=== PATIENT | male | born 1955 | race Caucasian/White ===

== ENCOUNTER 2017-12-20 04:21 | Observation (INO) | payer OTHER, SELFPAY ==
[2017-12-20] VITALS (8 sets, daily range): BP systolic 91–105; BP diastolic 62–74; PULSE 59–106; RESP 16–20; TEMP 36.4–36.7; O2SAT 96–97; BMI 27.8; BMI 27.3
--- NOTE | 2017-12-20 04:36 | EKG12_ITS ---
Test Reason : PALPS Blood Pressure : / mmHG Vent. Rate : 111 BPM Atrial Rate : 088 BPM P-R Int : 000 ms QRS Dur : 094 ms QT Int : 302 ms P-R-T Axes : 000 060 062 degrees QTc Int : 410 ms Atrial fibrillation Abnormal ECG Confirmed by ERROL MCKEON ([id number]), art editor DAYANA PEREZ ([id number]) on 12/24/2017 1:15:04 PM Referred By: ALDAIR Confirmed By:ERROL MCKEON
--- NOTE | 2017-12-20 04:37 | RAD_ITS ---
STUDY: X-RAY CHEST REASON FOR EXAM: Male, 62 years old. Syncope TECHNIQUE: Frontal and lateral views of the chest. COMPARISON: None. FINDINGS: The lungs are clear and expanded. There is no demonstrated pleural abnormality. Normal size heart. Normal mediastinum and torsten. Normal visualized pulmonary arteries. Normal visualized aortic arch and descending thoracic aorta. Normal visualized thoracic spine. Remote rib trauma. There is no demonstrated abnormality of the visualized soft tissue structures of the upper abdomen. RAD/Chest PA and Lateral IMPRESSION: No acute pulmonary findings. Electronically Signed: Cam Nagel MD at 5:00 EST Tel , Service support ,
[2017-12-20 04:45] LABS: Absolute Lymphocyte Count 2.09 X10^3/ul (0.83-4.51); Absolute Neutrophil Count 3.9 X10^3/uL (2.0-7.7); Basophil# 0.03 X10^3/uL; Basophil% 0.4 % (0-1); Eosinophil# 0.35 X10^3/uL; Eosinophils% 4.8 % (0-5); Hematocrit 45.5 % (40-54); Hemoglobin 15.5 g/dl (13.0-16.5); Lymphocyte # 2.09 X10^3/ul (4.0); Lymphocyte % 28.8 % (19-41); Mean Corp Hgb Conc 34.1 g/gl (32-36); Mean Corpuscular Hgb 31.4 pg (27.0-32.0); Mean Corpuscular Volume 92.3 fL (80-94); Mean Platelet Vol. 9.9 fl (6.2-12.0); Monocyte# 0.89 X10^3/uL; Monocyte% 12.3 % (0-10); Neutrophil # 3.88 X10^3/uL (2.7-7.7); Neutrophil % 53.6 % (47-70); Platelet Count 236 K/mm3 (150-450); RBC Distribution Width CV 12.6 % (11.6-14.6); RBC Distribution Width SD 42.2 fl (35.1-43.9); Red Blood Count 4.93 M/mm3 (4.6-6.2); White Blood Count 7.3 K/mm3 (4.4-11.0)
[2017-12-20] MEDS: Aspirin 81 MG TAB.CHEW 324 MG PO (04:46)
[2017-12-20 04:56] LABS: POSITIVE COUNT NO; POSITIVE DIFFERENTIAL NO; POSITIVE MORPHOLOGY NO
[2017-12-20 05:01] LABS: Anion Gap 8 (5-15); BUN 21 mg/dL (7-18); BUN/Creat Ratio 18.1 RATIO (10-20); Calcium,Total 8.7 mg/dL (8.5-10.1); Chloride 103 mmol/L (98-107); Creatinine, Serum 1.16 mg/dL (0.70-1.30); EST Glomerular Filtration Rate 67 mL/min (>60); Est Glom Filt Rate - Afr Amer 81 mL/min (>60); Estimated Creatinine Clearance 66.43 ml/min; Glucose 119 mg/dL (74-106); Potassium 3.4 mmol/L (3.5-5.1); Sodium Level 139 mmol/L (136-145)
--- NOTE | 2017-12-20 05:32 | ED.VISSUMM ---
- ER Visit Summary Date of Service: 12/20/17 Chief Complaint: Syncope History of Present Illness: The patient is a 62 M presenting for evaluation secondary to syncope. Patient states that he woke up this evening and urinated. While he was urinating he started to have a feeling of nausea. He finished urinating try to walk back to his bed and suffered an episode where he passed out. Patient states it was preceded by palpitations. Patient states that he is continuing to have palpitations. Denies any chest pain or shortness of breath. Denies any cardiac history, but does state that he has a prior history of palpitations but he takes an as needed beta-[place] 4. These episodes typically last 12 hours or less and did not seem to be inducible. Patient states that he has not felt ill recently no fevers chills weight loss nausea vomiting cough diarrhea or any other infectious signs or symptoms. Review of systems otherwise negative. Physical Examination: Vital signs are within normal limits, patient is afebrile. General: Patient is well-nourished well-developed and in no acute distress. Head: Normocephalic, atraumatic Eyes: Pupils equal round and reactive bilaterally, extra occular motion intact bialterally ENT: Moist mucous membranes Neck: Supple, no lymphadenopathy, no JVD, no meningismus CVS: Heart irregularly irregular with mild tachycardia, no murmurs, rubs or gallops, radial pulses 2+ bilaterally Resp: Respirations nondistressed, lung sounds clear bilaterally Abdomen: Soft, nontender, nondistended, no palpable masses, normal bowel sounds Back: Nontender Extremities: Nontender, atraumatic, active full range of motion, no peripheral edema Skin: warm, no rashes, no petechia Neuro: Alert and oriented x 4, CN 2-12 intact, no lateralizing neurological defecits Psyc: Normal affect Test Results: EKG demonstrates new onset atrial fibrillation with a ventricular rate of 111, isoelectric ST segments normal T waves. CBC chemistry troponin unremarkable. PA and lateral chest x-ray per radiology negative. Emergency Department Course and Treatment: Patient presented secondary to a syncopal episode. Patient's episode really sounds like micturition syncope, but his workup uncovered the fact that he is in new onset atrial fibrillation. Remainder of his workup was otherwise unremarkable and currently he is rate controlled between 90 and 100. Per the [place] syncope study the patient does require admission at this time. Patient will be admitted for cardiology evaluation for new onset A. fib and syncope. Disposition: Admission Impression: 1. Syncope 2. New onset atrial fibrillation This note was generated with [employer] [place] dictation software. It may contain incorrect words, spelling, and punctuation that were not noted in review of the chart prior to signing ED Disposition - Plan for ED Patient: Chief Complaint: Syncope Referrals: Anatoly Guillermo III, MD [Primary Care Provider] -
--- NOTE | 2017-12-20 05:49 | HP.PCM_ITS ---
Problem List (1) Syncope Status: Acute Qualifiers: Syncope type: unspecified Qualified Code(s): R55 - Syncope and collapse (2) Paroxysmal A-fib Status: Chronic History of Present Illness Date of Admission: 12/20/17 Chief Complaint: Syncope this am The patient is a 62 year old M with past medical history of paroxysmal atrial fibrillation, on atenolol, comes in a syncopal episode. Patient woke up this morning at 3 AM to go use the bathroom downstairs, he felt nauseous after urinating, and decided to come upstairs into his bed. His had a fall down face flat in the room. She rushed to him, and it took a while for him to respond but when he did, he was not confused, no seizure-like movement seen. There was no incontinence of urine or stool seen. Vitals in the ED were stable with HR 106. Labs were unremarkable except for hypokalemia. EKG showed Atrial fibrillation. Past Medical History Past Medical History (Chronic Problems): Chronic Problems Paroxysmal A-fib (Chronic) Allergies No Known Allergies Allergy (Verified 12/20/17 04:24) Home Medications: Ambulatory Orders Medication Instructions Recorded Atenolol 50 mg PO PRN PRN 12/20/17 Psychiatric History: No pertinent psych hx Lives: Spouse/ Significant Other Smoking Status: Never smoker Tobacco Use: Non-smoker Alcohol: None Drugs: None - *Family History Maternal History Items: Hypertension Paternal History Items: Heart Disease Review of Systems Constitutional: Denies: Anorexia, Chills, Fever, Night Sweats, Weakness, Weight Change Eyes: Denies: Blurred vision, Cataracts, Conjunctivae Inflammation, Double vision HEENT: Denies: Difficulty Hearing, Difficulty Swallowing, Head Aches, Sinus Congestion, Sinus Drainage, Sore Throat Cardiovascular: Reports: Light Headedness. Denies: Chest Pain, Claudication, Orthopnea, Palpitations, Paroxysmal Noc. Dyspnea Respiratory: Denies: Cough, Hemoptysis, Shortness of Breath, Shortness of breath at rest, Shortness of breath upon exertion, Sputum production Gastrointestinal: Denies: Abdominal Pain, Constipation, Nausea, Vomiting Genitourinary: Denies: Dysuria, Frequency Musculoskeletal: Denies: Joint Pain, Joint stiffness, Joint swelling, Joint Tenderness Skin: Denies: Dryness, Jaundice, Rash, Wounds Neurological: Denies: Difficulty swallowing, Focal weakness, Numbness, Tingling Psychiatric: Denies: Anxiety, Depression, Homicidal Ideations, Suicidal Ideations Hematologic/ Lymphatic: Denies: Easy Bruising, Easy Bleeding VTE Information - Inpt Only VTE Present on Admission: No VTE Pharm Prophylaxis ordered?: Yes Patient Problems: Active and Suspected Problems Syncope (Acute) - Physical Exam General: Alert, Oriented x3, Cooperative, No apparent distress HEENT: Atraumatic, PERRLA, EOMI, Normocephalic Neck: Supple Lungs: Clear to auscultation, Normal air movement Cardiovascular: Normal S1, Normal S2, No murmurs, Irregular Rate Abdomen: Bowel Sounds Present, Soft, Non Tender, Non-Distended, No Hepato- splenomegaly Extremities: No edema Skin: No rashes Musculoskeletal: No Tenderness to Palpation of Joints or Extremities Neurological: Cranial nerves II-XII grossly intact, Motor Exam 5/5 strength throughout Psych/Mental Status: Normal Affect, Appropriate Vital Signs Temp Pulse Resp BP Pulse Ox 97.5 F L 106 H 17 94/69 97 12/20/17 04:26 12/20/17 04:26 12/20/17 04:26 12/20/17 04:26 12/20/17 04:26 Oxygen Flow Rate 2 Oxygen Delivery Method Nasal Cannula Weight: 88 kg Body Mass Index (BMI) 27.8 Laboratory Tests Past 24 Hrs 12/20/17 12/20/17 04:30 04:30 WBC 7.3 RBC 4.93 Hgb 15.5 Hct 45.5 MCV 92.3 MCH 31.4 MCHC 34.1 RDW 12.6 RDW Differential 42.2 Plt Count 236 MPV 9.9 Immature Gran % (Auto) 0.100 Neut % (Auto) 53.6 Lymph % (Auto) 28.8 [place] % (Auto) 12.3 H Eos % (Auto) 4.8 Baso % (Auto) 0.4 Absolute Neuts (auto) 3.9 Absolute Lymphs (auto) 2.09 Total Counted Not Reportable Sodium 139 Potassium 3.4 L Chloride 103 Carbon Dioxide 28.0 Anion Gap 8 BUN 21 H Creatinine 1.16 Estim Creat Clear Calc 66.43 Est GFR (MDRD) Af Amer 81 Est GFR (MDRD) Non-Af 67 BUN/Creatinine Ratio 18.1 Glucose 119 H Calcium 8.7 Troponin I < 0.02 Assessment/Plan Active and Suspected Problems Syncope (Acute) 62 year old M with past medical history of paroxysmal atrial fibrillation, on atenolol, comes in a syncopal episode. 1. Syncope, likely vasovagal, patient had it after micturition, no significant medical history except for paroxysmal atrial fibrillation, vitals are stable, EKG shows A. fib rate controlled, labs are unremarkable except for hypokalemia Plan: Admit to PCU, monitor on telemetry, vitals, IV fluids, in a.m. 2. Atrial fibrillation, paroxysmal, CHADS2 score 0-1, on atenolol, cardiology consult, aspirin 81mg po daily. 3. Hypokalemia, replaced, recheck in a.m. 4. DVT PPx - Lovenox SC Code Visit Inpatient E&M: 74406 Init Hosp L3
--- NOTE | 2017-12-20 06:17 | ECHOCS_ITS ---
Reason For Study: Syncope/Near Syncope Procedure This was a 2D Doppler, Color Flow transthoracic echocardiogram. Exam performed portable in patient room. Left Ventricle Normal size and thickness. The estimated ejection fraction is 65 %. Normal diastology for age. No regional wall motion abnormalities noted. Right Ventricle Normal size and thickness. Normal systolic function. Atria Normal left atrium. Normal right atrium. Normal atrial septum. Mitral Valve The mitral valve is structurally normal. No prolapse or stenosis seen. Tricuspid Valve Normal tricuspid valve. Trivial tricuspid valve insufficiency. Right ventricular systolic pressure estimated to be 23 mmHg. Aortic Valve Normal aortic valve. Trisinus/trileaflet aortic valve. Pulmonic Valve Normal pulmonic valve. Trivial eccentric pulmonic valve insufficiency. Great Vessels Normal aortic root. Normal arch. Normal inferior vena cava. Inferior vena cava collapse with sniff. Pericardium/Pleural No pericardial effusion. Medication Definity0.3ml given slow IV push to enhance endocardial definition. MMode/2D Measurements & Calculations LVIDd: 4.4 cm IVSd: 0.85 cm Ao root diam: 2.9 cm LVIDs: 3.1 cm LVPWd: 0.95 cm LA dimension: 3.1 cm RVDd: 3.9 cm FS: 29.1 % LAV(MOD-bp): 29.8 ml LA A4 area: 11.6 cm2 RA A4 area: 11.6 cm2 LAV(MOD-bp) Indexed: 14.5 ml/m2 LAV(MOD-sp2): 34.9 ml LAV(MOD-sp4): 26.1 ml Doppler Measurements & Calculations MV E max jayro: 56.6 cm/sec Lat Peak E' Jayro: 9.4 cm/sec Med Peak E' Jayro: 7.0 cm/sec E/E' lat: 6.0 E/E' med: 8.0 Ao V2 max: 94.4 cm/sec LV V1 max: 76.0 cm/sec PA V2 max: 65.8 cm/sec Ao max P.6 mmHg LV V1 max P.3 mmHg Ao V2 mean: 71.9 cm/sec Ao mean P.2 mmHg Ao V2 VTI: 21.9 cm TR max jayro: 196.6 cm/sec TR max P.5 mmHg Interpretation Summary The estimated ejection fraction is 65 %. Normal diastology for age. Trivial tricuspid valve insufficiency. Right ventricular systolic pressure estimated to be 23 mmHg. There is no comparison study available. The study was technically difficult. Contrast injection was performed. Ordering Physician: Naomi Damico Referring Physician: Anatoly Guillermo Performed By: Kezia Lebron RDCS, RVT
[2017-12-20 06:44] LABS: Thyroid Stim Hormone (TSH) 4.14 uIU/mL (0.358-3.74)
[2017-12-20] MEDS: 0.9% Normal Saline 1,000 ML 75 ML IV (06:49)
--- NOTE | 2017-12-20 07:39 | EKG12_ITS ---
Test Reason : RETURN TO NSR Blood Pressure : / mmHG Vent. Rate : 059 BPM Atrial Rate : 059 BPM P-R Int : 124 ms QRS Dur : 092 ms QT Int : 412 ms P-R-T Axes : 017 030 051 degrees QTc Int : 407 ms Sinus bradycardia Otherwise normal ECG When compared with ECG of 20-DEC-2017 04:33, MANUAL COMPARISON REQUIRED, DATA IS UNCONFIRMED Confirmed by ERROL MCKEON ([id number]), associate entertainment editor DAYANA PEREZ ([id number]) on 12/24/2017 2:28:42 PM Referred By: BERNARDO Confirmed By:ERROL MCKEON
--- NOTE | 2017-12-20 09:53 | STEWCON_ITS ---
Reason For Study: Palpitations Stress Results Protocol: Chaitanya Protocol Maximum Predicted HR: 156 bpm Target HR: 133 bpm% Max imum Predicted HR: 95 % DurationHeart Rate Stage (mm:ss) (bpm) BP Baseline 60 102/80 Stage 1 3:00 10 3 118/70 Stage 2 3:00 13 1 142/60 Stage 3 2:00 14 8 / Recovery 91 114/82 Stress Duration: 8:00 mm:ss Maximum Stress HR: 148 bpm Baseline Echocardiogram Findings The estimated ejection fraction is 65 %. Stress Echo Wall motion Data Resting WMIntermediate WMStress WM Resting Wall Motion Wall Motion Stress No regional wall motion No regional wall motion abnormalities noted. abnormalities noted. EKG Data Normal intervals are noted. The patient exercised according to the regular Chaitanya protocol for a total duration of 8:00. The maximum heart rate attained was 148 beats per minute. This was 94% of maximum predicted heart rate. The patient exercised into stage 3 of the Chaitanya protocol. During stress, there were no ST or T wave changes noted to suggest ischemia. No clinical angina was noted. No arrhythmias noted. Interpretation Summary There is no comparison study available. The estimated ejection fraction is 65 %. Normal adequate treadmill echocardiogram. Negative for ischemia by EKG and echocardiographic anterior. No anginal symptoms noted. No arrhythmias noted. Appropriate blood pressure response to exercise. Below average exercise capacity for age. Test terminated due to attainment of target heart rate. Patient tolerated procedure well. No complications. Ordering Physician: Charles Feldman Referring Physician: Charles Feldman MD Performed By: Terri Velez, MARVIN, RVT
--- NOTE | 2017-12-20 11:42 | PCM.CONS.C ---
Problem List (1) Syncope Status: Acute Qualifiers: Syncope type: unspecified Qualified Code(s): R55 - Syncope and collapse (2) Paroxysmal A-fib Status: Chronic Reason for Consult Date of Consultation: 12/20/17 Reason for Consultation: Syncope, paroxysmal atrial fibrillation, hypertension History of Present Illness: The patient is a 62 year old M, nondiabetic, no previous cardiac history, no tobacco, no alcohol, with positive hypertension and A. fib in the past. The patient was placed on atenolol therapy but he took it intermittently. Patient has never had a stress test or catheterization. 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 Apparently last evening while the patient was going to the bathroom and urinating a copious amount due to a markedly full bladder, the patient developed nausea, dizziness, and almost made it back to bed before he passed out. According to his who was next to him he was out for about 2-3 minutes and then spontaneously awoke and was completely lucid. He had associated diaphoresis, looked pale, and has never passed out before. The patient was brought to the [facility] ER where he was found to be in atrial fibrillation with rapid ventricular response. Overnight he converted back to normal sinus rhythm. Patient denied any associated chest pain, angina, shortness of breath or dyspnea. He has never seen a urologist and has unknown BPH. He ruled out for myocardial infarction with troponins negative ?2. Stress echo is pending. [] Past Medical History Allergies/Adverse Reactions: Allergies No Known Allergies Allergy (Verified 12/20/17 06:24) Home Medications: Ambulatory Orders Medication Instructions Recorded Atenolol 50 mg PO PRN PRN 12/20/17 Past Medical History (Chronic Problems): Chronic Problems Paroxysmal A-fib (Chronic) Psychiatric History: No pertinent psych hx - *Family History Maternal History Items: Hypertension Paternal History Items: Heart Disease Lives: Spouse/ Significant Other Smoking Status: Never smoker Tobacco Use: Non-smoker Alcohol: None Drugs: None Review of Systems - Review of Systems General: Denies: Fever, Night Sweats, Fatigue Cardiovascular: Reports: Palpitations, Lightheadedness, Dizziness, Syncope. Denies: Chest Discomfort, Shortness of Breath, Orthopnea, PND, Peripheral Edema, Near Syncope Respiratory: Denies: Cough, Sputum Production, Hemoptysis Gastrointestinal: Denies: Hematemesis, Hematochezia, Melena Genitourinary: Denies: Dysuria, Hematuria Skin: Denies: Rash Subjectve: Patient laying in bed, no acute distress. Objective: Vital Signs Temp Pulse Resp BP Pulse Ox 97.8 F 81 16 91/65 96 12/20/17 06:20 12/20/17 11:02 12/20/17 06:20 12/20/17 06:36 12/20/17 06:20 Oxygen Delivery Method Room Air Weight: 190 lb 4.143 oz Body Mass Index (BMI) 27.3 Orthostatic Vital Signs Start: 12/20/17 06:36 Freq: q24h Status: Active Protocol: Activity Type Activity Date Activity User E-Sign Co-Sign Detail Recorded Client Recorded Date Recorded By Document 12/20/17 06:36 [facility] [id number] 12/20/17 06:39 RICHARD 12/20/17 06:36 Orthostatic Vitals Standing -Blood Pressure (90/60-120/80) 101/67 -Extremity Use Right Arm -Pulse Rate (60-100) 105 H Sitting -Blood Pressure (90/60-120/80) 105/63 -Extremity Use Right Arm -Pulse Rate (60-100) 101 H Lying -Blood Pressure (90/60-120/80) 91/65 -Extremity Use Right Arm -Pulse Rate (60-100) 93 General: Awake, Alert, Oriented x 3 HEENT: PERRL, EOMI, Sclera Non Icteric Neck: Supple, Good ROM, No Lymph Node Enlargement Lungs: Clear to auscultation Cardiovascular: Regular Rhythm, Normal S1, Normal S2, No Murmurs, No Rubs, No Gallops Vascular: No Carotid Bruits, Normal Femoral Pulses, Normal Radial Pulses, Normal Dorsalis Pedal Pulse, Normal Posterior Tibial Pulses Abdomen: Bowel Sounds Present, Soft, Non Tender, No HSM, No Organomegaly Extremities: No Cyanosis, No Clubbing, No edema Neurological: No Focal Motor or Sensory Deficit 12/20/17 08:20: Troponin I < 0.02 Rhythm: EKG: ECHO: Pending Stress Test: Pending Cardiac Cath: PCI: CT Surgery: Holter monitor: EPS: PPM: CXR: Chest CT Scan: Assessment/Plan 1. Syncope: The patient appears to have micturition syncope last evening combined with atrial fibrillation post syncope. The patient does have a history of atrial fibrillation in the past. He is currently in normal sinus rhythm. I recommend the patient undergo a 2D echo with Doppler to document his LV function, as well as a treadmill echocardiogram to determine if he has any significant ischemia or poor chronotropic response to exercise. I would recommend that he be started and maintained on atenolol 25 mg p.o. daily to avoid neurocardiogenic syncope as well as to hopefully suppress atrial fibrillation in the future. The patient's stress test and echo are within normal limits he may be discharged home. I would not recommend anticoagulation for this alone atrial fibrillation particularly in light of his syncope. In addition I recommend the patient consider evaluation by urologist for possible BPH given his urinary retention and micturition syncope. 2. Hyperlipidemia: Recommend obtaining a fasting lipid profile if not already done so. Recommend treating his LDL of greater than 130. 3. Thank you very much for the opportunity to precipitate the cardiac care of your patient. Consultation time took place between 9 AM and 9:30 AM. Code Visit Inpatient E&M: 26167 Init Hosp L2
--- NOTE | 2017-12-20 11:49 | CON.PCM_ITS ---
Problem List (1) Syncope Status: Acute Qualifiers: Syncope type: unspecified Qualified Code(s): R55 - Syncope and collapse (2) Paroxysmal A-fib Status: Chronic Reason for Consult Date of Consultation: 12/20/17 Reason for Consultation: Syncope, paroxysmal atrial fibrillation, hypertension History of Present Illness: The patient is a 62 year old M, nondiabetic, no previous cardiac history, no tobacco, no alcohol, with positive hypertension and A. fib in the past. The patient was placed on atenolol therapy but he took it intermittently. Patient has never had a stress test or catheterization. 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 Apparently last evening while the patient was going to the bathroom and urinating a copious amount due to a markedly full bladder, the patient developed nausea, dizziness, and almost made it back to bed before he passed out. According to his who was next to him he was out for about 2-3 minutes and then spontaneously awoke and was completely lucid. He had associated diaphoresis, looked pale, and has never passed out before. The patient was brought to the [facility] ER where he was found to be in atrial fibrillation with rapid ventricular response. Overnight he converted back to normal sinus rhythm. Patient denied any associated chest pain, angina, shortness of breath or dyspnea. He has never seen a urologist and has unknown BPH. He ruled out for myocardial infarction with troponins negative ?2. Stress echo is pending. [] Past Medical History Allergies/Adverse Reactions: Allergies No Known Allergies Allergy (Verified 12/20/17 06:24) Home Medications: Ambulatory Orders Medication Instructions Recorded Atenolol 50 mg PO PRN PRN 12/20/17 Past Medical History (Chronic Problems): Chronic Problems Paroxysmal A-fib (Chronic) Psychiatric History: No pertinent psych hx - *Family History Maternal History Items: Hypertension Paternal History Items: Heart Disease Lives: Spouse/ Significant Other Smoking Status: Never smoker Tobacco Use: Non-smoker Alcohol: None Drugs: None Review of Systems - Review of Systems General: Denies: Fever, Night Sweats, Fatigue Cardiovascular: Reports: Palpitations, Lightheadedness, Dizziness, Syncope. Denies: Chest Discomfort, Shortness of Breath, Orthopnea, PND, Peripheral Edema , Near Syncope Respiratory: Denies: Cough, Sputum Production, Hemoptysis Gastrointestinal: Denies: Hematemesis, Hematochezia, Melena Genitourinary: Denies: Dysuria, Hematuria Skin: Denies: Rash Subjectve: Patient laying in bed, no acute distress. Objective: Vital Signs Temp Pulse Resp BP Pulse Ox 97.8 F 81 16 91/65 96 12/20/17 06:20 12/20/17 11:02 12/20/17 06:20 12/20/17 06:36 12/20/17 06:20 Oxygen Delivery Method Room Air Weight: 190 lb 4.143 oz Body Mass Index (BMI) 27.3 Orthostatic Vital Signs Start: 12/20/17 06:36 Freq: q24h Status: Active Protocol: Activity Type Activity Date Activity User E-Sign Co-Sign Detail Recorded Client Recorded Date Recorded By Document 12/20/17 06:36 [facility] [id number] 12/20/17 06:39 RICHARD 12/20/17 06:36 Orthostatic Vitals Standing -Blood Pressure (90/60-120/80) 101/67 -Extremity Use Right Arm -Pulse Rate (60-100) 105 H Sitting -Blood Pressure (90/60-120/80) 105/63 -Extremity Use Right Arm -Pulse Rate (60-100) 101 H Lying -Blood Pressure (90/60-120/80) 91/65 -Extremity Use Right Arm -Pulse Rate (60-100) 93 General: Awake, Alert, Oriented x 3 HEENT: PERRL, EOMI, Sclera Non Icteric Neck: Supple, Good ROM, No Lymph Node Enlargement Lungs: Clear to auscultation Cardiovascular: Regular Rhythm, Normal S1, Normal S2, No Murmurs, No Rubs, No Gallops Vascular: No Carotid Bruits, Normal Femoral Pulses, Normal Radial Pulses, Normal Dorsalis Pedal Pulse, Normal Posterior Tibial Pulses Abdomen: Bowel Sounds Present, Soft, Non Tender, No HSM, No Organomegaly Extremities: No Cyanosis, No Clubbing, No edema Neurological: No Focal Motor or Sensory Deficit 12/20/17 08:20: Troponin I < 0.02 Rhythm: EKG: ECHO: Pending Stress Test: Pending Cardiac Cath: PCI: CT Surgery: Holter monitor: EPS: PPM: CXR: Chest CT Scan: Assessment/Plan 1. Syncope: The patient appears to have micturition syncope last evening combined with atrial fibrillation post syncope. The patient does have a history of atrial fibrillation in the past. He is currently in normal sinus rhythm. I recommend the patient undergo a 2D echo with Doppler to document his LV function, as well as a treadmill echocardiogram to determine if he has any significant ischemia or poor chronotropic response to exercise. I would recommend that he be started and maintained on atenolol 25 mg p.o. daily to avoid neurocardiogenic syncope as well as to hopefully suppress atrial fibrillation in the future. The patient's stress test and echo are within normal limits he may be discharged home. I would not recommend anticoagulation for this alone atrial fibrillation particularly in light of his syncope. In addition I recommend the patient consider evaluation by urologist for possible BPH given his urinary retention and micturition syncope. 2. Hyperlipidemia: Recommend obtaining a fasting lipid profile if not already done so. Recommend treating his LDL of greater than 130. 3. Thank you very much for the opportunity to precipitate the cardiac care of your patient. Consultation time took place between 9 AM and 9:30 AM. Code Visit Inpatient E&M: 77936 Init Hosp L2
--- NOTE | 2017-12-20 13:16 | DCINST_ITS ---
- Discharge Diagnoses Current Active Problems: Current Active and Chronic Problems Syncope (Acute) Paroxysmal A-fib (Chronic) You will use the following diet at home:: Calorie/Carbohydrate Controlled ( specify 1200, 1400, etc) Allergies/Adverse Reactions: Allergies No Known Allergies Allergy (Verified 12/20/17 06:24) Medications to take at Discharge Atenolol 50 mg PO PRN PRN 12/20/17 Primary Care Physician: Anatoly Guillermo III, MD [Primary Care Provider] - Within 2 Weeks
--- NOTE | 2017-12-20 13:16 | PCM.DC.SUM ---
Discharge Date and Diagnosis - Problem List Patient Problems: Active and Suspected Problems Syncope (Acute) Date of Admission: 12/20/17 Date of Discharge: 12/20/17 - Primary Discharge Diagnosis Active and Suspected Problems Syncope (Acute) - Secondary Discharge Diagnosis Chronic Problems Paroxysmal A-fib (Chronic) Hospital Course and Treatment Imaging Results: 12/20/17 06:17 Echo Complete W/ Contrast [ECHO] Routine 12/20/17 09:53 Stress Test Echo w/o Contrast [ECHO] Routine Summary of Care Provided: The patient is a 62 year old M with past medical history of paroxysmal atrial fibrillation, on atenolol, comes in a syncopal episode. Patient woke up this morning at 3 AM to go use the bathroom he urinated copious amount due to a markedly full bladder, the patient developed nausea, dizziness, and almost made it back to bed before he passed out. He is felt to have some situational syncope, cardiology and stress echocardiogram was obtained and did not reveal any evidence of ischemia or valvular abnormality. Patient was started on Flomax 0.4 mg for his BPH and recommended to follow with the primary care doctor. He was discharged home in a stable condition. Discharge Diet: No Restrictions Home Medications: Medications to take at Discharge Atenolol 50 mg PO PRN PRN 12/20/17 Primary Care Physician: Anatoly Guillermo III, MD [Primary Care Provider] - Within 2 Weeks Disposition: Home Patient Condition:: Good Meaningful Use Info Meaningful Use Diagnoses (Choose all that apply): None applicable Code Visit OBSV E&M: 46619 Observ/hosp same date L3
== END 2017-12-20 13:14 | disposition home or self-care (01) ==
LOC: ED 05:27 → PCU 05:59
PROVIDERS: Admitting Provider Internal Medicine; Emergency Provider Emergency Medicine; Family Provider Family Medicine; PCP Family Medicine; Visit Provider Internal Medicine
DX: R55 Syncope and collapse (principal); I48.0 Paroxysmal atrial fibrillation; I10 Essential (primary) hypertension; E78.5 Hyperlipidemia, unspecified; R33.9 Retention of urine, unspecified; R11.0 Nausea; E87.6 Hypokalemia
CPT/HCPCS: 36415; 71046; 80048; 84443; 84484; 85025; 93005; 93017; 93306; 93350; 96360; 96361; 99218; 99285; J7030; Q9957; A4216; C8929; G0378

== ENCOUNTER → 2018-01-21 08:12 | Outpatient (CLI) | payer OTHER, SELFPAY ==
[2018-01-21 09:03] LABS: Anion Gap 6 (5-15); BUN 17 mg/dL (7-18); BUN/Creat Ratio 14.8 RATIO (10-20); Calcium,Total 9.1 mg/dL (8.5-10.1); Chloride 103 mmol/L (98-107); Creatinine, Serum 1.15 mg/dL (0.70-1.30); EST Glomerular Filtration Rate 68 mL/min (>60); Est Glom Filt Rate - Afr Amer 82 mL/min (>60); Glucose 87 mg/dL (74-106); Magnesium 2.4 mg/dL (1.6-2.6); Potassium 4.1 mmol/L (3.5-5.1); Sodium Level 139 mmol/L (136-145); Thyroid Stim Hormone (TSH) 1.97 uIU/mL (0.358-3.74)
== END ==
PROVIDERS: Family Provider Family Medicine; PCP Family Medicine; Visit Provider Physician Assistant Medical
DX: I48.0 Paroxysmal atrial fibrillation (principal); R55 Syncope and collapse
CPT/HCPCS: 36415; 80048; 83735; 84443

== ENCOUNTER → 2018-10-24 10:54 | Outpatient (REF) | payer OTHER, SELFPAY ==
[2018-10-14 15:00] VITALS: BMI 28.1
== END ==
LOC: CVS 10:54
PROVIDERS: Family Provider Family Medicine; PCP Family Medicine; Referring Provider Internal Medicine Cardiovascular Disease; Visit Provider Internal Medicine Cardiovascular Disease
DX: I48.0 Paroxysmal atrial fibrillation (principal)
CPT/HCPCS: 93270

== ENCOUNTER → 2020-03-11 08:57 | Outpatient (CLI) | payer SELFPAY ==
[2019-11-12 10:51] VITALS: BMI 27.9
--- NOTE | 2020-03-11 08:58 | ECHOD_ITS ---
Reason For Study: AFIB Procedure This was a 2D Doppler, Color Flow transthoracic echocardiogram. Exam performed in department. Left Ventricle Normal size and thickness. The estimated ejection fraction is 65 %. Septal motion consistent with IVCD. Stage 1 diastolic dysfunction. No regional wall motion abnormalities noted. Right Ventricle Mildly dilated right ventricle. Normal systolic function. Atria Normal left atrium. Normal right atrium. Normal atrial septum. Mitral Valve The mitral valve is structurally normal. No prolapse or stenosis seen. Tricuspid Valve Normal tricuspid valve. Mild (1+) tricuspid valve insufficiency. Right ventricular systolic pressure estimated to be 26 mmHg. Aortic Valve Normal aortic valve. Trisinus/trileaflet aortic valve. Pulmonic Valve Normal pulmonic valve. Trivial pulmonic valve insufficiency. Great Vessels Normal aortic root. Normal arch. Normal inferior vena cava. Inferior vena cava collapse with sniff. Pericardium/Pleural No pericardial effusion. MMode/2D Measurements & Calculations LVIDd: 3.7 cm IVSd: 0.85 cm Ao root diam: 3.2 cm LVIDs: 2.7 cm LVPWd: 0.84 cm RVDd: 3.6 cm FS: 28.6 % LAV(MOD-bp): 36.2 ml LA A4 area: 15.4 cm2 LA dimension(2D): 3.6 cm LAV(MOD-bp) Indexed: 17.7 ml/m2 LAV(MOD-sp2): 34.3 ml LAV(MOD-sp4): 38.3 ml RA A4 area: 13.7 cm2 Time Measurements MV dec time: 0.22 sec Doppler Measurements & Calculations MV E max jayro: 52.6 cm/sec Lat Peak E' Jayro: 10.3 cm/sec Med Peak E' Jayro: 6.3 cm/sec MV A max jayro: 63.1 cm/sec E/E' lat: 5.1 E/E' med: 8.4 MV E/A: 0.83 Ao V2 max: 78.2 cm/sec LV V1 max: 69.4 cm/sec PA V2 max: 80.1 cm/sec Ao max P.5 mmHg LV V1 max P.9 mmHg PI end-d ajyro: 107.2 cm/sec TR max jayro: 226.9 cm/sec TR max P.6 mmHg Interpretation Summary The estimated ejection fraction is 65 %. Stage 1 diastolic dysfunction. Mildly dilated right ventricle. Mild (1+) tricuspid valve insufficiency. Right ventricular systolic pressure estimated to be 26 mmHg. Patient appears to be in normal sinus rhythm on today's exam. There is no comparison study available. Ordering Physician: Charles Feldman Referring Physician: Charles Feldman Performed By: Terri Velez, MARVIN, RVT
--- NOTE | 2020-03-11 08:58 | STEWCON_ITS ---
Reason For Study: AFIB/FLUTTER Stress Results Protocol: Chaitanya Protocol WITH DEFINITY Maximum Predicted HR: 154 bpm Target HR: 131 bpm % Maximum Predicted HR: 88 % DurationHeart Rate Stage (mm:ss) (bpm) BP Comment BASELINE 71 100/644CC DEFINITY TOTAL FOR TEST STAGE 1 3:00 117 118/64 STAGE 2 3:00 121 128/68 STAGE 3 3:00 136 130/60SOB RECOVERY 93 98/62 Stress Duration: 9:00 mm:ss Maximum Stress HR: 136 bpm Baseline Echocardiogram Findings The estimated ejection fraction is 65 %. Stress Echo Wall motion Data Resting WM Intermediate WM Stress WM Resting Wall Motion Wall Motion Stress No regional wall motion No regional wall motion abnormalities noted. abnormalities noted. EKG Data The baseline ECG displays normal sinus rhythm. The patient exercised according to the regular Chaitanya protocol for a total duration of 9:01. The maximum heart rate attained was 139 beats per minute. This was 90% of maximum predicted heart rate. The patient exercised into stage 4 of the Chaitanya protocol. During stress, there were no ST or T wave changes noted to suggest ischemia. No clinical angina was noted. No arrhythmias noted. Interpretation Summary The estimated ejection fraction is 65 %. Normal, adequate, treadmill echocardiogram. Negative for ischemia by EKG and echocardiographic criteria. No anginal symptoms noted. No arrhythmias noted. Appropriate blood pressure response to exercise. Average exercise capacity for age. Test terminated due to the attainment of target heart rate and dyspnea. Final LVEF of 75%. Decrease sensitivity due to poor echo windows requiring Definity agent. No complications. The study was technically difficult. Contrast injection was performed. Ordering Physician: Charles Feldman Referring Physician: Charles Feldman Performed By: Terri Velez, MARVIN, RVT
== END ==
PROVIDERS: PCP Family Medicine; Referring Provider Internal Medicine Cardiovascular Disease; Visit Provider Internal Medicine Cardiovascular Disease
DX: I48.0 Paroxysmal atrial fibrillation (principal); R00.2 Palpitations
CPT/HCPCS: 93017; 93306; 93350; Q9957; A4216; C8928

== ENCOUNTER → 2021-06-27 13:30 | Outpatient (CLI) | payer SELFPAY, OTHER ==
--- NOTE | 2021-06-27 13:47 | CT_ITS ---
INDICATION: GROSS HEMATURIA EXAMINATION: CT ABDOMEN AND PELVIS WITH AND WITHOUT CONTRAST - CT Abdomen And Pelvis WO/W Contrast Injection TECHNIQUE: Helically acquired images were obtained of the abdomen and pelvis both before and after IV contrast. A radiation dose optimization technique was used for this scan. IV Contrast dosage and agent: Oral contrast: None. COMPARISON: None. FINDINGS: LOWER CHEST: Lung bases are clear. No cardiomegaly or pericardial effusion. LIVER: The liver demonstrates homogenous attenuation, multiple scattered simple hepatic cysts visualized. No evidence of hepatic masses is visualized. No evidence of intrahepatic biliary dilatation is seen. GALLBLADDER AND BILIARY TREE: No calcified gallstones. No gallbladder distension or wall edema. No intra- or extrahepatic biliary ductal dilation. PANCREAS: No focal cystic or solid mass. SPLEEN: Normal size without focal cystic or solid mass. ADRENAL GLANDS: No nodules. KIDNEYS AND URETERS: Normal renal size and position. No hydronephrosis. PERITONEUM: No ascites or free air. No other fluid collection. BOWEL: No evidence of acute appendicitis. No stomach or bowel distension. No focal inflammatory change. LYMPH NODES: No enlarged mesenteric or retroperitoneal lymph nodes. VESSELS: Aorta is non-dilated. URINARY BLADDER: Unremarkable. REPRODUCTIVE ORGANS: No pelvic masses. Mild prominence of the wall of the urinary bladder but no evidence of focal nodularity in the wall to suggest a mass. Marked enlargement of the prostate gland visualized with heterogeneous attenuation consistent scattered calcifications and focal central Low-attenuation visualized. ABDOMINAL WALL: No discrete abdominal or pelvic wall hernia. Left inguinal hernia with herniation of omentum is seen. BONES: No lytic or blastic abnormality. CT/CT Abd/Pelvis W/WO Contrast IMPRESSION: Markedly enlarged prostate gland projecting into the bases of the urinary bladder with extensive scattered calcifications and multiple areas of low attenuation would recommend further evaluation. Left inguinal hernia. Electronically Signed: Agusto Owens MD at 15:38 EDT Tel , Service support ,
== END ==
PROVIDERS: PCP Family Medicine
DX: R31.0 Gross hematuria (principal)
CPT/HCPCS: 74178; Q9967

== ENCOUNTER 2022-01-31 14:36 | Emergency (ER) | payer OTHER, SELFPAY ==
[2022-01-31 14:36] VITALS: BP 115/69; PULSE 58; RESP 16; TEMP 36.5; O2SAT 99; BMI 27.6
--- NOTE | 2022-01-31 14:50 | EDS_ITS ---
HPI History of Present Illness Chief Complaint: Lower Extremity Injury Narrative Narrative: Patient presents with his because of 3 weeks of lower extremity leg swelling. He states that he has history of atrial fibrillation and had a stroke, and is currently taking Eliquis. He has had no residual deficits, no weakness of his leg. He denies any chest pain or shortness of breath. He states while both legs have been swollen, the right one is swollen more, mainly in the calf area. He denies any change in color of his leg, no fevers or chills, no other symptoms. [facility] Medical History History of stroke Paroxysmal A-fib Syncope Home Medications apixaban 5 mg tablet 5 mg PO BID #180 tab 12/21/21 [Rx Last Taken Unknown] flecainide 100 mg tablet 100 mg PO .COMPLEX #90 tab 01/10/22 [Rx Last Taken Unknown] flecainide 50 mg tablet 50 mg PO .COMPLEX #90 tab 01/10/22 [Rx Last Taken Unknown] metoprolol tartrate 25 mg tablet 12.5 mg PO BID #180 tab 01/10/22 [Rx Last Taken Unknown] Allergy/AdvReac Type Severity Reaction Status Date / Time No Known Allergies Allergy Verified 01/31/22 14:38 Family History Father , age 66 Myocardial infarction Mother , Age 87 CVA (cerebral vascular accident) Brother H/O cardiac radiofrequency ablation Sister Cancer Brother Cancer leukemia Sister CVA (cerebral vascular accident) Other Family history of ischemic heart disease Surgical History History of prostatectomy History of transurethral resection of prostate (08/09/21) Social History Smoking Status: Never smoker alcohol intake: never caffeine: Yes Type: coffee Number of servings: 1 ROS ROS ED ROS Narrative Constitutional: No fever, no chills. HEENT: No sore throat. No neck pain. No loss of vision. No rhinorrhea. Cardiovascular: No chest pain. No palpitations. Bilateral pedal edema right greater than left. Respiratory: No cough, no shortness of breath. Abdominal: No abdominal pain. No nausea. No vomiting. Genitourinary: No dysuria. No hematuria. Musculoskeletal: No myalgias. No arthralgias. Neurologic: No headaches. No dizziness. No lightheadedness. Skin: No rash. No change in color. Psychiatric: No depression. No anxiety. EXAM Physical Exam Narrative Exam Narrative: Afebrile. Vital signs noted. HEENT: Normocephalic. Atraumatic. PERRL, EOMI. Neck soft and supple. No point tenderness or step off. Cardiovascular: Regular rate and rhythm. No murmurs, rubs, or gallops appreciated. Respiratory: No tachypnea. Lungs clear to auscultation bilaterally. Gastrointestinal: Abdomen soft, nontender, with normoactive bowel sounds. No rebound or guarding. Neurological: Awake. Alert. Nonfocal, nonlateralizing. Skin: No rash. Normal color. No pallor. Musculoskeletal: Bilateral pedal edema. Right greater than left. No erythema. No palpable cord. Negative Homans' sign. Palpable dorsalis pedis pulse. Good capillary refill. EHL intact. Full range of motion extremities. Const Vital Signs: 01/31/22 14:36 Temperature 97.7 F L Temperature Source Temporal Pulse Rate 58 L Respiratory Rate 16 Blood Pressure 115/69 Blood Pressure Mean 84 Pulse Ox 99 Oxygen Delivery Method Room Air MDM MDM MDM Narrative Medical decision making narrative: Although the patient is already on Eliquis, I do feel that ultrasound imaging is indicated. Preliminary results show no evidence of DVT. He was told to elevate his leg/legs when possible and perhaps wear compression stockings. I do not feel a diuretic is indicated currently. At this point in time, I feel he can be discharged safely home with follow-up. Return instructions to the emergency department were reviewed. Disposition is discharged home in stable condition. Discharge Plan Triage Chief Complaint: Lower Extremity Injury ED Provider: Sourav Cummings Dx/Rx/DC Orders Clinical Impression: History of stroke, Right leg swelling Instructions: ED Peripheral Edema, Unilateral Prescriptions: No Action Eliquis 5 mg tablet 5 mg PO BID Qty: 180 RF: 4 metoprolol tartrate 25 mg tablet 12.5 mg PO BID Qty: 180 RF: 3 flecainide 50 mg tablet 50 mg PO .COMPLEX Qty: 90 RF: 3 flecainide 100 mg tablet 100 mg PO .COMPLEX Qty: 90 RF: 3 Primary Care Provider: Jose Angel Tolentino Referrals: Jose Angel Tolentino MD [Primary Care Provider] - As soon as possible Disposition Disposition: Home, Self Care
--- NOTE | 2022-01-31 14:52 | VDLE_ITS ---
Reason For Study: Swelling RIGHT LEFT GSV is normal. GSV is normal. CFV is compressible, spontaneous, phasic, CFV is compressible, spontaneous, phasic, competent and demonstrates normal competent, and demonstrates normal augmentation. augmentation. FV is compressible, spontaneous, phasic, FV is compressible, spontaneous, phasic, competent and demonstrates normal competent and demonstrates normal augmentation. augmentation. POP V is compressible, spontaneous, phasic, POP V is compressible, spontaneous, phasic, competent and demonstrates normal competent and demonstrates normal augmentation. augmentation. T/P Trunk is compressible. T/P Trunk is compressible. PTV is compressible. PTV is compressible. RT PerV is compressible. LT PerV is compressible. Procedure This is a venous duplex using B-mode, color flow and spectral Doppler. Exam performed portable in ED. A preliminary report was called and/or faxed to [facility]. VL/Venous Duplex US - Sundar Extrem Interpretation Summary No evidence for acute deep venous thrombosis bilateral lower extremities with p atent and compressible bilateral great saphenous veins. Ordering Physician: Sourav Cummings Referring Physician: MD Rajan Jose Angel Performed By: Farheen Page RVT
== END 2022-01-31 15:37 | disposition home or self-care (01) ==
PROVIDERS: Emergency Provider Emergency Medicine; PCP Family Medicine; Visit Provider Emergency Medicine
DX: M79.89 Other specified soft tissue disorders (principal); I48.91 Unspecified atrial fibrillation; Z86.73 Personal history of transient ischemic attack (TIA), and cerebral infarction without residual deficits; R60.0 Localized edema
CPT/HCPCS: 93970; 99282

== ENCOUNTER 2022-03-25 09:04 | Emergency (ER) | payer OTHER, SELFPAY ==
[2022-03-25 09:06] VITALS: BP 107/64; PULSE 54; RESP 13; TEMP 35.8; O2SAT 99; BMI 27.8
[2022-03-25 09:26] VITALS: BP 99/62; PULSE 55; RESP 16; O2SAT 94
--- NOTE | 2022-03-25 09:35 | EKG12_ITS ---
Test Reason : SYNCOPE Blood Pressure : / mmHG Vent. Rate : 052 BPM Atrial Rate : 052 BPM P-R Int : 182 ms QRS Dur : 108 ms QT Int : 486 ms P-R-T Axes : 072 050 067 degrees QTc Int : 451 ms Sinus bradycardia Otherwise normal ECG Confirmed by TOMAS MARQUEZ MD ([id number]), editor department YAKOV SAMS ([id number]) on 03/27/2022 1:21:12 PM Referred By: CHENG Confirmed By:TOMAS MARQUEZ MD
[2022-03-25] MEDS: Ondansetron 4 MG/2 ML Vial IV (10:14)
[2022-03-25] MEDS: 0.9% Normal Saline 1,000 ML 1000 ML IV (10:14)
[2022-03-25 10:15] VITALS: BP 102/66; PULSE 50; RESP 15; O2SAT 98
[2022-03-25 10:15] LABS: Absolute Lymphocyte Count 0.89 X10^3/uL (0.83-4.51); Absolute Neutrophil Count 7.5 X10^3/uL (2.0-7.7); Basophil# 0.03 X10^3/uL; Basophil% 0.3 % (0-1); Eosinophil# 0.22 X10^3/uL; Eosinophils% 2.4 % (0-5); Hematocrit 40.4 % (40-54); Hemoglobin 13.6 g/dL (13.0-16.5); Lymphocyte # 0.89 X10^3/ul (0.83-4.51); Lymphocyte % 9.5 % (19-41); Mean Corp Hgb Conc 33.7 g/dL (32-36); Mean Corpuscular Hgb 31.6 pg (27.0-32.0); Mean Corpuscular Volume 93.7 fL (80-94); Mean Platelet Vol. 9.7 fl (6.2-12.0); Monocyte# 0.67 X10^3/uL; Monocyte% 7.2 % (0-10); NRBC Flagged by Analyzer 0 % (0-5); Neutrophil % 80.3 % (47-70); Platelet Count 209 K/mm3 (150-450); RBC Distribution Width CV 12.6 % (11.6-14.6); Red Blood Count 4.31 M/mm3 (4.6-6.2); White Blood Count 9.3 K/mm3 (4.4-11.0)
[2022-03-25 10:29] LABS: Anion Gap 4 (5-15); BUN 24 mg/dL (7-18); BUN/Creat Ratio 23.3 RATIO (10-20); Calcium,Total 8.8 mg/dL (8.5-10.1); Chloride 108 mmol/L (98-107); Creatinine, Serum 1.03 mg/dL (0.70-1.30); EST Glomerular Filtration Rate 76 mL/min (>60); Est Glom Filt Rate - Afr Amer 92 mL/min (>60); Estimated Creatinine Clearance 70.87 ml/min; Glucose 133 mg/dL (74-106); Sodium Level 139 mmol/L (136-145)
[2022-03-25 11:07] VITALS: BP 104/67; PULSE 62; RESP 13; O2SAT 99
[2022-03-25] MEDS: 0.9% Normal Saline 1,000 ML 150 ML IV (11:11)
[2022-03-25 12:02] VITALS: PULSE 52
--- NOTE | 2022-03-25 12:33 | EX.ED.DYSGE1 ---
HPI History of Present Illness Chief Complaint: Syncope Informant: patient Onset/Context/Timing Onset: Today Narrative Narrative: Patient presents after syncopal episode at [employer] this morning. 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 He started to feel lightheaded and dizzy. He states the next thing he knows they were carrying him to the basement. reports that he did pass out with loss of consciousness lasting maybe 1 or 2 minutes. Patient denies having chest pain or palpitations. He does take flecainide and metoprolol for A. fib. He states his normal heart rate is 55-62 and his normal blood pressures on the low side as well. [facility] Medical History History of stroke Paroxysmal A-fib Syncope Home Medications apixaban 5 mg tablet 5 mg PO BID #180 tab 12/21/21 [Rx Last Taken Unknown] metoprolol tartrate 25 mg tablet 25 mg PO QHS tab 03/05/22 [History Last Taken Unknown] ciprofloxacin HCl 500 mg PO BID 03/25/22 [History Last Taken Unknown] flecainide 50 mg PO DAILY 03/25/22 [History Last Taken Unknown] flecainide 100 mg PO QHS 03/25/22 [History Last Taken Unknown] metoprolol tartrate 50 mg PO DAILY 03/25/22 [History Last Taken Unknown] Allergy/AdvReac Type Severity Reaction Status Date / Time No Known Allergies Allergy Verified 03/05/22 08:47 Family History Father , age 66 Myocardial infarction Mother , Age 87 CVA (cerebral vascular accident) Brother H/O cardiac radiofrequency ablation Sister Cancer Brother Cancer leukemia Sister CVA (cerebral vascular accident) Other Family history of ischemic heart disease Surgical History History of prostatectomy History of transurethral resection of prostate (08/09/21) Social History Smoking Status: Never smoker alcohol intake: never caffeine: Yes Type: coffee Number of servings: 1 ROS ROS ED Constitutional Constitutional ED: Denies chills or fever(s) Eyes Eyes: Denies change in vision ENT ENT ED: Denies sore throat Cardiovascular Cardiovascular: Denies chest pain Respiratory/Chest Respiratory/Chest: Denies cough or dyspnea Gastrointestinal Gastrointestinal: Reports nausea; Denies abdominal pain, diarrhea or vomiting Genitourinary Genitourinary ED: Denies dysuria Musculoskeletal Musculoskeletal: Denies back pain or neck pain Integumentary Denies rash Neurologic Neurologic: Reports weakness; Denies headache(s) Allergic/Immunologic Allergic/Immunologic ED: Denies urticaria EXAM Physical Exam Const Vital Signs: 03/25/22 09:06 03/25/22 09:17 03/25/22 09:26 Temperature 96.4 F L Temperature Source Temporal Pulse Rate 54 L 55 L Respiratory Rate 13 16 Respiratory Effort Normal Respiratory Pattern Normal Blood Pressure 107/64 99/62 Blood Pressure Mean 78 74 Pulse Ox 99 94 Oxygen Delivery Method Room Air Room Air 03/25/22 10:15 03/25/22 11:07 03/25/22 12:02 Temperature Temperature Source Pulse Rate 50 L 62 52 L Respiratory Rate 15 13 Respiratory Effort Respiratory Pattern Blood Pressure 102/66 104/67 Blood Pressure Mean 78 79 Pulse Ox 98 99 Oxygen Delivery Method Room Air Room Air Positive well nourished and well developed General Appearance ED: well developed HEENT Reports moist mucous membranes Eyes PERRL and EOMs intact bilaterally Neck supple Chest Wall inspection of chest normal and palpation of chest normal Resp normal respiratory effort and clear to auscultation bilaterally Cardio Rate: bradycardia GI non-tender Palpation: soft Extremity normal to inspection Neuro oriented x3 and no sensory deficits noted Sensorium / Orientation: alert Motor Exam: strength 5/5 throughout Psych mental status grossly normal Skin no rashes or lesions noted MDM MDM MDM Narrative Medical decision making narrative: EKG obtained. CBC and chemistry studies ordered. Patient given a liter of IV fluid along with a dose of Zofran for nausea. Lab Data Attestation: I reviewed the patient's lab results. Labs: Laboratory Results - last 24 hr 03/25/22 03/25/22 10:05 10:05 WBC 9.3 RBC 4.31 L Hgb 13.6 Hct 40.4 MCV 93.7 MCH 31.6 MCHC 33.7 RDW Std Deviation 44.0 H RDW Coeff of Kayla 12.6 Plt Count 209 MPV 9.7 Immature Gran % (Auto) 0.300 Neut % (Auto) 80.3 H Lymph % (Auto) 9.5 L [place] % (Auto) 7.2 Eos % (Auto) 2.4 Baso % (Auto) 0.3 Absolute Neuts (auto) 7.5 Absolute Lymphs (auto) 0.89 Nucleated RBC % 0 Sodium 139 Potassium 4.0 Chloride 108 H Carbon Dioxide 27.0 Anion Gap 4 L BUN 24 H Creatinine 1.03 Estim Creat Clear Calc 70.87 Est GFR (MDRD) Af Amer 92 Est GFR (MDRD) Non-Af 76 BUN/Creatinine Ratio 23.3 H Glucose 133 H Calcium 8.8 EKG Initial EKG: Attestation: I personally reviewed and interpreted this EKG as follows: Interpretation: Sinus Bradycardia (Sinus bradycardia 52 bpm. No acute ischemia.) Treatment and Re-Evaluation Narrative: On repeat evaluation patient feeling improved. He is able to tolerate p.o. without difficulty. CBC unremarkable. Chemistry studies reveal mild dehydration with a BUN elevated at 24. Patient does describe symptoms consistent with vasovagal syncope. At this time patient be discharged home with . Return instructions provided. Discharge Plan Triage Chief Complaint: Syncope ED Provider: Hermila Abarca Dx/Rx/DC Orders Clinical Impression: Syncope, vasovagal Instructions: ED Fainting, Vagal Reaction Prescriptions: No Action metoprolol tartrate 25 mg tablet 25 mg PO QHS RF: 0 Eliquis 5 mg tablet 5 mg PO BID Qty: 180 RF: 4 ciprofloxacin HCl 500 mg tablet 500 mg PO BID RF: 0 metoprolol tartrate 25 mg tablet 50 mg PO DAILY RF: 0 flecainide 50 mg tablet 50 mg PO DAILY RF: 0 flecainide 100 mg tablet 100 mg PO QHS RF: 0 Primary Care Provider: Jose Angel Tolentino Referrals: Jose Angel Tolentino MD [Primary Care Provider] - 1 Week Disposition Disposition: Home, Self Care
[2022-03-25 12:51] VITALS: BP 106/67; PULSE 58; RESP 16; O2SAT 96
== END 2022-03-25 13:01 | disposition home or self-care (01) ==
PROVIDERS: Emergency Provider Emergency Medicine; PCP Family Medicine; Visit Provider Emergency Medicine
DX: R55 Syncope and collapse (principal); I48.91 Unspecified atrial fibrillation; R11.0 Nausea; Z86.73 Personal history of transient ischemic attack (TIA), and cerebral infarction without residual deficits
CPT/HCPCS: 80048; 85025; 93005; 99285; J7030; A4216; J2405

== ENCOUNTER → 2022-07-11 | Outpatient (CLI) | payer OTHER, SELFPAY | END | disposition home or self-care (01) | PROVIDERS: PCP Family Medicine; Referring Provider Nurse Practitioner Family; Visit Provider Nurse Practitioner Family | DX: I48.0 Paroxysmal atrial fibrillation (principal); R00.2 Palpitations; R55 Syncope and collapse; Z86.73 Personal history of transient ischemic attack (TIA), and cerebral infarction without residual deficits | CPT/HCPCS: 93225; 93226 ==

== ENCOUNTER → 2023-12-31 | Outpatient (CLI) | payer SELFPAY, OTHER ==
--- NOTE | 2023-12-31 06:58 | ECHOD_ITS ---
Reason For Study: SOB Left Ventricle Normal LV size. Left ventricular systolic function is normal. The left ventricular ejection fraction is 60 %. Stage 2 diastolic dysfunction. No regional wall motion abnormalities noted. Right Ventricle Normal RV size. Normal systolic function. Atria Normal left atrium. Normal right atrium. Mitral Valve Normal mitral valve. Tricuspid Valve Normal tricuspid valve. Mild (1+) tricuspid valve insufficiency. Pulmonary artery systolic pressure is 24 mmHg. Aortic Valve Trisinus/trileaflet aortic valve. Pulmonic Valve Normal pulmonic valve. Great Vessels Normal aortic root. The pulmonary artery is normal size. Inferior vena cava collapse with sniff. Pericardium/Pleural No pericardial effusion. MMode/2D Measurements & Calculations LVIDd: 4.4 cm IVSd: 0.94 cm Ao root diam: 3.1 cm LVIDs: 2.8 cm LVPWd: 0.87 cm RVDd: 3.9 cm FS: 35.5 % LAV(MOD-bp): 53.3 ml LVAd ap4: 31.6 cm2 LVAd ap2: 30.4 cm2 LAV(MOD-bp) Indexed: 25.7 ml/m2 LVLd ap4: 8.3 cm LVLd ap2: 8.1 cm LAV(MOD-sp2): 65.3 ml EDV(MOD-sp4): 101.9 ml EDV(MOD-sp2): 96.7 ml LAV(MOD-sp4): 40.1 ml EDV(sp4-el): 102.3 ml EDV(sp2-el): 97.0 ml LVAs ap4: 19.3 cm2 LVAs ap2: 16.4 cm2 LVLs ap4: 7.4 cm LVLs ap2: 7.3 cm ESV(MOD-sp4): 43.1 ml ESV(MOD-sp2): 31.4 ml ESV(sp4-el): 42.3 ml ESV(sp2-el): 31.3 ml EF(MOD-sp4): 57.6 % EF(MOD-sp2): 67.5 % EF(sp4-el): 58.6 % SV(MOD-sp4): 58.7 ml SV(MOD-sp2): 65.3 ml SV(sp4-el): 60.0 ml LA dimension(2D): 3.8 cm LA A4 area: 15.4 cm2 RA A4 area: 16.3 cm2 TAPSE: 2.4 cm Time Measurements MV dec time: 0.11 sec Doppler Measurements & Calculations MV E max jayro: 84.1 cm/sec Lat Peak E' Jayro: 11.2 cm/sec Med Peak E' Jayro: 9.2 cm/sec MV A max jayro: 55.9 cm/sec E/E' lat: 7.5 E/E' med: 9.1 MV E/A: 1.5 MV dec slope: 734.4 cm/sec2 Ao V2 max: 98.1 cm/sec LV V1 max: 78.1 cm/sec Ao max P.8 mmHg LV V1 max P.4 mmHg PA V2 max: 102.5 cm/sec TR max jayro: 231.8 cm/sec TR max P.5 mmHg ECHO/Echo Complete Interpretation Summary Normal LV size. Left ventricular systolic function is normal. The left ventricular ejection fraction is 60 %. Stage 2 diastolic dysfunction. Pulmonary artery systolic pressure is 24 mmHg. Mild (1+) tricuspid valve insufficiency. Ordering Physician: Anupam Lebron Referring Physician: MD Jose Angel Tolentino Performed By: Mora Marcus, MARVIN
--- OUTSIDE RECORDS SUMMARY | 2023-12-31 07:07 | XMS RPT_ITS | CCD ---
Author Name Unknown Address [address] [place] [address] Organization [facility] Care Team Providers Care Inventory Control Coordinator Name Role Phone Elie Tolentino Primary Care Provider DREW JACKSON Attending Unavailable DREW JACKSON Primary Care Unavailable DREW JACKSON Admitting Unavailable Elie Tolentino MD Primary Care Provider Elie Tolentino MD Primary Care Provider Elie Tolentino MD Primary Care Provider JIM, JAYRAM Attending Unavailable JIM, JAYRAM Admitting Unavailable ELIE TOLENTINO Primary Care Unavailable Elie Tolentino MD Primary Care Provider Mahendra DEGROOT MD, [place] Unavailable Desmond Dobbins MD Unavailable ELIE TOLENTINO Primary Care Unavailable JIM, JAYRAM Referring Unavailable ALONZO FISHER Attending Unavailable DIETER LEBRON Referring Unavailable ELIE TOLENTINO Primary Care Unavailable JIM, JAYRAM Referring Unavailable ELIE TOLENTINO Primary Care Unavailable JIM, JAYRAM Admitting Unavailable JIM, JAYRAM Attending Unavailable ELIE TOLENTINO Primary Care Unavailable JIM, JAYRAM Referring Unavailable AMY, KAMRYN Referring Unavailable ELIE TOLETNINO Primary Care Unavailable AMY, AKMRYN Referring Unavailable ELIE TOLENTINO Primary Care Unavailable JIM, JAYRAM Referring Unavailable ELIE TOLENTINO Primary Care Unavailable ELIE TOLENTINO Primary Care Unavailable JIM, JAYRAM Referring Unavailable ELIE TOLENTINO Primary Care Unavailable JIM, JAYRAM Referring Unavailable JIM, JAYRAM Referring Unavailable ELDERBROCK, ELIE D Primary Care Unavailable JIM, JAYRAM Attending Unavailable ELDERBROCK, ELIE D Primary Care Unavailable ALEC VILLANUEVA Consulting Unavailable JIM, JAYRAM Referring Unavailable JIM, JAYRAM Admitting Unavailable ELDERBROCK, ELIE D Primary Care Unavailable JIM, JAYRAM Referring Unavailable ELDERBROCK, ELIE D Primary Care Unavailable JIM, JAYRAM Referring Unavailable Mahendra DEGROOT, [facility] Unavailable JIM, JAYRAM Referring Unavailable ELDERBROCK, ELIE D Primary Care Unavailable GALEN JAIMESEL Attending Unavailable ELDERBROCK, ELIE D Primary Care Unavailable DESMOND DOBBINS Attending Unavailable KAMRYN JAIMES Referring Unavailable ELDERBROCK, ELIE D Primary Care Unavailable DESMOND DOBBINS Attending Unavailable DESMOND DOBBINS Referring Unavailable ELDERBROCK, ELIE D Primary Care Unavailable JIM, JAYRAM Attending Unavailable ELDERBROCK, ELIE D Primary Care Unavailable JIM, JAYRAM Referring Unavailable MENA BROWNE Attending Unavailable ELDERBROCK, ELIE D Primary Care Unavailable JIM, JAYRAM Referring Unavailable MENA BROWNE Referring Unavailable ELDERBROCK, ELIE D Primary Care Unavailable AMY, KAMRYN Referring Unavailable ELDERBROCK, ELIE D Primary Care Unavailable JIM, JAYRAM Referring Unavailable ELDERBROCK, ELIE D Primary Care Unavailable ELDERBROCK, ELIE D Primary Care Unavailable DESMOND DOBBINS Referring Unavailable ELDERBROCK, ELIE D Primary Care Unavailable JIM, JAYRAM Referring Unavailable ELDERBROCK, ELIE D Primary Care Unavailable JIM, JAYRAM Referring Unavailable ELDERBROCK, ELIE D Primary Care Unavailable JIM, JAYRAM Attending Unavailable ELDERBROCK, ELIE D Referring Unavailable ELDERBROCK, ELIE D Primary Care Unavailable JIM, JAYRAM Attending Unavailable JIM, JAYRAM Referring Unavailable ELDERBROCK, ELIE D Primary Care Unavailable MOLLY BROWNELEY Attending Unavailable ELDERBROCK, ELIE D Primary Care Unavailable AMY, KAMRYN Referring Unavailable ELDERBROCK, ELIE D Primary Care Unavailable ELDERBROCK, ELIE D Primary Care Unavailable DESMOND DOBBINS Referring Unavailable DESMOND DOBBINS Attending Unavailable DESMOND DOBBINS Referring Unavailable ELDERBROCK, ELIE D Primary Care Unavailable DESMOND DOBBINS Referring Unavailable ELDERBROCK, ELIE D Primary Care Unavailable DESMOND DOBBINS Referring Unavailable ELIE TOLENTINO Primary Care Unavailable Medications Current Medications Medication Drug Class(es) Dates Sig (Normalized) Sig (Original) acetaminophen 325 mg oral tablet (1 source) Start: 12-14-2021 650 mg, Oral, EVERY 6 HOURS PRN, Pain Mild (1-3), Fever, For temp greater than 100.4 F (38 C), Starting on Shante 12/14/21 at 1905 Maximum dose of acetaminophen is 4000 mg from all sources in 24 hours. amoxicillin 875 mg / clavulanate 125 mg oral tablet (3 sources) Penicillin-class Antibacterial Start: 02-23-2022 End: 03-09-2022 take 1 tablet by mouth twice daily amoxicillin-clavul anic acid (AUGMENTIN) 875-125 mg per tablet Take 1 tablet by mouth twice daily for 14 days. 28 tablet 0 02/23/2022 03/09/2022 Active Completed/Discontinued Medications Medication Drug Class(es) Dates Sig (Normalized) Sig (Original) apixaban 5 mg oral tablet (20 sources) Factor Xa Inhibitor Start: 12-15-2021 End: 01-15-2022 apixaban (ELIQUIS) 5 mg tab(s) TWICE A DAY 0 12/21/2021 Active Problems Active Problems Problem Classification Problem Date Documented Date Episodic/Chronic Acute cerebrovascular disease (5 sources) Central nervous system finding; Translations: [Cerebral infarction, unspecified] Onset: 12-14-2021 Resolved: 12-16-2021 Chronic Acute cerebrovascular disease (1 source) NIHSS score 4; Translations: [NIHSS score 4] Onset: 12-14-2021 Episodic Cancer of prostate (20 sources) Malignant tumor of prostate; Translations: [Malignant neoplasm of prostate] Onset: 08-09-2021 08-09-2021 Chronic Cardiac dysrhythmias (20 sources) Atrial fibrillation; Translations: [Unspecified atrial fibrillation] Onset: 12-14-2021 Chronic Diverticulosis and diverticulitis (20 sources) Diverticulosis of colon; Translations: [Diverticulosis of large intestine without perforation or abscess without bleeding] Onset: 12-12-2006 12-12-2006 Chronic Genitourinary symptoms and ill-defined conditions (20 sources) Male urinary stress incontinence; Translations: [Stress incontinence (female) (male)] Onset: 11-03-2021 11-03-2021 Chronic Genitourinary symptoms and ill-defined conditions (1 source) Urinary symptoms ; Translations: [Unspecified symptoms and signs involving the genitourinary system] Episodic Other aftercare (1 source) Post-discharge follow-up; Translations: [Encounter for follow-up examination after completed treatment for conditions other than malignant neoplasm] Episodic Other circulatory disease (20 sources) History of cerebrovascular accident; Translations: [Personal history of transient ischemic attack (TIA), and cerebral infarction without residual deficits] Onset: 12-09-2022 Episodic Other connective tissue disease (1 source) Weakness of right leg; Translations: [Other symptoms and signs involving the musculoskeletal system] Episodic Other connective tissue disease (2 sources) Muscle weakness (generalized); Translations: [Muscle weakness (generalized)] Onset: 12-14-2021 Episodic Other connective tissue disease (1 source) Swollen calf; Translations: [Other specified soft tissue disorders] Episodic Other diseases of bladder and urethra (1 source) Bladder-neck obstruction; Translations: [Bladder neck contracture] Onset: 07-19-2022 Chronic Other diseases of bladder and urethra (1 source) Lesion of bladder; Translations: [Bladder disorder, unspecified] 07-19-2023 Chronic Other ear and sense organ disorders (2 sources) Otalgia, right ear; Translations: [Otalgia, unspecified] Onset: 12-26-2023 12-27-2023 Episodic Other male genital disorders (20 sources) Male erectile dysfunction, unspecified; Translations: [Impotence of organic origin] Onset: 02-27-2012 02-27-2012 Chronic Other nutritional; endocrine; and metabolic disorders (20 sources) Obese class I; Translations: [Obesity, unspecified] Onset: 08-21-2021 08-21-2021 Chronic Other screening for suspected conditions (not mental disorders or infectious disease) (8 sources) Raised prostate specific antigen; Translations: [Rising PSA following treatment for malignant neoplasm of prostate] Onset: 12-26-2023 Episodic Other upper respiratory disease (2 sources) Bleeding from nose; Translations: [Epistaxis] Onset: 12-16-2021 Resolved: 12-16-2021 Episodic Residual codes; unclassified (2 sources) Medication given; Translations: [Status post administration of tPA (rtPA) in a different facility within the last 24 hours prior to admission to current facility] Resolved: 12-16-2021 Chronic Residual codes; unclassified (1 source) Bilateral lower limb edema; Translations: [Localized edema] Episodic Past or Other Problems Problem Classification Problem Date Documented Da te Episodic/Chronic Abdominal hernia (5 sources) Right inguinal hernia ; Translations: [Unilateral inguinal hernia, without obstruction or gangrene, not specified as recurrent] Onset: 12-11-2022 Episodic Abdominal pain (2 sources) Stomach ache; Translations: [Unspecified abdominal pain] Onset: 10-16-2022 Episodic Allergic reactions (20 sources) Vesicular eczema; Translations: [Dermatitis, unspecified] Onset: 02-27-2012 02-27-2012 Episodic Cancer of prostate (7 sources) Personal history of malignant neoplasm of prostate; Translations: [History of malignant neoplasm of prostate] Onset: 12-14-2021 06-24-2023 Episodic Cardiac dysrhythmias (20 sources) Palpitations; Translations: [Palpitations] Onset: 06-11-2008 06-11-2008 Episodic Hemorrhoids (20 sources) External hemorrhoids; Translations: [Residual hemorrhoidal skin tags] Onset: 12-12-2006 12-12-2006 Episodic Malaise and fatigue (1 source) Other fatigue; Translations: [Tiredness] Onset: 09-03-2023 Episodic Other aftercare (1 source) Encounter for therapeutic drug level monitoring; Translations: [Encounter for therapeutic drug monitoring] Onset: 09-03-2023 Episodic Other aftercare (1 source) Other senior care (current) drug therapy; Translations: [Encounter for long-term (current) drug use] Onset: 09-03-2023 Episodic Other aftercare (1 source) shelter (current) use of anticoagulants; Translations: [shelter (current) use of anticoagulants] Onset: 09-03-2023 Episodic Other circulatory disease (2 sources) Personal history of transient ischemic attack (TIA), and cerebral infarction without residual deficits; Translations: [History of cerebrovascular accident] Onset: 12-09-2022 Episodic Other connective tissue disease (20 sources) Muscle weakness; Translations: [Muscle weakness (generalized)] Onset: 11-03-2021 11-03-2021 Episodic Other gastrointestinal disorders (20 sources) Other specified symptoms and signs involving the digestive system and abdomen; Translations: [Other symptoms involving digestive system] Onset: 11-21-2006 11-21-2006 Episodic Other lower respiratory disease (1 source) Dyspnea, unspecified; Translations: [Acute dyspnea] Onset: 09-03-2023 Episodic Results Test Name Value Interpretation Reference Range Facil ity Vital Signs Date Time Vital Sign Value Performing Clinician Morelia savage 12-26-2023 11:31-0500 Body weight 86.18 kg Mena Browne MANAGER CREDIT.MUSIC ARRANGER Work Phone: [facility] 12-26-2023 11:31-0500 Diastolic blood pressure 68 mm[Hg] Mena Mendozahof MANAGER CREDIT.MUSIC ARRANGER Work Phone: [facility] 12-26-2023 11:31-0500 Heart rate 52 /min Mena Mendozahof MANAGER CREDIT.MUSIC ARRANGER Work Phone: [facility] 12-26-2023 11:31-0500 Respiratory rate 16 /min Mena Mendozahof MANAGER CREDIT.MUSIC ARRANGER Work Phone: [facility] 12-26-2023 11:31-0500 SaO2% (BldA) [Mass fraction] 97 % Mena Mendozahof MANAGER CREDIT.MUSIC ARRANGER Work Phone: [facility] 12-26-2023 11:31-0500 Systolic blood pressure 98 mm[Hg] Mena Mendozahof MANAGER CREDIT.MUSIC ARRANGER Work Phone: [facility] 09-20-2023 08:52-0500 Body height 177.8 cm Desmond Dobbins MD Work Phone: [facility] 09-20-2023 08:52-0500 Body temperature 97.81 [degF] Desmond Dobbins MD Work Phone: [facility] 09-20-2023 08:52-0500 Body weight 90.95 kg Desmond Dobbins MD Work Phone: [facility] 09-20-2023 08:52-0500 Diastolic blood pressure 74 mm[Hg] Desmond Dobbins MD Work Phone: [facility] 09-20-2023 08:52-0500 Heart rate 52 /min Desmond Dobbins MD Work Phone: [facility] 09-20-2023 08:52-0500 Respiratory rate 12 /min Desmond Dobbins MD Work Phone: [facility] 09-20-2023 08:52-0500 SaO2% (BldA) [Mass fraction] 100 % Desmond Dobbins MD Work Phone: [facility] 09-20-2023 08:52-0500 Systolic blood pressure 114 mm[Hg] Desmond Dobbins MD Work Phone: [facility] 07-19-2023 12:50-0400 Body temperature 98.49 [degF] Desmond Dobbins MD Work Phone: [facility] 07-19-2023 12:50-0400 Body weight 90.04 kg Desmond Dobbins MD Work Phone: [facility] 07-19-2023 12:50-0400 Diastolic blood pressure 66 mm[Hg] Desmond Dobbins MD Work Phone: [facility] 07-19-2023 12:50-0400 Heart rate 56 /min Desmond Dobbins MD Work Phone: [facility] 07-19-2023 12:50-0400 SaO2% (BldA) [Mass fraction] 97 % Desmond Dobbins MD Work Phone: [facility] 07-19-2023 12:50-0400 Systolic blood pressure 109 mm[Hg] Desmond Dobbins MD Work Phone: [facility] 07-10-2023 08:51-0400 Body height 174 cm Desmond Dobbins MD Work Phone: [facility] 07-10-2023 08:51-0400 Body temperature 97.81 [degF] Desmond Dobbins MD Work Phone: [facility] 07-10-2023 08:51-0400 Body weight 90.04 kg Desmond Dobbins MD Work Phone: [facility] 07-10-2023 08:51-0400 Diastolic blood pressure 68 mm[Hg] Desmond Dobbins MD Work Phone: [facility] 07-10-2023 08:51-0400 Heart rate 52 /min Desmond Dobbins MD Work Phone: [facility] 07-10-2023 08:51-0400 SaO2% (BldA) [Mass fraction] 97 % Desmond Dobbins MD Work Phone: [facility] 07-10-2023 08:51-0400 Systolic blood pressure 108 mm[Hg] Desmond Dobbins MD Work Phone: [facility] 06-24-2023 08:43-0400 Body height 177.8 cm Kamryn Jaimes MD Work Phone: [facility] 06-24-2023 08:43-0400 Body weight 88.45 kg Kamryn Jaimes MD Work Phone: [facility] 03-29-2023 08:50-0400 Body weight 88 kg Mena Tannhof MANAGER CREDIT.MUSIC ARRANGER Work Phone: [facility] 03-29-2023 08:50-0400 Diastolic blood pressure 60 mm[Hg] Mena Tannhof MANAGER CREDIT.MUSIC ARRANGER Work Phone: [facility] 03-29-2023 08:50-0400 Heart rate 54 /min Mena Tannhof MANAGER CREDIT.MUSIC ARRANGER Work Phone: [facility] 03-29-2023 08:50-0400 Respiratory rate 16 /min Mena Tannhof MANAGER CREDIT.MUSIC ARRANGER Work Phone: [facility] 03-29-2023 08:50-0400 SaO2% (BldA) [Mass fraction] 96 % Mena Tannhof MANAGER CREDIT.MUSIC ARRANGER Work Phone: [facility] 03-29-2023 08:50-0400 Systolic blood pressure 94 mm[Hg] Mena Tannhof MANAGER CREDIT.MUSIC ARRANGER Work Phone: [facility] 02-28-2023 08:45-0400 Body height 177.[address] 1 [facility] 02-28-2023 08:45-0400 Body temperature 97.2 [degF] Pst [address] [facility] 02-28-2023 08:45-0400 Body weight 90.54 kg [address]st 1 [facility] 02-28-2023 08:45-0400 Diastolic blood pressure 73 mm[Hg] Pst 1 [facility] 02-28-2023 08:45-0400 Heart rate 57 /min Pst 1 [facility] 02-28-2023 08:45-0400 Respiratory rate 18 /min Pst [address] [facility] 02-28-2023 08:45-0400 SaO2% (BldA) [Mass fraction] 97 % Pst 1 [facility] 02-28-2023 08:45-0400 Systolic blood pressure 114 mm[Hg] Pst 1 [facility] 02-07-2023 10:09-0400 Body height 177.8 cm Jim Fernandez DO Work Phone: [facility] 02-07-2023 10:09-0400 Body weight 90.27 kg Jim Fernandez DO Work Phone: [facility] 12-11-2022 08:06-0500 Body height 177.8 cm Alonzo Fisher MD Work Phone: [facility] 12-11-2022 08:06-0500 Body weight 88.45 kg Alonzo Fisher MD Work Phone: [facility] 12-11-2022 08:06-0500 Diastolic blood pressure 71 mm[Hg] Alonzo Fisher MD Work Phone: [facility] 12-11-2022 08:06-0500 Heart rate 62 /min Alonzo Fisher MD Work Phone: [facility] 12-11-2022 08:06-0500 SaO2% (BldA) [Mass fraction] 96 % Alonzo Fisher MD Work Phone: [facility] 12-11-2022 08:06-0500 Systolic blood pressure 107 mm[Hg] Alonzo Fisher MD Work Phone: [facility] 12-06-2022 09:07-0500 Body height 177.8 cm Jayram Jim DO Work Phone: [facility] 12-06-2022 09:07-0500 Body weight 88.45 kg Jayram Jim DO Work Phone: [facility] 10-18-2022 08:26-0500 Body height 177.8 cm Marshal Combs MD Work Phone: [facility] 10-18-2022 08:26-0500 Body temperature 97.9 [degF] Marshal Combs MD Work Phone: [facility] 10-18-2022 08:26-0500 Body weight 89.72 kg Marshal Combs MD Work Phone: [facility] 10-18-2022 08:26-0500 Diastolic blood pressure 78 mm[Hg] Marshal Combs MD Work Phone: [facility] 10-18-2022 08:26-0500 Heart rate 74 /min Marshal Combs MD Work Phone: [facility] 10-18-2022 08:26-0500 SaO2% (BldA) [Mass fraction] 99 % Marshal Combs MD Work Phone: [facility] 10-18-2022 08:26-0500 Systolic blood pressure 118 mm[Hg] Marshal Combs MD Work Phone: [facility] 10-04-2022 09:07-0500 Body height 177.8 cm Jayram Jim DO Work Phone: [facility] 10-04-2022 09:07-0500 Body weight 88 kg Jayram Jim DO Work Phone: [facility] 07-05-2022 10:59-0400 Body height 177.8 cm Jayram Jim DO Work Phone: [facility] 07-05-2022 10:59-0400 Body weight 85.73 kg Jayram Jim DO Work Phone: [facility] 07-05-2022 10:59-0400 Diastolic blood pressure 76 mm[Hg] Jayram Jim DO Work Phone: [facility] 07-05-2022 10:59-0400 Heart rate 51 /min Jayram Jim DO Work Phone: [facility] 07-05-2022 10:59-0400 Respiratory rate 18 /min Jayram Jim DO Work Phone: [facility] 07-05-2022 10:59-0400 Systolic blood pressure 121 mm[Hg] Jayram Jim DO Work Phone: [facility] 07-05-2022 09:26-0400 Body height 177.8 cm Jayram Jim DO Work Phone: [facility] 07-05-2022 09:26-0400 Body weight 85.73 kg Jayram Jim DO Work Phone: [facility] 04-11-2022 13:43-0400 Body height 177.8 cm Jayram Jim DO Work Phone: [facility] 04-11-2022 13:43-0400 Body weight 84.82 kg Jayram Jim DO Work Phone: [facility] 04-11-2022 13:43-0400 Diastolic blood pressure 68 mm[Hg] Jayram Jim DO Work Phone: [facility] 04-11-2022 13:43-0400 Systolic blood pressure 102 mm[Hg] Jayram Jim DO Work Phone: [facility] 03-22-2022 07:46-0400 Body height 177.8 cm Jayram Jim DO Work Phone: [facility] 03-22-2022 07:46-0400 Body weight 85.73 kg Jayram Jim DO Work Phone: [facility] 03-05-2022 08:01-0400 Body weight 86.64 kg Mena Mendozahof MANAGER CREDIT.MUSIC ARRANGER Work Phone: [facility] 03-05-2022 08:01-0400 Diastolic blood pressure 58 mm[Hg] Mena Mendozahof MANAGER CREDIT.MUSIC ARRANGER Work Phone: [facility] 03-05-2022 08:01-0400 Heart rate 61 /min Mena Mendozahof MANAGER CREDIT.MUSIC ARRANGER Work Phone: [facility] 03-05-2022 08:01-0400 Respiratory rate 16 /min Mena Mendozahof MANAGER CREDIT.MUSIC ARRANGER Work Phone: [facility] 03-05-2022 08:01-0400 SaO2% (BldA) [Mass fraction] 98 % Mena Mendozahof MANAGER CREDIT.MUSIC ARRANGER Work Phone: [facility] 03-05-2022 08:01-0400 Systolic blood pressure 96 mm[Hg] Mena Tannhof MANAGER CREDIT.MUSIC ARRANGER Work Phone: [facility] 12-16-2021 12:08-0500 Diastolic blood pressure 70 mm[Hg] Librado Glenys DO Work Phone: [facility] 12-16-2021 12:08-0500 Heart rate 56 /min Librado Glenys DO Work Phone: [facility] 12-16-2021 12:08-0500 Respiratory rate 23 /min Librado Glenys DO Work Phone: [facility] 12-16-2021 12:08-0500 SaO2% (BldA) [Mass fraction] 100 % Librado Glenys DO Work Phone: [facility] 12-16-2021 12:08-0500 Systolic blood pressure 111 mm[Hg] Librado Glenys DO Work Phone: [facility] 12-15-2021 16:00-0500 Body temperature 97.59 [degF] Librado Glenys DO Work Phone: [facility] 12-15-2021 08:57-0500 Body height 182.9 cm Librado Veronica DO Work Phone: [facility] Encounters Encounter Date Encounter Type Care Provider Facility Start: 12-26-2023 End: 12-27-2023 ambulatory KAMRYN JAIMES Facility:[facility] Start: 12-26-2023 End: 12-26-2023 Patient encounter procedure Mena Browne APRN.MUSIC ARRANGER Work Phone: [facility] Procedures Date Procedure Procedure Detail Performing Clinician Start: 12-26-2023 Lipid 1996 panel - S jose or Plasma Mena Browne APRN.MUSIC ARRANGER Work Phone: Start: 07-18-[address] atten uation skull base mid-thigh Kamryn Jaimes MD Work Phone: Start: 06-19-2023 Lipid 1996 panel - S jose or Plasma Desmond Dobbins MD Work Phone: Start: 02-28-2023 Ct pelvis w/o contra st material Jamieyram Jim DO Work Phone: Start: 07-05-2022 Urnls dip stick/tabl et rgnt auto w/o microscopy Jamieyram Jim DO Work Phone: Start: 04-11-2022 Urnls dip stick/tabl et rgnt auto w/o microscopy Jamieam Jim DO Work Phone: Start: 03-22-2022 Urnls dip stick/tabl et rgnt auto w/o microscopy Jamieyram Jim DO Work Phone: Start: 12-16-2021 Basic metabolic pane l calcium total Michelle Estrada MD Work Phone: Start: 12-15-2021 Mri brain brain stem w/o contrast material Soren Mix DO Work Phone: Start: 12-15-2021 Echo tthrc r-t 2d w/wom-mode compl spec&colr d Hussain Solis MD Work Phone: Start: 12-15-2021 BASIC METABOLIC PANE L W/ REFLEX TO MG FOR LOW K Rodger Pineda MD Work Phone: Start: 12-15-2021 Hemoglobin glycosyla rosmery a1c Rodger Pineda MD Work Phone: Start: 12-15-2021 Lipid panel Rodger Hameed MD Work Phone: Start: 12-14-2021 Assay of troponin quantitative Elio Olguin MD Work Phone: Start: 12-14-2021 Ecg routine ecg w/le ast 12 lds w/i&r Rodger Pineda MD Work Phone: Start: 12-14-2021 Speech and language therapy regime Rodger Pineda MD Work Phone: Start: 12-14-2021 End: 12-14-2021 Ct angiography head w/contrast/noncontrast Librado Glenys DO Work Phone: Start: 12-14-2021 Cerebral perfusion a nalys ct w/blood flow&volume Librado Glenys DO Work Phone: Start: 12-14-2021 ADD ON LAB TEST Librado Glenys DO Work Phone: Start: 12-14-2021 POC BMP, WHOLE BLOOD Th mer Glenys DO Work Phone: Start: 12-14-2021 Blood count complete automated Librado Glenys DO Work Phone: Start: 12-14-2021 PROTIME/INR & PTT Thero n Glenys DO Work Phone: Start: 12-13-2021 Adult depression scr eening assessment Jim Fernandez DO Work Phone: Start: 12-12-2006 Colonoscopy Jim frias DO Work Phone: Plan of Treatment Date Care Activity Detail Author Start: 12-25-2028 Lipid panel [facility] Start: 06-19-2028 Lipid 1996 panel - S jose or Plasma Lipid Screening [facility] Start: 06-19-2028 Lipid panel [facility] Scre[facility] Start: 06-19-2028 LIPID SCREEN LIPID SCREEN [facility] Start: 06-18-2027 PROSTATE CANCER SCRE ENING DISCUSSION PROSTATE CANCER SCREENING DISCUSSION [facility] Start: 02-20-2027 PROSTATE CANCER SCRE ENING DISCUSSION PROSTATE CANCER SCREENING DISCUSSION [facility] Start: 12-25-2026 Diabetes Screening Diabetes Screenin g [facility] Start: 12-21-2026 PROSTATE CANCER SCRE ENING DISCUSSION PROSTATE CANCER SCREENING DISCUSSION [facility] Start: 09-03-2026 Diabetes Screening Diabetes Screenin g [facility] Start: 06-21-2026 LIPID SCREEN LIPID SCREEN [facility] Start: 06-19-2026 DIABETES SCREEN DIABETES SCREEN [facility] Start: 06-19-2026 Diabetes Screening Diabetes Screenin g [facility] Start: 12-27-2025 DIABETES SCREEN DIABETES SCREEN [facility] Start: 12-11-2025 DIABETES SCREEN DIABETES SCREEN [facility] Start: 09-21-2025 DIABETES SCREEN DIABETES SCREEN [facility] Start: 03-22-2025 [facility]AB[facility] Start: 12-25-2024 RSV Vaccine (1 - 1-d ose 60+ series) RSV Vaccine (1 - 1-dose 60+ series) [facility] Immunizations Immunization Date Immunization Notes Care Provider Grace mcgregor 09-30-2017 influenza virus vaccine, unspecified formulation Desmond Dobbins MD Work Phone: [facility] Payers Date Payer Category Payer Unknown [id number] Unknown [id number] Social History Date Type Detail Facility Tobacco smoking stat us NHIS Tobacco smoking consumption unknown [facility] Start: 1955 Sex Assigned At Not on file [facility] Work Phone: Start: 09-30-2017 End: 07-05-2022 Tobacco smoking status NHIS Never smoked tobacco [facility] Start: 01-04-2022 End: 07-19-2023 Alcohol intake Current non-drinker of alcohol (finding) [facility] Start: 01-06-2022 End: 09-06-2022 Exposure to SARS-CoV-2 (event) Not sure [facility] Start: 09-30-2017 End: 07-05-2022 Tobacco use and exposure Smokeless tobacco non-user [facility] Start: 02-28-2023 End: 03-29-2023 History of Social function [facility] Work Phone: Start: 02-28-2023 End: 03-29-2023 Tobacco use panel [facility] Work Phone: Adult Depression Screening Assessment 0 [facility] Work Phone: Start: 09-20-2023 End: 12-27-2023 Alcohol intake Ex-drinker (finding) [facility] Medical Equipment Procedure Code Equipment Code Equipment Origin al Text Equipment Identifier Dates Stent Inlay Opti ma 6fr Taper [place] Green Polymer Phreecoat 26cm Ureteral - [id number] Start: 08-09-2021 Clinical Notes 12-16-2021 to 12-26-2023 Patient InstructionsMena Browne APRN.MUSIC ARRANGER - 12/26/2023 11:40 AM ESTTelephone Encounter - Eileen Barney RN - 12/20/2023 3:23 PM ESTTelephone Encounter - Ratna Goldberg RN - 12/19/2023 4:23 PM EST Note Date & Type Note Facility 12-26-2023 Note HNO ID: [id number] Author: MENA BROWNE APRN.JOANNE Service: ? Author Type: Nurse Practitioner Type: Progress Notes Filed: 12/27/2023 12:05 Note Text: This is a 68 year old male who presents today with: Patient presents with: Follow Up: 9 month follow up HISTORY OF PRESENT ILLNESS: Ron Burns is a 68 year old male. Patient presents with: Follow Up: 9 month follow up 9 month follow up Prostate cancer:, Radical prostatectomy completed in 2020. Following with urology Dr. Fernandez every 3 months ( He is no longer with [facility]). Continue to monitor PSA. AUD implant repair March 08. PSA was elevated, discussed oral treatment in the future if it continues to rise. PET scan was normal. Discussing starting Lupron, concerned for SE, went to [place] for alternative treatments. Had vitamin injections daily for 3 weeks, will not have follow up in [place] unless PSA is high again. Was given a Zoladex injection while in [place], refers that he is supposed to have 1 more injection. However difficulty finding someone to give him this injection. PSA has improved. Will be having repeat PSA today. Feeling well. Refers that his oncologist does not seem happy with him seeking alternative treatment. A-fib: Following with [facility]. Seeing JOANIE Lebron every 6 months. Taking Eliquis 5 mg twice daily, Lopressor 25 mg, half tablet twice daily. Denies any chest pain or palpitations. CVA: November 2021, has not followed up with neurology. Right side affected. Right leg swelling at times, worse with standing. Using compression sock. In October had a terrible pain in the right side of the head. Ear fullness and ache. Went to [facility], had ear infection. Was treated with amoxicillin and ear drops. Went [facility], needed another round of antibiotics and steroids. Had follow up, hearing has improved. Still on going buzzing. Vaccines: Denies wanting any vaccines at this time. 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 MEDICATIONS Current Outpatient Medications Medication Sig oxyCODONE IR (ROXICODONE) 5 mg immediate release tablet Take 1 tablet by mouth every 8 hours as needed for pain. (Patient not taking: Reported on 10/30/2023) multivitamin tablet Take 1 tablet by mouth once daily. (Patient not taking: Reported on 06/24/2023) flecainide (TAMBOCOR) 100 mg tablet Take 100 mg by mouth daily at bedtime. flecainide (TAMBOCOR) 50 mg tablet Take 50 mg by mouth once daily. In the morning metoprolol tartrate, short acting, (LOPRESSOR) 25 mg tablet Take 12.5 mg by mouth twice daily. apixaban (ELIQUIS) 5 mg tab(s) TWICE A DAY No current facility-administered medications for this visit. FAMILY HISTORY Problem Relation Age of Onset other (CVA) Mother 87 Heart Father 66 other (CVA) Sister Diabetes Sister other (bph) Brother Diabetes Brother other (bph) Brother Social History Tobacco Use Smoking status: Never Smokeless tobacco: Never Vaping Use Vaping Use: Never used Substance Use Topics Alcohol use: Not Currently Drug use: Never REVIEW OF SYSTEMS GENERAL: No weight loss, malaise or fevers/chills HEENT: Negative for frequent or significant headaches, No changes in hearing or vision. NECK: Negative for lumps, goiter, pain and significant neck swelling RESPIRATORY: Negative for cough, hemoptysis, wheezing, dyspnea or shortness of breath CARDIOVASCULAR: Negative for chest pain, leg swelling, orthopnea, or palpitations GI: No nausea, vomiting, or diarrhea/constipation. No hematochezia/melena. No heartburn or reflux symptoms. : No history of dysuria, frequency or incontinence MUSCULOSKELETAL: Negative for joint pain or swelling. SKIN: Negative for lesions, rash, and itching ENDOCRINE: Negative for cold or heat intolerance, polyuria, polydipsia and goiter NEURO: No history of headaches, syncope, paralysis, seizures or tremors MOOD: Negative for depression, anxiety, or suicidal ideation. EXAM: BP 98/68 Pulse (!) 52 Resp 16 Wt 86.2 kg (190 lb) SpO2 97% BMI 27.26 kg/m? PHYSICAL EXAM: General Appearance: Well appearing, alert, in no acute distress, well-hydrated, well nourished. Skin: Skin colo (more content not included)... [facility] 12-26-2023 Instructions Mena Browne APRN.MUSIC ARRANGER - 12/26/2023 12:09 PM EST Get labs completed today Keep appointment with Cardiology, discuss heart rate and feel sluggish Schedule consult with general surgery this year to discuss colonoscopy Continue to take all medication as prescribed. Office will call you with info regarding injection and oncology Follow up in 6 months or sooner as needed If ear pain or fullness does not improve, may trial Flonase nasal spray, 1-2 times per day for 7-10 days. documented in this encounter [facility] 12-26-2023 History of Presen t illness Narrative This is a 68 year old male who presents today with: Patient presents with: Follow Up: 9 month follow up HISTORY OF PRESENT ILLNESS: Ron Burns is a 68 year old male. Patient presents with: Follow Up: 9 month follow up 9 month follow up Prostate cancer:, Radical prostatectomy completed in 2020. Following with urology Dr. Fernandez every 3 months ( He is no longer with [facility]). Continue to monitor PSA. AUD implant repair March 08. PSA was elevated, discussed oral treatment in the future if it continues to rise. PET scan was normal. Discussing starting Lupron, concerned for SE, went to [place] for alternative treatments. Had vitamin injections daily for 3 weeks, will not have follow up in [place] unless PSA is high again. Was given a Zoladex injection while in [place], refers that he is supposed to have 1 more injection. However difficulty finding someone to give him this injection. PSA has improved. Will be having repeat PSA today. Feeling well. Refers that his oncologist does not seem happy with him seeking alternative treatment. A-fib: Following with [facility]. Seeing JOANIE Lebron every 6 months. Taking Eliquis 5 mg twice daily, Lopressor 25 mg, half tablet twice daily. Denies any chest pain or palpitations. CVA: November 2021, has not followed up with neurology. Right side affected. Right leg swelling at times, worse with standing. Using compression sock. In October had a terrible pain in the right side of the head. Ear fullness and ache. [facility], had ear infection. Was treated with amoxicillin and ear drops. Went [facility], needed another round of antibiotics and steroids. Had follow up, hearing has improved. Still on going buzzing. Vaccines: Denies wanting any vaccines at this time. 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 MEDICATIONS Current Outpatient Medications Medication Sig oxyCODONE IR (ROXICODONE) 5 mg immediate release tablet Take 1 tablet by mouth every 8 hours as needed for pain. (Patient not taking: Reported on 10/30/2023) multivitamin tablet Take 1 tablet by mouth once daily. (Patient not taking: Reported on 06/24/2023) flecainide (TAMBOCOR) 100 mg tablet Take 100 mg by mouth daily at bedtime. flecainide (TAMBOCOR) 50 mg tablet Take 50 mg by mouth once daily. In the morning metoprolol tartrate, short acting, (LOPRESSOR) 25 mg tablet Take 12.5 mg by mouth twice daily. apixaban (ELIQUIS) 5 mg tab(s) TWICE A DAY No current facility-administered medications for this visit. FAMILY HISTORY Problem Relation Age of Onset other (CVA) Mother 87 Heart Father 66 other (CVA) Sister Diabetes Sister other (bph) Brother Diabetes Brother other (bph) Brother Social History Tobacco Use Smoking status: Never Smokeless tobacco: Never Vaping Use Vaping Use: Never used Substance Use Topics Alcohol use: Not Currently Drug use: Never REVIEW OF SYSTEMS GENERAL: No weight loss, malaise or fevers/chills HEENT: Negative for frequent or significant headaches, No changes in hearing or vision. NECK: Negative for lumps, goiter, pain and significant neck swelling RESPIRATORY: Negative for cough, hemoptysis, wheezing, dyspnea or shortness of breath CARDIOVASCULAR: Negative for chest pain, leg swelling, orthopnea, or palpitations GI: No nausea, vomiting, or diarrhea/constipation. No hematochezia/melena. No heartburn or reflux symptoms. : No history of dysuria, frequency or incontinence MUSCULOSKELETAL: Negative for joint pain or swelling. SKIN: Negative for lesions, rash, and itching ENDOCRINE: Negative for cold or heat intolerance, polyuria, polydipsia and goiter NEURO: No history of headaches, syncope, paralysis, seizures or tremors MOOD: Negative for depression, anxiety, or suicidal ideation. EXAM: BP 98/68 Pulse (!) 52 Resp 16 Wt 86.2 kg (190 lb) SpO2 97% BMI 27.26 kg/m PHYSICAL EXAM: General Appearance: Well appearing, alert, in no acute distress, well-hydrated, well nourished. Skin: Skin color, texture, turgor normal, no suspicious rashes or lesions. Head: Normocephalic, no masses, lesions, tenderness or abnormalities. Eyes: Anicteric sclera. Extraocular movements are intact. Ears: External ears normal, canals clear, TMs pearly al. Neck: Supple, no adenopathy; thyroid symmetric, normal size, no bruits. Lungs: Lungs clear to auscultation. No wheezing, rhonchi, rales. Heart: RRR without murmur, gallop, or rubs. No ectopy. Extremities: No deformities, edema, skin discoloration, clubbing or cyanosis. Good capillary refill. Peripheral Pulses: Normal, Capillary refill <2secs, strong peripheral pulses, Pulses palpable. Neurologic: Gait normal. Reflexes normal and symmetric. Sensation grossly intact. ASSESSMENT/PLAN: 1. Prostate cancer (HCC) - ICD9: 185, ICD10: C61 (primary diagnosis) - Stable, keep scheduled appointments with oncology. 2. Atrial fibrillation, unspecified type (HCC) - ICD9: 427.31, ICD10: I48.91 - Stable, Continue to take current medication. - Keep scheduled appointments with Cardiology. 3. History of CVA (cerebrovascular accident) - ICD9: V12.54, ICD10: Z86.73 - Stable - COMP METABOLIC PANEL - LIPID PANEL, NONFASTING 4. Right ear pain - ICD9: 388.70, ICD10: H92.01 - Exam WNL - Instructed to follow up with ENT if symptoms do not improve. 5. Screening for colon cancer - ICD9: V76.51, ICD10: Z12.11 - CONSULT TO GENERAL SURGERY Follow up in 6 months or sooner pending test results. Discussed treatment plan and patient voices understanding. Patient's questions answered appropriately. Medications and potential side effects were discussed and patient voices understanding. Mena Browne APRN.JOANNE This note was partially generated using [employer]vine voice recognition system. Note was reviewed for accuracy. There may be minor misspellings or grammar miscues with Gravity Jackon voice recognition. documented in this encounter [facility] 12-20-2023 Miscellaneous Notes Patient calling to inform that he has the Follow up appt with Dr. Jaimes in February and repeat PSA has come down. Is seeing Dr. Dobbins, but patient was hesitate to get started on Lupron due to side effects. Went to [place] in September for treatment. Treatment was a combination of different supplements, and vitamins. PSA has come down a lot. Following up in February and needs PSA prior. Standing order in chart already. No need for new order needed. documented in this encounter [facility] 12-19-2023 Miscellaneous Notes stated she is unsure if patient will stop going to [place] for treatments since his PSA improved. Patient will keep OV with Dr. Dobbins as scheduled. Ratna Goldberg RN I won't manage his cancer if he plans to continue treatments in [place]. Kody Cantrell DO Patients called and left a VM requesting that patients care be changed to Dr. Cantrell. Last OV notes from Dr. Dobbins on 09/20/23: RECOMMENDATION/PLAN: 1. Recheck PSA 2. Discussed CAB with lupron and enzalutamide. Info given he wished to think about it a bit before proceeding. 3. He sees Dr Jaimes next week as well Patient went to [place] for treatment in September. Had PSA checked 11/28/23; PSA decreased from month prior. Patient is scheduled for an OV with Dr. Dobbins 01/08/24. Patient would like to change to Dr. Cantrell instead. Per , Dr. Cantrell managed a family member. Ratna Goldberg RN documented in this encounter [facility] 12-02-2023 Miscellaneous Notes Maude Care Coordination FOLLOW-UP NOTE Patient identified by name and date of . YES Spoke to patient Summary: (Reason for follow-up) Calling in for results of PSA drawn 11/28/23. PSA 8.68. Patient very pleased with this. He will check again in 1 month and if continues to be low, will recheck every 3mo. He is aware that I will update Dr. Dobbins. He denies further needs or concerns. Patient verbalized when to seek Medical Attention and an understanding of after- hours phone number and process: Yes Care Coordination Plan: No further follow up needed at this time. He will call in for future lab results. Rachael Fernando RN December 02, 2023 documented in this encounter [facility] 10-30-2023 Note HNO ID: [id number] Author: Antonino Chavez APRN.MUSIC ARRANGER Service: ? Author Type: Nurse Practitioner Type: Progress Notes Filed: 10/30/2023 11:26 AM Note Text: Subjective HPI Nontoxic-appearing male presents urgent care accompanied by his significant other. Chief complaint URI symptoms. They have been present for about 1 week. They are improving. Additionally has had right ear pain. This is new onset. Has taken Tylenol. This is helped. Presents today for evaluation. Decreased hearing. No loss of hearing. No otorrhea. Has tried eardrops this has not helped. Denies any fever body aches chills productive cough chest pain shortness of breath nausea vomiting abdominal pain change in bowel or bladder habits. Past medical history prescription medication use allergies reviewed. 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 MEDICATIONS flecainide (TAMBOCOR) 100 mg tablet Take 100 mg by mouth daily at bedtime. flecainide (TAMBOCOR) 50 mg tablet Take 50 mg by mouth once daily. In the morning metoprolol tartrate, short acting, (LOPRESSOR) 25 mg tablet Take 12.5 mg by mouth twice daily. apixaban (ELIQUIS) 5 mg tab(s) TWICE A DAY oxyCODONE IR (ROXICODONE) 5 mg immediate release tablet Take 1 tablet by mouth every 8 hours as needed for pain. (Patient not taking: Reported on 10/30/2023) multivitamin tablet Take 1 tablet by mouth once daily. (Patient not taking: Reported on 06/24/2023) FAMILY HISTORY Problem Relation Age of Onset other (CVA) Mother 87 Heart Father 66 other (CVA) Sister Diabetes Sister other (bph) Brother Diabetes Brother other (bph) Brother Social History Tobacco Use Smoking status: Never Smokeless tobacco: Never Vaping Use Vaping Use: Never used Substance Use Topics Alcohol use: Not Currently Drug use: Never BP 122/64 Pulse 68 Temp 36.4 ?C (97.5 ?F) Resp 16 Wt 87.5 kg (193 lb) SpO2 96% BMI 27.69 kg/m? Review of Systems Constitutional: Negative for chills, fever and malaise/fatigue. HENT: Positive for ear pain. Negative for congestion, ear discharge, sinus pain and sore throat. Eyes: Negative for blurred vision, pain, discharge and redness. Respiratory: Positive for cough. Negative for hemoptysis, sputum production, shortness of breath, wheezing and stridor. Cardiovascular: Negative for chest pain. Gastrointestinal: Negative for abdominal pain, diarrhea, nausea and vomiting. Musculoskeletal: Negative for myalgias. Skin: Negative for itching and rash. Neurological: Positive for headaches. Negative for dizziness. Objective Physical Exam Constitutional: General: He is not in acute distress. Appearance: He is not diaphoretic. HENT: Head: Normocephalic. Jaw: No trismus, tenderness, swelling or pain on movement. Right Ear: External ear normal. Decreased hearing noted. Swelling and tenderness present. No drainage. No mastoid tenderness. Tympanic membrane is erythematous and bulging. Left Ear: Tympanic membrane, ear canal and external ear normal. No mastoid tenderness. Ears: Comments: No evidence of perichondritis external erythema edema. No otorrhea. No rashes. Nose: Congestion present. Mouth/Throat: Mouth: Mucous membranes are moist. Pharynx: Oropharynx is clear. Uvula midline. No pharyngeal swelling, oropharyngeal exudate, posterior oropharyngeal erythema or uvula swelling. Eyes: Conjunctiva/sclera: Conjunctivae normal. Pupils: Pupils are equal, round, and reactive to light. Cardiovascular: Rate and Rhythm: Normal rate and regular rhythm. Heart sounds: Normal heart sounds. Pulmonary: Effort: Pulmonary effort is normal. No tachypnea, accessory muscle usage or respiratory distress. Breath sounds: Normal breath sounds. No stridor. No wheezing, rhonchi or rales. Abdominal: General: There is no distension. Palpations: Abdomen is soft. Tenderness: There is no abdominal tenderness. There is no guarding or rebound. Musculoskeletal: Cervical back: Normal range of motion and neck supple. No edema, erythema, rigidity or tenderness. No pain with movement. Normal range of motion. Lymphadenopathy: (more content not included)... [facility] 09-27-2023 Miscellaneous Notes notified everything ready for leaf size picker at [facility]. Karmen López LPN called and pt has been dx again with Prostate Cancer and will be going to [facility] for apt. Requesting copies of reports and disk for the following testing that was completed. Also copies of PSA lab work They leave Saturday09/29/23. Copies of reports have been faxed [phone] to Lady who will be compiling the disk for pt. Date/Test 06/02/22 Pet Scan 10/19/22 CT 03/05/23 CT 03/14/23 Pet Scan 09/11/23 MRI 07/18/23 Pet Scan Please advise /pt when ready for leaf size picker. Karmen López LPN FYI: informing PCP documented in this encounter [facility] 09-20-2023 Note HNO ID: [id number] Author: Desmond Dobbins MD Service: ? Author Type: Physician Type: Progress Notes Filed: 09/20/2023 11:45 AM Note Text: (Elements copied from my note dated July 19, 2023, have been reviewed and updated where appropriate, and all reflect current assessment and medical decision making from today's encounter, September 20, 2023) HISTORY OF PRESENT ILLNESS: Ron Burns is a 67 year old male referred by Dr Hensley. Per his 06-24-23 note: UROLOGY DIAGNOSES: 1. Rising PSA following treatment for malignant neoplasm of prostate - ICD9: 790.93, V10.46, ICD10: R97.21 (primary diagnosis) 2. History of prostate cancer - ICD9: V10.46, ICD10: Z85.46 3. DELIA (stress urinary incontinence), male - ICD9: 788.32, ICD10: N39.3 CHIEF COMPLAINT: Prostate cancer HPI: Patient returns for continuing evaluation and management. Down to 1-2 pads/day, no longer needing depends, was using 7-8/day Here with Feels well No concerns Dr. Fernandez Note: Urinary incontinence AUS implanted, failed with persistent leakage. Replaced. Now activated and working well. S/P TURBNC in preparation for AUS - 07/19/22 Ian 9 Prostate cancer PSA 54 at diagnosis. S/P RARP with bilateral extended node dissection - 08/09/21. VERY difficult VUA, bilateral stents were in place, ureteral stents removed. Favorable pathology. Negative LN disease. No bladder neck invasion. Kegels. PSA 0.1 => 0.3 => 0.46 => 1.45 => 3.28 => 11.66 Discussed radiation vs ADT. PSMA PET SCAN NEGATIVE - 06/01/22 Repeat PSMA PET SCAN Negative - 03/07/23 Hold on adjuvant treatment. Continue PSA surveillance. If PSA rises, he will see medical oncology and consider ADT VS Radiation. He will need a PSMA PET prior to any evaluation. I will have his follow up with Dr. Jaimes in [place]. PSA prior. Patient here tfor follow up of pelvic MRI, we see mass at uretero vesical junction, also progressive pelvic adenopathy Reviewed with Dr Mccray CLINICAL IMPRESSION: History of prostate cancer with rising PSA after prostatectomy. Mass at uretero vesical junction, progressive pelvic adenopathy RECOMMENDATION/PLAN: 1. Recheck PSA 2. Discussed CAB with lupron and enzalutamide. Info given he wished to think about it a bit before proceeding. 3. He sees Dr Jaimes next week as well Written and verbal health teaching given to patient, patient verbalizes understanding and agrees with treatment plan. 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 PAST SURGICAL HISTORY Procedure Laterality Date COLONOSCOPY FLX DX W/COLLJ SPEC WHEN PFRMD 12/12/2006 Minimal diverticulosis PAST SURGICAL HISTORY OF PAST SURGICAL HISTORY OF 12/24/2022 IMPLANT SPHINCTER URINARY (Bladder), hernia repair PICC LINE INSERTION (PICC TEAM) ([place]) 08/16/2021 PROSTECTOMY RETROPUBIC RADICAL N/A 08/09/2021 TRANSURETHRAL RESECTION OF BLADDER NECK N/A 07/19/2022 FAMILY HISTORY Problem Relation Age of Onset other (CVA) Mother 87 Heart Father 66 other (CVA) Sister Diabetes Sister other (bph) Brother Diabetes Brother other (bph) Brother Social History Tobacco Use Smoking status: Never Smokeless tobacco: Never Vaping Use Vaping Use: Never used Substance Use Topics Alcohol use: Not Currently Drug use: Never ALLERGIES: ALLERGIES No Known Allergies CURRENT OUTPATIENT MEDICATIONS: flecainide (TAMBOCOR) 100 mg tablet Take 100 mg by mouth daily at bedtime. flecainide (TAMBOCOR) 50 mg tablet Take 50 mg by mouth once daily. In the morning metoprolol tartrate, short acting, (LOPRESSOR) 25 mg tablet Take 12.5 mg by mouth twice daily. apixaban (ELIQUIS) 5 mg tab(s) TWICE A DAY oxyCODONE IR (ROXICODONE) 5 mg immediate release tablet Take 1 tablet by mouth every 8 hours as needed for pain. multivitamin tablet Take 1 tablet by mouth once daily. (Patient not taking: Reported on 06/24/2023) REVIEW OF SYSTEMS: GENERAL: No fever, night sweats, weight loss or malaise. All other reviewed and negative other than HPI. PHYSICAL EXAMINATION: VITAL SIGNS: BP 114/74 Pulse 52[Provider notified of pulse[ Temp (Src) 97.8 (Temporal) Resp 12 Ht 5' 10 (1.78m) Wt 200 lb 8 oz (90.9kg) SpO2 100% BMI 28.77 kg/(m2). GENERAL APPEARANCE: Well appearing, in no acute distress, alert and oriented x3, well-hydrated, well nourished. I spent a total of 45 minutes on the date of the service which included preparing to see the patient, [id number] patient care, completing clinical documentation, obtaining and/or reviewing separately obtained history, counseling and educating the patient/family/caregiver, communicating with other HCPs (more content not included)... [facility] 09-20-2023 History of Presen t illness Narrative (Elements copied from my note dated July 19, 2023, have been reviewed and updated where appropriate, and all reflect current assessment and medical decision making from today's encounter, September 20, 2023) HISTORY OF PRESENT ILLNESS: Ron L Nickolas is a 67 year old male referred by Dr Hensley. Per his 06-24-23 note: UROLOGY DIAGNOSES: 1. Rising PSA following treatment for malignant neoplasm of prostate - ICD9: 790.93, V10.46, ICD10: R97.21 (primary diagnosis) 2. History of prostate cancer - ICD9: V10.46, ICD10: Z85.46 3. DELIA (stress urinary incontinence), male - ICD9: 788.32, ICD10: N39.3 CHIEF COMPLAINT: Prostate cancer HPI: Patient returns for continuing evaluation and management. Down to 1-2 pads/day, no longer needing depends, was using 7-8/day Here with Feels well No concerns Dr. Fernandez Note: Urinary incontinence AUS implanted, failed with persistent leakage. Replaced. Now activated and working well. S/P TURBNC in preparation for AUS - 07/19/22 [place] 9 Prostate cancer PSA 54 at diagnosis. S/P RARP with bilateral extended node dissection - 08/09/21. VERY difficult VUA, bilateral stents were in place, ureteral stents removed. Favorable pathology. Negative LN disease. No bladder neck invasion. Kegels. PSA 0.1 => 0.3 => 0.46 => 1.45 => 3.28 => 11.66 Discussed radiation vs ADT. PSMA PET SCAN NEGATIVE - 06/01/22 Repeat PSMA PET SCAN Negative - 03/07/23 Hold on adjuvant treatment. Continue PSA surveillance. If PSA rises, he will see medical oncology and consider ADT VS Radiation. He will need a PSMA PET prior to any evaluation. I will have his follow up with Dr. Jaimes in [place]. PSA prior. Patient here tfor follow up of pelvic MRI, we see mass at uretero vesical junction, also progressive pelvic adenopathy Reviewed with Dr Mccray CLINICAL IMPRESSION: History of prostate cancer with rising PSA after prostatectomy. Mass at uretero vesical junction, progressive pelvic adenopathy RECOMMENDATION/PLAN: 1. Recheck PSA 2. Discussed CAB with lupron and enzalutamide. Info given he wished to think about it a bit before proceeding. 3. He sees Dr Jaimes next week as well Written and verbal health teaching given to patient, patient verbalizes understanding and agrees with treatment plan. 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 PAST SURGICAL HISTORY Procedure Laterality Date COLONOSCOPY FLX DX W/COLLJ SPEC WHEN PFRMD 12/12/2006 Minimal diverticulosis PAST SURGICAL HISTORY OF PAST SURGICAL HISTORY OF 12/24/2022 IMPLANT SPHINCTER URINARY (Bladder), hernia repair PICC LINE INSERTION (PICC TEAM) ([place]) 08/16/2021 PROSTECTOMY RETROPUBIC RADICAL N/A 08/09/2021 TRANSURETHRAL RESECTION OF BLADDER NECK N/A 07/19/2022 FAMILY HISTORY Problem Relation Age of Onset other (CVA) Mother 87 Heart Father 66 other (CVA) Sister Diabetes Sister other (bph) Brother Diabetes Brother other (bph) Brother Social History Tobacco Use Smoking status: Never Smokeless tobacco: Never Vaping Use Vaping Use: Never used Substance Use Topics Alcohol use: Not Currently Drug use: Never ALLERGIES: ALLERGIES No Known Allergies CURRENT OUTPATIENT MEDICATIONS: flecainide (TAMBOCOR) 100 mg tablet Take 100 mg by mouth daily at bedtime. flecainide (TAMBOCOR) 50 mg tablet Take 50 mg by mouth once daily. In the morning metoprolol tartrate, short acting, (LOPRESSOR) 25 mg tablet Take 12.5 mg by mouth twice daily. apixaban (ELIQUIS) 5 mg tab(s) TWICE A DAY oxyCODONE IR (ROXICODONE) 5 mg immediate release tablet Take 1 tablet by mouth every 8 hours as needed for pain. multivitamin tablet Take 1 tablet by mouth once daily. (Patient not taking: Reported on 06/24/2023) REVIEW OF SYSTEMS: GENERAL: No fever, night sweats, weight loss or malaise. All other reviewed and negative other than HPI. PHYSICAL EXAMINATION: VITAL SIGNS: BP 114/74 Pulse 52[Provider notified of pulse[ Temp (Src) 97.8 (Temporal) Resp 12 Ht 5' 10 (1.78m) Wt 200 lb 8 oz (90.9kg) SpO2 100% BMI 28.77 kg/(m^2). GENERAL APPEARANCE: Well appearing, in no acute distress, alert and oriented x3, well-hydrated, well nourished. I spent a total of 45 minutes on the date of the service which included preparing to see the patient, [id number] patient care, completing clinical documentation, obtaining and/or reviewing separately obtained history, counseling and educating the patient/family/caregiver, communicating with other HCPs (not separately reported), independently interpreting results (not separately reported), and communicating results to the patient/family/caregiver. Electronically Signed: Desmond Dobbins MD September 20, 2023 documented in this encounter [facility] 09-17-[address] Dobbins called patient, see other phone note. Laxmi Fernando RN Requesting 09/11 MRI results documented in this encounter [facility] 09-11-2023 Note HNO ID: [id number] Author: Carleen Mayes MRI Tech Service: Radiology Author Type: Avionics Safety Inspector Type: Progress Notes Filed: 09/11/2023 11:18 AM Note Text: Radiology Service Progress Note PATIENT NAME: Ron Burns DATE OF SERVICE: September 11, 2023 TIME: 11:17 AM PATIENT IDENTITY VERIFICATION COMPLETED USING TWO (2) IDENTIFIERS: Name and Date of confirmed by patient verbally and Name and Date of confirmed by identification band. FALL SCREENING: Has the patient had 2 falls in the last year or 1 fall with injury or currently using an Ambulatory Assistive Device (Walker, Cane, Wheelchair, Crutches, etc.)? No PATIENT GENDER DATA: Male PATIENT RELEVANT IMPLANT DATA REVIEWED: Patient has ams 800 penile implant implanted -5cm rule applied, patient brought into scanner on cart RADIOLOGY DEPARTMENT: MR; Exam(s) Completed: Body: Screening Abdomen/Pelvis PERIPHERAL IV DATA: Site assessment: Clean,Dry and Intact, Site disposition Discontinued SIGNED BY: FANNY Brar September 11, 2023 11:17 AM [facility] 09-11-2023 Note HNO ID: [id number] Author: Harvey Miller RN Service: Nursing Author Type: Registered Nurse Type: Progress Notes Filed: 09/11/2023 10:41 AM Note Text: Radiology Service Progress Note DATE OF SERVICE: September 11, 2023 TIME: 10:32 AM PATIENT WEIGHT: 198 LBS PATIENT IDENTITY VERIFICATION COMPLETED USING TWO (2) STANDARD IDENTIFIERS: Name and Date of confirmed by patient verbally. FALL SCREENING: Has the patient had 2 falls in the last year or 1 fall with injury or currently using an Ambulatory Assistive Device (Walker, Cane, Wheelchair, Crutches, etc.)? No PATIENT GENDER DATA: Male ALLERGIES: Reviewed and unchanged CONTRAST ALLERGY: No EXAM: MRI - CONTRAST TYPE: GROUP II IV SITE: Ambulatory: A peripheral IV was started in the Right antecubital site with a Angio cath: 22 gauge. IV SITE APPEARANCE: Clean,Dry and Intact SIGNATURE: Harvey Miller RN PATIENT NAME: Ron Burns DATE: September 11, 2023 TIME: 10:32 AM [facility] 07-22-2023 Miscellaneous Notes Spoke with pts. , given information. Sent copy of link that Dr. Cantrell placed in note. Vannesa Tran LPN I don't recommend it. I have included a link to [facility]'s website that provides objective information about this. [email or web address] Spouse called asking if patient would be able to take Vitamin B17. documented in this encounter [facility] 07-19-2023 Note HNO ID: [id number] Author: Desmond Dobbins MD Service: ? Author Type: Physician Type: Progress Notes Filed: 07/19/2023 4:59 PM Note Text: (Elements copied from my note dated July 10, 2023, have been reviewed and updated where appropriate, and all reflect current assessment and medical decision making from today's encounter, July 19, 2023) HISTORY OF PRESENT ILLNESS: Ron Burns is a 67 year old male referred by Dr Hensley. Per his 06-24-23 note: UROLOGY DIAGNOSES: 1. Rising PSA following treatment for malignant neoplasm of prostate - ICD9: 790.93, V10.46, ICD10: R97.21 (primary diagnosis) 2. History of prostate cancer - ICD9: V10.46, ICD10: Z85.46 3. DELIA (stress urinary incontinence), male - ICD9: 788.32, ICD10: N39.3 CHIEF COMPLAINT: Prostate cancer HPI: Patient returns for continuing evaluation and management. Down to 1-2 pads/day, no longer needing depends, was using 7-8/day Here with Feels well No concerns Dr. Fernandez Note: Urinary incontinence AUS implanted, failed with persistent leakage. Replaced. Now activated and working well. S/P TURBNC in preparation for AUS - 07/19/22 Ian 9 Prostate cancer PSA 54 at diagnosis. S/P RARP with bilateral extended node dissection - 08/09/21. VERY difficult VUA, bilateral stents were in place, ureteral stents removed. Favorable pathology. Negative LN disease. No bladder neck invasion. Kegels. PSA 0.1 => 0.3 => 0.46 => 1.45 => 3.28 => 11.66 Discussed radiation vs ADT. PSMA PET SCAN NEGATIVE - 06/01/22 Repeat PSMA PET SCAN Negative - 03/07/23 Hold on adjuvant treatment. Continue PSA surveillance. If PSA rises, he will see medical oncology and consider ADT VS Radiation. He will need a PSMA PET prior to any evaluation. I will have his follow up with Dr. Jaimes in [place]. PSA prior. Patient here tfor follow up of PSMA PET> Uptake at bladder ureteral junction. Reviewed with Dr Mccray CLINICAL IMPRESSION: History of prostate cancer with rising PSA after prostatectomy. Uptake at vesicoureteral junction RECOMMENDATION/PLAN: 1. MRI abd/pelvis. Written and verbal health teaching given to patient, patient verbalizes understanding and agrees with treatment plan. 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 PAST SURGICAL HISTORY Procedure Laterality Date COLONOSCOPY FLX DX W/COLLJ SPEC WHEN PFRMD 12/12/2006 Minimal diverticulosis PAST SURGICAL HISTORY OF PAST SURGICAL HISTORY OF 12/24/2022 IMPLANT SPHINCTER URINARY (Bladder), hernia repair PICC LINE INSERTION (PICC TEAM) ([place]) 08/16/2021 PROSTECTOMY RETROPUBIC RADICAL N/A 08/09/2021 TRANSURETHRAL RESECTION OF BLADDER NECK N/A 07/19/2022 FAMILY HISTORY Problem Relation Age of Onset other (CVA) Mother 87 Heart Father 66 other (CVA) Sister Diabetes Sister other (bph) Brother Diabetes Brother other (bph) Brother Social History Tobacco Use Smoking status: Never Smokeless tobacco: Never Vaping Use Vaping Use: Never used Substance Use Topics Alcohol use: No Drug use: No ALLERGIES: ALLERGIES No Known Allergies CURRENT OUTPATIENT MEDICATIONS: flecainide (TAMBOCOR) 100 mg tablet Take 100 mg by mouth daily at bedtime. flecainide (TAMBOCOR) 50 mg tablet Take 50 mg by mouth once daily. In the morning metoprolol tartrate, short acting, (LOPRESSOR) 25 mg tablet Take 12.5 mg by mouth twice daily. apixaban (ELIQUIS) 5 mg tab(s) TWICE A DAY oxyCODONE IR (ROXICODONE) 5 mg immediate release tablet Take 1 tablet by mouth every 8 hours as needed for pain. (Patient not taking: Reported on 03/29/2023) multivitamin tablet Take 1 tablet by mouth once daily. (Patient not taking: Reported on 06/24/2023) REVIEW OF SYSTEMS: GENERAL: No fever, night sweats, weight loss or malaise. All other reviewed and negative other than HPI. PHYSICAL EXAMINATION: VITAL SIGNS: BP 109/66 Pulse 56 Temp 98.5 Wt 198 lb 8 oz (90.0kg) SpO2 97% GENERAL APPEARANCE: Well appearing, in no acute distress, alert and oriented x3, well-hydrated, well nourished. I spent a total of 45 minutes on the date of the service which included preparing to see the patient, [id number] patient care, completing clinical documentation, obtaining and/or reviewing separately obtained history, counseling and educating the patient/family/caregiver, communicating with other HCPs (not separately reported), independently interpreting results (not separately reported), and communicating results to the patient/family/caregiver. Electronically Signed: Desmond Dobbins MD July 19, 2023 [facility] 07-19-2023 History of Presen t illness Narrative (Elements copied from my note dated July 10, 2023, have been reviewed and updated where appropriate, and all reflect current assessment and medical decision making from today's encounter, July 19, 2023) HISTORY OF PRESENT ILLNESS: Ron Burns is a 67 year old male referred by Dr Hensley. Per his 06-24-23 note: UROLOGY DIAGNOSES: 1. Rising PSA following treatment for malignant neoplasm of prostate - ICD9: 790.93, V10.46, ICD10: R97.21 (primary diagnosis) 2. History of prostate cancer - ICD9: V10.46, ICD10: Z85.46 3. DELIA (stress urinary incontinence), male - ICD9: 788.32, ICD10: N39.3 CHIEF COMPLAINT: Prostate cancer HPI: Patient returns for continuing evaluation and management. Down to 1-2 pads/day, no longer needing depends, was using 7-8/day Here with Feels well No concerns Dr. Fernandez Note: Urinary incontinence AUS implanted, failed with persistent leakage. Replaced. Now activated and working well. S/P TURBNC in preparation for AUS - 07/19/22 Ian 9 Prostate cancer PSA 54 at diagnosis. S/P RARP with bilateral extended node dissection - 08/09/21. VERY difficult VUA, bilateral stents were in place, ureteral stents removed. Favorable pathology. Negative LN disease. No bladder neck invasion. Scott. PSA 0.1 => 0.3 => 0.46 => 1.45 => 3.28 => 11.66 Discussed radiation vs ADT. PSMA PET SCAN NEGATIVE - 06/01/22 Repeat PSMA PET SCAN Negative - 03/07/23 Hold on adjuvant treatment. Continue PSA surveillance. If PSA rises, he will see medical oncology and consider ADT VS Radiation. He will need a PSMA PET prior to any evaluation. I will have his follow up with Dr. Jaimes in [place]. PSA prior. Patient here tfor follow up of PSMA PET> Uptake at bladder ureteral junction. Reviewed with Dr Mccray CLINICAL IMPRESSION: History of prostate cancer with rising PSA after prostatectomy. Uptake at vesicoureteral junction RECOMMENDATION/PLAN: 1. MRI abd/pelvis. Written and verbal health teaching given to patient, patient verbalizes understanding and agrees with treatment plan. 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 PAST SURGICAL HISTORY Procedure Laterality Date COLONOSCOPY FLX DX W/COLLJ SPEC WHEN PFRMD 12/12/2006 Minimal diverticulosis PAST SURGICAL HISTORY OF PAST SURGICAL HISTORY OF 12/24/2022 IMPLANT SPHINCTER URINARY (Bladder), hernia repair PICC LINE INSERTION (PICC TEAM) ([place]) 08/16/2021 PROSTECTOMY RETROPUBIC RADICAL N/A 08/09/2021 TRANSURETHRAL RESECTION OF BLADDER NECK N/A 07/19/2022 FAMILY HISTORY Problem Relation Age of Onset other (CVA) Mother 87 Heart Father 66 other (CVA) Sister Diabetes Sister other (bph) Brother Diabetes Brother other (bph) Brother Social History Tobacco Use Smoking status: Never Smokeless tobacco: Never Vaping Use Vaping Use: Never used Substance Use Topics Alcohol use: No Drug use: No ALLERGIES: ALLERGIES No Known Allergies CURRENT OUTPATIENT MEDICATIONS: flecainide (TAMBOCOR) 100 mg tablet Take 100 mg by mouth daily at bedtime. flecainide (TAMBOCOR) 50 mg tablet Take 50 mg by mouth once daily. In the morning metoprolol tartrate, short acting, (LOPRESSOR) 25 mg tablet Take 12.5 mg by mouth twice daily. apixaban (ELIQUIS) 5 mg tab(s) TWICE A DAY oxyCODONE IR (ROXICODONE) 5 mg immediate release tablet Take 1 tablet by mouth every 8 hours as needed for pain. (Patient not taking: Reported on 03/29/2023) multivitamin tablet Take 1 tablet by mouth once daily. (Patient not taking: Reported on 06/24/2023) REVIEW OF SYSTEMS: GENERAL: No fever, night sweats, weight loss or malaise. All other reviewed and negative other than HPI. PHYSICAL EXAMINATION: VITAL SIGNS: BP 109/66 Pulse 56 Temp 98.5 Wt 198 lb 8 oz (90.0kg) SpO2 97% GENERAL APPEARANCE: Well appearing, in no acute distress, alert and oriented x3, well-hydrated, well nourished. I spent a total of 45 minutes on the date of the service which included preparing to see the patient, [id number] patient care, completing clinical documentation, obtaining and/or reviewing separately obtained history, counseling and educating the patient/family/caregiver, communicating with other HCPs (not separately reported), independently interpreting results (not separately reported), and communicating results to the patient/family/caregiver. Electronically Signed: Desmond Dobbins MD July 19, 2023 documented in this encounter [facility] 07-18-2023 Note HNO ID: [id number] Author: Rodger Garcia RT(R) Service: Radiology Author Type: Technologist Type: Progress Notes Filed: 07/18/2023 12:39 PM Note Text: RADIOLOGY SERVICE PROGRESS NOTE SERVICE DATE: 07/18/2023 SERVICE TIME: 12:38 PM PATIENT IDENTITY VERIFICATION COMPLETED USING TWO (2) STANDARD IDENTIFIERS: Name and Date of confirmed by patient verbally FALL SCREENING: Has the patient had 2 falls in the last year or 1 fall with injury or currently using an Ambulatory Assistive Device (Walker, Cane, Wheelchair, Crutches, etc.)? No PATIENT GENDER DATA: .male ALLERGIES: Reviewed and unchanged MEDICATIONS REVIEWED: Yes PATIENT RELEVANT IMPLANT DATA REVIEWED: Not Applicable CREATININE: Creatinine Date Value Ref Range Status 06/19/2023 0.97 0.73 - 1.22 mg/dL Final 12/27/2022 0.98 0.73 - 1.22 mg/dL Final 12/26/2022 0.94 0.73 - 1.22 mg/dL Final Estimated Glomerular Filtration Rate Date Value Ref Range Status 06/19/2023 85 >=60 mL/min/1.73m? Final Comment: Estimated Glomerular Filtration Rate (eGFR) is calculated using the 2020 CKD-EPI creatinine equation. This equation utilizes serum creatinine, sex, and age as parameters. The creatinine assay has traceable calibration to isotope dilution-mass spectrometry. Refer to KDIGO guidelines for clinical interpretation. In patients with unstable renal function, e.g. those with acute kidney injury, the eGFR may not accurately reflect actual GFR. eGFR- Date Value Ref Range Status 08/25/2021 >60 Final P.O.C.T. RESULTS: POC done: Yes, See Lab Tab July 18, [address] PERFORMED: No IV SITE: Ambulatory: A peripheral IV was started in the Right antecubital site with a Angio cath: 24 gauge. POST EXAM PIV STATUS: Discontinued PROCEDURE TYPE: NM INJECT: PET/CT BODY SCAN. 10.2 mCi [id number]. No other medications given.. ADMINISTRATION TIME: 1220 PATIENT DISCHARGED TO: Ambulatory patient, left [place] department area. A Diagnostic radioactive procedure has taken place, with no further precautions necessary other than routine body substance precautions. More information regarding radiation safety can be found using this link: [email or web address]%20Me [email or web address].[email or web address] SIGNATURE: RT Vin(R) PATIENT NAME: Ron Burns DATE: July 18, 2023 TIME: 12:38 PM PAGER/CONTACT #: [facility] 07-18-2023 History of Presen t illness Narrative RADIOLOGY SERVICE PROGRESS NOTE SERVICE DATE: 07/18/2023 SERVICE TIME: 12:38 PM PATIENT IDENTITY VERIFICATION COMPLETED USING TWO (2) STANDARD IDENTIFIERS: Name and Date of confirmed by patient verbally FALL SCREENING: Has the patient had 2 falls in the last year or 1 fall with injury or currently using an Ambulatory Assistive Device (Walker, Cane, Wheelchair, Crutches, etc.)? No PATIENT GENDER DATA: .male ALLERGIES: Reviewed and unchanged MEDICATIONS REVIEWED: Yes PATIENT RELEVANT IMPLANT DATA REVIEWED: Not Applicable CREATININE: Creatinine Date Value Ref Range Status 06/19/2023 0.97 0.73 - 1.22 mg/dL Final 12/27/2022 0.98 0.73 - 1.22 mg/dL Final 12/26/2022 0.94 0.73 - 1.22 mg/dL Final Estimated Glomerular Filtration Rate Date Value Ref Range Status 06/19/2023 85 >=60 mL/min/1.73m Final Comment: Estimated Glomerular Filtration Rate (eGFR) is calculated using the 2020 CKD-EPI creatinine equation. This equation utilizes serum creatinine, sex, and age as parameters. The creatinine assay has traceable calibration to isotope dilution-mass spectrometry. Refer to KDIGO guidelines for clinical interpretation. In patients with unstable renal function, e.g. those with acute kidney injury, the eGFR may not accurately reflect actual GFR. eGFR- Date Value Ref Range Status 08/25/2021 >60 Final P.O.C.T. RESULTS: POC done: Yes, See Lab Tab July 18, [address] PERFORMED: No IV SITE: Ambulatory: A peripheral IV was started in the Right antecubital site with a Angio cath: 24 gauge. POST EXAM PIV STATUS: Discontinued PROCEDURE TYPE: NM INJECT: PET/CT BODY SCAN. 10.2 mCi [id number]. No other medications given.. ADMINISTRATION TIME: 1220 PATIENT DISCHARGED TO: Ambulatory patient, left NM department area. A Diagnostic radioactive procedure has taken place, with no further precautions necessary other than routine body substance precautions. More information regarding radiation safety can be found using this link: [email or web address]%20N uclear%20Medicine%20Procedures.p df SIGNATURE: CHAPO Banuelos) PATIENT NAME: Ron Burns DATE: July 18, 2023 TIME: 12:38 PM PAGER/CONTACT #: documented in this encounter [facility] 07-10-2023 Note HNO ID: [id number] Author: Desmond Dobbins MD Service: ? Author Type: Physician Type: Progress Notes Filed: 07/10/2023 12:25 PM Note Text: HISTORY OF PRESENT ILLNESS: Ron Burns is a 67 year old male referred by Dr Hensley. Per his 06-24-23 note: UROLOGY DIAGNOSES: 1. Rising PSA following treatment for malignant neoplasm of prostate - ICD9: 790.93, V10.46, ICD10: R97.21 (primary diagnosis) 2. History of prostate cancer - ICD9: V10.46, ICD10: Z85.46 3. DELIA (stress urinary incontinence), male - ICD9: 788.32, ICD10: N39.3 CHIEF COMPLAINT: Prostate cancer HPI: Patient returns for continuing evaluation and management. Down to 1-2 pads/day, no longer needing depends, was using 7-8/day Here with Feels well No concerns Dr. Fernandez Note: Urinary incontinence AUS implanted, failed with persistent leakage. Replaced. Now activated and working well. S/P TURBNC in preparation for AUS - 07/19/22 [place] 9 Prostate cancer PSA 54 at diagnosis. S/P RARP with bilateral extended node dissection - 08/09/21. VERY difficult VUA, bilateral stents were in place, ureteral stents removed. Favorable pathology. Negative LN disease. No bladder neck invasion. Constantinogelabigail. PSA 0.1 => 0.3 => 0.46 => 1.45 => 3.28 => 11.66 Discussed radiation vs ADT. PSMA PET SCAN NEGATIVE - 06/01/22 Repeat PSMA PET SCAN Negative - 03/07/23 Hold on adjuvant treatment. Continue PSA surveillance. If PSA rises, he will see medical oncology and consider ADT VS Radiation. He will need a PSMA PET prior to any evaluation. I will have his follow up with Dr. Jaimes in [place]. PSA prior. Patient here to establish oncology care. Reviewed history, labs. He feels very well. Detailed chat about prostate cancer, concern for metastases versus local recurrence. CLINICAL IMPRESSION: History of prostate cancer with rising PSA after prostatectomy. RECOMMENDATION/PLAN: 1. Agree with plan for PSMA PET, will se back next week after PET, along with Dr Mccray. Written and verbal health teaching given to patient, patient verbalizes understanding and agrees with treatment plan. 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 PAST SURGICAL HISTORY Procedure Laterality Date COLONOSCOPY FLX DX W/COLLJ SPEC WHEN PFRMD 12/12/2006 Minimal diverticulosis PAST SURGICAL HISTORY OF PAST SURGICAL HISTORY OF 12/24/2022 IMPLANT SPHINCTER URINARY (Bladder), hernia repair PICC LINE INSERTION (PICC TEAM) ([place]) 08/16/2021 PROSTECTOMY RETROPUBIC RADICAL N/A 08/09/2021 TRANSURETHRAL RESECTION OF BLADDER NECK N/A 07/19/2022 FAMILY HISTORY Problem Relation Age of Onset other (CVA) Mother 87 Heart Father 66 other (CVA) Sister Diabetes Sister other (bph) Brother Diabetes Brother other (bph) Brother Social History Tobacco Use Smoking status: Never Smokeless tobacco: Never Vaping Use Vaping Use: Never used Substance Use Topics Alcohol use: No Drug use: No ALLERGIES: ALLERGIES No Known Allergies CURRENT OUTPATIENT MEDICATIONS: flecainide (TAMBOCOR) 100 mg tablet Take 100 mg by mouth daily at bedtime. flecainide (TAMBOCOR) 50 mg tablet Take 50 mg by mouth once daily. In the morning metoprolol tartrate, short acting, (LOPRESSOR) 25 mg tablet Take 12.5 mg by mouth twice daily. apixaban (ELIQUIS) 5 mg tab(s) TWICE A DAY oxyCODONE IR (ROXICODONE) 5 mg immediate release tablet Take 1 tablet by mouth every 8 hours as needed for pain. (Patient not taking: Reported on 03/29/2023) multivitamin tablet Take 1 tablet by mouth once daily. (Patient not taking: Reported on 06/24/2023) REVIEW OF SYSTEMS: GENERAL: No fever, night sweats, weight loss or malaise. All other reviewed and negative other than HPI. PHYSICAL EXAMINATION: VITAL SIGNS: BP 108/68 Pulse 52 Temp 97.8 Ht 5' 8.504 (1.74m) Wt 198 lb 8 oz (90.0kg) SpO2 97% BMI 29.74 kg/(m2). GENERAL APPEARANCE: Well appearing, in no acute distress, alert and oriented x3, well-hydrated, well nourished. I spent a total of 45 minutes on the date of the service which included preparing to see the patient, [id number] patient care, completing clinical documentation, obtaining and/or reviewing separately obtained history, counseling and educating the patient/family/caregiver, communicating with other HCPs (not separately reported), independently interpreting results (not separately reported), and communicating results to the patient/family/caregiver. Electronically Signed: Desmond Dobbins MD July 10, 2023 9:19 AM [facility] 07-10-2023 History of Presen t illness Narrative HISTORY OF PRESENT ILLNESS: Ron Burns is a 67 year old male referred by Dr Hensley. Per his 06-24-23 note: UROLOGY DIAGNOSES: 1. Rising PSA following treatment for malignant neoplasm of prostate - ICD9: 790.93, V10.46, ICD10: R97.21 (primary diagnosis) 2. History of prostate cancer - ICD9: V10.46, ICD10: Z85.46 3. DELIA (stress urinary incontinence), male - ICD9: 788.32, ICD10: N39.3 CHIEF COMPLAINT: Prostate cancer HPI: Patient returns for continuing evaluation and management. Down to 1-2 pads/day, no longer needing depends, was using 7-8/day Here with Feels well No concerns Dr. Fernandez Note: Urinary incontinence AUS implanted, failed with persistent leakage. Replaced. Now activated and working well. S/P TURBNC in preparation for AUS - 07/19/22 Ian 9 Prostate cancer PSA 54 at diagnosis. S/P RARP with bilateral extended node dissection - 08/09/21. VERY difficult VUA, bilateral stents were in place, ureteral stents removed. Favorable pathology. Negative LN disease. No bladder neck invasion. Constantinogelabigail. PSA 0.1 => 0.3 => 0.46 => 1.45 => 3.28 => 11.66 Discussed radiation vs ADT. PSMA PET SCAN NEGATIVE - 06/01/22 Repeat PSMA PET SCAN Negative - 03/07/23 Hold on adjuvant treatment. Continue PSA surveillance. If PSA rises, he will see medical oncology and consider ADT VS Radiation. He will need a PSMA PET prior to any evaluation. I will have his follow up with Dr. Jaimes in [place]. PSA prior. Patient here to establish oncology care. Reviewed history, labs. He feels very well. Detailed chat about prostate cancer, concern for metastases versus local recurrence. CLINICAL IMPRESSION: History of prostate cancer with rising PSA after prostatectomy. RECOMMENDATION/PLAN: 1. Agree with plan for PSMA PET, will se back next week after PET, along with Dr Mccray. Written and verbal health teaching given to patient, patient verbalizes understanding and agrees with treatment plan. 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 PAST SURGICAL HISTORY Procedure Laterality Date COLONOSCOPY FLX DX W/COLLJ SPEC WHEN PFRMD 12/12/2006 Minimal diverticulosis PAST SURGICAL HISTORY OF PAST SURGICAL HISTORY OF 12/24/2022 IMPLANT SPHINCTER URINARY (Bladder), hernia repair PICC LINE INSERTION (PICC TEAM) ([place]) 08/16/2021 PROSTECTOMY RETROPUBIC RADICAL N/A 08/09/2021 TRANSURETHRAL RESECTION OF BLADDER NECK N/A 07/19/2022 FAMILY HISTORY Problem Relation Age of Onset other (CVA) Mother 87 Heart Father 66 other (CVA) Sister Diabetes Sister other (bph) Brother Diabetes Brother other (bph) Brother Social History Tobacco Use Smoking status: Never Smokeless tobacco: Never Vaping Use Vaping Use: Never used Substance Use Topics Alcohol use: No Drug use: No ALLERGIES: ALLERGIES No Known Allergies CURRENT OUTPATIENT MEDICATIONS: flecainide (TAMBOCOR) 100 mg tablet Take 100 mg by mouth daily at bedtime. flecainide (TAMBOCOR) 50 mg tablet Take 50 mg by mouth once daily. In the morning metoprolol tartrate, short acting, (LOPRESSOR) 25 mg tablet Take 12.5 mg by mouth twice daily. apixaban (ELIQUIS) 5 mg tab(s) TWICE A DAY oxyCODONE IR (ROXICODONE) 5 mg immediate release tablet Take 1 tablet by mouth every 8 hours as needed for pain. (Patient not taking: Reported on 03/29/2023) multivitamin tablet Take 1 tablet by mouth once daily. (Patient not taking: Reported on 06/24/2023) REVIEW OF SYSTEMS: GENERAL: No fever, night sweats, weight loss or malaise. All other reviewed and negative other than HPI. PHYSICAL EXAMINATION: VITAL SIGNS: BP 108/68 Pulse 52 Temp 97.8 Ht 5' 8.504 (1.74m) Wt 198 lb 8 oz (90.0kg) SpO2 97% BMI 29.74 kg/(m^2). GENERAL APPEARANCE: Well appearing, in no acute distress, alert and oriented x3, well-hydrated, well nourished. I spent a total of 45 minutes on the date of the service which included preparing to see the patient, [id number] patient care, completing clinical documentation, obtaining and/or reviewing separately obtained history, counseling and educating the patient/family/caregiver, communicating with other HCPs (not separately reported), independently interpreting results (not separately reported), and communicating results to the patient/family/caregiver. Electronically Signed: Desmond Dobbins MD July 10, 2023 9:19 AM documented in this encounter [facility] 06-24-2023 Miscellaneous Notes Pt scheduled 07/29 7am Images from the original note were not included. Authorization number: [facility] Authorization date range: Self Pay/Financial Assist Primary Insurance: Diagnosis: History of prostate cancer [Z85.46] DX Imaging: CT/CTA: 02/28/2023 CT PELVIS and PET Scan: 04/07/2023 PET Pathology: 07/04/2021 Prostate Biopsy 08/09/2021 A. Lymph node, periprosthetic, excision - Fibroadipose tissue with focal fat necrosis. No lymph node present. B. Bladder, posterior neck margin, excision - Negative for malignancy. C. Prostate, bilateral seminal vesicles and bilateral pelvic lymph nodes, radical prostatectomy -Prostatic adenocarcinoma, Ian score 4+5 equal 9 (grade group 5) and ductal adenocarcinoma. Positive for multifocal extraprostatic extension. No definite bladder neck invasion. No definite seminal vesicle invasion. See comment. 12 lymph nodes negative for metastatic carcinoma. S/P RARP with bilateral extended node dissection - 08/09/21. VERY difficult VUA, bilateral stents were in place, ureteral stents removed. Ian 9 Prostate cancer Labs: Latest Reference Range & Units Most Recent 09/21/22 14:08 01/30/23 13:01 06/19/23 08:23 PSA <2.60 ng/mL 32.37 (H) 06/19/23 08:23 3.28 (H) 11.66 (H) 32.37 (H) (H): Data is abnormally high Clinical Notes Reviewed: 06/24/2023 Uro Date of last: S/p RARP 07/2021 Additional Information: Prostate cancer, recurrence suspected, restaging Rising PSA following treatment for malignant neoplasm of prostate - ICD9: 790.93, V10.46, ICD10: R97.21 (primary diagnosis) 2. History of prostate cancer - ICD9: V10.46, ICD10: Z85.46 3. DELIA (stress urinary incontinence), male - ICD9: 788.32, ICD10: N39.3 Radiologist Reviewed: N/A Initial/Subsequent: Subsequent Treatment Strategy: 0093 PET Protocol: PSMA Diagnostic Imaging Requested: No Is this a Pretreatment and/or an initial Pet scan: No - Schedule as requested Comments for Export Documents Clerk: HAIM soon as the insurance will allow ROUTE TO SCHEDULERS POOL P PET [facility] or P [place] [facility] PER KARY AT DR JAIMES'S OFFICE SHE SAID CALL PATIENT RON PHONE # [phone] TO SCHEDULE This form is used for MAIN CAMPUS APPOINTMENTS ONLY. Is this request for a [place] PET scan appointment? Yes: Assembler Billiard Table: Diamond Pyle Requesting Person (Last Name, First Name): KARY Area Code + Phone/Pager: [phone] Who do we call to schedule this appointment? Other Contact: KARY, @ [phone] , DR JAIMES'S STAFF Requesting Staff KAMRYN CRESPO Area Code + Phone/Pager: [phone] PET Orders (A delay in scheduling will result if the orders are not present at time of review): Internal ADDITIONAL ACTION MAY BE REQUIRED IF PATIENTS OON INSURANCE OR SELF PAY COVERAGE HAS NOT BEEN CLEARED FOR REQUESTED APPOINTMENT. Scheduling: HAIM: As soon as insurance will allow What account will this PET appointment be linked to? P/F Type of PET: Oncology: Are there additional diagnostic CT scans required to be done at time of PET scan? No Is the request for a PET MR ? No What account will diagnostic testing appointment be linked to? P/F Will the patient need anesthesia? NO Send requests to P COORD REVIEW [facility] documented in this encounter [facility] 06-24-2023 Note HNO ID: [id number] Author: Kamryn Jaimes MD Service: ? Author Type: Physician Type: Progress Notes Filed: 06/24/2023 9:09 AM Note Text: [facility] [place] [facility] ESTABLISHED PATIENT CLINIC NOTE PATIENT INFO: Ron Burns PCP: Elie Tolentino MD UROLOGY DIAGNOSES: 1. Rising PSA following treatment for malignant neoplasm of prostate - ICD9: 790.93, V10.46, ICD10: R97.21 (primary diagnosis) 2. History of prostate cancer - ICD9: V10.46, ICD10: Z85.46 3. DELIA (stress urinary incontinence), male - ICD9: 788.32, ICD10: N39.3 CHIEF COMPLAINT: Prostate cancer HPI: Patient returns for continuing evaluation and management. Down to 1-2 pads/day, no longer needing depends, was using 7-8/day Here with Feels well No concerns Dr. Fernandez Note: Urinary incontinence AUS implanted, failed with persistent leakage. Replaced. Now activated and working well. S/P TURBNC in preparation for AUS - 07/19/22 Ian 9 Prostate cancer PSA 54 at diagnosis. S/P RARP with bilateral extended node dissection - 08/09/21. VERY difficult VUA, bilateral stents were in place, ureteral stents removed. Favorable pathology. Negative LN disease. No bladder neck invasion. Scott. PSA 0.1 => 0.3 => 0.46 => 1.45 => 3.28 => 11.66 Discussed radiation vs ADT. PSMA PET SCAN NEGATIVE - 06/01/22 Repeat PSMA PET SCAN Negative - 03/07/23 Hold on adjuvant treatment. Continue PSA surveillance. If PSA rises, he will see medical oncology and consider ADT VS Radiation. He will need a PSMA PET prior to any evaluation. I will have his follow up with Dr. Jaimes in [place]. PSA prior. PMHx/PSHx: see above, otherwise unchanged Rx: reviewed and unchanged ROS: see above, otherwise unchanged Labs: Component Latest Ref Rng AND Units 09/28/2021 12/21/2021 02/20/2022 06/18/2022 09/21/2022 01/30/2023 06/19/2023 PSA <2.60 ng/mL 0.1 0.30 0.46 1.45 3.28 (H) 11.66 (H) 32.37 (H) PSA, Percent Free % 16 11 Imaging: PSMA PET: IMPRESSION: HEAD/NECK: * No PSMA-expressing lesions suspicious for metastases. CHEST: * No PSMA-expressing lesions suspicious for metastases. ABDOMENS/PELVIS: * No PSMA-expressing lesions suspicious for metastases. BONES/EXTREMITIES: * No PSMA-expressing lesions suspicious for metastases. MEDICATIONS: Current Outpatient Medications Medication Sig flecainide (TAMBOCOR) 100 mg tablet Take 100 mg by mouth daily at bedtime. flecainide (TAMBOCOR) 50 mg tablet Take 50 mg by mouth once daily. In the morning metoprolol tartrate, short acting, (LOPRESSOR) 25 mg tablet Take 12.5 mg by mouth twice daily. apixaban (ELIQUIS) 5 mg tab(s) TWICE A DAY oxyCODONE IR (ROXICODONE) 5 mg immediate release tablet Take 1 tablet by mouth every 8 hours as needed for pain. (Patient not taking: Reported on 03/29/2023) multivitamin tablet Take 1 tablet by mouth once daily. (Patient not taking: Reported on 06/24/2023) No current facility-administered medications for this visit. PHYSICAL EXAM: Ht 177.8 cm (5' 10 ) Wt 88.5 kg (195 lb) BMI 27.98 kg/m? Body mass index is 27.98 kg/m?. General: Well masculinized, well nourished male Psych: euthymic, NAD Neuro: AANDOx3 DIAGNOSES: 1. Rising PSA following treatment for malignant neoplasm of prostate - ICD9: 790.93, V10.46, ICD10: R97.21 (primary diagnosis) 2. History of prostate cancer - ICD9: V10.46, ICD10: Z85.46 3. DELIA (stress urinary incontinence), male - ICD9: 788.32, ICD10: N39.3 IMPRESSION/PLAN: S/p RARP 07/2021 PSA 32 from 11 Negative PSMA PET 02/[address] Fernandez notes, recommend repeat PSMA/PET Will refer to medical oncology for second opinion S/p AUS, doing well RTO 3 mo, PSA prior Kamryn Jaimes MD [facility] 06-24-2023 History of Presen t illness Narrative Images from the original note were not included. [facility] ESTABLISHED PATIENT CLINIC NOTE PATIENT INFO: Ron Burns PCP: Elie Tolentino MD UROLOGY DIAGNOSES: 1. Rising PSA following treatment for malignant neoplasm of prostate - ICD9: 790.93, V10.46, ICD10: R97.21 (primary diagnosis) 2. History of prostate cancer - ICD9: V10.46, ICD10: Z85.46 3. DELIA (stress urinary incontinence), male - ICD9: 788.32, ICD10: N39.3 CHIEF COMPLAINT: Prostate cancer HPI: Patient returns for continuing evaluation and management. Down to 1-2 pads/day, no longer needing depends, was using 7-8/day Here with Feels well No concerns Dr. Fernandez Note: Urinary incontinence AUS implanted, failed with persistent leakage. Replaced. Now activated and working well. S/P TURBNC in preparation for AUS - 07/19/22 [place] 9 Prostate cancer PSA 54 at diagnosis. S/P RARP with bilateral extended node dissection - 08/09/21. VERY difficult VUA, bilateral stents were in place, ureteral stents removed. Favorable pathology. Negative LN disease. No bladder neck invasion. Scott. PSA 0.1 => 0.3 => 0.46 => 1.45 => 3.28 => 11.66 Discussed radiation vs ADT. PSMA PET SCAN NEGATIVE - 06/01/22 Repeat PSMA PET SCAN Negative - 03/07/23 Hold on adjuvant treatment. Continue PSA surveillance. If PSA rises, he will see medical oncology and consider ADT VS Radiation. He will need a PSMA PET prior to any evaluation. I will have his follow up with Dr. Jaimes in [place]. PSA prior. PMHx/PSHx: see above, otherwise unchanged Rx: reviewed and unchanged ROS: see above, otherwise unchanged Labs: Component Latest Ref Rng & Units 09/28/2021 12/21/2021 02/20/2022 06/18/2022 09/21/2022 01/30/2023 06/19/2023 PSA <2.60 ng/mL 0.1 0.30 0.46 1.45 3.28 (H) 11.66 (H) 32.37 (H) PSA, Percent Free % 16 11 Imaging: PSMA PET: IMPRESSION: HEAD/NECK: * No PSMA-expressing lesions suspicious for metastases. CHEST: * No PSMA-expressing lesions suspicious for metastases. ABDOMENS/PELVIS: * No PSMA-expressing lesions suspicious for metastases. BONES/EXTREMITIES: * No PSMA-expressing lesions suspicious for metastases. MEDICATIONS: Current Outpatient Medications Medication Sig flecainide (TAMBOCOR) 100 mg tablet Take 100 mg by mouth daily at bedtime. flecainide (TAMBOCOR) 50 mg tablet Take 50 mg by mouth once daily. In the morning metoprolol tartrate, short acting, (LOPRESSOR) 25 mg tablet Take 12.5 mg by mouth twice daily. apixaban (ELIQUIS) 5 mg tab(s) TWICE A DAY oxyCODONE IR (ROXICODONE) 5 mg immediate release tablet Take 1 tablet by mouth every 8 hours as needed for pain. (Patient not taking: Reported on 03/29/2023) multivitamin tablet Take 1 tablet by mouth once daily. (Patient not taking: Reported on 06/24/2023) No current facility-administered medications for this visit. PHYSICAL EXAM: Ht 177.8 cm (5' 10 ) Wt 88.5 kg (195 lb) BMI 27.98 kg/m Body mass index is 27.98 kg/m . General: Well masculinized, well nourished male Psych: euthymic, NAD Neuro: A&Ox3 DIAGNOSES: 1. Rising PSA following treatment for malignant neoplasm of prostate - ICD9: 790.93, V10.46, ICD10: R97.21 (primary diagnosis) 2. History of prostate cancer - ICD9: V10.46, ICD10: Z85.46 3. DELIA (stress urinary incontinence), male - ICD9: 788.32, ICD10: N39.3 IMPRESSION/PLAN: S/p RARP 07/2021 PSA 32 from 11 Negative PSMA PET 02/[address] Fernandez notes, recommend repeat PSMA/PET Will refer to medical oncology for second opinion S/p AUS, doing well RTO 3 mo, PSA prior Kamryn Jaimes MD documented in this encounter [facility] 06-20-2023 Miscellaneous Notes Pt's Crystal notified of results & had no additional questions. Jackie Lynne LPN Can you please call the patient and let him know that I reviewed his lab results. Labs were all relatively normal. LDL cholesterol was just mildly elevated. I would recommend that he continue to work on lifestyle changes at home. Be mindful of any processed foods in the diet, increase lean protein, vegetables, and get some form of exercise. No further testing is needed at this time. Please let me know if he has any questions. Thank you. Mena Browne APRN.CNP documented in this encounter [facility] 03-29-2023 Note HNO ID: [id number] Author: Mena Browne APRN.CNP Service: ? Author Type: Nurse Practitioner Type: Progress Notes Filed: 03/29/2023 12:00 PM Note Text: This is a 67 year old male who presents today with: Patient presents with: Follow Up HISTORY OF PRESENT ILLNESS: Ron Burns is a 67 year old male. Patient presents with: Follow Up Here in the office for 6-month follow-up Prostate cancer:, Radical prostatectomy completed in 2020. Following with urology Dr. Fernandez every 3 months. Continue to monitor PSA. AUD implant repair March 08. Doing well. PSA was elevated, discussed oral treatment in the future if it continues to rise. PET scan was normal A-fib: Following with [facility]. Seeing JOANIE Lebron every 6 months. Taking Eliquis 5 mg twice daily, Lopressor 25 mg, 1 tab in the morning, half tablet in the evening. Denies any chest pain, palpitations. CVA: November 2021, has not followed up with neurology. Right side affected. Right leg swelling at times, worse with standing. Using compression sock. Will be returning back to work next week. Vaccines: Denies wanting any vaccines at this time. Due for CMP and lipids, willing to have completed in May when PSA is drawn. 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 MEDICATIONS Current Outpatient Medications Medication Sig docusate sodium (COLACE) 100 mg capsule Take 1 capsule by mouth twice daily. oxyCODONE IR (ROXICODONE) 5 mg immediate release tablet Take 1 tablet by mouth every 8 hours as needed for pain. multivitamin tablet Take 1 tablet by mouth once daily. flecainide (TAMBOCOR) 100 mg tablet Take 100 mg by mouth daily at bedtime. flecainide (TAMBOCOR) 50 mg tablet Take 50 mg by mouth once daily. In the morning metoprolol tartrate, short acting, (LOPRESSOR) 25 mg tablet Take 12.5 mg by mouth twice daily. apixaban (ELIQUIS) 5 mg tab(s) TWICE A DAY No current facility-administered medications for this visit. FAMILY HISTORY Problem Relation Age of Onset other (CVA) Mother 87 Heart Father 66 other (CVA) Sister Diabetes Sister other (bph) Brother Diabetes Brother other (bph) Brother Social History Tobacco Use Smoking status: Never Smokeless tobacco: Never Vaping Use Vaping Use: Never used Substance Use Topics Alcohol use: No Drug use: No REVIEW OF SYSTEMS GENERAL: No weight loss, malaise or fevers/chills HEENT: Negative for frequent or significant headaches, No changes in hearing or vision. NECK: Negative for lumps, goiter, pain and significant neck swelling RESPIRATORY: Negative for cough, hemoptysis, wheezing, dyspnea or shortness of breath CARDIOVASCULAR: Negative for chest pain, leg swelling, orthopnea, or palpitations GI: No nausea, vomiting, or diarrhea/constipation. No hematochezia/melena. No heartburn or reflux symptoms. : No history of dysuria, frequency or incontinence MUSCULOSKELETAL: Negative for joint pain or swelling. SKIN: Negative for lesions, rash, and itching ENDOCRINE: Negative for cold or heat intolerance, polyuria, polydipsia and goiter NEURO: No history of headaches, syncope, paralysis, seizures or tremors MOOD: Negative for depression, anxiety, or suicidal ideation. EXAM: BP 94/60 Pulse (!) 54 Resp 16 Wt 88 kg (194 lb) SpO2 96% BMI 27.84 kg/m? PHYSICAL EXAM: General Appearance: Well appearing, alert, in no acute distress, well-hydrated, well nourished. Skin: Skin color, texture, turgor normal, no suspicious rashes or lesions. Head: Normocephalic, no masses, lesions, tenderness or abnormalities. Eyes: Anicteric sclera. Extraocular movements are intact. Lungs: Lungs clear to auscultation. No wheezing, rhonchi, rales. Heart: RRR without murmur, gallop, or rubs. No ectopy. Extremities: + Right lower leg, +2 non-pitting edema. Peripheral Pulses: Normal, Capillary refill <2secs, strong peripheral pulses, Pulses palpable. Neurologic: Gait normal. Sensation grossly intact. ASSESSMENT/PLAN: 1. Prostate cancer (HCC) - ICD9: 185, ICD10: C61 (primary diagnosis) - Stable - Get repeat PSA in May - Keep scheduled appointments with Urology. 2. History of CVA (cerebrova (more content not included)... [facility] 03-29-2023 Instructions Mena Browne APRN.CNP - 03/29/2023 9:13 AM EDT Get fasting labs completed in May. No food 8-10 hours prior. May have black coffee and water. Continue to take all medication as prescribed. Keep scheduled appointments with specialists. Wear compression sock and elevate feet as needed for swelling. Follow up in 1 year sooner pending test results. Medical supply stores have compression socks if needed. [email or web address] [place]. documented in this encounter [facility] 03-29-2023 History of Presen t illness Narrative This is a 67 year old male who presents today with: Patient presents with: Follow Up HISTORY OF PRESENT ILLNESS: Ron Burns is a 67 year old male. Patient presents with: Follow Up Here in the office for 6-month follow-up Prostate cancer:, Radical prostatectomy completed in 2020. Following with urology Dr. Fernandez every 3 months. Continue to monitor PSA. AUD implant repair March 08. Doing well. PSA was elevated, discussed oral treatment in the future if it continues to rise. PET scan was normal A-fib: Following with [facility]. Seeing JOANIE Lebron every 6 months. Taking Eliquis 5 mg twice daily, Lopressor 25 mg, 1 tab in the morning, half tablet in the evening. Denies any chest pain, palpitations. CVA: November 2021, has not followed up with neurology. Right side affected. Right leg swelling at times, worse with standing. Using compression sock. Will be returning back to work next week. Vaccines: Denies wanting any vaccines at this time. Due for CMP and lipids, willing to have completed in May when PSA is drawn. 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 MEDICATIONS Current Outpatient Medications Medication Sig docusate sodium (COLACE) 100 mg capsule Take 1 capsule by mouth twice daily. oxyCODONE IR (ROXICODONE) 5 mg immediate release tablet Take 1 tablet by mouth every 8 hours as needed for pain. multivitamin tablet Take 1 tablet by mouth once daily. flecainide (TAMBOCOR) 100 mg tablet Take 100 mg by mouth daily at bedtime. flecainide (TAMBOCOR) 50 mg tablet Take 50 mg by mouth once daily. In the morning metoprolol tartrate, short acting, (LOPRESSOR) 25 mg tablet Take 12.5 mg by mouth twice daily. apixaban (ELIQUIS) 5 mg tab(s) TWICE A DAY No current facility-administered medications for this visit. FAMILY HISTORY Problem Relation Age of Onset other (CVA) Mother 87 Heart Father 66 other (CVA) Sister Diabetes Sister other (bph) Brother Diabetes Brother other (bph) Brother Social History Tobacco Use Smoking status: Never Smokeless tobacco: Never Vaping Use Vaping Use: Never used Substance Use Topics Alcohol use: No Drug use: No REVIEW OF SYSTEMS GENERAL: No weight loss, malaise or fevers/chills HEENT: Negative for frequent or significant headaches, No changes in hearing or vision. NECK: Negative for lumps, goiter, pain and significant neck swelling RESPIRATORY: Negative for cough, hemoptysis, wheezing, dyspnea or shortness of breath CARDIOVASCULAR: Negative for chest pain, leg swelling, orthopnea, or palpitations GI: No nausea, vomiting, or diarrhea/constipation. No hematochezia/melena. No heartburn or reflux symptoms. : No history of dysuria, frequency or incontinence MUSCULOSKELETAL: Negative for joint pain or swelling. SKIN: Negative for lesions, rash, and itching ENDOCRINE: Negative for cold or heat intolerance, polyuria, polydipsia and goiter NEURO: No history of headaches, syncope, paralysis, seizures or tremors MOOD: Negative for depression, anxiety, or suicidal ideation. EXAM: BP 94/60 Pulse (!) 54 Resp 16 Wt 88 kg (194 lb) SpO2 96% BMI 27.84 kg/m PHYSICAL EXAM: General Appearance: Well appearing, alert, in no acute distress, well-hydrated, well nourished. Skin: Skin color, texture, turgor normal, no suspicious rashes or lesions. Head: Normocephalic, no masses, lesions, tenderness or abnormalities. Eyes: Anicteric sclera. Extraocular movements are intact. Lungs: Lungs clear to auscultation. No wheezing, rhonchi, rales. Heart: RRR without murmur, gallop, or rubs. No ectopy. Extremities: + Right lower leg, +2 non-pitting edema. Peripheral Pulses: Normal, Capillary refill <2secs, strong peripheral pulses, Pulses palpable. Neurologic: Gait normal. Sensation grossly intact. ASSESSMENT/PLAN: 1. Prostate cancer (HCC) - ICD9: 185, ICD10: C61 (primary diagnosis) - Stable - Get repeat PSA in May - Keep scheduled appointments with Urology. 2. History of CVA (cerebrovascular accident) - ICD9: V12.54, ICD10: Z86.73 - Continue to take all medication as prescribed. - LIPID PANEL BASIC - COMP METABOLIC PANEL 3. Atrial fibrillation, unspecified type (HCC) - ICD9: 427.31, ICD10: I48.91 - Continue to take all medication as prescribed. - Keep scheduled appointments with cardiology. - LIPID PANEL BASIC - COMP METABOLIC PANEL Follow up in 1 year or sooner pending test results. Discussed treatment plan and patient voices understanding. Patient's questions answered appropriately. Medications and potential side effects were discussed and patient voices understanding. Mena Browne APRN.JOANNE This note was partially generated using Channel[employer]visor recognition system. Note was reviewed for accuracy. There may be minor misspellings or grammar miscues with [employer]vine voice recognition. documented in this encounter [facility] 03-21-2023 Note HNO ID: [id number] Author: Jim Fernandez, DO Service: ? Author Type: Physician Type: Progress Notes Filed: 03/21/2023 3:51 PM Note Text: [facility] [place] [facility] LOCATION: [address] [place] [address] ESTABLISHED PATIENT PATIENT INFO: Ron Burns 67 year old Chief Complaint: Prostate Cancer/Right inguinal hernia HPI S/P AUS replacement. Here to activate. Also had repeat PSMA PET scan. This was negative. 1-Duration: 2021 2-Location: prostate 3-Severity: N/A 4-Quality: Not applicable 5-Context: N/A 6-Timing: N/A 7-Modifying factors: No treatment prior to referral 8-Associated signs AND symptoms: no additional symptoms PATHOLOGY: NONE LAB: WBC (k/uL) Date Value 12/27/2022 9.17 RBC (m/uL) Date Value 12/27/2022 4.21 Hemoglobin (g/dL) Date Value 12/27/2022 13.4 Hematocrit (%) Date Value 12/27/2022 39.7 MCV (fL) Date Value 12/27/2022 94.3 MCH (pg) Date Value 12/27/2022 31.8 MCHC (g/dL) Date Value 12/27/2022 33.8 RDW-CV (%) Date Value 12/27/2022 12.7 Platelet Count (k/uL) Date Value 12/27/2022 200 MPV (fL) Date Value 12/27/2022 10.1 Neutrophils % (%) Date Value 09/21/2022 58.6 Lymphocytes % (%) Date Value 09/21/2022 26.0 Monocytes % (%) Date Value 09/21/2022 10.9 Eosin% (%) Date Value 06/21/2021 4.1 Basophils % (%) Date Value 09/21/2022 0.6 Abs Neut (k/uL) Date Value 09/21/2022 4.14 Abs [place] (k/uL) Date Value 09/21/2022 0.77 Abs Eosin (k/uL) Date Value 09/21/2022 0.27 Abs Baso (k/uL) Date Value 09/21/2022 0.04 Creatinine Date Value Ref Range Status 12/27/2022 0.98 0.73 - 1.22 mg/dL Final 12/26/2022 0.94 0.73 - 1.22 mg/dL Final 12/25/2022 0.99 0.73 - 1.22 mg/dL Final 12/11/2022 1.07 0.73 - 1.22 mg/dL Final PSA (ng/mL) Date Value 01/30/2023 11.66 09/21/2022 3.28 06/18/2022 1.45 02/20/2022 0.46 12/21/2021 0.30 09/28/2021 0.1 06/22/2021 45.03 PSA Screening (ng/mL) Date Value 06/21/2021 54.27 PSA, Percent Free (%) Date Value 01/30/2023 11 09/21/2022 16 06/22/2021 11 URINE POC GLUCOSE UA (POCT) Negative 07/05/2022 BILIRUBIN UA (POCT) Negative 07/05/2022 KETONE UA (POCT) Negative 07/05/2022 SPECIFIC GRAVITY UA (POCT) 1.020 07/05/2022 HEMOGLOBIN/BLOOD UA (POCT) Trace-intact 07/05/2022 PH UA (POCT) 7.5 07/05/2022 PROTEIN UA (POCT) Negative 07/05/2022 UROBILINOGEN UA (POCT) 0.2 07/05/2022 NITRITE UA (POCT) Negative 07/05/2022 LEUKOCYTES UA (POCT) Negative 07/05/2022 COLOR UA (POCT) Yellow 07/05/2022 CLARITY UA (POCT) Clear 07/05/2022 IMAGING: NM PET/CT PROSTATE WHOLE BODY IMAGING (Acc#[id number] [facility]) (Order [id number]) Patient Info Patient Name Sex Ron Coto ([id number]) Male 1955 03/14/2023 9:38 AM - Radiology, [place] In Impression IMPRESSION: HEAD/NECK: * No PSMA-expressing lesions suspicious for metastases. CHEST: * No PSMA-expressing lesions suspicious for metastases. ABDOMENS/PELVIS: * No PSMA-expressing lesions suspicious for metastases. BONES/EXTREMITIES: * No PSMA-expressing lesions suspicious for metastases. Automatic Pinsetter Mechanic: STEFANIA Transcribe Date/Time: Mar 14 2023 9:03A Dictated by : LOGAN REICH DO This examination was interpreted and the report reviewed and electronically signed by: LOGAN REICH DO on Mar 14 2023 9:36AM EST Results-Findings * * *Final Report* * * DATE OF EXAM: Mar 07 2023 2:53PM AKP 0093 - NM PET/CT PROSTATE WB / PROCEDURE REASON: C61, R97.21 * * * * Physician Interpretation * * * * EXAM: NM PET/CT PROSTATE WB HISTORY: 67-year-old man elevated PSA, being evaluated for prostate cancer recurrence. - Prostate cancer grade: Grade Group 5 (Ian score 4 + 5) in 07/2021 - PSA: 11.66 ng/mL (01/30/2023) - Therapy: Radical prostatectomy - Prior ADT: No - Other: Additional history per Dr. Fernandez's 02/07/2023 office note TECHNIQUE: 9.7 mCi of [id number] administered IV followed about 60 minutes later by PET imaging from skull vertex to proximal thighs. Free breathing low dose CT was performed without contrast for attenuation correction and anatomic localization. CT Dose-Length Product (DLP): 464 mGy*cm CT Dose Reduction Employed: Automated exposure control (AEC) COMPARISON: PSMA PET/CT 06/01/2022 CORRELATION: CT pelvis 02/28/2023; CT urogram 07/13/2021 RESULTS: REFERENCES: SUV reference values: - Mediastinal blood pool activity (max SUV): 2.2 - Background liver activity (max SUV): 7.2 - Background salivary activity (max SUV): 19.1 Humidifier Attendant (topogram) images: No additional findings. HEAD AND NECK: Physiologic activity in the salivary and lacrimal glands. Head: No tracer avid lesion. Lymph nodes: No tracer avid lymph nodes. Thyroid: No tracer avid lesion. CHEST: Lungs AND Airways: * No tracer avid consolidation, mass, or nodule. * Please note (more content not included)... [facility] 03-08-2023 Note HNO ID: [id number] Author: Rodger Eldridge APRN.RECRUITER SPECIALIST Service: Anesthesiology Author Type: Nurse [employer] Hand Finisher Type: Anesthesia Procedure Notes Filed: 03/08/2023 2:20 PM Note Text: ANESTHESIOLOGY PROCEDURE NOTE Airway General Information Procedure Start Time/Medication Administration: 03/08/2023 1:44 PM Patient location during procedure: OR Timeout Performed Pre-procedure: timeout performed Consent Obtained: Yes Patient identity confirmed: arm band and patient Staffing RECRUITER SPECIALIST: Rodger Eldridge APRN.RECRUITER SPECIALIST Indications and Patient Condition Indications for airway management: anesthesia Preoxygenated: yes anesthesia circuit Method: asleep Difficult Mask: No Final Airway Details Final airway type: endotracheal airway Final Endotracheal Airway: ETT Cuffed: yes Successful intubation technique: video laryngoscopy Devices used: Stayfilm Endotracheal tube insertion site: oral Blade: Meredith Blade size: #3 ETT size (mm): 8.0 Measured from: lips Measurement (cm): 23 Placement verified by: chest auscultation Cormack-Lehane Classification: grade I - full view of glottis Number of attempts at approach: 1 Airway not difficult SIGNATURE: Rodger Eldridge APRN.CRNA PATIENT NAME: Ron Burns DATE: March 08, 2023 TIME: 2:19 PM CSN: [id number] [facility] 03-08-20[address] Miscellaneous [address] Dr[address] Fernandez yesterday of the hernia concerns. He is aware. Closing. Spoke with Crystal to advise that once CT Results received you will be calling today. Thanks. March 04, 2023 3:[address] Fernandez is still waiting for the CT to result/ Hermila Bonilla Waiting on the CT results and will call them tomorrow Spoke with Crystal, , and she states that he has been in pain with where valve is in scrotum and back to rectum. He just got CT scan yesterday, and wanted to see if this showed anything related to the pain. Please Advise. Patient calling with the below Questions: He is questioning that it will definitely be Outpatient? Will he go home with a catheter after surgery? If so how long? Will the Sphincter value need to be activated again? He is worried about scar tissue with all the past surgeries, is this a concern. Please Advise. documented in this encounter [facility] 03-07-2023 Note HNO ID: [id number] Author: RT Vin(R) Service: Radiology Author Type: Technologist Type: Progress Notes Filed: 03/07/2023 12:55 PM Note Text: RADIOLOGY SERVICE PROGRESS NOTE SERVICE DATE: 03/07/2023 SERVICE TIME: 12:55 PM PATIENT IDENTITY VERIFICATION COMPLETED USING TWO (2) STANDARD IDENTIFIERS: Name and Date of confirmed by patient verbally FALL SCREENING: Has the patient had 2 falls in the last year or 1 fall with injury or currently using an Ambulatory Assistive Device (Walker, Cane, Wheelchair, Crutches, etc.)? No PATIENT GENDER DATA: .male ALLERGIES: Reviewed and unchanged MEDICATIONS REVIEWED: Yes PATIENT RELEVANT IMPLANT DATA REVIEWED: Not Applicable CREATININE: Creatinine Date Value Ref Range Status 12/27/2022 0.98 0.73 - 1.22 mg/dL Final 12/26/2022 0.94 0.73 - 1.22 mg/dL Final 12/25/2022 0.99 0.73 - 1.22 mg/dL Final Estimated Glomerular Filtration Rate Date Value Ref Range Status 12/27/2022 83 >=60 mL/min/1.73m? Final Comment: Estimated Glomerular Filtration Rate (eGFR) is calculated using the 2020 CKD-EPI creatinine equation. This equation utilizes serum creatinine, sex, and age as parameters. The creatinine assay has traceable calibration to isotope dilution-mass spectrometry. Refer to KDIGO guidelines for clinical interpretation. In patients with unstable renal function, e.g. those with acute kidney injury, the eGFR may not accurately reflect actual GFR. eGFR- Date Value Ref Range Status 08/25/2021 >60 Final P.O.C.T. RESULTS: N/A March 07, [address] PERFORMED: No IV SITE: Ambulatory: A peripheral IV was started in the Right antecubital site with a Angio cath: 24 gauge. POST EXAM PIV STATUS: Discontinued PROCEDURE TYPE: NM INJECT: PET/CT BODY SCAN. 9.7 mCi [id number]. No other medications given.. ADMINISTRATION TIME: 1247 PATIENT DISCHARGED TO: Ambulatory patient, left NM department area. A Diagnostic radioactive procedure has taken place, with no further precautions necessary other than routine body substance precautions. More information regarding radiation safety can be found using this link: [email or web address] [email or web address] SIGNATURE: RT Vin(R) PATIENT NAME: Ron Burns DATE: March 07, 2023 TIME: 12:55 PM PAGER/CONTACT #: [facility] 03-07-2023 History of Presen t illness Narrative RADIOLOGY SERVICE PROGRESS NOTE SERVICE DATE: 03/07/2023 SERVICE TIME: 12:55 PM PATIENT IDENTITY VERIFICATION COMPLETED USING TWO (2) STANDARD IDENTIFIERS: Name and Date of confirmed by patient verbally FALL SCREENING: Has the patient had 2 falls in the last year or 1 fall with injury or currently using an Ambulatory Assistive Device (Walker, Cane, Wheelchair, Crutches, etc.)? No PATIENT GENDER DATA: .male ALLERGIES: Reviewed and unchanged MEDICATIONS REVIEWED: Yes PATIENT RELEVANT IMPLANT DATA REVIEWED: Not Applicable CREATININE: Creatinine Date Value Ref Range Status 12/27/2022 0.98 0.73 - 1.22 mg/dL Final 12/26/2022 0.94 0.73 - 1.22 mg/dL Final 12/25/2022 0.99 0.73 - 1.22 mg/dL Final Estimated Glomerular Filtration Rate Date Value Ref Range Status 12/27/2022 83 >=60 mL/min/1.73m Final Comment: Estimated Glomerular Filtration Rate (eGFR) is calculated using the 2020 CKD-EPI creatinine equation. This equation utilizes serum creatinine, sex, and age as parameters. The creatinine assay has traceable calibration to isotope dilution-mass spectrometry. Refer to KDIGO guidelines for clinical interpretation. In patients with unstable renal function, e.g. those with acute kidney injury, the eGFR may not accurately reflect actual GFR. eGFR- Date Value Ref Range Status 08/25/2021 >60 Final P.O.C.T. RESULTS: N/A March 07, [address] PERFORMED: No IV SITE: Ambulatory: A peripheral IV was started in the Right antecubital site with a Angio cath: 24 gauge. POST EXAM PIV STATUS: Discontinued PROCEDURE TYPE: NM INJECT: PET/CT BODY SCAN. 9.7 mCi [id number]. No other medications given.. ADMINISTRATION TIME: 1247 PATIENT DISCHARGED TO: Ambulatory patient, left NM department area. A Diagnostic radioactive procedure has taken place, with no further precautions necessary other than routine body substance precautions. More information regarding radiation safety can be found using this link: [email or web address]%20N uclear%[email or web address] df SIGNATURE: CHAPO Banuelos) PATIENT NAME: Ron Burns DATE: March 07, 2023 TIME: 12:55 PM PAGER/CONTACT #: documented in this encounter [facility] 03-01-2023 Note HNO ID: [id number] Author: Ayanna Staton APRN.MUSIC ARRANGER Service: ? Author Type: Nurse Practitioner Type: Progress Notes Filed: 03/01/2023 10:39 AM Note Text: Summary: Anesthesia RED DOT Follow-up: Reviewed chart with Dr. Alicia, Anesthesia regarding A-fib and cardiology note stating he does not need bridging. Dr. Alicia referred to surgeon, he states from an anesthesia stand point ok to proceed. Message sent to Dr. Fernandez via staff message Hi Dr. Fernandez, I reviewed patient's chart for his upcoming surgery on 03/08/2023. Pt has a history of paroxymal Afib. He has a cardiac clearance which states that he can hold Eliquis for 3 days, no bridging needed. I saw that he had surgery at the end of November, for that procedure they bridged with Lovenox. Also a note from Dr. Villanueva states that he did develop atrial fibrillation overnight post surgery. Are you okay with the patient not bridging? Thank you Ayanna Staton APRN.MUSIC ARRANGER Pre-Anesthesia Testing [facility] 02-28-2023 Note HNO ID: [id number] Author: RT Fede(R) Service: ? Author Type: Avionics Safety Inspector Type: Progress Notes Filed: 02/28/2023 2:47 PM Note Text: Radiology Service Progress Note PATIENT NAME: Ron Burns DATE OF SERVICE: February 28, 2023 TIME: 2:47 PM PATIENT IDENTITY VERIFICATION COMPLETED USING TWO (2) IDENTIFIERS: Name and Date of confirmed by patient verbally. FALL SCREENING: Has the patient had 2 falls in the last year or 1 fall with injury or currently using an Ambulatory Assistive Device (Walker, Cane, Wheelchair, Crutches, etc.)? No PATIENT GENDER DATA: Male PATIENT RELEVANT IMPLANT DATA REVIEWED: Yes RADIOLOGY DEPARTMENT: CT; Exam(s) Completed: Pelvis PERIPHERAL IV DATA: Not applicable SIGNED BY: RT Navarro(R) February 28, 2023 2:47 PM [facility] 02-28-2023 History of Presen t illness Narrative Radiology Service Progress Note PATIENT NAME: Ron Burns DATE OF SERVICE: February 28, 2023 TIME: 2:47 PM PATIENT IDENTITY VERIFICATION COMPLETED USING TWO (2) IDENTIFIERS: Name and Date of confirmed by patient verbally. FALL SCREENING: Has the patient had 2 falls in the last year or 1 fall with injury or currently using an Ambulatory Assistive Device (Walker, Cane, Wheelchair, Crutches, etc.)? No PATIENT GENDER DATA: Male PATIENT RELEVANT IMPLANT DATA REVIEWED: Yes RADIOLOGY DEPARTMENT: CT; Exam(s) Completed: Pelvis PERIPHERAL IV DATA: Not applicable SIGNED BY: RT Navarro(R) February 28, 2023 2:47 PM documented in this encounter [facility] 02-28-2023 Note HNO ID: [id number] Author: Lizzie Molina APRN.MUSIC ARRANGER Service: ? Author Type: Nurse Practitioner Type: Progress Notes Filed: 02/28/2023 9:18 AM Note Text: Summary: PAT RED DOT- Will have anesthesia review chart. Does anesthesia want documentation the cardiology is ok with no bridge with patient in and out of afib and history of CVA? Atrial fibrillation (HCC) -EKG in PAT- sinus bradycardia -Cardiac optimization in [facility]- no bridging needed. Hold Eliquis 3 days before surgery. Scanned 02/25/2023. Dieter WATSON ([facility]) -Per patient cardiac DIRECTOR CLOUD TRANSFORMATION, Dieter HARMONC aware of recent afib with RVR 11/2022. No aware of afib- per patient 02/22/2023 -Per patient can tell with in afib palpitaions -Per patient 02/22/2023- last time in afib (did not notify grey goods tester)- sat in chair and relaxed and could tell was back in regular rhythm -Instructed patient to notify grey goods tester of afib 02/22/2023 -Eliquis 5 mg BID -Flecainide 50 mg in the AM and 100 mg at HS- instructed patient to take morning dose morning of surgery -Metoprolol 12.5 mg at BID- instructed to take morning of surgery 12/24/2022 surgery: Implant sphincter urinary and XI robotic inguinal hernia repair- right. Post op day 1 patient went into paroxysmal artrial fibrillation with RVR. Cardiology was consulted. Home medications restarted and metoprolol dose was adjusted. Note from Dr. Villanueva 12/26/2022 Briefly, 67 y.o. M w/ h/o paroxysmal atrial fibrillation, prior CVA, prostate CA s/p prostatectomy who is status post right inguinal hernia repair and urethral dilation. Patient's home cardiac medications held for a couple days leading up to his surgery. Overnight, patient developed atrial fibrillation w/ RVR w/ associated palpitations. Paroxysmal atrial fibrillation w/ RVR: - Patient's heart rates improved since last night w/ metoprolol 25 mg x 2 - Restart patient's home medications w/ metoprolol 25 mg qam, 12.5 mg qpm w/ hold parameters for SBP < 90-95 - Restart home flecainide - Patient restarted on eliquis as per surgery ([id number] score of 3 w/ prior CVA) - If patient remains tachycardic despite the above, can consider transfer to cardiac telemetry for cardizem gtt if blood pressure allows or one time dosing of digoxin as needed - Agree w/ continued IVFs w/ additional 1L fluid bolus as patient autodiuresing since recent surgery; volume loss likely contributing to borderline hypotension - No indication for transfer to CCU at this time ECHOCARDIOGRAMS : 1. Left ventricle: Systolic function is normal by the biplane method of disks. The estimated ejection fraction is 50%. 2. Right ventricle: Systolic function is normal. 3. Atrial septum: Agitated saline contrast study shows bubbles appearing in the left heart at least 6 cardiac cycles after entering the right heart. On repeat injection, no bubbles were seen until >15 cardiac cycles. This suggests intermittent [id number] intrapulmonary shunting. 4. No significant valve disease. -Patient converted back to sinus rhythm- D/C on POD3 History of cerebrovascular accident -Stroke 11/2021 with right sided weakness - right leg gave out -Received TPA -Patient denies residual weakness, still has some swelling in right leg, and incontinence to bladder DELIA (stress urinary incontinence), male Surgical intervention scheduled for 03/08/2023 Vu Activity Status Index: METS: Climb a flight of stairs or walk up a hill (5.50 METs) DASI Score: 5.5 Patient denies any chest pain or undue shortness of breath with the above physical activity. ARISCAT Score: Age: 51-80 Preoperative SpO2: >=96% Respiratory infection in the last month: No Preoperative anemia: No Surgical incision: peripheral Duration of surgery: <2 hrs Emergency procedure: No ARISCAT Score: 3 ANESTHESIA FINDINGS: Intubation History: No history of difficult intubation Significant Anesthesia Considerations: potential slow emergence Airway History: No history of difficult airway Prepared for Surgery: . Hard to wake up from anesthesia CONSULTS: The following consults have been initiated at this time: anesthesia and cardiology (Scanned in [facility] 02/25/2023). Implantable Devices: urethral/bladder sphincter pump The Following Tests/Procedures Have Been Initiated: -RED DOT- will have anesthesia review chart -Order placed by surgeon- urine culture -EKG placed by DIRECTOR CLOUD TRANSFORMATION -Labs from 12/27/2022 reviewed -Cardiac optimization is scanned into [facility] and on chart. May hold Eliquis for 3 days. No bridging needed. -Noted PSA 01/30/2023 11.66 -patient is scheduled for CT scan 02/28/2023 -PET scan 03/07/2023 -Dr. Fernandez is aware and ok with continuing scan and surgery timing Assessment/Plan DELIA (stress urinary incontinence (more content not included)... [facility] 02-28-2023 History of Presen t illness Narrative Summary: PAT RED DOT- Will have anesthesia review chart. Does anesthesia want documentation the cardiology is ok with no bridge with patient in and out of afib and history of CVA? Atrial fibrillation (HCC) -EKG in PAT- sinus bradycardia -Cardiac optimization in Epic- no bridging needed. Hold Eliquis 3 days before surgery. Scanned 02/25/2023. Dieter Lebron MACHINE FANCY STITCHER-C ([facility]) -Per patient cardiac DIRECTOR CLOUD TRANSFORMATION, Dieter Lebron MACHINE FANCY STITCHER-C aware of recent afib with RVR 11/2022. No aware of afib- per patient 02/22/2023 -Per patient can tell with in afib palpitaions -Per patient 02/22/2023- last time in afib (did not notify grey goods tester)- sat in chair and relaxed and could tell was back in regular rhythm -Instructed patient to notify grey goods tester of afib 02/22/2023 -Eliquis 5 mg BID -Flecainide 50 mg in the AM and 100 mg at HS- instructed patient to take morning dose morning of surgery -Metoprolol 12.5 mg at BID- instructed to take morning of surgery 12/24/2022 surgery: Implant sphincter urinary and XI robotic inguinal hernia repair- right. Post op day 1 patient went into paroxysmal artrial fibrillation with RVR. Cardiology was consulted. Home medications restarted and metoprolol dose was adjusted. Note from Dr. Villanueva 12/26/2022 Briefly, 67 y.o. M w/ h/o paroxysmal atrial fibrillation, prior CVA, prostate CA s/p prostatectomy who is status post right inguinal hernia repair and urethral dilation. Patient's home cardiac medications held for a couple days leading up to his surgery. Overnight, patient developed atrial fibrillation w/ RVR w/ associated palpitations. Paroxysmal atrial fibrillation w/ RVR: - Patient's heart rates improved since last night w/ metoprolol 25 mg x 2 - Restart patient's home medications w/ metoprolol 25 mg qam, 12.5 mg qpm w/ hold parameters for SBP < 90-95 - Restart home flecainide - Patient restarted on eliquis as per surgery ([id number] score of 3 w/ prior CVA) - If patient remains tachycardic despite the above, can consider transfer to cardiac telemetry for cardizem gtt if blood pressure allows or one time dosing of digoxin as needed - Agree w/ continued IVFs w/ additional 1L fluid bolus as patient autodiuresing since recent surgery; volume loss likely contributing to borderline hypotension - No indication for transfer to CCU at this time ECHOCARDIOGRAMS : 1. Left ventricle: Systolic function is normal by the biplane method of disks. The estimated ejection fraction is 50%. 2. Right ventricle: Systolic function is normal. 3. Atrial septum: Agitated saline contrast study shows bubbles appearing in the left heart at least 6 cardiac cycles after entering the right heart. On repeat injection, no bubbles were seen until >15 cardiac cycles. This suggests intermittent [id number] intrapulmonary shunting. 4. No significant valve disease. -Patient converted back to sinus rhythm- D/C on POD3 History of cerebrovascular accident -Stroke 11/2021 with right sided weakness - right leg gave out -Received TPA -Patient denies residual weakness, still has some swelling in right leg, and incontinence to bladder DELIA (stress urinary incontinence), male Surgical intervention scheduled for 03/08/2023 Vu Activity Status Index: METS: Climb a flight of stairs or walk up a hill (5.50 METs) DASI Score: 5.5 Patient denies any chest pain or undue shortness of breath with the above physical activity. ARISCAT Score: Age: 51-80 Preoperative SpO2: >=96% Respiratory infection in the last month: No Preoperative anemia: No Surgical incision: peripheral Duration of surgery: <2 hrs Emergency procedure: No ARISCAT Score: 3 ANESTHESIA FINDINGS: Intubation History: No history of difficult intubation Significant Anesthesia Considerations: potential slow emergence Airway History: No history of difficult airway Prepared for Surgery: . Hard to wake up from anesthesia CONSULTS: The following consults have been initiated at this time: anesthesia and cardiology (Scanned in [facility] 02/25/2023). Implantable Devices: urethral/bladder sphincter pump The Following Tests/Procedures Have Been Initiated: -RED DOT- will have anesthesia review chart -Order placed by surgeon- urine culture -EKG placed by DIRECTOR CLOUD TRANSFORMATION -Labs from 12/27/2022 reviewed -Cardiac optimization is scanned into Epic and on chart. May hold Eliquis for 3 days. No bridging needed. -Noted PSA 01/30/2023 11.66 -patient is scheduled for CT scan 02/28/2023 -PET scan 03/07/2023 -Dr. Fernandez is aware and ok with continuing scan and surgery timing Assessment/Plan DELIA (stress urinary incontinence), male [N39.3] PLAN Planned Procedure: Procedure(s): REPAIR INFLATABLE URETHRAL/BLADDER NECK SPHINCTER PUMP/RESVR & CUFF. AUS REVISION (N/A) documented in this encounter [facility] 02-28-2023 History and physical note Summary: PAT HISTORY AND PHYSICAL EXAMINATION SERVICE DATE: 02/28/2023 SERVICE TIME: 0840 PRIMARY CARE PHYSICIAN: Elie Tolentino MD REASON FOR VISIT: Ron Burns is a 67 year old male who is scheduled for Procedure(s): REPAIR INFLATABLE URETHRAL/BLADDER NECK SPHINCTER PUMP/RESVR & CUFF. AUS REVISION (N/A) at the request of Dr. Jim Fernandez, for routine H&P. My final recommendation will be communicated back to the requesting physician by way of shared medical record or letter. Subjective The patient has the following: ACTIVE PROBLEM LIST Other Symptoms Involving Digestive System(567.99) DIVERTICULA (NO DIVERTICULITIS) COLON - NO HEMORRHAGE HEMORRHOIDS EXTERNAL HEMORRHOIDS INTERNAL Palpitations Ed (Erectile Dysfunction) Vesicular Palmoplantar Eczema of Foot Prostate Cancer (Hcc) Obesity, Class I, Bmi 30-34.9 Delia (Stress Urinary Incontinence), Male Muscle Weakness Atrial Fibrillation (Hcc) History of Cerebrovascular Accident Incontinence of Urine Pre-Op Exam COVID-19 Immunization Status Overdue - COVID-19 VACCINE (1) Overdue - never done 12/13/2021 Postponed until 12/13/2022 by Mena Browne APRN.CNP (Declined at this time) CHIEF COMPLAINT: urinary leakage HPI: 67 year old male reports for pre operative examination. Presents with urinary leakage. Prostate CA diagnosed in 2020. History of radical prostectomy (2020) and transurethral resection of the bladder (2021). Recent surgery: Implant sphincter urinary and XI robotic inguinal hernia repair (12/24/2022). Denies dysuria. Denies gross hematuria. Surgical intervention of the implanted sphincter device discussed with Dr. Fernandez- patient agreed. Denies pain at this time. -Noted PSA 01/30/2023 11.66 -patient is scheduled for CT scan 02/28/2023 -PET scan 03/07/2023 -Dr. Fernandez is aware and ok with continuing scan and surgery timing The reason for this visit is to perform a comprehensive review of the patient's past medical history, assess their current health status and obtain any additional testing required based on anesthesia guidelines. We will also identify any potential anesthesia problems or contraindications to the planned procedure. REVIEW OF SYSTEMS: General: Negative for: unintentional weight change and fever. Neurological: Positive for: strokes. Negative for: headaches and seizures. Respiratory: Negative for: asthma, COPD, dyspnea, home oxygen, pneumonia within 6 weeks, tobacco use, URI < 2 weeks and obstructive sleep apnea. Cardiovascular: History of stroke- TPA given in 2021 (per pt r/t afib) Positive for: atrial fibrillation Negative for: angina, CAD, chest pain, DVT/PE and hyperlipidemia. GI: Negative for: abdominal pain, GERD, nausea and vomiting. : See HPI. Endocrine: Negative for: diabetes mellitus and hypothyroidism. Hematology: Positive for: chronic anti-coagulation/platelet meds. Negative for: anemia, factor V Leiden and von Willebrand disease. Oncology: See HPI. Psych: Negative for: anxiety and depression. Musculoskeletal: Right leg swelling post stroke Negative for: back pain and joint pain. Skin: Negative for lesions, rash and itching. Negative for: rash. 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 PAST SURGICAL HISTORY Procedure Laterality Date COLONOSCOPY FLX DX W/COLLJ SPEC WHEN PFRMD 12/12/2006 Minimal diverticulosis PAST SURGICAL HISTORY OF PAST SURGICAL HISTORY OF 12/24/2022 IMPLANT SPHINCTER URINARY (Bladder), hernia repair PICC LINE INSERTION (PICC TEAM) (AK) 08/16/2021 PROSTECTOMY RETROPUBIC RADICAL N/A 08/09/2021 TRANSURETHRAL RESECTION OF BLADDER NECK N/A 07/19/2022 FAMILY HISTORY Problem Relation Age of Onset other (CVA) Mother 87 Heart Father 66 other (CVA) Sister Diabetes Sister other (bph) Brother Diabetes Brother other (bph) Brother Social History Tobacco Use Smoking status: Never Smokeless tobacco: Never Vaping Use Vaping Use: Never used Substance Use Topics Alcohol use: No Drug use: No Prior to Admission medications as of 02/28/23 0839 Medication Sig Last Dose Taking multivitamin tablet Take 1 tablet by mouth once daily. Taking Yes flecainide (TAMBOCOR) 100 mg tablet Take 100 mg by mouth daily at bedtime. Taking Yes flecainide (TAMBOCOR) 50 mg tablet Take 50 mg by mouth once daily. In the morning Taking Yes metoprolol tartrate, short acting, (LOPRESSOR) 25 mg tablet Take 12.5 mg by mouth twice daily. Taking Yes apixaban (ELIQUIS) 5 mg tab(s) TWICE A DAY Taking Yes No medication comments found. ALLERGIES No Known Allergies Objective PHYSICAL EXAM: General: alert and oriented and healthy appearance. Skin: normal color, no rash or lesions. HEENT: No additional findings for patient's neck. Cardiovascular: regular rate and rhythm, normal S1 and S2, no rub, murmurs, or gallop. Pulse characterized as regular. Respiratory: normal breath sounds, no wheezes or crackles. Abdomen: soft. Extremities: Positive for edema (right leg swelling). Neurological: normal cognition and motor skills. Positive for limb weakness. Limb weakness located right LE. PAIN ASSESSMENT: Pain Pain Level: 0 VITALS: BP 114/73 Pulse 57 Temp 97.2 Resp 18 Ht 5' 10 (1.78m) Wt 199 lb 9.6 oz (90.5kg) SpO2 97% BMI 28.64 kg/(m^2). Diagnostic tests reviewed for today's visit: Lab Value Units Date High Low HB 13.4 g/dL 12/27/2022 17.0 13.0 HCT 39.7 % 12/27/2022 51.0 39.0 WBC 9.17 k/uL 12/27/2022 11.00 3.70 PLT 200 k/uL 12/27/2022 400 150 NA 135 mmol/L 12/27/2022 144 136 K 4.3 mmol/L 12/27/2022 5.1 3.7 GLUC 96 mg/dL 12/27/2022 99 74 BUN 11 mg/dL 12/27/2022 24 9 CREAT 0.98 mg/dL 12/27/2022 1.22 0.73 PTSEC No results within date range. INR No results within date range. APTT No results within date range. ALT No results within date range. AST No results within date range. TBILI No results within date range. TSH No results within date range. Lab Value Units Date High Low HCGQT No results within date range. UHCG No results within date range. HCG, BODY* No results within date range. Lab Value Units Date High Low ABORHD No results within date range. ABSCREEN No results within date range. No results found for: HBA1C Recent Results (from the past 8760 hour(s)) ECG COMPLETE Collection Time: 12/25/22 11:29 PM Result Value Ventricular Rate 118 QRS Duration 102 QT Interval 344 QTC Calculation (Bazett) 482 Calculated R [place] 28 Calculated T [place] 39 Impression ATRIAL FIBRILLATION WITH RAPID VENTRICULAR RESPONSE NONSPECIFIC ST AND T WAVE ABNORMALITY ABNORMAL ECG WHEN COMPARED WITH ECG OF 13-AUG-2021 22:27, ST LESS DEPRESSED IN ANTERIOR LEADS Confirmed by MD MARIKA, [facility] ([id number]) on 12/26/2022 2:27:21 PM No results found for this or any previous visit (from the past 82097 hour(s)). Assessment Patient has the following medical conditions which may affect niles-operative course: Pre-op exam Identify any potential anesthesia problems or contraindications to the planned procedure. DELIA (stress urinary incontinence), male Surgical intervention scheduled for 03/08/2023 Atrial fibrillation (HCC) -EKG in PAT- sinus bradycardia -Cardiac optimization in Epic- no bridging needed. Hold Eliquis 3 days before surgery. Scanned 02/25/2023. Dieter WATSON ([facility]) -Per patient cardiac DIRECTOR CLOUD TRANSFORMATION, Dieter WATSON aware of recent afib with RVR 11/2022. -Per patient can tell with in afib palpitaions -Per patient 02/22/2023- last time in afib (did not notify grey goods tester)- sat in chair and relaxed and could tell was back in regular rhythm -Instructed patient to notify grey goods tester of afib 02/22/2023 -Will have anesthesia review chart. Does anesthesia want documentation the cardiology is ok with no bridge with patient in and out of afib and history of CVA -Eliquis 5 mg BID -Flecainide 50 mg in the AM and 100 mg at HS- instructed patient to take morning dose morning of surgery -Metoprolol 12.5 mg at BID- instructed to take morning of surgery 12/24/2022 surgery: Implant sphincter urinary and XI robotic inguinal hernia repair- right. Post op day 1 patient went into paroxysmal artrial fibrillation with RVR. Cardiology was consulted. Home medications restarted and metoprolol dose was adjusted. Note from Dr. Villanueva 12/26/2022 Briefly, 67 y.o. M w/ h/o paroxysmal atrial fibrillation, prior CVA, prostate CA s/p prostatectomy who is status post right inguinal hernia repair and urethral dilation. Patient's home cardiac medications held for a couple days leading up to his surgery. Overnight, patient developed atrial fibrillation w/ RVR w/ associated palpitations. Paroxysmal atrial fibrillation w/ RVR: - Patient's heart rates improved since last night w/ metoprolol 25 mg x 2 - Restart patient's home medications w/ metoprolol 25 mg qam, 12.5 mg qpm w/ hold parameters for SBP < 90-95 - Restart home flecainide - Patient restarted on eliquis as per surgery ([id number] score of 3 w/ prior CVA) - If patient remains tachycardic despite the above, can consider transfer to cardiac telemetry for cardizem gtt if blood pressure allows or one time dosing of digoxin as needed - Agree w/ continued IVFs w/ additional 1L fluid bolus as patient autodiuresing since recent surgery; volume loss likely contributing to borderline hypotension - No indication for transfer to CCU at this time ECHOCARDIOGRAMS : 1. Left ventricle: Systolic function is normal by the biplane method of disks. The estimated ejection fraction is 50%. 2. Right ventricle: Systolic function is normal. 3. Atrial septum: Agitated saline contrast study shows bubbles appearing in the left heart at least 6 cardiac cycles after entering the right heart. On repeat injection, no bubbles were seen until >15 cardiac cycles. This suggests intermittent [id number]-[id number] intrapulmonary shunting. 4. No significant valve disease. -Patient converted back to sinus rhythm- D/C on POD3 History of cerebrovascular accident -Stroke 11/2021 with right sided weakness - right leg gave out -Received TPA -Patient denies residual weakness, still has some swelling in right leg, and incontinence to bladder Vu Activity Status Index: METS: Climb a flight of stairs or walk up a hill (5.50 METs) DASI Score: 5.5 Patient denies any chest pain or undue shortness of breath with the above physical activity. ARISCAT Score: Age: 51-80 Preoperative SpO2: >=96% Respiratory infection in the last month: No Preoperative anemia: No Surgical incision: peripheral Duration of surgery: <2 hrs Emergency procedure: No ARISCAT Score: 3 ANESTHESIA FINDINGS: Intubation History: No history of difficult intubation Significant Anesthesia Considerations: potential slow emergence Airway History: No history of difficult airway I - PHYSICAL EVALUATION AIRWAY Patient intubated: No. DENTAL Dental findings: teeth intact. II - ANESTHESIA PLAN Anesthetic Plan: general Beta Wang Monitoring Plan Post Procedure Analgesic Plan Prepared for Surgery: . Hard to wake up from anesthesia CONSULTS: The following consults have been initiated at this time: anesthesia and cardiology (Scanned in [facility] 02/25/2023). Planned Anesthetic: general The Following Tests/Procedures Have Been Initiated: No orders of the defined types were placed in this encounter. Implantable Devices: urethral/bladder sphincter pump The Following Tests/Procedures Have Been Initiated: -RED DOT- will have anesthesia review chart -Order placed by surgeon- urine culture -EKG placed by DIRECTOR CLOUD TRANSFORMATION -Labs from 12/27/2022 reviewed -Cardiac optimization is scanned into [facility] and on chart. May hold Eliquis for 3 days. No bridging needed. -Noted PSA 01/30/2023 11.66 -patient is scheduled for CT scan 02/28/2023 -PET scan 03/07/2023 -Dr. Fernandez is aware and ok with continuing scan and surgery timing Assessment/Plan DELIA (stress urinary incontinence), male [N39.3] PLAN Planned Procedure: Procedure(s): REPAIR INFLATABLE URETHRAL/BLADDER NECK SPHINCTER PUMP/RESVR & CUFF. AUS REVISION (N/A) I spent a total of 50 minutes on the date of the service which included preparing to see the patient, [id number] patient care, and completing clinical documentation. Instructions Given to Patient: Instructions located in the after visit summary. Patient given verbal and written preop instructions and voices comprehension and compliance. SIGNATURE: Lizzie Molina APRN.CNP PATIENT NAME: Ron Burns DATE: February 26, 2023 TIME: 10:14 AM PAGER/CONTACT #: documented in this encounter [facility] 02-26-2023 Instructions Lizzie Molina APRN.CNP - 02/26/2023 11:19 AM EDT PATIENT PREOPERATIVE INSTRUCTIONS Jim Fernandez DO has scheduled you for your procedure at this surgery center: [facility]: [phone], [address] [address] Please read below carefully for your personalized instructions. Date of Surgery: 03/08/2023 Arrival Time for Surgery: 0955 Time of surgery: 1155 Please be aware that emergency situations arise, which may delay or change your surgical time. If this happens, we will notify you as soon as possible and regret any inconvenience. Dietary Restrictions: - No solid food after midnight. - Between midnight and four hours prior to your surgery time, you may have 12 ounces of clear liquids (Apple juice, carbonated beverages, Gatorade, black coffee or tea) unless your surgeon specifies otherwise Medications: AVS was given to patient and specific instructions for each medication reviewed. Please continue to take blood pressure medications including day of surgery. Any oral diabetic medications should be held day of surgery. If you are taking insulin please discuss with prescribing physician for pre op instructions. Blood Thinning Medications: - Stop NSAIDS (Ibuprofen, Advil, Aleve, Motrin, Celebrex, Mobic, etc.) 7 days before surgery, as directed by your surgeon. - If you take any of the following blood thinners, please contact your surgeon and the physician who prescribes it for you in order to get perioperative instructions as soon as possible Blood thinners: Aspirin,Coumadin, Plavix, Eliquis, Pradaxa, Xarelto, Lovenox, Brilinta, Effient, Savaysa, etc. - Stop Vitamin E, fish oil, Ginko, Andrei's Wort, flax seed oil, multivitamins, CBD oil, marijuana and other over the counter herbals and dietary supplements 7 days before surgery. This would not apply to cancer patients who are prescribed Marinol or any other prescription form of marijuana or CBD. Please follow up with the provider that manages your diabetes on how to prepare you for surgery. If you are taking the following medications for Type 2 diabetes: Canagliflozin (INVOKANA), dapagliflozin (FARXIGA), and empagliflozin (JARDIANCE) should each be discontinued at least 3 days before scheduled surgery. Ertugliflozin (STEGLATRO) should be discontinued at least four days before scheduled surgery. Pain Medications: - You may take Tylenol (Acetaminophen) or any of your current prescribed pain medications that do not contain aspirin or NSAIDS as needed. Approved medications can be taken the morning of surgery with a sip of water. If you take any medications for erectile dysfunction-Cialis (Tadalafil), Levitra, Staxyn (Vardenafil) Viagra (Sildenenafil please do not take these for 48 hours before surgery. If you start any new medications after today's visit, please contact the surgeon's office. Important Reminders: - If you use CPAP/BIPAP, bring the machine with you to the surgery center. - If you are prescribed inhalers for breathing, continue using them AND bring them to the surgery center. - Candy, mints, gum and tobacco products are NOT permitted the morning of surgery. - Hearing aids, dentures and glasses may be worn the morning of surgery. - NO jewelry, body piercings, makeup, hairpins or contacts are to be worn the day of surgery. - NO lotion, creams, powders or deodorants on the skin the day of surgery - You will need to have someone else (Family or friend) drive you home once discharged from the hospital. You cannot take a cab or Uber. You are not allowed to drive yourself home after surgery. -You will need an adult(over the age of 18) to stay with you for the first 24 hours post surgery or your surgery may be cancelled. Please speak with your surgeon if this is an issue. If you develop symptoms such as a fever, cold, or flu, or have other changes to your health within TWO DAYS of scheduled surgery or the morning of surgery, please contact the surgery center above. Check with surgeon to see if covid test is needed. Personal Belongings: - Leave ALL valuables and money at home or with family members. - You will need a form of ID and insurance card to check in the morning of surgery. - You will have to wear a hospital gown during your stay but if you wish to bring undergarments for after surgery you may. -If you do not have a copy of advance directives on file with us, please bring a copy with you on the day of surgery. If you already have an Advance Directive, please fax a copy to [phone] or email to for it to be added to your chart. If you do not have an Advance Directive, you can find the appropriate form and more information at [email or web address]. We recommend that you complete the Advance Directive form found on the website and bring it with you the day of your surgery. It can be witnessed and scanned into your chart that day. Please note-you should have a 72-hour period between getting your vaccine and date of surgery - If you have a stimulator, implant or pump that requires a remote please bring the remote with you day of surgery Lizzie Molina APRN.JOANNE Current Outpatient Medications on File Prior to Visit Medication Sig flecainide (TAMBOCOR) 100 mg tablet Take 100 mg by mouth daily at bedtime. Continue flecainide (TAMBOCOR) 50 mg tablet Take 50 mg by mouth once daily. In the morning. Continue- take morning of surgery metoprolol tartrate, short acting, (LOPRESSOR) 25 mg tablet 1 tab in the am and 0.5 tab in the BID Continue- please take in morning of surgery apixaban (ELIQUIS) 5 mg tab(s) TWICE A DAY Instructions per cardiology- hold 3 days before surgery -Hold multivitamin 7 days before your surgery No current facility-administered medications on file prior to visit. documented in this encounter [facility] 02-22-2023 Miscellaneous Notes Patient made aware of message. Aware of plan of care. No other questions. Encounter closed. February 22, 2023 1:15 PM See Jim's response below. Thank you Hermila Bonilla Yes that is all ok calling and set up for CT scan 02-28-2023, and 03-07-2023 and PET scan, and the surgery the next day and wanted to make sure that it is OK ? Pt called and they have some questions regarding yesterday's visit. Please advise, thanks! documented in this encounter [facility] 02-21-2023 Note HNO ID: [id number] Author: Hermila Bonilla Service: ? Author Type: ? Type: Progress Notes Filed: 02/21/2023 3:48 PM Note Text: February 21, 2023 3:47 PM Is this a combo? Is Dr. Parikh aware? Thank you Hermila Bonilla [facility] 02-21-2023 Note HNO ID: [id number] Author: Jim Fernandez DO Service: ? Author Type: Physician Type: Progress Notes Filed: 02/21/2023 3:43 PM Note Text: [facility] [place] [facility] UROLOGY LOCATION: [address] [place] [address] ESTABLISHED PATIENT PATIENT INFO: Ron Burns 67 year old Chief Complaint: Prostate Cancer/Right inguinal hernia HPI S/P AUS continues to have leakage Juan is here with me for query of device. 1-Duration: 2021 2-Location: prostate 3-Severity: N/A 4-Quality: Not applicable 5-Context: N/A 6-Timing: N/A 7-Modifying factors: No treatment prior to referral 8-Associated signs AND symptoms: no additional symptoms PATHOLOGY: NONE LAB: WBC (k/uL) Date Value 12/27/2022 9.17 RBC (m/uL) Date Value 12/27/2022 4.21 Hemoglobin (g/dL) Date Value 12/27/2022 13.4 Hematocrit (%) Date Value 12/27/2022 39.7 MCV (fL) Date Value 12/27/2022 94.3 MCH (pg) Date Value 12/27/2022 31.8 MCHC (g/dL) Date Value 12/27/2022 33.8 RDW-CV (%) Date Value 12/27/2022 12.7 Platelet Count (k/uL) Date Value 12/27/2022 200 MPV (fL) Date Value 12/27/2022 10.1 Neutrophils % (%) Date Value 09/21/2022 58.6 Lymphocytes % (%) Date Value 09/21/2022 26.0 Monocytes % (%) Date Value 09/21/2022 10.9 Eosin% (%) Date Value 06/21/2021 4.1 Basophils % (%) Date Value 09/21/2022 0.6 Abs Neut (k/uL) Date Value 09/21/2022 4.14 Abs [place] (k/uL) Date Value 09/21/2022 0.77 Abs Eosin (k/uL) Date Value 09/21/2022 0.27 Abs Baso (k/uL) Date Value 09/21/2022 0.04 Creatinine Date Value Ref Range Status 12/27/2022 0.98 0.73 - 1.22 mg/dL Final 12/26/2022 0.94 0.73 - 1.22 mg/dL Final 12/25/2022 0.99 0.73 - 1.22 mg/dL Final 12/11/2022 1.07 0.73 - 1.22 mg/dL Final PSA (ng/mL) Date Value 01/30/2023 11.66 09/21/2022 3.28 06/18/2022 1.45 02/20/2022 0.46 12/21/2021 0.30 09/28/2021 0.1 06/22/2021 45.03 PSA Screening (ng/mL) Date Value 06/21/2021 54.27 PSA, Percent Free (%) Date Value 01/30/2023 11 09/21/2022 16 06/22/2021 11 URINE POC GLUCOSE UA (POCT) Negative 07/05/2022 BILIRUBIN UA (POCT) Negative 07/05/2022 KETONE UA (POCT) Negative 07/05/2022 SPECIFIC GRAVITY UA (POCT) 1.020 07/05/2022 HEMOGLOBIN/BLOOD UA (POCT) Trace-intact 07/05/2022 PH UA (POCT) 7.5 07/05/2022 PROTEIN UA (POCT) Negative 07/05/2022 UROBILINOGEN UA (POCT) 0.2 07/05/2022 NITRITE UA (POCT) Negative 07/05/2022 LEUKOCYTES UA (POCT) Negative 07/05/2022 COLOR UA (POCT) Yellow 07/05/2022 CLARITY UA (POCT) Clear 07/05/2022 IMAGING: NM PET/CT PROSTATE WHOLE BODY IMAGING (Order [id number]) Patient Info Patient Name Sex Ron Coto ([id number]) Male 1955 06/02/2022 8:18 PM - Radiology, [facility] In Impression IMPRESSION: Head and neck: * No PSMA-expressing lesions suspicious for metastases. Chest: * No PSMA-expressing lesions suspicious for metastases. Abdomen and Pelvis: * No PSMA-expressing lesions suspicious for metastases. Bones and soft tissues: * No PSMA-expressing lesions suspicious for metastases. I have independently reviewed films and my findings are the same. ALLERGIES: ALLERGIES No Known Allergies MEDICATIONS: flecainide (TAMBOCOR) 100 mg tablet Take 100 mg by mouth daily at bedtime. flecainide (TAMBOCOR) 50 mg tablet Take 50 mg by mouth once daily. 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 HEAD AND NECK: No blurred vision or Sjogren's syndrome CARDIOVASCULAR: NO CHEST PAIN, PALPITATIONS, ANKLE EDEMA RESPIRATORY: No chronic cough, wheezing, dyspnea, hemoptysis. MUSCULOSKELETAL: NO CHRONIC BACK PAIN, ARTHRITIS, CHRONIC NECK PAIN SKIN: NO VARICOSE VEINS, RASH, ABNORMAL ITCHING BLOOD/LYMPHATIC: No easy bleeding, easy bruising, transfusion Hx NEUROLOGICAL: NO HEADACHES, NUMBNESS, SEIZURES, STROKE PSYCHIATRIC: No depression or inordinate anxiety The remainder of the ROS was negative. PHYSICAL EXAMINATION There were no vitals taken for this visit. General appearance: Well appearing, alert, in no acute distress, and well-hydrated, well nourished Skin: Skin color, texture, turgor normal, no suspicious rashes or lesions Head: Normocephalic, no masses, lesions, tenderness or abnormalities Abdomen: Normal abdominal exam, Abdomen soft, non-tender. Bowel sounds normal. No masses, organ (more content not included)... [facility] 02-21-2023 History of Presen t illness Narrative February 21, 2023 3:47 PM Is this a combo? Is Dr. Parikh aware? Thank you Hermila Bonilla Images from the original note were not included. [facility] [place] [facility] UROLOGY LOCATION: [address] [place] [address] ESTABLISHED PATIENT PATIENT INFO: Ron Burns 67 year old Chief Complaint: Prostate Cancer/Right inguinal hernia HPI S/P AUS continues to have leakage Juan is here with me for query of device. 1-Duration: 2021 2-Location: prostate 3-Severity: N/A 4-Quality: Not applicable 5-Context: N/A 6-Timing: N/A 7-Modifying factors: No treatment prior to referral 8-Associated signs & symptoms: no additional symptoms PATHOLOGY: NONE LAB: WBC (k/uL) Date Value 12/27/2022 9.17 RBC (m/uL) Date Value 12/27/2022 4.21 Hemoglobin (g/dL) Date Value 12/27/2022 13.4 Hematocrit (%) Date Value 12/27/2022 39.7 MCV (fL) Date Value 12/27/2022 94.3 MCH (pg) Date Value 12/27/2022 31.8 MCHC (g/dL) Date Value 12/27/2022 33.8 RDW-CV (%) Date Value 12/27/2022 12.7 Platelet Count (k/uL) Date Value 12/27/2022 200 MPV (fL) Date Value 12/27/2022 10.1 Neutrophils % (%) Date Value 09/21/2022 58.6 Lymphocytes % (%) Date Value 09/21/2022 26.0 Monocytes % (%) Date Value 09/21/2022 10.9 Eosin% (%) Date Value 06/21/2021 4.1 Basophils % (%) Date Value 09/21/2022 0.6 Abs Neut (k/uL) Date Value 09/21/2022 4.14 Abs [place] (k/uL) Date Value 09/21/2022 0.77 Abs Eosin (k/uL) Date Value 09/21/2022 0.27 Abs Baso (k/uL) Date Value 09/21/2022 0.04 Creatinine Date Value Ref Range Status 12/27/2022 0.98 0.73 - 1.22 mg/dL Final 12/26/2022 0.94 0.73 - 1.22 mg/dL Final 12/25/2022 0.99 0.73 - 1.22 mg/dL Final 12/11/2022 1.07 0.73 - 1.22 mg/dL Final PSA (ng/mL) Date Value 01/30/2023 11.66 09/21/2022 3.28 06/18/2022 1.45 02/20/2022 0.46 12/21/2021 0.30 09/28/2021 0.1 06/22/2021 45.03 PSA Screening (ng/mL) Date Value 06/21/2021 54.27 PSA, Percent Free (%) Date Value 01/30/2023 11 09/21/2022 16 06/22/2021 11 URINE POC GLUCOSE UA (POCT) Negative 07/05/2022 BILIRUBIN UA (POCT) Negative 07/05/2022 KETONE UA (POCT) Negative 07/05/2022 SPECIFIC GRAVITY UA (POCT) 1.020 07/05/2022 HEMOGLOBIN/BLOOD UA (POCT) Trace-intact 07/05/2022 PH UA (POCT) 7.5 07/05/2022 PROTEIN UA (POCT) Negative 07/05/2022 UROBILINOGEN UA (POCT) 0.2 07/05/2022 NITRITE UA (POCT) Negative 07/05/2022 LEUKOCYTES UA (POCT) Negative 07/05/2022 COLOR UA (POCT) Yellow 07/05/2022 CLARITY UA (POCT) Clear 07/05/2022 IMAGING: NM PET/CT PROSTATE WHOLE BODY IMAGING (Order [id number]) Patient Info Patient Name Sex Ron Coto ([id number]) Male 1955 06/02/2022 8:18 PM - Radiology, [facility] In Impression IMPRESSION: Head and neck: * No PSMA-expressing lesions suspicious for metastases. Chest: * No PSMA-expressing lesions suspicious for metastases. Abdomen and Pelvis: * No PSMA-expressing lesions suspicious for metastases. Bones and soft tissues: * No PSMA-expressing lesions suspicious for metastases. I have independently reviewed films and my findings are the same. ALLERGIES: ALLERGIES No Known Allergies MEDICATIONS: flecainide (TAMBOCOR) 100 mg tablet Take 100 mg by mouth daily at bedtime. flecainide (TAMBOCOR) 50 mg tablet Take 50 mg by mouth once daily. 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 HEAD & NECK: No blurred vision or Sjogren's syndrome CARDIOVASCULAR: NO CHEST PAIN, PALPITATIONS, ANKLE EDEMA RESPIRATORY: No chronic cough, wheezing, dyspnea, hemoptysis. MUSCULOSKELETAL: NO CHRONIC BACK PAIN, ARTHRITIS, CHRONIC NECK PAIN SKIN: NO VARICOSE VEINS, RASH, ABNORMAL ITCHING BLOOD/LYMPHATIC: No easy bleeding, easy bruising, transfusion Hx NEUROLOGICAL: NO HEADACHES, NUMBNESS, SEIZURES, STROKE PSYCHIATRIC: No depression or inordinate anxiety The remainder of the ROS was negative. PHYSICAL EXAMINATION There were no vitals taken for this visit. General appearance: Well appearing, alert, in no acute distress, and well-hydrated, well nourished Skin: Skin color, texture, turgor normal, no suspicious rashes or lesions Head: Normocephalic, no masses, lesions, tenderness or abnormalities Abdomen: Normal abdominal exam, Abdomen soft, non-tender. Bowel sounds normal. No masses, organomegaly Genitourinary: MALE EXAM: Exam small right sided bulge - likely hernia PVR: NA Urodynamic Findings: Uroflow : Patient arrived with a garrett catheter- No. Patient voided 255.7 ml; Curve: Normal Post void residual 25 ml QMAX 28.2 ; QAVG 11.5 . Cystometrogram: The patient had a cystometrogram EMG: Yes First Sensation 109 ml First desire 185 ml Strong Desire 398 ml Capacity 668 ml No destrusor contractions Instability associated with urge: No Instability associated with leakage: No Steady rise in Pdet after first desire. Patient did have penis clamp on during CMG to get bladder capacity. Patient did start to leak with Penis clamp on after first desire. Pressure-Flow Voiding Study: EMG: Yes Void 329.5 ml; Curve: Intermittent Post void residual: 15 ml Maximum detrusor pressure 79.0 Cm H20 Maximum flow rate: 14.6 ml/sec Average flow rate: 6.3 ml/sec UDS notes: N/A ASSESSMENT/PLAN: AUS implanted 8 weeks ago, now with persistent leakage. Device is cycling, but he is leaking Check CT pelvis to ensure balloon has fluid present. 4.0 cuff was placed, may need revision with transcorporal placement of cuff. I will discuss with Dr. Chapman. Jim Fernandez DO documented in this encounter [facility] 02-19-2023 Miscellaneous Notes Patient aware to come at 2 pm for device check in [place] with Rep. I called patient and he is aware of the message and states he could come into the office on for Device Check. Left a message on [employer] Rep # [phone] Juan's voicemail to see if he can come in and do this. Awaiting call back. Ron is on work #[phone]. Can Juan meet him in [place] this for device check? Patient calling and he states that the internal sphincter valve is leaking mostly all time even when off. He states he goes to the bathroom every 2 hours and pressing the valve just a little comes out becomes nothing in bladder. He states he has been doing the Kegel exercises daily. He wants to know does he give more time, or is this normal to be leaking all the time still? Please advise. documented in this encounter [facility] 02-07-2023 Note HNO ID: [id number] Author: Jim Fernandez DO Service: ? Author Type: Physician Type: Progress Notes Filed: 02/07/2023 12:17 PM Note Text: [facility] [place] [facility] UROLOGY LOCATION: [address] [place] [address] ESTABLISHED PATIENT PATIENT INFO: Ron Burns 67 year old Chief Complaint: Prostate Cancer/Right inguinal hernia HPI S/P AUS and inguinal hernia repair. Here for activation 1-Duration: 2021 2-Location: prostate 3-Severity: N/A 4-Quality: Not applicable 5-Context: N/A 6-Timing: N/A 7-Modifying factors: No treatment prior to referral 8-Associated signs AND symptoms: no additional symptoms PATHOLOGY: NONE LAB: WBC (k/uL) Date Value 12/27/2022 9.17 RBC (m/uL) Date Value 12/27/2022 4.21 Hemoglobin (g/dL) Date Value 12/27/2022 13.4 Hematocrit (%) Date Value 12/27/2022 39.7 MCV (fL) Date Value 12/27/2022 94.3 MCH (pg) Date Value 12/27/2022 31.8 MCHC (g/dL) Date Value 12/27/2022 33.8 RDW-CV (%) Date Value 12/27/2022 12.7 Platelet Count (k/uL) Date Value 12/27/2022 200 MPV (fL) Date Value 12/27/2022 10.1 Neutrophils % (%) Date Value 09/21/2022 58.6 Lymphocytes % (%) Date Value 09/21/2022 26.0 Monocytes % (%) Date Value 09/21/2022 10.9 Eosin% (%) Date Value 06/21/2021 4.1 Basophils % (%) Date Value 09/21/2022 0.6 Abs Neut (k/uL) Date Value 09/21/2022 4.14 Abs [place] (k/uL) Date Value 09/21/2022 0.77 Abs Eosin (k/uL) Date Value 09/21/2022 0.27 Abs Baso (k/uL) Date Value 09/21/2022 0.04 Creatinine Date Value Ref Range Status 12/27/2022 0.98 0.73 - 1.22 mg/dL Final 12/26/2022 0.94 0.73 - 1.22 mg/dL Final 12/25/2022 0.99 0.73 - 1.22 mg/dL Final 12/11/2022 1.07 0.73 - 1.22 mg/dL Final PSA (ng/mL) Date Value 01/30/2023 11.66 09/21/2022 3.28 06/18/2022 1.45 02/20/2022 0.46 12/21/2021 0.30 09/28/2021 0.1 06/22/2021 45.03 PSA Screening (ng/mL) Date Value 06/21/2021 54.27 PSA, Percent Free (%) Date Value 01/30/2023 11 09/21/2022 16 06/22/2021 11 URINE POC GLUCOSE UA (POCT) Negative 07/05/2022 BILIRUBIN UA (POCT) Negative 07/05/2022 KETONE UA (POCT) Negative 07/05/2022 SPECIFIC GRAVITY UA (POCT) 1.020 07/05/2022 HEMOGLOBIN/BLOOD UA (POCT) Trace-intact 07/05/2022 PH UA (POCT) 7.5 07/05/2022 PROTEIN UA (POCT) Negative 07/05/2022 UROBILINOGEN UA (POCT) 0.2 07/05/2022 NITRITE UA (POCT) Negative 07/05/2022 LEUKOCYTES UA (POCT) Negative 07/05/2022 COLOR UA (POCT) Yellow 07/05/2022 CLARITY UA (POCT) Clear 07/05/2022 IMAGING: NM PET/CT PROSTATE WHOLE BODY IMAGING (Order [id number]) Patient Info Patient Name Sex Ron Coto ([id number]) Male 1955 06/02/2022 8:18 PM - Radiology, [facility] In Impression IMPRESSION: Head and neck: * No PSMA-expressing lesions suspicious for metastases. Chest: * No PSMA-expressing lesions suspicious for metastases. Abdomen and Pelvis: * No PSMA-expressing lesions suspicious for metastases. Bones and soft tissues: * No PSMA-expressing lesions suspicious for metastases. I have independently reviewed films and my findings are the same. ALLERGIES: ALLERGIES No Known Allergies MEDICATIONS: flecainide (TAMBOCOR) 100 mg tablet Take 100 mg by mouth daily at bedtime. flecainide (TAMBOCOR) 50 mg tablet Take 50 mg by mouth once daily. 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 HEAD AND NECK: No blurred vision or Sjogren's syndrome CARDIOVASCULAR: NO CHEST PAIN, PALPITATIONS, ANKLE EDEMA RESPIRATORY: No chronic cough, wheezing, dyspnea, hemoptysis. MUSCULOSKELETAL: NO CHRONIC BACK PAIN, ARTHRITIS, CHRONIC NECK PAIN SKIN: NO VARICOSE VEINS, RASH, ABNORMAL ITCHING BLOOD/LYMPHATIC: No easy bleeding, easy bruising, transfusion Hx NEUROLOGICAL: NO HEADACHES, NUMBNESS, SEIZURES, STROKE PSYCHIATRIC: No depression or inordinate anxiety The remainder of the ROS was negative. PHYSICAL EXAMINATION Ht 177.8 cm (5' 10 ) Wt 90.3 kg (199 lb) BMI 28.55 kg/m? General appearance: Well appearing, alert, in no acute distress, and well-hydrated, well nourished Skin: Skin color, texture, turgor normal, no suspicious rashes or lesions Head: Normocephalic, no masses, lesions, tenderness or abnormalities Abdomen: Normal abdominal exam, Abdomen soft, non-tender. Bowel sounds normal. No masses, organ (more content not included)... [facility] 02-07-2023 History of Presen t illness Narrative Images from the original note were not included. [facility] [place] UR[facility]Y LOCATION: [address] [place] [address] ESTABLISHED PATIENT PATIENT INFO: Ron Burns 67 year old Chief Complaint: Prostate Cancer/Right inguinal hernia HPI S/P AUS and inguinal hernia repair. Here for activation 1-Duration: 2021 2-Location: prostate 3-Severity: N/A 4-Quality: Not applicable 5-Context: N/A 6-Timing: N/A 7-Modifying factors: No treatment prior to referral 8-Associated signs & symptoms: no additional symptoms PATHOLOGY: NONE LAB: WBC (k/uL) Date Value 12/27/2022 9.17 RBC (m/uL) Date Value 12/27/2022 4.21 Hemoglobin (g/dL) Date Value 12/27/2022 13.4 Hematocrit (%) Date Value 12/27/2022 39.7 MCV (fL) Date Value 12/27/2022 94.3 MCH (pg) Date Value 12/27/2022 31.8 MCHC (g/dL) Date Value 12/27/2022 33.8 RDW-CV (%) Date Value 12/27/2022 12.7 Platelet Count (k/uL) Date Value 12/27/2022 200 MPV (fL) Date Value 12/27/2022 10.1 Neutrophils % (%) Date Value 09/21/2022 58.6 Lymphocytes % (%) Date Value 09/21/2022 26.0 Monocytes % (%) Date Value 09/21/2022 10.9 Eosin% (%) Date Value 06/21/2021 4.1 Basophils % (%) Date Value 09/21/2022 0.6 Abs Neut (k/uL) Date Value 09/21/2022 4.14 Abs [place] (k/uL) Date Value 09/21/2022 0.77 Abs Eosin (k/uL) Date Value 09/21/2022 0.27 Abs Baso (k/uL) Date Value 09/21/2022 0.04 Creatinine Date Value Ref Range Status 12/27/2022 0.98 0.73 - 1.22 mg/dL Final 12/26/2022 0.94 0.73 - 1.22 mg/dL Final 12/25/2022 0.99 0.73 - 1.22 mg/dL Final 12/11/2022 1.07 0.73 - 1.22 mg/dL Final PSA (ng/mL) Date Value 01/30/2023 11.66 09/21/2022 3.28 06/18/2022 1.45 02/20/2022 0.46 12/21/2021 0.30 09/28/2021 0.1 06/22/2021 45.03 PSA Screening (ng/mL) Date Value 06/21/2021 54.27 PSA, Percent Free (%) Date Value 01/30/2023 11 09/21/2022 16 06/22/2021 11 URINE POC GLUCOSE UA (POCT) Negative 07/05/2022 BILIRUBIN UA (POCT) Negative 07/05/2022 KETONE UA (POCT) Negative 07/05/2022 SPECIFIC GRAVITY UA (POCT) 1.020 07/05/2022 HEMOGLOBIN/BLOOD UA (POCT) Trace-intact 07/05/2022 PH UA (POCT) 7.5 07/05/2022 PROTEIN UA (POCT) Negative 07/05/2022 UROBILINOGEN UA (POCT) 0.2 07/05/2022 NITRITE UA (POCT) Negative 07/05/2022 LEUKOCYTES UA (POCT) Negative 07/05/2022 COLOR UA (POCT) Yellow 07/05/2022 CLARITY UA (POCT) Clear 07/05/2022 IMAGING: NM PET/CT PROSTATE WHOLE BODY IMAGING (Order [id number]) Patient Info Patient Name Sex Ron Coto ([id number]) Male 1955 06/02/2022 8:18 PM - Radiology, [facility] In Impression IMPRESSION: Head and neck: * No PSMA-expressing lesions suspicious for metastases. Chest: * No PSMA-expressing lesions suspicious for metastases. Abdomen and Pelvis: * No PSMA-expressing lesions suspicious for metastases. Bones and soft tissues: * No PSMA-expressing lesions suspicious for metastases. I have independently reviewed films and my findings are the same. ALLERGIES: ALLERGIES No Known Allergies MEDICATIONS: flecainide (TAMBOCOR) 100 mg tablet Take 100 mg by mouth daily at bedtime. flecainide (TAMBOCOR) 50 mg tablet Take 50 mg by mouth once daily. 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 HEAD & NECK: No blurred vision or Sjogren's syndrome CARDIOVASCULAR: NO CHEST PAIN, PALPITATIONS, ANKLE EDEMA RESPIRATORY: No chronic cough, wheezing, dyspnea, hemoptysis. MUSCULOSKELETAL: NO CHRONIC BACK PAIN, ARTHRITIS, CHRONIC NECK PAIN SKIN: NO VARICOSE VEINS, RASH, ABNORMAL ITCHING BLOOD/LYMPHATIC: No easy bleeding, easy bruising, transfusion Hx NEUROLOGICAL: NO HEADACHES, NUMBNESS, SEIZURES, STROKE PSYCHIATRIC: No depression or inordinate anxiety The remainder of the ROS was negative. PHYSICAL EXAMINATION Ht 177.8 cm (5' 10 ) Wt 90.3 kg (199 lb) BMI 28.55 kg/m General appearance: Well appearing, alert, in no acute distress, and well-hydrated, well nourished Skin: Skin color, texture, turgor normal, no suspicious rashes or lesions Head: Normocephalic, no masses, lesions, tenderness or abnormalities Abdomen: Normal abdominal exam, Abdomen soft, non-tender. Bowel sounds normal. No masses, organomegaly Genitourinary: MALE EXAM: Exam small right sided bulge - likely hernia PVR: NA Urodynamic Findings: Uroflow : Patient arrived with a garrett catheter- No. Patient voided 255.7 ml; Curve: Normal Post void residual 25 ml QMAX 28.2 ; QAVG 11.5 . Cystometrogram: The patient had a cystometrogram EMG: Yes First Sensation 109 ml First desire 185 ml Strong Desire 398 ml Capacity 668 ml No destrusor contractions Instability associated with urge: No Instability associated with leakage: No Steady rise in Pdet after first desire. Patient did have penis clamp on during CMG to get bladder capacity. Patient did start to leak with Penis clamp on after first desire. Pressure-Flow Voiding Study: EMG: Yes Void 329.5 ml; Curve: Intermittent Post void residual: 15 ml Maximum detrusor pressure 79.0 Cm H20 Maximum flow rate: 14.6 ml/sec Average flow rate: 6.3 ml/sec UDS notes: N/A ASSESSMENT/PLAN: [place] 9 Prostate cancer PSA 54 at diagnosis. S/P RARP with bilateral extended node dissection. VERY difficult VUA, bilateral stents were in place, ureteral stents removed. Favorable pathology. Negative LN disease. No bladder neck invasion. Kegels. PSA 0.1 => 0.3 => 0.46 => 1.45 => 3.28 Discussed radiation vs ADT. PSMA PET SCAN NEGATIVE - 06/01/2023 - decision was made to hold on adjuvant treatment. NOW PSA has increased to 11 - repeat PROSTATE PET. S/P TURBNC in preparation for AUS - 07/19/22 S/P AUS and right robotic hernia repair (with Dr. Fisher). He is doing well. AUS activated today. Will need a few more PT sessions in [place] to re-strengthen his pelvic floor. F/U with me after PET SCAN. May need medical oncology evaluation. Jim Fernandez DO documented in this encounter [facility] 01-25-2023 Miscellaneous Notes Patient calls asking to have a PSA drawn prior to an appointment with Dr Fernandez on 02/07 patient made aware that order has been placed and he can have this done at his earliest convenience. documented in this encounter [facility] 01-01-2023 Miscellaneous Notes Patient calling as he feelings he is not able to empty bladder since post op last week. This has been going on about every few hours, voids a little bit. Does state he did have a lot of bladder spasms post op. Will come in per Dr. Fernandez and see Dr. Kelley today. Scan bladder and if needed per Dr. Fernandez new sphincter is deactivated. If garrett needed 12-14. Coming in at 1 pm. documented in this encounter [facility] 12-28-2022 Miscellaneous Notes S/P AUS Needs appt in office in 5-6 weeks to activate AUS Can be [place] or [place] documented in this encounter [facility] 12-28-2022 History of Presen t illness Narrative TCM Home Visit Referral Source of Stratification: [facility] Admission Status: Discharged Readmission Risk Score: 10 BENOIT Score: 7 Patient meets program referral criteria: No Patient does not qualify for High Risk TCM Home Visit program due to: Discharged home, does not meet program criteria Jas Bautista RN December 28, 2022 11:29 AM TRANSITIONAL CARE MANAGEMENT (TCM) COMMUNITY MONITORING PROGRAM Provider Action/FYI: Spoke to patient's . Had breakfast and lunch. Was able to take a shower. Denies nausea and vomiting. Denies fever or chills. Denies palpitations, chest pain or SOB. Has not had a BM. Is passing gas. Will take some colace. Pt is picking up new prescription medications today. Denies additional questions or concerns. Pt has no upcoming appts scheduled. SUMMARY: Pt discharged from [facility] on 12/27/22. Admitted for: Incontinence of urine Patient was admitted and underwent robotic inguinal hernia repair and AUS. He was doing well on POD1 but did have tachycardia. He went into afib and cardiology was consulted. His regimen of metoprolol was adjusted and he converted back to sinus rhythm. He was ambulating, pain was controlled, and he was urinating after catheter removal. He was deemed fit for discharge on POD3. Contact made with patient: Yes Hi my name is Jas Bautista RN and I am calling from the [facility] on behalf of your PCP, Elie Tolentino MD I understand you were recently in the hospital so I am calling to check in with you to ensure you are feeling well now that you're home. May I ask you a few questions related to your hospital stay and well-being? Yes Contact with patient post discharge, spoke to spouse. Patient identified by name and . Do you feel your health is BETTER, WORSE, or the SAME since leaving the hospital? Better ACTION TAKEN: Patient indicated symptoms are better or same, no action required. Continue outreach. MEDICATIONS: Many patients have questions or concerns about their medications once they are home. Do you have any questions about taking your medications or which medication you should be on? No Do you need any medication refills at this time, including any of the medications you might take only when needed? No ACTION TAKEN: No action required For RNs or Pharmacy completing outreach ONLY, was a medication review completed? Yes SOCIAL: We would like to make sure you have what you need so that your basics needs are met - including your personal safety, food, housing and medications. Would you like to speak with a social work project manager/team coach to help give you support for any of these needs? No It can be normal to feel anxious or down during a time like this. Would you like to talk to a mental health professional about how you have been feeling? No ACTION TAKEN: No action taken DISCHARGE INTRUCTIONS: Your discharge instructions / After Visit Summary (AVS) are important in guiding you through the recovery process. Do you have any questions related to your discharge instructions? No Do you have all the necessary equipment and supplies at home? Yes ACTION TAKEN: No action required I would like to help you schedule a hospital follow-up virtual or telephone visit with your PCP. This is a great way for you to connect with your provider to ensure you have safely transitioned home. If you are agreeable, I will send your request to a cytotechnologist/cytology supervisor who will contact and assist you with that appointment. This will give you an opportunity to ask any questions or address any concerns you may have with your PCP. Inform the patient that if they have any questions or concerns prior to that appointment, to call their PCP's office right away. ACTION TAKEN: No action required, patient declines appointment. Your doctor would like us to remind you of the recommendations regarding the coronavirus (Covid19) outbreak: Avoid public places as much as possible. Avoid close contact (within 6 feet) with others you don t live with, especially if they are sick. Stay home if you are sick. Wash your hands regularly for at least 20 seconds with soap and water. Wear a cloth mask in public places to help reduce community spread. Do not go to your Doctor s office unless instructed to do so. For any non-emergency symptoms, call your Doctor s office to get instructions on how to manage (we might recommend a telephone or virtual visit). For emergency symptoms, proceed to Emergency Department as usual but inform them of cough and fever symptoms HAIM if present (or call on the way if possible). ALESSANDRO Education Ordered -: No Jas Bautista RN documented in this encounter [facility] 12-27-2022 Note HNO ID: [id number] Author: Jim Fernandez DO Service: Urology Author Type: Physician Type: Progress Notes Filed: 01/02/2023 11:03 PM Note Text: UROLOGY PROGRESS NOTE PATIENT NAME: Ron Burns DATE OF : 1955 ADMISSION DATE: 12/24/2022 6:44 AM Subjective POD 3 urethral dilation, AUS placement Converted to NSR overnight Feeling better this AM Has been ambulating Tolerating diet Ready to go home Objective VS: BP 99/50 Pulse 70 Temp 36.6 ?C (97.9 ?F) (Oral) Resp 16 Ht 177.8 cm (5' 10 ) Wt 88.5 kg (195 lb) SpO2 97% BMI 27.98 kg/m? I AND O - 24hr: Intake/Output Summary (Last 24 hours) at 12/27/2022 0628 Last data filed at 12/27/2022 0320 Gross per 24 hour Intake -- Output 3650 ml Net -3650 ml Physical Exam: General: Neck: Resp: Abdomen: No acute distress Supple Normal effort Soft, appropriately TTP. Incisions c/d/I. : Garrett catheter draining light yellow urine. Labs and Imaging Studies LABS: BMP: Glucose (mg/dL) Date Value 12/27/2022 96 06/21/2021 111 Potassium (mmol/L) Date Value 12/27/2022 4.3 06/21/2021 3.9 Sodium (mmol/L) Date Value 12/27/2022 135 06/21/2021 139 Chloride (mmol/L) Date Value 12/27/2022 104 06/21/2021 104 CO2 (mmol/L) Date Value 12/27/2022 21 06/21/2021 24 Creatinine (mg/dL) Date Value 12/27/2022 0.98 06/27/2021 1.01 BUN (mg/dL) Date Value 12/27/2022 11 06/21/2021 17 Anion Gap (mmol/L) Date Value 12/27/2022 10 06/21/2021 11 Calcium (mg/dL) Date Value 06/21/2021 9.8 Calcium, Total (mg/dL) Date Value 12/27/2022 8.7 CBC: Hemoglobin (g/dL) Date Value 12/27/2022 13.4 06/21/2021 14.4 Hematocrit (%) Date Value 12/27/2022 39.7 06/21/2021 43.5 WBC (k/uL) Date Value 12/27/2022 9.17 06/21/2021 6.38 Platelet Count (k/uL) Date Value 12/27/2022 200 06/21/2021 227 Urinalysis: Specific Bath, Ur Date Value Ref Range Status 08/11/2021 1.010 1.005 - 1.030 Final Glucose, Urine Date Value Ref Range Status 08/11/2021 Negative Negative Final Bilirubin, Urine Date Value Ref Range Status 08/11/2021 Negative Negative Final Ketones, Urine Date Value Ref Range Status 08/11/2021 Negative Negative Final Hemoglobin/Blood,Ur Date Value Ref Range Status 08/11/2021 Large (A) Negative Final Protein, Urine Date Value Ref Range Status 08/11/2021 30 mg/dL (A) Negative Final Nitrites Date Value Ref Range Status 08/11/2021 Negative Negative Final WBC, Urine Date Value Ref Range Status 08/11/2021 >25 /HPF (A) 0-5 /HPF Final Urine Culture: No results found for: URCUL RADIOLOGY: Assessment and Plan ASSESSMENT: 67 year old male POD 3 urethral dilation, AUS placement, robotic R inguinal hernia repair with general surgery. - AFIB RVR converted to NSR overnight 12/26 PLAN: - appreciate cardiology recs; patient continues to be in NSR this AM - likely dc garrett this AM - encourage ambulation - eliquis BID - bactrim and home with bactrim BID for 14 total days - trend labs with patient ambulating this AM - likely dc home later today Sumeet Coe DO Urology, PGY-5 #[id number] Please page on-call resident with any questions Attending Note I evaluated the patient and personally participated in the dover components. I agree with the resident's findings and plan as documented and have discussed the case and management of the patient's care with the resident. Signature: Jim Fernandez DO Date: 01/02/2023 Time: 11:03 PM [facility] 12-26-2022 Note HNO ID: [id number] Author: Sally Wagoner RN Service: Nursing Author Type: Registered Nurse Type: Nursing Progress Note Filed: 12/26/2022 9:54 PM Note Text: Patient converted back to sinus rhythm at 2101. [facility] 12-26-2022 Note HNO ID: [id number] Author: Lizzie Olivares RN Service: Nursing Author Type: Registered Nurse Type: Nursing Progress Note Filed: 12/26/2022 7:16 PM Note Text: Okay to give hs meds early per Dr Steinberg. [facility] 12-26-2022 Note HNO ID: [id number] Author: Renate Haywood RN Service: Care Management Author Type: Registered Nurse Type: Care Mgt Initial Assessment Filed: 12/26/2022 12:42 PM Note Text: CARE MANAGEMENT: ASSESSMENT AND DISCHARGE PLAN SERVICE DATE: December 26, 2022 SERVICE TIME: 12:40 PM PRIMARY CARE PHYSICIAN: Elie Tolentino MD Primary Contact: Extended Emergency Contact Information Primary Emergency Contact: Crystal Burns Scott Relation: Spouse Secondary Emergency Contact: Rahul Burns Handshake Relation: Son ADMISSION STATUS: Inpatient Insurance Provider: N/A NEEDS PRIOR TO DISCHARGE Needs Prior to Discharge: To Be Determined, Discharge Prescriptions, Patient/Family Patient/Family: Education POTENTIAL TRANSITION PLANS Home Based on clinical judgement, Care Management will address the following needs: Medical Patient's perception of need for this admission: surgery on hernia ADVANCE DIRECTIVES MS/BEHAVIOR Baseline Mental Status Prior to this Illness what was the patient's Baseline Mental Status?: Alert AND Oriented Prior to this illness, has anyone described the patient having any of the following behaviors?: Not Applicable Relationship of the informant to the patient:: Self READMISSION Last Discharge Date: 07/19/22 Is this Within the Past 30 days? 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 scores in the EMR?: No Any potential risks related to substance abuse and/or behavioral health?: No Based on clinical judgement, Care Management will address the following needs: Medical CAREGIVER ASSESSMENT Caregiver is ready, willing and able to meet the patient's needs as recommended by the inter-professional team:: No Caregiver needed Patient's transition needs and plan for meeting these needs: no transitional/discharge needs identified at this time MEDICAL Medical Needs: Two or more chronic diseases Health Issues Impacting Discharge Plan: Newly diagnosed Newly Diagnosed: s/p inguinal hernia repair, urethral dilation, AUS placement Medication Adherance I am convinced of the importance of my prescription medication: 0 - Agree Completely I worry that my prescription medication will do more harm than good to me : 0 - Disagree Completely I feel financially burdened by my [id number] expenses for my prescription medication:: 0 - Disagree Mostly Risk Score: 0 Patient is categorized as: Low risk < 2 No social discharge barriers identified at this time. No behavioral/cognitive discharge barriers identified at this time. No functional discharge barriers identified at this time. FREEDOM OF CHOICE EXPLAINED: [place] of Choice Given: No Reason Not Given: No placements necessary Are you interested in bedside delivery of your medications? No ASSESSMENT AND PLAN: Chart reviewed and met with patient and his at bedside. Explained CM role. Patient is from home with his . 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 DC plan is home, patient states he will have transport. Plan for home with garrett. Patient states he has has a garrett in the past is comfortable going home with it in place. No transitional/discharge needs identified at this time. SIGNATURE: Renate Haywood RN PATIENT NAME: Ron Burns DATE: December 26, 2022 TIME: 12:40 PM CONTACT #: [phone] [facility] 12-26-2022 Note HNO ID: [id number] Author: Sumeet Coe DO Service: Urology Author Type: Resident Type: Progress Notes Filed: 12/26/2022 6:35 AM Note Text: Attestation signed by Onel Francis MD at 12/26/2022 9:46 AM Attending Note I evaluated the patient and personally participated in the dover components. I agree with the resident's findings and plan as documented and have discussed the case and management of the patient's care with the resident. Onel Francis MD Date: 12/26/22 Time: 9:46 AM UROLOGY PROGRESS NOTE PATIENT NAME: Ron Burns DATE OF : 1955 ADMISSION DATE: 12/24/2022 6:44 AM Subjective POD 2 urethral dilation, AUS placement Transferred to [facility] overnight Afib RVR overnight CVICU contacted, cardiology consulted Patient received 25mg metoprolol HR still in 100's this AM and patient feels as though his heart is racing Denies any light headedness or dizziness this AM Objective VS: BP 104/73 Pulse 109 Temp 37.1 ?C (98.8 ?F) (Oral) Resp 18 Ht 177.8 cm (5' 10 ) Wt 88.5 kg (195 lb) SpO2 93% BMI 27.98 kg/m? I AND O - 24hr: Intake/Output Summary (Last 24 hours) at 12/26/2022 0696 Last data filed at 12/26/2022 0247 Gross per 24 hour Intake 2700 ml Output 4600 ml Net -1900 ml Physical Exam: General: Neck: Resp: Abdomen: No acute distress Supple Normal effort Soft, appropriately TTP. Incisions c/d/I. : Garrett catheter draining light yellow urine. Labs and Imaging Studies LABS: BMP: Glucose (mg/dL) Date Value 12/26/2022 101 06/21/2021 111 Potassium (mmol/L) Date Value 12/26/2022 3.9 06/21/2021 3.9 Sodium (mmol/L) Date Value 12/26/2022 138 06/21/2021 139 Chloride (mmol/L) Date Value 12/26/2022 105 06/21/2021 104 CO2 (mmol/L) Date Value 12/26/2022 24 06/21/2021 24 Creatinine (mg/dL) Date Value 12/26/2022 0.94 06/27/2021 1.01 BUN (mg/dL) Date Value 12/26/2022 11 06/21/2021 17 Anion Gap (mmol/L) Date Value 12/26/2022 9 06/21/2021 11 Calcium (mg/dL) Date Value 06/21/2021 9.8 Calcium, Total (mg/dL) Date Value 12/26/2022 8.6 CBC: Hemoglobin (g/dL) Date Value 12/26/2022 13.5 06/21/2021 14.4 Hematocrit (%) Date Value 12/26/2022 41.0 06/21/2021 43.5 WBC (k/uL) Date Value 12/26/2022 8.74 06/21/2021 6.38 Platelet Count (k/uL) Date Value 12/26/2022 205 06/21/2021 227 Urinalysis: Specific Bath, Ur Date Value Ref Range Status 08/11/2021 1.010 1.005 - 1.030 Final Glucose, Urine Date Value Ref Range Status 08/11/2021 Negative Negative Final Bilirubin, Urine Date Value Ref Range Status 08/11/2021 Negative Negative Final Ketones, Urine Date Value Ref Range Status 08/11/2021 Negative Negative Final Hemoglobin/Blood,Ur Date Value Ref Range Status 08/11/2021 Large (A) Negative Final Protein, Urine Date Value Ref Range Status 08/11/2021 30 mg/dL (A) Negative Final Nitrites Date Value Ref Range Status 08/11/2021 Negative Negative Final WBC, Urine Date Value Ref Range Status 08/11/2021 >25 /HPF (A) 0-5 /HPF Final Urine Culture: No results found for: URCUL RADIOLOGY: Assessment and Plan ASSESSMENT: 67 year old male POD 2 urethral dilation, AUS placement, robotic R inguinal hernia repair with general surgery. - AFIB RVR 3 PLAN: - CVICU/cardiology consult pending; reached out to them again this AM - appreciate recs - scds - restart eliquis this AM (5mg BID) - maintain garrett to straight drain; patient to remove tomorrow - labs stable this AM Sumeet Coe DO Urology, PGY-5 #[id number] Please page on-call resident with any questions [facility] 12-26-2022 Note HNO ID: [id number] Author: Omer Warren MD Service: Urology Author Type: Resident Type: Plan of Care Filed: 12/26/2022 12:41 AM Note Text: Urology Plan of Care Note Paged regarding sudden increase in HR to 140-160's per nursing. EKG revealed atrial fibrillation with RVR. Denies SOB and chest pain. Does endorse a sensation of his heart racing. Evaluated at bedside by resident this AM. Patient had received Flecainide and Metoprolol 12.5mg earlier on 12/25/22. Discussed findings with Control Systems Developer security solutions engineer and CVICU resident. Decision made to administer another 25mg of Metoprolol. If patient were to remain tachycardic, plan would be to start patient on Diltiazem drip. Discussed findings with patient and nurse. Please page resident with questions or concerns. Omer Warrne MD Urology PGY-3 Pager #[phone] 12/26/2022 12:38 AM [facility] 12-26-2022 Note HNO ID: [id number] Author: Bunny Moore RN Service: ? Author Type: Registered Nurse Type: Nursing Progress Note Filed: 12/26/2022 6:07 AM Note Text: Other: Urology paged due to tachycardia [facility] 12-25-2022 Note HNO ID: [id number] Author: Trisha Whipple RN Service: Nursing Author Type: Registered Nurse Type: Nursing Progress Note Filed: 12/25/2022 5:55 PM Note Text: Pt transferred to 5106 [facility] 12-25-2022 Note HNO ID: [id number] Author: Trisha Whipple RN Service: Nursing Author Type: Registered Nurse Type: Nursing Progress Note Filed: 12/25/2022 4:43 PM Note Text: Report given to Alissa ROB on [address] [facility] 12-25-2022 Note HNO ID: [id number] Author: Trisha Whipple RN Service: Nursing Author Type: Registered Nurse Type: Nursing Progress Note Filed: 12/25/2022 4:30 PM Note Text: Dr. Coe at bedside, pt to stay overnight again due to hypotension, pt and agreeable [facility] 12-25-2022 Note HNO ID: [id number] Author: Sumeet Coe DO Service: Urology Author Type: Resident Type: Progress Notes Filed: 12/25/2022 7:21 AM Note Text: Attestation signed by Manny Navarrete MD at 12/25/2022 3:05 PM Discussed with the resident and agree with resident's findings and plan as documented in the resident's note. Stable from AUS, possible d/c today Manny Navarrete MD UROLOGY PROGRESS NOTE PATIENT NAME: Ron Burns DATE OF : 1955 ADMISSION DATE: 12/24/2022 6:44 AM Subjective POD 1 urethral dilation, AUS placement Patient doing well overall this AM Pressures 80s-90s overnight Feels a little dizzy this AM Has not been OOB Denies any nausea, vomiting, fevers, chills. Objective VS: BP 94/55 Pulse 64 Temp 36.4 ?C (97.5 ?F) (Temporal) Resp 26 SpO2 98% I AND O - 24hr: Intake/Output Summary (Last 24 hours) at 12/25/2022 0718 Last data filed at 12/25/2022 0300 Gross per 24 hour Intake 2700 ml Output 2500 ml Net 200 ml Physical Exam: General: Neck: Resp: Abdomen: No acute distress Supple Normal effort Soft, appropriately TTP. Incisions c/d/I. : Garrett catheter draining light yellow urine. Labs and Imaging Studies LABS: BMP: Glucose (mg/dL) Date Value 12/25/2022 108 06/21/2021 111 Potassium (mmol/L) Date Value 12/25/2022 4.4 06/21/2021 3.9 Sodium (mmol/L) Date Value 12/25/2022 138 06/21/2021 139 Chloride (mmol/L) Date Value 12/25/2022 104 06/21/2021 104 CO2 (mmol/L) Date Value 12/25/2022 28 06/21/2021 24 Creatinine (mg/dL) Date Value 12/25/2022 0.99 06/27/2021 1.01 BUN (mg/dL) Date Value 12/25/2022 13 06/21/2021 17 Anion Gap (mmol/L) Date Value 12/25/2022 6 06/21/2021 11 Calcium (mg/dL) Date Value 06/21/2021 9.8 Calcium, Total (mg/dL) Date Value 12/25/2022 8.9 CBC: Hemoglobin (g/dL) Date Value 12/25/2022 13.3 06/21/2021 14.4 Hematocrit (%) Date Value 12/25/2022 40.2 06/21/2021 43.5 WBC (k/uL) Date Value 12/25/2022 9.71 06/21/2021 6.38 Platelet Count (k/uL) Date Value 12/25/2022 207 06/21/2021 227 Urinalysis: Specific [place], Ur Date Value Ref Range Status 08/11/2021 1.010 1.005 - 1.030 Final Glucose, Urine Date Value Ref Range Status 08/11/2021 Negative Negative Final Bilirubin, Urine Date Value Ref Range Status 08/11/2021 Negative Negative Final Ketones, Urine Date Value Ref Range Status 08/11/2021 Negative Negative Final Hemoglobin/Blood,Ur Date Value Ref Range Status 08/11/2021 Large (A) Negative Final Protein, Urine Date Value Ref Range Status 08/11/2021 30 mg/dL (A) Negative Final Nitrites Date Value Ref Range Status 08/11/2021 Negative Negative Final WBC, Urine Date Value Ref Range Status 08/11/2021 >25 /HPF (A) 0-5 /HPF Final Urine Culture: No results found for: [facility] RADIOLOGY: Assessment and Plan ASSESSMENT: 67 year old male POD 1 urethral dilation, AUS placement, robotic R inguinal hernia repair with general surgery. PLAN: - maintain garrett to straight drain - will bolus 1L this AM - closely follow vitals this AM - labs stable - patient received IV ABX yesterday; start bactrim - lvx 40mg PPX, scds - poss dc later today with garrett - will resume blood thinner 12/26 Sumeet Coe, Urology, PGY-5 #[id number] Please page on-call resident with any questions [facility] 12-24-2022 Note HNO ID: [id number] Author: Reyna Horner APRN.CRNA Service: Anesthesiology Author Type: Nurse [employer] Hand Finisher Type: Anesthesia Procedure Notes Filed: 12/24/2022 8:17 AM Note Text: Attestation signed by Denzel Dacosta MD at 12/24/2022 4:48 PM orders ANESTHESIOLOGY PROCEDURE NOTE Airway General Information Procedure Start Time/Medication Administration: 12/24/2022 8:10 AM Patient location during procedure: OR Timeout Performed Pre-procedure: timeout performed Consent Obtained: Yes Patient identity confirmed: arm band Staffing Anesthesiologist: Denzel Dacosta MD RECRUITER SPECIALIST: Reyna Horner APRN.RECRUITER SPECIALIST Performed by: RECRUITER SPECIALIST Indications and Patient Condition Indications for airway management: anesthesia Preoxygenated: yes anesthesia circuit Patient position: sniffing Method: asleep Final Airway Details Final airway type: endotracheal airway Final Endotracheal Airway: ETT Cuffed: yes Successful intubation technique: direct laryngoscopy Endotracheal tube insertion site: oral Blade: Meredith Blade size: #4 ETT size (mm): 7.5 Measured from: lips Measurement (cm): 23 Placement verified by: chest auscultation and capnometry Cormack-Lehane Classification: grade I - full view of glottis Number of attempts at approach: 1 SIGNATURE: Reyna Horner APRN.RECRUITER SPECIALIST PATIENT NAME: Ron Burns DATE: December 24, 2022 TIME: 8:17 AM CSN: [id number] [facility] 12-11-2022 Note HNO ID: [id number] Author: Alonzo Fisher MD Service: ? Author Type: Physician Type: Progress Notes Filed: 12/11/2022 8:53 AM Note Text: [facility] by: Dieter Lebron [facility] [address] [facility] [address] [facility] [address] HPI: This is a new patient consult from Dr. Lebron. 67 yo male symptomatic right inguinal hernia. Is been present since his prostate repair several years ago. It is gotten bigger in size. He has no symptoms on the left-hand side. He does lifting at work and at home. . 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 PAST SURGICAL HISTORY Procedure Laterality Date COLONOSCOPY FLX DX W/COLLJ SPEC WHEN PFRMD 12/12/2006 Minimal diverticulosis PICC LINE INSERTION (PICC TEAM) (AK) 08/16/2021 PROSTECTOMY RETROPUBIC RADICAL N/A 08/09/2021 TRANSURETHRAL RESECTION OF BLADDER NECK N/A 07/19/2022 FAMILY HISTORY Problem Relation Age of Onset other (CVA) Mother 87 Heart Father 66 other (CVA) Sister Diabetes Sister other (bph) Brother Diabetes Brother other (bph) Brother Social History Tobacco Use Smoking status: Never Smokeless tobacco: Never Vaping Use Vaping Use: Never used Substance Use Topics Alcohol use: No Drug use: No Current Outpatient Medications Medication Sig enoxaparin (LOVENOX) 80 mg/0.8 mL To take just before surgery flecainide (TAMBOCOR) 50 mg tablet Take 50 mg by mouth once daily. In the morning metoprolol tartrate, short acting, (LOPRESSOR) 25 mg tablet 1 tab in the am and 0.5 tab in the pm apixaban (ELIQUIS) 5 mg tab(s) TWICE A DAY flecainide (TAMBOCOR) 100 mg tablet Take 1 tablet by mouth once daily. (Patient taking differently: Take 100 mg by mouth once daily. In the evening) sucralfate (CARAFATE) 1 gram tablet Take 1 tablet by mouth before meals and at bedtime. (Patient not taking: No sig reported) omeprazole (PRILOSEC) 20 mg capsule Take 1 capsule by mouth daily before breakfast. 1/2 hr before meal. (Patient not taking: No sig reported) No current facility-administered medications for this visit. ALLERGIES No Known Allergies REVIEW OF SYSTEMS: GENERAL: No weight loss, malaise or fevers GI: Negative for nausea , vomiting, diarrhea, constipation, and signs of jaundice Positive for abdominal pain RLQ PHYSICAL EXAM: BP 107/71 Pulse 62 Ht 5' 10 (1.78m) Wt 195 lb (88.5kg) SpO2 96% BMI 27.98 kg/(m2). GENERAL APPEARANCE: Well appearing, alert, in no acute distress, well-hydrated, well nourished.. ABDOMEN: Abdomen is soft. There is a reducible right inguinal hernia. There may be a small left inguinal hernia. NEURO: Alert, oriented x3, no asterixis, speech clear and articulate, and TAFOYA HEART: regular rate and rhythm, without murmur LUNGS: clear to auscultation, without rales or wheeze, good air exchange DATA: Diagnostic tests reviewed for today's visit: No new labs I spent a total of 30 minutes on the date of the service which included preparing to see the patient, [id number] patient care, completing clinical documentation, obtaining and/or reviewing separately obtained history, performing a medically appropriate examination, counseling and educating the patient/family/caregiver, ordering medications, tests, or procedures, and communicating results to the patient/family/caregiver. . Greater than 50% of the direct patient contact time was spent in counseling or coordination of care. Medical Decision Making: Medical Decision Making Level: 1 - N/A ASSESSMENT / PLAN: 1. Right inguinal hernia CT symptomatic draining hernia. He would be an excellent candidate for robotic right inguinal hernia pair with mesh. Risk and benefits of the operation including but oxygen bleeding infection possible mesh infection were discussed with him and he wished before the operation. This will be performed in combination with urology. Alonzo Fisher MD Please Note: This office note has been created using b-datum, a speech recognition software program, and may contain errors including punctuation, grammar, spelling, gender, and inappropriate words or phrases that pertain to the sytem. [facility] 12-11-2022 Instructions Alonzo Fisher MD - 12/11/2022 8:48 AM EST Office will call with date and time for surgery documented in this encounter [facility] 12-11-2022 History of Presen t illness Narrative Patient referred by: Dieter Lebron NP [address] [address] HPI: This is a new patient consult from Dr. Lebron. 67 yo male symptomatic right inguinal hernia. Is been present since his prostate repair several years ago. It is gotten bigger in size. He has no symptoms on the left-hand side. He does lifting at work and at home. . 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 PAST SURGICAL HISTORY Procedure Laterality Date COLONOSCOPY FLX DX W/COLLJ SPEC WHEN PFRMD 12/12/2006 Minimal diverticulosis PICC LINE INSERTION (PICC TEAM) (AK) 08/16/2021 PROSTECTOMY RETROPUBIC RADICAL N/A 08/09/2021 TRANSURETHRAL RESECTION OF BLADDER NECK N/A 07/19/2022 FAMILY HISTORY Problem Relation Age of Onset other (CVA) Mother 87 Heart Father 66 other (CVA) Sister Diabetes Sister other (bph) Brother Diabetes Brother other (bph) Brother Social History Tobacco Use Smoking status: Never Smokeless tobacco: Never Vaping Use Vaping Use: Never used Substance Use Topics Alcohol use: No Drug use: No Current Outpatient Medications Medication Sig enoxaparin (LOVENOX) 80 mg/0.8 mL To take just before surgery flecainide (TAMBOCOR) 50 mg tablet Take 50 mg by mouth once daily. In the morning metoprolol tartrate, short acting, (LOPRESSOR) 25 mg tablet 1 tab in the am and 0.5 tab in the pm apixaban (ELIQUIS) 5 mg tab(s) TWICE A DAY flecainide (TAMBOCOR) 100 mg tablet Take 1 tablet by mouth once daily. (Patient taking differently: Take 100 mg by mouth once daily. In the evening) sucralfate (CARAFATE) 1 gram tablet Take 1 tablet by mouth before meals and at bedtime. (Patient not taking: No sig reported) omeprazole (PRILOSEC) 20 mg capsule Take 1 capsule by mouth daily before breakfast. 1/2 hr before meal. (Patient not taking: No sig reported) No current facility-administered medications for this visit. ALLERGIES No Known Allergies REVIEW OF SYSTEMS: GENERAL: No weight loss, malaise or fevers GI: Negative for nausea , vomiting, diarrhea, constipation, and signs of jaundice Positive for abdominal pain RLQ PHYSICAL EXAM: BP 107/71 Pulse 62 Ht 5' 10 (1.78m) Wt 195 lb (88.5kg) SpO2 96% BMI 27.98 kg/(m^2). GENERAL APPEARANCE: Well appearing, alert, in no acute distress, well-hydrated, well nourished.. ABDOMEN: Abdomen is soft. There is a reducible right inguinal hernia. There may be a small left inguinal hernia. NEURO: Alert, oriented x3, no asterixis, speech clear and articulate, and TAFOYA HEART: regular rate and rhythm, without murmur LUNGS: clear to auscultation, without rales or wheeze, good air exchange DATA: Diagnostic tests reviewed for today's visit: No new labs I spent a total of 30 minutes on the date of the service which included preparing to see the patient, [id number] patient care, completing clinical documentation, obtaining and/or reviewing separately obtained history, performing a medically appropriate examination, counseling and educating the patient/family/caregiver, ordering medications, tests, or procedures, and communicating results to the patient/family/caregiver. . Greater than 50% of the direct patient contact time was spent in counseling or coordination of care. Medical Decision Making: Medical Decision Making Level: 1 - N/A ASSESSMENT / PLAN: 1. Right inguinal hernia CT symptomatic draining hernia. He would be an excellent candidate for robotic right inguinal hernia pair with mesh. Risk and benefits of the operation including but oxygen bleeding infection possible mesh infection were discussed with him and he wished before the operation. This will be performed in combination with urology. Alonzo Fisher MD Please Note: This office note has been created using b-datum, a speech recognition software program, and may contain errors including punctuation, grammar, spelling, gender, and inappropriate words or phrases that pertain to the sytem. documented in this encounter [facility] 12-06-2022 History of Presen t illness Narrative Images from the original note were not included. [facility] [place] [facility] LOCATION: [address] [place] [address] ESTABLISHED PATIENT PATIENT INFO: Ron Burns 67 year old Chief Complaint: Prostate Cancer/Right inguinal hernia HPI Here for discussion of surgery 1-Duration: 2021 2-Location: prostate 3-Severity: N/A 4-Quality: Not applicable 5-Context: N/A 6-Timing: N/A 7-Modifying factors: No treatment prior to referral 8-Associated signs & symptoms: no additional symptoms PATHOLOGY: NONE LAB: WBC (k/uL) Date Value 09/21/2022 7.07 RBC (m/uL) Date Value 09/21/2022 4.71 Hemoglobin (g/dL) Date Value 09/21/2022 14.8 Hematocrit (%) Date Value 09/21/2022 45.0 MCV (fL) Date Value 09/21/2022 95.5 MCH (pg) Date Value 09/21/2022 31.4 MCHC (g/dL) Date Value 09/21/2022 32.9 RDW-CV (%) Date Value 09/21/2022 12.5 Platelet Count (k/uL) Date Value 09/21/2022 242 MPV (fL) Date Value 09/21/2022 10.2 Neut% (%) Date Value 09/21/2022 58.6 Lymph% (%) Date Value 09/21/2022 26.0 [place]% (%) Date Value 09/21/2022 10.9 Eosin% (%) Date Value 06/21/2021 4.1 Baso% (%) Date Value 09/21/2022 0.6 Abs Neut (k/uL) Date Value 09/21/2022 4.14 Abs [place] (k/uL) Date Value 09/21/2022 0.77 Abs Eosin (k/uL) Date Value 09/21/2022 0.27 Abs Baso (k/uL) Date Value 09/21/2022 0.04 Creatinine Date Value Ref Range Status 09/21/2022 1.18 0.73 - 1.22 mg/dL Final 03/22/2022 0.99 0.73 - 1.22 mg/dL Final 08/25/2021 0.94 0.73 - 1.22 mg/dL Final 08/24/2021 0.84 0.73 - 1.22 mg/dL Final PSA (ng/mL) Date Value 09/21/2022 3.28 06/18/2022 1.45 02/20/2022 0.46 12/21/2021 0.30 09/28/2021 0.1 06/22/2021 45.03 PSA Screening (ng/mL) Date Value 06/21/2021 54.27 PSA, Percent Free (%) Date Value 09/21/2022 16 06/22/2021 11 URINE POC GLUCOSE UA (POCT) Negative 07/05/2022 BILIRUBIN UA (POCT) Negative 07/05/2022 KETONE UA (POCT) Negative 07/05/2022 SPECIFIC GRAVITY UA (POCT) 1.020 07/05/2022 HEMOGLOBIN/BLOOD UA (POCT) Trace-intact 07/05/2022 PH UA (POCT) 7.5 07/05/2022 PROTEIN UA (POCT) Negative 07/05/2022 UROBILINOGEN UA (POCT) 0.2 07/05/2022 NITRITE UA (POCT) Negative 07/05/2022 LEUKOCYTES UA (POCT) Negative 07/05/2022 COLOR UA (POCT) Yellow 07/05/2022 CLARITY UA (POCT) Clear 07/05/2022 IMAGING: NM PET/CT PROSTATE WHOLE BODY IMAGING (Order [id number]) Patient Info Patient Name Sex Ron Coto ([id number]) Male 1955 06/02/2022 8:18 PM - Radiology, [place] In Impression IMPRESSION: Head and neck: * No PSMA-expressing lesions suspicious for metastases. Chest: * No PSMA-expressing lesions suspicious for metastases. Abdomen and Pelvis: * No PSMA-expressing lesions suspicious for metastases. Bones and soft tissues: * No PSMA-expressing lesions suspicious for metastases. I have independently reviewed films and my findings are the same. ALLERGIES: ALLERGIES No Known Allergies MEDICATIONS: metoprolol tartrate, short acting, (LOPRESSOR) 25 mg tablet 1 tab in the am and 0.5 tab in the pm apixaban (ELIQUIS) 5 mg tab(s) TWICE A DAY flecainide (TAMBOCOR) 100 mg tablet Take 1 tablet by mouth once daily. sucralfate (CARAFATE) 1 gram tablet Take 1 tablet by mouth before meals and at bedtime. (Patient not taking: Reported on 12/06/2022) omeprazole (PRILOSEC) 20 mg capsule Take 1 capsule by mouth daily before breakfast. 1/2 hr before meal. 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 HEAD & NECK: No blurred vision or Sjogren's syndrome CARDIOVASCULAR: NO CHEST PAIN, PALPITATIONS, ANKLE EDEMA RESPIRATORY: No chronic cough, wheezing, dyspnea, hemoptysis. MUSCULOSKELETAL: NO CHRONIC BACK PAIN, ARTHRITIS, CHRONIC NECK PAIN SKIN: NO VARICOSE VEINS, RASH, ABNORMAL ITCHING BLOOD/LYMPHATIC: No easy bleeding, easy bruising, transfusion Hx NEUROLOGICAL: NO HEADACHES, NUMBNESS, SEIZURES, STROKE PSYCHIATRIC: No depression or inordinate anxiety The remainder of the ROS was negative. PHYSICAL EXAMINATION Ht 177.8 cm (5' 10 ) Wt 88.5 kg (195 lb) BMI 27.98 kg/m General appearance: Well appearing, alert, in no acute distress, and well-hydrated, well nourished Skin: Skin color, texture, turgor normal, no suspicious rashes or lesions Head: Normocephalic, no masses, lesions, tenderness or abnormalities Abdomen: Normal abdominal exam, Abdomen soft, non-tender. Bowel sounds normal. No masses, organomegaly Genitourinary: MALE EXAM: Exam small right sided bulge - likely hernia PVR: NA Urodynamic Findings: Uroflow : Patient arrived with a garrett catheter- No. Patient voided 255.7 ml; Curve: Normal Post void residual 25 ml QMAX 28.2 ; QAVG 11.5 . Cystometrogram: The patient had a cystometrogram EMG: Yes First Sensation 109 ml First desire 185 ml Strong Desire 398 ml Capacity 668 ml No destrusor contractions Instability associated with urge: No Instability associated with leakage: No Steady rise in Pdet after first desire. Patient did have penis clamp on during CMG to get bladder capacity. Patient did start to leak with Penis clamp on after first desire. Pressure-Flow Voiding Study: EMG: Yes Void 329.5 ml; Curve: Intermittent Post void residual: 15 ml Maximum detrusor pressure 79.0 Cm H20 Maximum flow rate: 14.6 ml/sec Average flow rate: 6.3 ml/sec UDS notes: N/A ASSESSMENT/PLAN: [place] 9 Prostate cancer PSA 54 at diagnosis. S/P RARP with bilateral extended node dissection. VERY difficult VUA, bilateral stents were in place, ureteral stents removed. Favorable pathology. Negative LN disease. No bladder neck invasion. Scott. PSA 0.1 => 0.3 => 0.46 => 1.45 => 3.28 Discussed radiation vs ADT. PSMA PET SCAN NEGATIVE - hold on adjuvant treatment. S/P TURBNC in preparation for AUS - 07/19/22 UDS completed. Ready for AUS and right robotic hernia repair with Dr. Fisher. Schedule 12/24/22 Using Penile clamps. Jim Fernandez DO documented in this encounter [facility] 11-01-2022 Miscellaneous Notes November 01, 2022 4:19 PM I did speak to patient's . She thought Dr. Fernandez was going to [place] on 11/21/2022 to help with the surgery. I explained that we could have it all done in [place] with Dr. Fernandez and one of the general surg doctors. She is very hesitant. She would like to see what the date could be if they did the surgery in [place]. Informed her I will call her tomorrow after I get a date. She also wants this all done under local? She doesn't want her to be under general. Hermila Bonilla Spoke with Crystal and made aware of message. Ron really is hoping that Dr. Fernandez will be the one to do it and really would like to coordinate that to work. I made her aware that Kary would be reaching out to her on this, but really wanted to Dr. Fernandez and Garret. Possible 12-06-2022 afternoon? I spoke to Dr. Combs. Since he is getting an AUS, he can have the hernia repaired at the same time. We will need to perform a combo AUS and right inguinal hernia repair. Sandi - please find time for this case. Can be November. Surgeon can be Vicky or Keiko or Domo or Natalia UDS is showing adequate capacity for AUS. May proceed to surgery. He can meet with Dipak post op during activation 6 weeks later. Patient calls to discuss urodynamics results as well as discuss the possible artificial sphincter surgery. Patient has hernia surgery on the of this month and has an appointment made to discuss the possible surgery with urology that could be following. documented in this encounter [facility] 10-24-2022 Miscellaneous Notes Faxed over 2nd request for advise regarding Xarelto, to Dr Hyde office. Confirmation received fax. MD Elie Ruggiero MD; Jim Fernandez DO; LIANE Oquendo Dr. -he has a loop of small bowel in his right inguinal hernia and has visceral abdominal pain 1 hour after eating making me think he has a partial small bowel obstruction due to his hernia. He tells me you are planning to fix his hernia at the same time is placing a penile prosthesis. If you are comfortable doing that I am fine with this but feel his hernia should be repaired sooner than later. Beverly-can you reach out to Dr. Hyde's office to find out the management plan for his Xarelto-whether we can just hold it or whether he needs bridging 5 days prior to surgery. Thanks-Rich Faxed clearance request to Dr. Hyde regarding Xarelto. Fax confirmation sheet received. Beverly Reid RN documented in this encounter [facility] 10-18-2022 History of Presen t illness Narrative HISTORY AND PHYSICAL Ron Glasspp 1955 REFERRING PHYSICIAN: Marshal Combs MD CHIEF COMPLAINT: Consult (EGD/ Colonoscopy) HPI: Ron is a 67 year old male with a complaint of a bulge and discomfort in his right inguinal region. The patient notes discomfort in this area moving or coughing. Additionally, approximately 1 hour after eating when the hernia is out he will note periumbilical pain and bloating and some nausea . The symptoms have increased, over the past few weeks. The patient carries a diagnosis of prostate cancer and underwent prostatectomy. He sees Dr. Fernandez last seen on October 04. He noted the hernia. He also felt that the patient was due for upper and lower endoscopy. The patient understands that Dr. Thomas was planning to repair his hernia at the same time as placing a penile prosthesis. Patient recently had a PET CT scan which was interpreted as no active disease. He also just had a CT scan of the pelvis. The report is currently pending. My review of the scan demonstrates a right inguinal hernia with a loop of small bowel contained within the hernia. The patient had a stroke last year has a history of coronary artery disease with A. fib and is on Eliquis which is managed by Dr. Hyde. The patient is being seen by me today at the request of Dr. Thomas for my opinion and advice regarding need for upper and lower endoscopy but also right inguinal hernia with symptoms of partial bowel obstruction. 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 metoprolol tartrate, short acting, (LOPRESSOR) 25 mg tablet 1 tab in the am and 0.5 tab in the pm apixaban (ELIQUIS) 5 mg tab(s) TWICE A DAY omeprazole (PRILOSEC) 20 mg capsule Take 1 capsule by mouth daily before breakfast. 1/2 hr before meal. flecainide (TAMBOCOR) 100 mg tablet Take 1 tablet by mouth once daily. No current facility-administered medications for this visit. ALLERGIES: Patient has no known allergies. PERSONAL HISTORY: Social History Tobacco Use Smoking status: Never Smokeless tobacco: Never Vaping Use Vaping Use: Never used Substance Use Topics Alcohol use: No Drug use: No FAMILY HISTORY: FAMILY HISTORY Problem Relation Age of Onset other (CVA) Mother 87 Heart Father 66 other (CVA) Sister other (bph) Brother Diabetes Brother other (bph) Brother Diabetes Sister REVIEW OF SYMPTOMS: The review of systems data was entered by the nurse and reviewed by me There are no exam notes on file for this visit. PHYSICAL EXAMINATION: General: The patient is 67 year old male, well nourished, well hydrated in no acute distress. The patient is oriented to time, place, and person. VITALS: Blood pressure 118/78, pulse 74, temperature 36.6 C (97.9 F), height 177.8 cm (5' 10 ), weight 89.7 kg (197 lb 12.8 oz), SpO2 99 %. Body mass index is 28.38 kg/m . HEENT: Normal cephalic, ataumatic, pupils are equally round, sclera are anicteric, mucous membranes are moist, oropharynx is clear. Neck has no masses, asymmetry or lymphadenopathy. Thyroid is unremarkable. Respiratory: Clear to auscultation and percussion. Normal respiratory excursion and pattern. Cardiac: Examination is regular rate and rhythm. Abdominal exam: Soft, nontender, with no palpable masses. No hepatosplenomegaly. A moderate reducible right inguinal hernia, no left inguinal or umbilical hernias are noted Rectal exam: exam deferred Extremities: no clubbing, cyanosis or edema. No adenopathy. Other: LABORATORY VALUES: As Noted RADIOLOGIC STUDIES: As Noted Assessment IMPRESSION: right inguinal hernia -history consistent with partial small bowel obstruction PLAN: My plan is to perform a open right inguinal hernia repair with mesh. The planned surgical procedure was discussed extensively with the patient. The risks, benefits, anticipated outcomes and possible complications were mentioned. Ron reyesands that all hernia repair surgery has a chance of recurrence and/or chronic post operative pain. My staff has also explained the procedure in understandable terms and the patient was given the option to take printed material concerning the planned procedure. The patient had the opportunity to ask questions concerning the planned procedure. The patient freely consents to the planned procedure. I will forward this note to Dr. Thomas to see if he is truly planning from a right inguinal hernia repair if so when he is willing to do it relatively urgently given the patient's partial obstructive symptoms I am comfortable with that. If his going to take a while that I would plan to perform the hernia repair as soon as I can. The patient was counseled on if he has symptoms of a complete obstruction that he should present to the emergency department given the risk of incarcerated/strangulated bowel. The patient will need to hold his Xarelto for 5 days prior to surgery. I am uncertain whether the grey goods tester would want him to get bridging my expectation would be not. The grey goods tester office is unfortunately closed and I tried to reach out to them. I will have my office contact them for guidance for his anticoagulation and cardiac history. Given his symptoms I would plan to repair his hernia first and then perform upper and lower endoscopy approximately 1 to 2 months after hernia repair. My findings have been communicated to Dr. Elie Tolentino MD via shared medical record. This note will be forwarded to Dr. Elie Tolentino MD. Diagnoses: (K40.90) Right inguinal hernia (primary encounter diagnosis) Anticipated CPT Code: open right inguinal hernia repair with mesh - 59346-987 Anticipated Anesthetic: MAC with local Patient weight: Blood pressure 118/78, pulse 74, temperature 36.6 C (97.9 F), height 177.8 cm (5' 10 ), weight 89.7 kg (197 lb 12.8 oz), SpO2 99 %. BMI: Body mass index is 28.38 kg/m . Planned antibiotic: Ancef 2gm IVPB security solutions engineer to OR SCDs needed - Yes Return to Clinic: The patient is instructed to follow-up with me 1 week post operatively. Marshal Combs MD documented in this encounter [facility] 10-17-2022 Note HNO ID: [id number] Author: Jose Luis Fulton RN Service: ? Author Type: Registered Nurse Type: Progress Notes Filed: 10/24/2022 12:37 PM Note Text: Ron Burns [id number] 1955 October 17, 2022 Diagnoses: Stress urinary incontinence UA done: No Procedure Performed: Multichannel urodynamic testing including multichannel cystometrogram, uroflowmetry, pressure voiding study, and EMG. Was a uroflow done at some point during the study: Yes Was a cystometrogram performed: Yes Was a UPP done: No Was an EMG done: Yes Was an intraabdominal pressure recorded: Yes Where were pressure catheters placed: Bladder and Rectum Procedure: The patient verified medications and allergies. The procedure was explained to the patient. Immediately prior to the test the patient was given Bactrim DS 800 mg #1 by mouth and Lidocaine 2% jelly 11 ml to urethra per order. UNIVERSAL PROTOCOL / SAFETY CHECKLIST A moment to CARE: Completed Procedure to be performed: Urodynamics Sign in Communication: Completed Time Out: Team Confirms the Correct Patient, Correct Procedure, Correct Site and Site Marking, Correct Position (if applicable), Prep and Dry Time (if applicable). Time: 1300 Affirmation of Time Out: N/A Sign Out Discussion: Completed Urodynamic Findings: Uroflow : Patient arrived with a garrett catheter- No. Patient voided 255.7 ml; Curve: Normal Post void residual 25 ml QMAX 28.2 ; QAVG 11.5 . Cystometrogram: The patient had a cystometrogram EMG: Yes First Sensation 109 ml First desire 185 ml Strong Desire 398 ml Capacity 668 ml No destrusor contractions Instability associated with urge: No Instability associated with leakage: No Steady rise in Pdet after first desire. Patient did have penis clamp on during CMG to get bladder capacity. Patient did start to leak with Penis clamp on after first desire. Pressure-Flow Voiding Study: EMG: Yes Void 329.5 ml; Curve: Intermittent Post void residual: 15 ml Maximum detrusor pressure 79.0 Cm H20 Maximum flow rate: 14.6 ml/sec Average flow rate: 6.3 ml/sec UDS notes: N/A Plan: Patient will follow up with provider to discuss plan of care and results. Patient tolerated the procedure well. Home going instructions given. Patient able to repeat back understanding of instructions. Jose Lusi Fulton RN cc: Jim Fernandez, DO Urodynamic Results Uroflow PVR 25 Flow 11.5 CMG First sensation 109 Max volume 668 Uninhibited bladder contractions no Leakage no EMG nl + delia Decrease compliance UPP not interpreted Leakage MUCP Pressure Flow PVR 15 Flow 14 EMG nl High pressure Summary Delia Decrease compliance LUÍS Kelley Jr, MD [facility] 10-05-2022 Miscellaneous Notes Eileen-since Ron has a significant health history (a-fib, CVA) and we are unsure what type of anesthesia he will need, he is required to have a consultation with our PA. If the patient requires MAC, he may also need a consultation and clearance with [facility]. Just because an order is placed, does not take the place of his consultation. If he did not have any medical history, was healthy and the ordering provider completed the open access questionnaire, he could qualify as an open access patient and he would not need the consultation. Hope this helps. Beverly Reid RN Patient has orders for the EGD and Colonoscopy. Please Advise if that bypasses consult? Thanks. Patient called to schedule his colonoscopy with Dr. Waggoner. He is requesting 10/25 if available. documented in this encounter [facility] 10-04-2022 Instructions Jim Fernandez DO - 10/04/2022 10:43 AM EST Images from the original note were not included. Bowel Preparation Instructions for: Golytely, Nulytely, Trilyte or Colyte (polyethylene glycol 3350 and electrolytes) IF YOU DO NOT FOLLOW THESE DIRECTIONS, YOUR COLONOSCOPY WILL BE CANCELLED. [place] Instructions: Your bowel must be empty so that your doctor can clearly view your colon. Follow all of the instructions in this handout EXACTLY as they are written. Do NOT eat any solid food the ENTIRE day before your colonoscopy. Drink only clear liquids. Buy your bowel preparation at least 5 days before your colonoscopy. TRANSPORTATION on the Day of Your Exam A responsible person MUST be present with you at Check In prior to your colonoscopy and REMAIN in the endoscopy area until you are discharged. You are NOT ALLOWED to drive, take a taxi or bus, or leave the Endoscopy Center ALONE. If you do not have a responsible train driver (family member or friend) with you to take you home, your exam cannot be done with sedation and will be cancelled. Please bring a list of all of your current medications, including any Over-the Counter medications with you. Medications If you take insulin, diabetic medications or blood thinners such as Coumadin (warfarin), Plavix (clopidogrel), Ticlid (ticlopidine hydrochloride), Agrylin (anagrelide), Xarelto (Rivaroxaban), Pradaxa (Dabigatran), Eliquis (Apixaban), and Effient (Prasugrel). You MUST call the doctors who orders those medicines for instructions on altering the dosage before your colonoscopy. All other medications should be taken the day of the exam with a sip of water including ASPIRIN. Five (5) Days Before Your Colonoscopy Do NOT take medicines that stop diarrhea - such as Imodium, Kaopectate, or Pepto Bismol. Do NOT take fiber supplements - such as Metamucil, Citrucel, or Perdiem. Do NOT take products that contain iron - such as multi-vitamins (the label lists what is in the products). Do NOT take Vitamin E. Buy the prescription bowel preparation solution at your local pharmacy or drugstore pharmacy. 09/2019 Bowel Preparation Instructions for: Golytely, Nulytely, Trilyte or Colyte (polyethylene glycol 3350 and electrolytes) Three (3) Days Before Your Colonoscopy Do NOT eat high-fiber foods - such as popcorn, beans, seeds (flax, sunflower, quinoa), multigrain bread, nuts, salad/vegetables, or fresh and dried fruit. One (1) Day Before Your Colonoscopy Only drink clear liquids the ENTIRE DAY before your colonoscopy. Do NOT eat any solid foods. Drink at least 8 ounces of clear liquids every hour after waking up. The clear liquids you can drink include: Clear Liquid (NO RED LIQUIDS) DO NOT DRINK Gatorade, Pedialyte or Powerade Clear broth or bouillon Coffee or tea (no milk or non-dairy creamer) Carbonated and non-carbonated soft drinks Hugo-Aid or other fruit flavored drinks Strained fruit juices (no pulp) Jell-O, popsicles, hard candy Water Alcohol Milk or non-dairy creamers Noodles or vegetables in soup Juice with pulp Liquid you cannot see through Do not use tobacco/vaping products The bowel preparation solution will be consumed in two parts. Mix the solution the evening before your colonoscopy and refrigerate before drinking. You may add the flavor pack that came with the bowel preparation. Do NOT add ice, sugar or any other flavorings to the solution. Part 1 At 6:00 PM - Evening before your colonoscopy Drink an 8-oz glass of bowel preparation every 10 minutes for a total of 8 glasses. You may continue to drink clear liquids until midnight. Part 2 On the day of your colonoscopy you may drink clear liquids up to (three) 3 hours before your procedure. 4 1/2 hours before your colonoscopy Drink an 8-oz glass of bowel preparation every 10 minutes for a total of 8 glasses. Fifteen (15) minutes later, drink an 8-oz glass of clear liquids every 15 minutes for a total of 2 glasses. You may continue to drink clear liquids up to (three) 3 hours before your exam. 2 09/2019 documented in this encounter [facility] 10-04-2022 History of Presen t illness Narrative Images from the original note were not included. [facility] [place] [facility] UROLOGY LOCATION: [address] [place] [address] ESTABLISHED PATIENT PATIENT INFO: Ron Burns 66 year old Chief Complaint: Prostate Cancer HPI Here after PET scan. PSA 1.45 T: 650 Feels a right inguinal hernia Needs colonoscopy and EGD 1-Duration: 2021 2-Location: prostate 3-Severity: N/A 4-Quality: Not applicable 5-Context: N/A 6-Timing: N/A 7-Modifying factors: No treatment prior to referral 8-Associated signs & symptoms: no additional symptoms PATHOLOGY: NONE LAB: WBC (k/uL) Date Value 09/21/2022 7.07 RBC (m/uL) Date Value 09/21/2022 4.71 Hemoglobin (g/dL) Date Value 09/21/2022 14.8 Hematocrit (%) Date Value 09/21/2022 45.0 MCV (fL) Date Value 09/21/2022 95.5 MCH (pg) Date Value 09/21/2022 31.4 MCHC (g/dL) Date Value 09/21/2022 32.9 RDW-CV (%) Date Value 09/21/2022 12.5 Platelet Count (k/uL) Date Value 09/21/2022 242 MPV (fL) Date Value 09/21/2022 10.2 Neut% (%) Date Value 09/21/2022 58.6 Lymph% (%) Date Value 09/21/2022 26.0 [place]% (%) Date Value 09/21/2022 10.9 Eosin% (%) Date Value 06/21/2021 4.1 Baso% (%) Date Value 09/21/2022 0.6 Abs Neut (k/uL) Date Value 09/21/2022 4.14 Abs [place] (k/uL) Date Value 09/21/2022 0.77 Abs Eosin (k/uL) Date Value 09/21/2022 0.27 Abs Baso (k/uL) Date Value 09/21/2022 0.04 Creatinine Date Value Ref Range Status 09/21/2022 1.18 0.73 - 1.22 mg/dL Final 03/22/2022 0.99 0.73 - 1.22 mg/dL Final 08/25/2021 0.94 0.73 - 1.22 mg/dL Final 08/24/2021 0.84 0.73 - 1.22 mg/dL Final PSA (ng/mL) Date Value 09/21/2022 3.28 06/18/2022 1.45 02/20/2022 0.46 12/21/2021 0.30 09/28/2021 0.1 06/22/2021 45.03 PSA Screening (ng/mL) Date Value 06/21/2021 54.27 PSA, Percent Free (%) Date Value 09/21/2022 16 06/22/2021 11 URINE POC GLUCOSE UA (POCT) Negative 07/05/2022 BILIRUBIN UA (POCT) Negative 07/05/2022 KETONE UA (POCT) Negative 07/05/2022 SPECIFIC GRAVITY UA (POCT) 1.020 07/05/2022 HEMOGLOBIN/BLOOD UA (POCT) Trace-intact 07/05/2022 PH UA (POCT) 7.5 07/05/2022 PROTEIN UA (POCT) Negative 07/05/2022 UROBILINOGEN UA (POCT) 0.2 07/05/2022 NITRITE UA (POCT) Negative 07/05/2022 LEUKOCYTES UA (POCT) Negative 07/05/2022 COLOR UA (POCT) Yellow 07/05/2022 CLARITY UA (POCT) Clear 07/05/2022 IMAGING: NM PET/CT PROSTATE WHOLE BODY IMAGING (Order [id number]) Patient Info Patient Name Sex Ron Coto ([id number]) Male 1955 06/02/2022 8:18 PM - Radiology, [place] Impression IMPRESSION: Head and neck: * No PSMA-expressing lesions suspicious for metastases. Chest: * No PSMA-expressing lesions suspicious for metastases. Abdomen and Pelvis: * No PSMA-expressing lesions suspicious for metastases. Bones and soft tissues: * No PSMA-expressing lesions suspicious for metastases. I have independently reviewed films and my findings are the same. ALLERGIES: ALLERGIES No Known Allergies MEDICATIONS: metoprolol tartrate, short acting, (LOPRESSOR) 25 mg tablet 1 tab in the am and 0.5 tab in the pm apixaban (ELIQUIS) 5 mg tab(s) TWICE A DAY omeprazole (PRILOSEC) 20 mg capsule Take 1 capsule by mouth daily before breakfast. 1/2 hr before meal. flecainide (TAMBOCOR) 100 mg tablet Take 1 tablet by mouth once daily. 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 HEAD & NECK: No blurred vision or Sjogren's syndrome CARDIOVASCULAR: NO CHEST PAIN, PALPITATIONS, ANKLE EDEMA RESPIRATORY: No chronic cough, wheezing, dyspnea, hemoptysis. MUSCULOSKELETAL: NO CHRONIC BACK PAIN, ARTHRITIS, CHRONIC NECK PAIN SKIN: NO VARICOSE VEINS, RASH, ABNORMAL ITCHING BLOOD/LYMPHATIC: No easy bleeding, easy bruising, transfusion Hx NEUROLOGICAL: NO HEADACHES, NUMBNESS, SEIZURES, STROKE PSYCHIATRIC: No depression or inordinate anxiety The remainder of the ROS was negative. PHYSICAL EXAMINATION Ht 177.8 cm (5' 10 ) Wt 88 kg (194 lb) BMI 27.84 kg/m General appearance: Well appearing, alert, in no acute distress, and well-hydrated, well nourished Skin: Skin color, texture, turgor normal, no suspicious rashes or lesions Head: Normocephalic, no masses, lesions, tenderness or abnormalities Abdomen: Normal abdominal exam, Abdomen soft, non-tender. Bowel sounds normal. No masses, organomegaly Genitourinary: MALE EXAM: Exam small right sided bulge - likely hernia PVR: NA ASSESSMENT/PLAN: [place] 9 Prostate cancer PSA 54 at diagnosis. S/P RARP with bilateral extended node dissection. VERY difficult VUA, bilateral stents were in place, ureteral stents removed. Favorable pathology. Negative LN disease. No bladder neck invasion. Kegels. PSA 0.1 => 0.3 => 0.46 => 1.45 => 3.28 Discussed radiation vs ADT. PSMA PET SCAN NEGATIVE - hold on adjuvant treatment. S/P TURBNC in preparation for AUS - 07/19/22 He will need UDS prior to AUS. Check CT for hernia. Using Penile clamps. Jim Fernandez DO documented in this encounter [facility] 08-23-2022 Miscellaneous Notes Patient's calling with an update and a few questions. The last few weeks the bleeding in brief is now daily at noon. He is having a lot of gassy and indigestion that is new that he is taking a lot of TUMs for but she is not sure if there is any connection or reasoning for this. Spoke with Dr. Fernandez and he is saying that he should Cysto him the next 09-06-2022 at 2 pm. No relation of the TUMS and heartburn. Appt booked and closing. documented in this encounter [facility] 08-14-2022 Miscellaneous Notes Spoke with Crystal and she states that the bleeding is much better. He is now back to riding his bike again. Still leaking, that has not improved. He is going to do the PFPT consult on Saturday and try that before discussing and going forward with the Artifical Sphincter. They will see us in September and appreciated the call for update. Message left on patient voicemail to return call to office. Artificial urinary sphincter It is a surgery Its gotten better, but he was concerned it was still going on over the weekend. He is using the Rösler miniDaT clamp if going to voodoo, is this the valve? Or is this another surgery? Has the bleeding stopped? Does he want to have a valve put in? Patient calling and he states that he is still having some bleeding every day post op off and on. Some more irritation if eats spicy food. Saturday he had the clamp on for voodoo. When he opened up when he got home he did notice a lot of bleeding in depends with that. If no clamp its just free flow incontinence into depends. He feels its getting better now but wanted to inform. Went over bladder irritants and what to avoid, advise push fluids. He denies any UTI symptoms. Sending as FYI if any other advise. 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 RECRUITER SPECIALIST: Ming Lopez APRN.RECRUITER SPECIALIST Indications and Patient Condition Indications for airway management: anesthesia Preoxygenated: yes anesthesia circuit Method: sleep Cricoid Pressure: No Manual In-Line Stabilization: No Difficult Mask: No Final Airway Details Final airway type: supraglottic airway Number of attempts at approach: 1 Final Supraglottic Airway: i-gel Size 4 Seal Adequate: yes Failed airway: no Unrecognized esophageal intubation: no Airway not difficult SIGNATURE: Ming Lopez APRN.RECRUITER SPECIALIST PATIENT NAME: Ron Burns DATE: July 19, 2022 TIME: 2:55 PM CSN: [id number] [facility] 07-19-2022 Miscellaneous Notes Garrett removal on Saturday in [place] with nursing. Needs physical therapy appt in . 3 months with we with PSA prior. PSA (ng/mL) Date Value 06/18/2022 1.45 02/20/2022 0.46 12/21/2021 0.30 09/28/2021 0.1 06/22/2021 45.03 PSA Screening (ng/mL) Date Value 06/21/2021 54.27 PSA, Percent Free (%) Date Value 06/22/2021 11 documented in this encounter [facility] 07-05-2022 Nurse Note AMBULATORY CYSTOSCOPY PROCEDURE PREOPERATIVE/PROCEDURAL VERIFICATION: Patient verified by: Name and Medical Record Number UNIVERSAL PROTOCOL / SAFETY CHECKLIST Procedure to be Performed: Yes Sign In: A Moment of CARE was completed. Personnel directly involved with the procedure wore the appropriate PPE (Personal Protective Equipment). Patient/Surrogate Stated/Verified: PATIENT VERIFIED(optional for EMERGENT procedures): Patient name, Date of , Relevant allergies, and The intended procedure Time Out Communication: Intended patient and procedure match the source documents. Consent documented and matches the intended procedure. Sign Out: SIGN OUT (optional for EMERGENT procedures): All specimen containers correctly labeled. Medications and allergies reviewed and updated. Latex Allergy:No Pre-Procedure Antibiotics: Keflex 500 mg orally given during visit @ 1115 , by Krupa Gandhi LPN Pre-Procedure Vital Signs: BP BP 121/76 Pulse (!) 51 Resp 18 Ht 177.8 cm (5' 10 ) Wt 85.7 kg (189 lb) BMI 27.12 kg/m Current pain intensity is 0 on a scale of 0-10. Patient Prepped with Betadine Scrub to perineum and placement of sterile drape. Anesthetic Given: 10cc 2% Lidocaine Jelly into Urethra. Instruction sheet given and reviewed: Yes Patient verbalizes understanding: Yes Post- procedure Vital Signs: B/P: 128/76 P: 59 R:20 Pain Ratin on a scale of 0 to 10. Specimens: not indicated. Dr. Fernandez did dilated and he tolerated well. He left a 12 coude catheter in for 3 days. He is to remove at home in [address] Fernandez. at bedside. Nurse: Eileen Barney RN documented in this encounter [facility] 07-05-2022 Procedure note Procedure(s): CYSTOSCOPY Pre-Procedure Diagnose(s): BNC (bladder neck contracture) Post-Procedure Diagnose(s): BNC (bladder neck contracture) CYSTOSCOPY PROCEDURE NOTE: Ron Burns is a 66 year old male who presents with overflow incontinence for cystoscopy. Pt ID verified with patient: Yes Procedure verified with patient: Yes Procedure confirmed with physician and client application support engineer: Yes Sign In History and Physical Exam reviewed and is unchanged. . Informed Consent Discussed: Yes. Risks, benefits, alternatives and personnel discussed with patient who consents to proceed. Sign in Communication: Completed Time Out: Team Confirms the Correct Patient, Correct Procedure; Cystoscopy, Correct Site and Site Marking, Correct Position (if applicable). Affirmation of Time Out: Yes Sign Out: Sign Out Discussion: Completed Physician: Jim Fernandez DO A urinalysis was performed revealing no evidence of infection. The benefits, risks, alternatives of the cystoscopy procedure and personnel were discussed with the patient. The verbal consent was obtained and the patient agrees to proceed. Procedure: The patient was placed on the procedure table in the supine position and prepped and draped in the usual sterile fashion. 2% Lidocaine Jelly was placed per urethra as an anesthetic in the standard fashion. Once adequate local anesthesia was achieved, the tip of the flexible cystoscope was carefully placed into the urethra under direct visual guidance. The scope was negotiated through the pendulous urethra to the level of the bulbar urethra with no evidence of stricture. High grade BNC present with pinpoint opening. Wire placed. Metail dilators used to dilate only to 18F. Dense scar. Unable to traverse with cystoscope. 12 F coude catheter placed. Will need TURBNC. At the conclusion of the procedure, the flexible cystoscope was removed atraumatically. The patient tolerated the procedure without complications. Patient was given standard post-procedure instructions, and was directed to complete the course of oral antibiotics and increase oral fluid intake as directed. ASSESSMENT/PLAN: SEE PATIENT NOTE FROM TODAY. Jim Fernandez DO documented in this encounter [facility] 07-05-2022 History of Presen t illness Narrative Images from the original note were not included. [facility] [place] [facility] UROLOGY LOCATION: [address] [place] [address] ESTABLISHED PATIENT PATIENT INFO: Ron Burns 66 year old Chief Complaint: Prostate Cancer HPI Here after PET scan. PSA 1.45 T: 650 1-Duration: 2021 2-Location: prostate 3-Severity: N/A 4-Quality: Not applicable 5-Context: N/A 6-Timing: N/A 7-Modifying factors: No treatment prior to referral 8-Associated signs & symptoms: no additional symptoms PATHOLOGY: NONE LAB: WBC (k/uL) Date Value 08/25/2021 6.42 RBC (m/uL) Date Value 08/25/2021 2.42 (L) Hemoglobin (g/dL) Date Value 08/25/2021 7.3 (L) Hematocrit (%) Date Value 08/25/2021 23.4 (L) MCV (fL) Date Value 08/25/2021 96.7 MCH (pg) Date Value 08/25/2021 30.2 MCHC (g/dL) Date Value 08/25/2021 31.2 RDW-CV (%) Date Value 08/25/2021 15.2 (H) Platelet Count (k/uL) Date Value 08/25/2021 325 MPV (fL) Date Value 08/25/2021 9.8 Neut% (%) Date Value 06/21/2021 52.7 Lymph% (%) Date Value 06/21/2021 27.7 [place]% (%) Date Value 06/21/2021 14.6 Eosin% (%) Date Value 06/21/2021 4.1 Baso% (%) Date Value 06/21/2021 0.9 Abs Neut (ANC) (k/uL) Date Value 06/21/2021 3.34 Abs [place] (k/uL) Date Value 06/21/2021 0.93 (H) Abs Eosin (k/uL) Date Value 06/21/2021 0.26 Abs Baso (k/uL) Date Value 06/21/2021 0.06 Creatinine Date Value Ref Range Status 03/22/2022 0.99 0.73 - 1.22 mg/dL Final 08/25/2021 0.94 0.73 - 1.22 mg/dL Final 08/24/2021 0.84 0.73 - 1.22 mg/dL Final 08/23/2021 0.72 (L) 0.73 - 1.22 mg/dL Final PSA (ng/mL) Date Value 06/18/2022 1.45 02/20/2022 0.46 12/21/2021 0.30 09/28/2021 0.1 06/22/2021 45.03 PSA Screening (ng/mL) Date Value 06/21/2021 54.27 PSA, Percent Free (%) Date Value 06/22/2021 11 URINE POC GLUCOSE UA (POCT) Negative 07/05/2022 BILIRUBIN UA (POCT) Negative 07/05/2022 KETONE UA (POCT) Negative 07/05/2022 SPECIFIC GRAVITY UA (POCT) 1.020 07/05/2022 HEMOGLOBIN/BLOOD UA (POCT) Trace-intact 07/05/2022 PH UA (POCT) 7.5 07/05/2022 PROTEIN UA (POCT) Negative 07/05/2022 UROBILINOGEN UA (POCT) 0.2 07/05/2022 NITRITE UA (POCT) Negative 07/05/2022 LEUKOCYTES UA (POCT) Negative 07/05/2022 COLOR UA (POCT) Yellow 07/05/2022 CLARITY UA (POCT) Clear 07/05/2022 IMAGING: NM PET/CT PROSTATE WHOLE BODY IMAGING (Order [id number]) Patient Info Patient Name Sex Ron Coto ([id number]) Male 1955 06/02/2022 8:18 PM - Radiology, [place] In Impression IMPRESSION: Head and neck: * No PSMA-expressing lesions suspicious for metastases. Chest: * No PSMA-expressing lesions suspicious for metastases. Abdomen and Pelvis: * No PSMA-expressing lesions suspicious for metastases. Bones and soft tissues: * No PSMA-expressing lesions suspicious for metastases. I have independently reviewed films and my findings are the same. ALLERGIES: ALLERGIES No Known Allergies MEDICATIONS: apixaban (ELIQUIS) 5 mg tab(s) Take by mouth twice daily. flecainide (TAMBOCOR) 100 mg tablet Take 1 tablet by mouth once daily. aspirin 325 mg tablet Take 325 mg by mouth once daily. (Patient not taking: Reported on 12/21/2021 ) aspirin 81 mg chewable tablet Take 1 tablet by mouth once daily. metoprolol tartrate, short acting, (LOPRESSOR) 25 mg tablet Take 1 tablet by mouth every 8 hours. (Patient taking differently: Take 25 mg by mouth every 8 hours. 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 HEAD & NECK: No blurred vision or Sjogren's syndrome CARDIOVASCULAR: NO CHEST PAIN, PALPITATIONS, ANKLE EDEMA RESPIRATORY: No chronic cough, wheezing, dyspnea, hemoptysis. MUSCULOSKELETAL: NO CHRONIC BACK PAIN, ARTHRITIS, CHRONIC NECK PAIN SKIN: NO VARICOSE VEINS, RASH, ABNORMAL ITCHING BLOOD/LYMPHATIC: No easy bleeding, easy bruising, transfusion Hx NEUROLOGICAL: NO HEADACHES, NUMBNESS, SEIZURES, STROKE PSYCHIATRIC: No depression or inordinate anxiety The remainder of the ROS was negative. PHYSICAL EXAMINATION Ht 177.8 cm (5' 10 ) Wt 85.7 kg (189 lb) BMI 27.12 kg/m General appearance: Well appearing, alert, in no acute distress, and well-hydrated, well nourished Skin: Skin color, texture, turgor normal, no suspicious rashes or lesions Head: Normocephalic, no masses, lesions, tenderness or abnormalities Abdomen: Normal abdominal exam, Abdomen soft, non-tender. Bowel sounds normal. No masses, organomegaly Genitourinary: MALE EXAM: Exam NOT Indicated PVR: NA ASSESSMENT/PLAN: Ian 9 Prostate cancer PSA 54 at diagnosis. S/P RARP with bilateral extended node dissection. VERY difficult VUA, bilateral stents were in place, ureteral stents removed. Favorable pathology. Negative LN disease. No bladder neck invasion. Kegels. PSA 0.1 => 0.3 => 0.46 => 1.45 Discussed radiation vs ADT. PSMA PET SCAN NEGATIVE - hold on adjuvant treatment. Recurrent UTI Antibiotics completed. Cystoscopy 03.22.22 demonstrated a bladder neck contracture. Bladder neck contracture was dilated with Cook soft dilators and a 16 Chilean catheter was placed. This catheter will be removed by the patient after 3 days. See cysto note today. Dilated only to 16 F (tighter scar) - will proceed to TURBNC in preparation for AUS. He will need UDS prior to AUS. We have discussed a male sling versus artificial urinary sphincter. Using Penile clamps. Jim Fernandez DO documented in this encounter [facility] 07-05-2022 Instructions Vannesa Gandhi LPN - 07/05/2022 11:01 AM EDT [facility] Department of Urology After your Cystoscopy You have undergone a cystoscopy. Your doctor has inserted a telescope into your urinary bladder through your urethra to view the inside of your bladder. WHAT TO EXPECT: Possible burning during urination and /or blood tinged urine. WHAT TO DO: Resume normal activity and medications. Drink 6-8 glasses of fluid each day for 3 days to help flush your urinary system. MEDICATIONS: You were given Keflex, a preventative antibiotic, prior to the procedure. WHEN TO CALL DOCTOR: IF you have a fever over 100 degrees Farenheit. IF you are unable to urinate IF blood clots form in your urine IF your urine becomes very bloody and does not clear with drinking extra fluids. Please call [facility] office at [phone] M-F 8:00 am to 5:00pm With any questions you may have and ask for the Triage Nurse After 5:00 pm or weekends [phone] Thank you 09/02/13 KW documented in this encounter [facility] 06-11-2022 Miscellaneous Notes Crystal advised, and agreed. Elena Blackwell Cma PET scan is negative for cancer cells - so appt is ok on 07/05 if they are ok with that Pt's calling for PET scan results. She would like to know if f/u appointment needs to be pushed up? Please advise. Savanah Zuniga RN documented in this encounter [facility] 06-01-2022 History of Presen t illness Narrative RADIOLOGY SERVICE PROGRESS NOTE SERVICE DATE: 06/01/2022 SERVICE TIME: 12:23 PM PATIENT IDENTITY VERIFICATION COMPLETED USING TWO (2) STANDARD IDENTIFIERS: Name and Date of confirmed by patient verbally FALL SCREENING: Has the patient had 2 falls in the last year or 1 fall with injury or currently using an Ambulatory Assistive Device (Walker, Cane, Wheelchair, Crutches, etc.)? No PATIENT GENDER DATA: .male : No ALLERGIES: Reviewed and unchanged MEDICATIONS REVIEWED: Yes PATIENT RELEVANT IMPLANT DATA REVIEWED: Not Applicable CREATININE: Creatinine Date Value Ref Range Status 03/22/2022 0.99 0.73 - 1.22 mg/dL Final 08/25/2021 0.94 0.73 - 1.22 mg/dL Final 08/24/2021 0.84 0.73 - 1.22 mg/dL Final Estimated Glomerular Filtration Rate Date Value Ref Range Status 03/22/2022 83 >=60 mL/min/1.73m Final Comment: Estimated Glomerular Filtration Rate (eGFR) is calculated using the 2020 CKD-EPI creatinine equation. This equation utilizes serum creatinine, sex, and age as parameters. The creatinine assay has traceable calibration to isotope dilution-mass spectrometry. Refer to KDIGO guidelines for clinical interpretation. In patients with unstable renal function, e.g. those with acute kidney injury, the eGFR may not accurately reflect actual GFR. eGFR- Date Value Ref Range Status 08/25/2021 >60 Final P.O.C.T. RESULTS: N/A June 01, [address] PERFORMED: No IV SITE: Ambulatory: A peripheral IV was started in the Right antecubital site with a Angio cath: 24 gauge. POST EXAM PIV STATUS: Discontinued PROCEDURE TYPE: NM INJECT: PET/CT BODY SCAN. 8.21 mCi F18 FDG. No other medications given.. ADMINISTRATION TIME: 1210 JM PATIENT DISCHARGED TO: Ambulatory patient, left [place] department area. A Diagnostic radioactive procedure has taken place, with no further precautions necessary other than routine body substance precautions. More information regarding radiation safety can be found using this link: [email or web address] SIGNATURE: RT Vin(R) PATIENT NAME: Ron Burns DATE: June 01, 2022 TIME: 12:23 PM PAGER/CONTACT #: documented in this encounter [facility] 04-12-2022 Miscellaneous Notes Called left message for return call from patient. María Chamberlain Cma Pt called in asking for you to return call back Please advise Juan Carlos Alonso MA documented in this encounter [facility] 04-11-2022 Procedure note Procedure(s): CYSTOSCOPY Pre-Procedure Diagnose(s): Prostate cancer (HCC) Post-Procedure Diagnose(s): Bladder neck contracture CYSTOSCOPY PROCEDURE NOTE: Ron Burns is a 66 year old male who presents with recurrent UTIs for cystoscopy. Pt ID verified with patient: Yes Procedure verified with patient: Yes Procedure confirmed with physician and client application support engineer: Yes Sign In History and Physical Exam reviewed and is unchanged. . Informed Consent Discussed: Yes. Risks, benefits, alternatives and personnel discussed with patient who consents to proceed. Sign in Communication: Completed Time Out: Team Confirms the Correct Patient, Correct Procedure; Cystoscopy, Correct Site and Site Marking, Correct Position (if applicable). Affirmation of Time Out: Yes Sign Out: Sign Out Discussion: Completed Physician: Jim Fernandez DO A urinalysis was performed revealing no evidence of infection. The benefits, risks, alternatives of the cystoscopy procedure and personnel were discussed with the patient. The verbal consent was obtained and the patient agrees to proceed. Procedure: The patient was placed on the procedure table in the supine position and prepped and draped in the usual sterile fashion. 2% Lidocaine Jelly was placed per urethra as an anesthetic in the standard fashion. Once adequate local anesthesia was achieved, the tip of the flexible cystoscope was carefully placed into the urethra under direct visual guidance. The scope was negotiated through the pendulous urethra to the level of the bulbar urethra with no evidence of stricture. There was a tight bladder neck contracture. A wire was placed. Then using Cook dilators this was sequentially dilated to 18 Chilean over the wire. Wire was removed. Cystoscope was replaced.. The bladder was entered and careful mayo endoscopy was carried out. The posterior, superior and lateral villarreal and dome of the bladder were all well visualized and the scope was retroflexed upon itself. The findings were consistent with no evidence of bladder mucosal pathology. Possible tiny calculus at bladder neck on retroflexion. At the conclusion of the procedure, the flexible cystoscope was removed atraumatically. 16 Chilean Garrett catheter was placed without the use of a wire. The patient tolerated the procedure without complications. Patient was given standard post-procedure instructions, and was directed to complete the course of oral antibiotics and increase oral fluid intake as directed. ASSESSMENT/PLAN: River 9 Prostate cancer PSA 54 at diagnosis. S/P RARP with bilateral extended node dissection. VERY difficult VUA, bilateral stents were in place, ureteral stents removed. Favorable pathology. Negative LN disease. No bladder neck invasion. Kegels. PSA at 8 weeks was surprisingly 0.1 => 0.3 => 0.46 Discussed radiation vs ADT. Has UTI and now recurrent. Antibiotics completed. At this time cystoscopy demonstrated a bladder neck contracture. Bladder neck contracture was dilated with Cook soft dilators and a 16 [address]an catheter is in place. This catheter will be removed by the patient after 3 days. He will continue physical therapy for stress urinary incontinence. We have discussed a male sling versus artificial urinary sphincter. He would like to recover from his stroke prior to consideration of surgery for incontinence. PSA in 3 months. Using Penile clamps. Jim Fernandez DO documented in this encounter [facility] 04-02-2022 Miscellaneous Notes TC to pt spouse per their request. Just want to up date MUSIC ARRANGER on ER vist on 03/25/22. Refuse appt. Maris Samuel LPN documented in this encounter [facility] 03-28-2022 Miscellaneous Notes Pt's confirmed his cysto in [place] ofc with Dr. Fernandez 04/11/22 @ 1:30. Tara ----- Message from Hermila Pyle sent at 03/28/2022 2:35 PM EDT ----- ----- Message ----- From: Kalie Babcock Sent: 03/28/2022 9:39 AM EDT To: Hermila Pyle Good morning, I wasn't sure who to reach out to in regards to getting this patient scheduled. Per Dr. Petersen last office note he would like patient to have a Cysto done in [place] on 04/11. Could you help me get this scheduled, or get it to the right people to schedule it? Thank you, Kalie Babcock documented in this encounter [facility] 03-25-2022 Miscellaneous Notes UTI, start 14 days of Bactrim, Stop Cipro documented in this encounter [facility] 03-22-2022 History of Presen t illness Narrative Images from the original note were not included. [facility] [place] [facility] UROLOGY LOCATION: [facility] PATIENT PATIENT INFO: Ron Burns 66 year old Chief Complaint: Metastatic prostate cancer HPI Doing well Had a stroke - went to [facility] and recovered. No control of urination. Undergoing PT Wearing penile clamp. 1-Duration: 2021 2-Location: prostate 3-Severity: N/A 4-Quality: Not applicable 5-Context: N/A 6-Timing: N/A 7-Modifying factors: No treatment prior to referral 8-Associated signs & symptoms: no additional symptoms No question data found. PATHOLOGY: FINAL DIAGNOSIS A. Lymph node, periprosthetic, excision Fibroadipose tissue with focal fat necrosis. No lymph node present. B. Bladder, posterior neck margin, excision Negative for malignancy. C. Prostate, bilateral seminal vesicles and bilateral pelvic lymph nodes, radical prostatectomy Prostatic adenocarcinoma, Ian score 4+5 equal 9 (grade group 5) and ductal adenocarcinoma. Positive for multifocal extraprostatic extension. No definite bladder neck invasion. No definite seminal vesicle invasion. See comment. 12 lymph nodes negative for metastatic carcinoma. LAB: WBC (k/uL) Date Value 08/25/2021 6.42 RBC (m/uL) Date Value 08/25/2021 2.42 (L) Hemoglobin (g/dL) Date Value 08/25/2021 7.3 (L) Hematocrit (%) Date Value 08/25/2021 23.4 (L) MCV (fL) Date Value 08/25/2021 96.7 MCH (pg) Date Value 08/25/2021 30.2 MCHC (g/dL) Date Value 08/25/2021 31.2 RDW-CV (%) Date Value 08/25/2021 15.2 (H) Platelet Count (k/uL) Date Value 08/25/2021 325 MPV (fL) Date Value 08/25/2021 9.8 Neut% (%) Date Value 06/21/2021 52.7 Lymph% (%) Date Value 06/21/2021 27.7 [place]% (%) Date Value 06/21/2021 14.6 Eosin% (%) Date Value 06/21/2021 4.1 Baso% (%) Date Value 06/21/2021 0.9 Abs Neut (ANC) (k/uL) Date Value 06/21/2021 3.34 Abs [place] (k/uL) Date Value 06/21/2021 0.93 (H) Abs Eosin (k/uL) Date Value 06/21/2021 0.26 Abs Baso (k/uL) Date Value 06/21/2021 0.06 Creatinine Date Value Ref Range Status 08/25/2021 0.94 0.73 - 1.22 mg/dL Final 08/24/2021 0.84 0.73 - 1.22 mg/dL Final 08/23/2021 0.72 (L) 0.73 - 1.22 mg/dL Final 08/22/2021 0.83 0.73 - 1.22 mg/dL Final PSA (ng/mL) Date Value 02/20/2022 0.46 12/21/2021 0.30 09/28/2021 0.1 06/22/2021 45.03 PSA Screening (ng/mL) Date Value 06/21/2021 54.27 PSA, Percent Free (%) Date Value 06/22/2021 11 URINE POC GLUCOSE UA (POCT) Negative 03/22/2022 BILIRUBIN UA (POCT) Negative 03/22/2022 KETONE UA (POCT) Negative 03/22/2022 SPECIFIC GRAVITY UA (POCT) 1.020 03/22/2022 HEMOGLOBIN/BLOOD UA (POCT) Moderate 03/22/2022 PH UA (POCT) 7.0 03/22/2022 PROTEIN UA (POCT) Negative 03/22/2022 UROBILINOGEN UA (POCT) 0.2 03/22/2022 NITRITE UA (POCT) Positive 03/22/2022 LEUKOCYTES UA (POCT) Large 03/22/2022 COLOR UA (POCT) Yellow 03/22/2022 CLARITY UA (POCT) Cloudy 03/22/2022 IMAGING: None No imaging to review. ALLERGIES: ALLERGIES No Known Allergies MEDICATIONS: apixaban (ELIQUIS) 5 mg tab(s) Take by mouth twice daily. flecainide (TAMBOCOR) 100 mg tablet Take 1 tablet by mouth once daily. aspirin 325 mg tablet Take 325 mg by mouth once daily. aspirin 81 mg chewable tablet Take 1 tablet by mouth once daily. metoprolol tartrate, short acting, (LOPRESSOR) 25 mg tablet Take 1 tablet by mouth every 8 hours. 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 HEAD & NECK: No blurred vision or Sjogren's syndrome CARDIOVASCULAR: NO CHEST PAIN, PALPITATIONS, ANKLE EDEMA RESPIRATORY: No chronic cough, wheezing, dyspnea, hemoptysis. MUSCULOSKELETAL: NO CHRONIC BACK PAIN, ARTHRITIS, CHRONIC NECK PAIN SKIN: NO VARICOSE VEINS, RASH, ABNORMAL ITCHING BLOOD/LYMPHATIC: No easy bleeding, easy bruising, transfusion Hx NEUROLOGICAL: NO HEADACHES, NUMBNESS, SEIZURES, STROKE PSYCHIATRIC: No depression or inordinate anxiety The remainder of the ROS was negative. PHYSICAL EXAMINATION Ht 177.8 cm (5' 10 ) Wt 85.7 kg (189 lb) BMI 27.12 kg/m General appearance: Well appearing, alert, in no acute distress and well-hydrated, well nourished Skin: Skin color, texture, turgor normal, no suspicious rashes or lesions Head: Normocephalic, no masses, lesions, tenderness or abnormalities Abdomen: Normal abdominal exam, Abdomen soft, non-tender. Bowel sounds normal. No masses, organomegaly Genitourinary: MALE EXAM: Exam NOT Indicated PVR: NA IMPRESSION/PLAN: Ian 9 Prostate cancer PSA 54 at diagnosis. S/P RARP with bilateral extended node dissection. VERY difficult VUA, bilateral stents were in place, ureteral stents removed. Favorable pathology. Negative LN disease. No bladder neck invasion. Kegels. PSA at 8 weeks was surprisingly 0.1 => 0.3 => 0.46 Discussed radiation vs ADT. Has UTI and now recurrent. Send urine culture. Abx. Needs Cysto to R/O UTI causes. Continue PT. PSA in 3 months. Using Penile clamps. I spent 30 minutes in the visit, with more than 50% of the total [id number] time of the visit in counseling / coordination of care. Jim Fernandez DO MBA documented in this encounter [facility] 03-07-2022 Miscellaneous Notes Patient calls in today to inquire about PSA for her Ron. She states that the PSA that was supposed to be for the February appointment with Dr. Fernandez was accidentally drawn in January by the lab. She is inquiring if he needs another PSA drawn before his February appointment. I let her know that the level that was done last week is sufficient for his February appointment per Tessie Krishna. She thanked me for my return call. documented in this encounter [facility] 03-05-2022 Instructions Mena Browne APRN.CNP - 03/05/2022 8:24 AM EDT 1.) Continue to use compression socks, watch salt/processed foods in the diet, and elevate the legs when possible. 2.) Continue to take all medication as prescribed. 3.) keep scheduled appointments with urology and cardiology. 4.) Follow up in 6 months or sooner as needed. documented in this encounter [facility] 03-05-2022 History of Presen t illness Narrative This is a 66 year old male who presents today with: Patient presents with: Follow Up: [facility] HISTORY OF PRESENT ILLNESS: Ron Burns is a 66 year old male. Patient presents with: Follow Up: [facility] Here in the office for hospital follow-up. HOSPITAL/ER FOLLOW UP: Reason for visit: Leg swelling Which facility: [facility] Date of visit: 01/31/2022 Diagnosis: leg edema Testing done: US DVT: Negative Treatment given: None Current symptoms: Still having mild bilateral low leg edema. Has been using compression socks and elevating the legs which has been effective. No chest pain, palpitations, or SOB. No pain in the legs. No other concerns today. Seeing cardiology today, taking Eliquis 5 mg daily for past CVA. Seeing Urology later this month, history of Prostate Cancer. 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 MEDICATIONS Current Outpatient Medications Medication Sig amoxicillin-clavulanic acid (AUGMENTIN) 875-125 mg per tablet Take 1 tablet by mouth twice daily for 14 days. apixaban (ELIQUIS) 5 mg tab(s) Take by mouth twice daily. aspirin 325 mg tablet Take 325 mg by mouth once daily. (Patient not taking: Reported on 12/21/2021 ) flecainide (TAMBOCOR) 100 mg tablet Take 1 tablet by mouth once daily. aspirin 81 mg chewable tablet Take 1 tablet by mouth once daily. metoprolol tartrate, short acting, (LOPRESSOR) 25 mg tablet Take 1 tablet by mouth every 8 hours. (Patient taking differently: Take 25 mg by mouth every 8 hours. 1/2 tablet twice daily ) No current facility-administered medications for this visit. FAMILY HISTORY Problem Relation Age of Onset other (CVA) Mother 87 Heart Father 66 other (CVA) Sister other (bph) Brother Diabetes Brother other (bph) Brother Diabetes Sister Social History Tobacco Use Smoking status: Never Smoker Smokeless tobacco: Never Used Vaping Use Vaping Use: Never used Substance Use Topics Alcohol use: No Drug use: No REVIEW OF SYSTEMS GENERAL: No weight loss, malaise or fevers/chills HEENT: Negative for frequent or significant headaches, No changes in hearing or vision. NECK: Negative for lumps, goiter, pain and significant neck swelling RESPIRATORY: Negative for cough, hemoptysis, wheezing, dyspnea or shortness of breath CARDIOVASCULAR: Negative for chest pain, leg swelling, orthopnea, or palpitations GI: No nausea, vomiting, or diarrhea/constipation. No hematochezia/melena. No heartburn or reflux symptoms. : No history of dysuria, frequency or incontinence MUSCULOSKELETAL: Negative for joint pain or swelling. SKIN: Negative for lesions, rash, and itching ENDOCRINE: Negative for cold or heat intolerance, polyuria, polydipsia and goiter NEURO: No history of headaches, syncope, paralysis, seizures or tremors MOOD: Negative for depression, anxiety, or suicidal ideation. EXAM: BP 96/58 Pulse 61 Resp 16 Wt 86.6 kg (191 lb) SpO2 98% BMI 27.41 kg/m PHYSICAL EXAM: General Appearance: Well appearing, alert, in no acute distress, well-hydrated, well nourished. Skin: Skin color, texture, turgor normal, no suspicious rashes or lesions. Head: Normocephalic, no masses, lesions, tenderness or abnormalities. Eyes: Anicteric sclera. Extraocular movements are intact. Lungs: Lungs clear to auscultation. No wheezing, rhonchi, rales. Heart: RRR without murmur, gallop, or rubs. No ectopy. Extremities: No deformities, skin discoloration, clubbing or cyanosis. Good capillary refill. +1 non-pitting edema to lower legs bilaterally. No color change noted. Peripheral Pulses: Normal, Capillary refill <2secs, strong peripheral pulses, Pulses palpable. ASSESSMENT/PLAN: 1. Hospital discharge follow-up - ICD9: V67.59, ICD10: Z09 (primary diagnosis) - Doing well since hospital discharge. 2. Bilateral leg edema - ICD9: 782.3, ICD10: R60.0 - Continue to wear compression socks daily. - Watch salt in the diet/processed foods. - Elevate the legs. 3. History of CVA (cerebrovascular accident) - ICD9: V12.54, ICD10: Z86.73 - Continue to take Eliquis as prescribed. - Keep scheduled appointment with cardiology. 4. Prostate cancer (HCC) - ICD9: 185, ICD10: C61 - Keep scheduled appointment with urology later this month. Follow-up in 6 months or sooner as needed. Discussed treatment plan and patient voices understanding. Patient's questions answered appropriately. Medications and potential side effects were discussed and patient voices understanding. Mena Browne APRN.JOANNE This note was partially generated using Snapvine voice recognition system. Note was reviewed for accuracy. There may be minor misspellings or grammar miscues with Snapvine voice recognition. documented in this encounter [facility] 02-23-2022 Miscellaneous Notes Called patient and informed them of Dr Fernandez's message. Patient spouse asks about urinary incontinence. This was explained that due to radical prostate that it could take a while to improve. Patient encouraged to continue to do kegel exercises. Patient has UTI,needs augmentin X 14 days PSA stable at 0.48 documented in this encounter [facility] 02-19-2022 Miscellaneous Notes Patient gave verbal permission in chart to leave a detailed message on designated line previously in demographics. Gave complete Detailed message to patient on voicemail, and instructed if any questions or concerns with message to call the office back at [phone] and ask for a Nurse. Check culture and move up appt as needed calling Voicemail about patient doing PFPT and the PT feels that the muscles are strongest that she feels he can do. She feels the Pelvic floor muscles are strong enough and she feels there is something else that is causing the bladder control problems. Possibly still recovering from stroke with bladder function too is what she said. He has been using the clamp, and at about 90 minutes he's got to unclamp as he is really feeling the urge to go. Stream still pretty weak. Urine really dark and foul smelling stream. Aware he needs to drink more fluids. He doesn't complain of burning or chills, but did you want to rule out infection? Or just regular healing process? They will come in 3 months follow up 03-22-2022 at 1230. Culture pended if you want. Called patient regarding his appointment with Dr. Fernandez on 04/19 being canceled due to provider being out of the office. I talked with patients and she is wondering if a nurse can give her a call back regards some questions/concers. Please advise Mckenna Guerrero documented in this encounter [facility] 02-13-2022 History of Presen t illness Narrative Episode Visit Count: 5 Therapist That Will Oversee The Plan Of Care: Becka Garcia Start of Care Date: 11/03/21 Onset Date: 08/09/21 Patient Identified by Name and Date of : Yes REHABILITATION AND SPORTS THERAPY PHYSICAL THERAPY DISCONTINUANCE OF CARE PLAN OF CARE UPDATE: Assessment: Ron Burns is discontinued from Physical Therapy services due to maximal benefit. and Patient/Clinician mutual decision to discontinue current plan of care.. Patient was seen for 5 visits from Start of Care Date: 11/03/21 to 02/13/2022 and treatment included: Therapeutic exercise and Self-half-way management. Goals for Episode of Care: created on 11/03/21 Updated on: 12/05/2021, 01/12/2022, 02/13/2022 [place] in home exercise program.-MET Patient will demonstrate increase in core strength to at least 3+/5 during manual muscle testing in order to improve function for prior functional Tasks.-MET Incontinence: Increase strength of pelvic floor to Power: at least 3/5-MET Increase endurance of pelvic floor to: 10 seconds-MOSTLY MET Decrease pad use to less than or equal to 1 pad / day-PROGRESSING Patient able to cough, sneeze, lift and/or exercise without leaking-PROGRESSING Patient demonstrates ability to correctly isolate pelvic floor muscles-MET Patient Goals: improve bladder function SUBJECTIVE: Patient Reason for Visit: Pt's in attendance during session. Pt reports no changes in UI since last visit, feels his stroke set him back. Pt reports feeling like his bladder can't hold as much, urinary frequency of about 1.5 hours. Pt reports leakage has returned at nighttime. Pt reports fair compliance with HEP. Pt reports having follow up with urology in two months, would like to continue on his own at home and follow up with physician. Pain: Pain Pain Level: 0 Post Treatment Pain Post Treatment Pain Level: No Change PROMIS Scales T-scores: mean of general population = 50. 5 points is clinically meaningfully difference Percentiles provide an indication of how the patient's score ranks in relation to the general population. Higher percentile rankings indicate better function/quality of life. 50th percentile is the average of the general population and indicates half of respondents had a worse score. T-scores: mean of general population = 50. 5 points is clinically meaningfully difference Percentiles provide an indication of how the patient's score ranks in relation to the general population. Higher percentile rankings indicate better function/quality of life. 50th percentile is the average of the general population and indicates half of respondents had a worse score. OBJECTIVE MEASURES WITH LEVEL OF FUNCTION: Pelvic Floor Stress Incontinence: Cough/sneeze;Lifting Nocturia (times per night): 1 Daytime Frequency (hours): 2 Bladder Padding: changes Depends 5x/day Pelvic Floor Muscle Assessment Consent for pelvic assessment/testing and treatment: Patient was educated regarding pelvic floor physical therapy assessment/treatment which may include pelvic floor and girdle muscle assessment externally or internally (vaginal or rectal approach).;Patient verbalized consent for the above treatment approaches today. Patient understands they have control of the treatment and an opportunity to stop treatment at any time. Pelvic Floor Muscle Assessment: PERFECT;Muscle Dynamics Power: 3 Endurance: 9 Fast Reps: 10 Contracton Pressure: Moderate squeeze, felt all the way around finger surface Duration of Contraction: >3 seconds Recruitment of pelvic floor muscles: Coordinated Pelvic Floor Manual Assessment Pelvic Floor Tenderness/Hyperactivity: Tested Rectally in Tested Rectally in : Sidelying (No tightness/tenderness noted.) TREATMENT: Therapeutic Exercise: 1: Reassessment 2: Reviewed functional kegals 3: *sit to stand with kegal, 2x5 4: Discussed discharge planning Skilled Intervention: Skilled judgment was provided in selection of appropriate interventions. Self-Assisted Management: 1: Reviewed current procedure, goals and timeline based on procedure 2: Reviewed possible impact of stroke on bladder function, importance of maintaining HEP to not lose muscle gains Skilled Intervention: Skilled judgment in the selection of proper modification for activity of daily living/home management based on clinical presentation, deficits, and needs. Billing Therapeutic Exercise Treatment Minutes: 17 Self-Care/Home Management Treatment Minutes: 13 Total Treatment Time Minutes (timed/untimed): 30 Becka Garcia PT documented in this encounter [facility] 02-12-2022 Miscellaneous Notes Noted; OK with follow up as planned Elie Tolentino MD FYI to provider: Patient's Crystal calling to schedule ER F/U appt for patient. Patient was seen at [facility] ER on 01/31/22 due to swelling in his right leg. reports patient is doing well now. Patient unable to make it to available open F/U appts this week or next week due to personal schedule. requesting to make F/U appt for 03/05/22 with Mena Pavan, which is longer than recommended for F/U. No call back needed to spouse or patient unless provider has other instructions for patient. Thank you. documented in this encounter [facility] 01-31-2022 History of Presen t illness Narrative Triage note from [facility]: Ron Burns is a 66 year old male who presents to [facility] for evaluation of right leg swelling for the past 3 weeks. He had a stroke 3 weeks ago and was unable to move the right leg. He received TPA and was in the hospital for 2 days. He is currently on Eliquis. He denies pain in the leg. Due to risk of DVT and unable to get STAT US r/o DVT today patient was referred to ER for further evaluation and care. Report sent to [facility] via ER Passport. Brandie Grewal APRN.MUSIC ARRANGER documented in this encounter [facility] 01-29-2022 Miscellaneous Notes calling to see what the PSA level was and if he occasionally sees tissue/ blood in urine if this is consider ok. She is aware that occasionally see tissue is OK and if any worsening or other symptoms to inform. She is aware to have patient get PSA prior to March appt. documented in this encounter [facility] 12-16-2021 History of Presen t illness Narrative Patient discharged home. Nurse, patient and his went over discharge packet. Nurse removed IV. Patient is waiting on his ride to pick him up. is packing all of his belongings. Speech Language Pathology Received orders for a bedside swallow evaluation for stroke symptoms. The official order for the stroke order set was not used. RN completed a swallow screen and a Regular diet was recommended and initiated. Patient was then transferred to ICU due to need for tPA. Spoke with the RN. There is no aphasia or concern for dysphagia. Speech Therapy services are not needed. Completed speech therapy orders. Please re-consult if any concerns arise. Una Augustine MS, CCC/SKEINER Images from the original note were not included. [facility] Cardiology Brief Note Name: Ron Burns Date of : 1955 12/16/21; 11:20 AM Patient has a known history of atrial fibrillation and had spontaneous conversion to sinus rhythm complicated by a cardioembolic right hemispheric stroke with successful lytic reperfusion. Plan is for long-term anticoagulation. Echo completed 1. Left ventricle: Systolic function is normal by the biplane method of disks. The estimated ejection fraction is 50%. 2. Right ventricle: Systolic function is normal. 3. Atrial septum: Agitated saline contrast study shows bubbles appearing in the left heart at least 6 cardiac cycles after entering the right heart. On repeat injection, no bubbles were seen until >15 cardiac cycles. This suggests intermittent [id number] intrapulmonary shunting. 4. No significant valve disease. Dr Trent to address in separate note. [facility] or [phone] Veena Savage APRN-MARCOS, CHFN This note was electronically signed by ABEBA Sullivan CNP, at 11:20 AM, on 12/16/21 . Images from the original note were not included. ICU TRANSFER CHECKLIST Transfer Med Reconciliation (resume home meds if able, convert to PO if able) Complete Antibiotics (name, indication, duration, convert to PO if able) None Steroid (indication, duration, convert to PO if able) None Anticipated Mallow Medications (ICU initiated) or Dose Changes and Indication apixaban Permanently Discontinued Home Medications and Reason for medication contraindication Uncertain if will need ASA Garrett Catheter (please remove if able) No Central Line (please remove if able) No Transfer Discussed with: Dr. Ruth Wiggins [facility] If additional questions for ICU team within 24 hours of ICU transfer, page [phone] for clarifications. PROGRESS NOTE. STROKE SERVICE Patient Name:Ron Burns Patient : 1955 Acct: [id number] Date of Admission: 12/14/2021 Room/Bed: [facility] PCP: No primary care provider on file. Patient location ICU Remains in the hospital for completion of stroke riskassessment, Subjective: New Complain: No new complaints today and no current symptoms at this time. Patient transferred from outside facility due to RLE weakness while working. He received tPA at outside facility at 1506. Sedation:No Diet/TF:regular Garrett: No VTE prophylaxis: YES Lovenox Antithrombotic therapy in first 24 hrs: YES TPA from outside facility Statin therapy for stroke stroke patients: High intensity Anticoagulation on AF patients: will start on Eliquis prior to discharge Activity: Up walking Disposition: transfer to floor with telemetry Current Hospital Medications: Current Facility-Administered Medications: polyethylene glycol (GLYCOLAX) packet 17 g, 17 g, Oral, Daily PRN, Rodger Pineda MD [Held by provider] aspirin EC tablet 81 mg, 81 mg, Oral, Daily OR [Held by provider] aspirin suppository 300 mg, 300 mg, Rectal, Daily, Rodger Pineda MD atorvastatin (LIPITOR) tablet 80 mg, 80 mg, Oral, Nightly, Rodger Pineda MD, 80 mg at 12/14/21 2200 labetalol (NORMODYNE;TRANDATE) injection 10 mg, 10 mg, IntraVENous, Q10 Min PRN, Rodger Pineda MD sodium chloride flush 0.9 % injection 10 mL, 10 mL, IntraVENous, 2 times per day, Rodger Pineda MD, 10 mL at 12/15/21 0907 sodium chloride flush 0.9 % injection 10 mL, 10 mL, IntraVENous, PRN, Rodger Pineda MD 0.9 % sodium chloride infusion, 25 mL, IntraVENous, PRN, Rodger Pineda MD ondansetron (ZOFRAN-ODT) disintegrating tablet 4 mg, 4 mg, Oral, Q8H PRN OR ondansetron (ZOFRAN) injection 4 mg, 4 mg, IntraVENous, Q6H PRN, Rodger Pineda MD acetaminophen (TYLENOL) tablet 650 mg, 650 mg, Oral, Q6H PRN OR acetaminophen (TYLENOL) suppository 650 mg, 650 mg, Rectal, Q6H PRN, Rodger Pineda MD perflutren lipid microspheres (DEFINITY) injection 1.65 mg, 1.5 mL, IntraVENous, ONCE PRN, Hussain Solis MD, 1.65 mg at 12/15/21 1043 sodium chloride flush 0.9 % injection 5-40 mL, 5-40 mL, IntraVENous, PRN, Hussain Solis MD flecainide (TAMBOCOR) tablet 50 mg, 50 mg, Oral, Daily, Hussain Solis MD, 50 mg at 12/15/21 0906 metoprolol tartrate (LOPRESSOR) tablet 12.5 mg, 12.5 mg, Oral, BID, Hussain Solis MD, 12.5 mg at 12/15/21 0906 flecainide (TAMBOCOR) tablet 100 mg, 100 mg, Oral, Nightly, Hussain Solis MD, 100 mg at 12/14/21 2200 Continuous Infusions: sodium chloride Allergies: Patient has no known allergies. Review of Systems Constitutional: Negative for chills, fatigue and fever. HENT: Positive for nosebleeds. Negative for trouble swallowing and voice change. Eyes: Negative for photophobia, redness and visual disturbance. Respiratory: Negative for cough and shortness of breath. Cardiovascular: Negative for chest pain and leg swelling. Gastrointestinal: Negative for abdominal pain, constipation, diarrhea, nausea and vomiting. Endocrine: Negative for polyuria. Genitourinary: Negative for dysuria. Neurological: Negative for headaches. Psychiatric/Behavioral: Negative for agitation and confusion. Objective: Telemetry: Arrhythmia:No Physical Examination: Patient Vitals for the past 8 hrs: BP Temp Temp src Pulse Resp SpO2 Height 12/15/21 1200 101/72 97.4 F (36.3 C) Temporal 63 16 100 % 12/15/21 1000 106/69 60 20 98 % 12/15/21 0906 122/79 69 12/15/21 0900 122/79 74 20 99 % 12/15/21 0857 6' (1.829 m) 12/15/21 0800 104/69 97.6 F (36.4 C) Temporal 61 16 98 % No intake/output data recorded. General Physical Examination: General:alert, no distress, well developed, comfortable and cooperative HEENT:Abnormal nosebleed in right nostril CV: S1+S2, RRR, no MRG. Pulm:CTA b/l, unlabored Abdomen: Soft NT/ND. BS + Skin: Intact without ulcers, breakdowns or discoloration Extremities: normal with no edema or cyanosis Orthopedic limitation; N/A Pulses: Intact peripherally Carotid auscultation :No bruits Neurological Examination: Higher Functions: Mental Status Exam: Level of Alertness:Awake Orientation: Normal toself, time, place Memory: Normal Fund of Knowledge: Normal Language: Normal Dysarthria not present Cranial Nerves: -II Visual acuity: normal -II Visualfields: normal -III Pupils (~ 3 mm OD, 3 mm OU) equal, round, reactive to light -III-IV- Extraocular Movements: intact -Nystagmus not present -Saccades and pursuits normal -V Facial sensation: intact Corneal's Intact bilateral -VII Facial strength:intact -VIII Hearing: intact -IX-X - Gag reflex present -X Palate: intact -XI Shoulder shrug: intact -XII Tongue movement: normal MotorExamination: Tone after evaluation of 4 limbs, the following findings applied: Normal . . -Bulk: normal -Muscle Stretch afterevaluation of all limbs, and axial musculature the following findings applied: Drift: not participant . -Reflexes: after evaluation of 4 limbs, the following findings applied ; . -Plantar responce: Flexor bilaterally Sensory Intact to light touch Coordination: Arms Normal finger to nose Legs Intact heel knee mitchell testing Tremors not present Gait abnormal, patient unable to walk due to acute circumstances / bed rest / safety concerns NIHSS: 0 ANCILLARY Last 24hrs Recent Results (from the past 24 hour(s)) Troponin Collection Time: 12/14/21 5:20 PM Result Value Ref Range Troponin I <0.012 0.000 - 0.034 ng/mL CBC Collection Time: 12/14/21 5:20 PM Result Value Ref Range WBC 7.7 3.6 - 10.7 10*3/uL RBC 4.24 (L) 4.40 - 5.90 10*6/uL Hemoglobin 12.6 (L) 13.0 - 18.0 g/dL Hematocrit 38.2 (L) 40.0 - 52.0 % MCV 90.2 80.0 - 98.0 fL MCH 29.9 26.0 - 34.0 pg MCHC 33.1 32.0 - 36.0 % RDW 14.5 11.5 - 14.5 % Platelets 204 140 - 440 10*3/uL MPV 8.0 7.4 - 10.4 fL Protime/INR & PTT Collection Time: 12/14/21 5:20 PM Result Value Ref Range Protime 11.3 9.0 - 12.0 s INR 1.1 0.9 - 1.1 NA aPTT 26.2 20.0 - 30.5 s POC BMP, WHOLE BLOOD Collection Time: 12/14/21 5:23 PM Result Value Ref Range Sodium, Whole Blood 141 133 - 145 mmol/L Potassium, Whole Blood 3.9 3.4 - 5.1 mmol/L Chloride, Whole Blood 103 98 - 114 mmol/L CO2, WHOLE BLOOD 24 21 - 29 mmol/L Anion Gap 14.00 (H) 3.00 - 13.00 mmol/L Glucose, Whole Blood 106 (H) 70 - 100 mg/dL BUN, WHOLE BLOOD 22 4 - 22 mg/dL CREATININE, WHOLE BLOOD 0.90 0.60 - 1.30 mg/dL eGFR >90.0 >60 mL/min GFR Non- 87.3 >60 mL/min Calcium, Ion 5.0 4.3 - 5.2 mg/dL Add On Lab Test Collection Time: 12/14/21 5:30 PM Result Value Ref Range Add On Rejected NA Troponin Collection Time: 12/14/21 11:02 PM Result Value Ref Range Troponin I <0.012 0.000 - 0.034 ng/mL CBC Collection Time: 12/15/21 5:04 AM Result Value Ref Range WBC 8.4 3.6 - 10.7 10*3/uL RBC 4.25 (L) 4.40 - 5.90 10*6/uL Hemoglobin 12.5 (L) 13.0 - 18.0 g/dL Hematocrit 38.3 (L) 40.0 - 52.0 % MCV 90.0 80.0 - 98.0 fL MCH 29.4 26.0 - 34.0 pg MCHC 32.7 32.0 - 36.0 % RDW 14.6 (H) 11.5 - 14.5 % Platelets 201 140 - 440 10*3/uL MPV 8.6 7.4 - 10.4 fL Hemoglobin A1c Collection Time: 12/15/21 5:04 AM Result Value Ref Range Hemoglobin A1C 5.8 (A) % eAG 120 mg/dL Lipid panel - fasting Collection Time: 12/15/21 5:04 AM Result Value Ref Range Cholesterol 165 <200 mg/dL Triglycerides 135 <150 mg/dL HDL 42 40 - 60 mg/dL LDL Cholesterol 96 <100 mg/dL Chol/HDL Ratio 4 NA Basic Metabolic Panel w/ Reflex to MG Collection Time: 12/15/21 5:04 AM Result Value Ref Range Sodium 136 135 - 145 mmol/L Potassium 4.4 3.5 - 5.1 mmol/L Chloride 107 98 - 107 mmol/L CO2 24 22 - 30 mmol/L Anion Gap 6 3 - 13 mmol/L Glucose 99 70 - 100 mg/dL BUN 16 7 - 17 mg/dL CREATININE 0.78 0.52 - 1.25 mg/dL eGFR >90.0 >60 mL/min EGFR IF NonAfrican Solomon Islander >90.0 >60 mL/min Calcium 9.0 8.4 - 10.4 mg/dL Magnesium Collection Time: 12/15/21 5:04 AM Result Value Ref Range Magnesium 2.0 1.6 - 2.3 mg/dL Phosphorus Collection Time: 12/15/21 5:04 AM Result Value Ref Range Phosphorus 4.0 2.5 - 4.5 mg/dL TSH Collection Time: 12/15/21 5:04 AM Result Value Ref Range TSH 1.478 0.465 - 4.680 u[IU]/mL Troponin Collection Time: 12/15/21 5:04 AM Result Value Ref Range Troponin I 0.013 0.000 - 0.034 ng/mL No results for input(s): PH, PO2, PCO2, HCO3, BE, O2SAT in the last 72 hours. Cultures: Blood culture #1: No results for input(s): BC in the last 72 hours. Blood culture #2: No results for input(s): BLOODCULT2 in the last 72 hours. Antiepileptic levels: No results for input(s): PHENYTOIN, CARBTOT, PHENOBARB, VALPROATE in the last 72 hours. Invalid input(s): LAMOTRIG, KEPPRA Coagulation: Recent Labs 12/14/21 1720 INR 1.1 CSF: No results for input(s): CHARCSF, CULTURE in the last 72 hours. Invalid input(s): CELL COUNT, GRAM STAIN, PROTEIN Stroke Specific: Lipids: Recent Labs 12/15/21 0504 CHOL 165 LDLCHOLESTEROL 96 TRIG 135 HDL 42 HgA1c: Recent Labs 12/15/21 [address]8* CT head: IMPRESSION: No acute brain process identified. CT Brain: Findings and impression: There is 8 mL of elevated Tmax, in the posterior cerebrum probably slightly left of midline, although difficult to tell. 0 mL of cerebral blood flow less than 30 percent. Mismatch volume 8 mL. Follow-up recommended. CTA Head and neck: IMPRESSION: No acute vascular process seen. For persistent symptoms MRI is recommended. MRI Brain: IMPRESSION: 1. Small acute infarct within the right frontal lobe 2. Curvilinear subcortical signal abnormality on FLAIR imaging within the right frontal lobe. This may be on the basis of mild gliosis from prior insult or small infarct. 3. Mild cerebral volume loss and changes of microangiopathy. TTE: Pending ASSESSMENT / PLAN/RECOMMENDATIONS: Small Right frontal lobe ischemic stroke s/p tPA Etiology likely embolic Hx Atrial Fibrillation - Continue Lipitor - Continue flecainide - Continue metoprolol - Continue ASA - Recommend start Eliquis with resolution of epistaxis Patient seen and discussed with Dr. Nancy Lynch MD Associated attestation - Nancy Lynch MD - 12/15/2021 5:05 PM EST Images from the original note were not included. I personally expend more than 51 % of ; [] 35, [x]75 , [] 95 min performing a face to face diagnostic evaluation of this patient in company of my : []K[place]NA [x] resident and reviewing labs, imaging studies and electronic medical record reviewed as well as discussing regarding diagnostic impressions and suggested plan of care documented in the attested note I would complete with the following addendum : Patient seen and evaluated this morning at bedside with my resident. Case discussed also yesterday with the Ed physician from outside facility after he had received TPA onset symptoms were somewhere about noon TPA was given around 132 1506. Her right lower facility already after the infusion NIH stroke scale 0 has been admitted to the ICU for 24 hours observation post TPA treatment with no evidence of New findings Patient did have nosebleeds shortly after TPA and remained with nose packed overnight with no recurrence of bleeding CT of the head obtained upon arrival to our institution showed no evidence of large vessel occlusion Perfusion abnormality was only that a small area on the left midline nonspecific. MRI of the brain obtained today showed only evidence of small punctate area of infarction right frontal cortical subcortical area. Possible related to embolic event Patient diagnosed with atrial fibrillation in the past on anticoagulation and recurrent symptoms of atrial fibrillation 24 hours prior to the event Case discussed with cardiology at bedside this morning Significant problems in regards to medicating due to patient absence of insurance Impression -Right frontal subcortical cortical infarction mechanism suspected embolic event -Atrial fibrillation as a source of cardiac embolism -Status post TPA successful resolution of the symptoms NIH of 0 -No evidence of diabetes -No evidence of dyslipidemia -No significant structural normalities noted on echocardiogram Plan Okay to move to the floor Start Elikorin tonight If patient is doing okay tomorrow with no new symptoms he should be okay to be discharged from neurology standpoint Cardiology will take the charges of trying to get medications to patient for the next 30 more days and 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 Personal review of: .,Imaging,Labs},Documented notes since admission or last time seen},Old Records Comprehensive Nutrition Assessment Type and Reason for Visit: Initial (ICU Admit) Nutrition Recommendations/Plan: 1. Can continue with Regular diet as ordered; from nutrition stand-point, pt doesn't appear to be very high risk however data in chart is very limited and interview with pt remains warranted (especially to consider any nutrition concerns pt may/may not have), for this reason will continue to follow as further work-up ensues and interview can be completed. 2. Monitor adequacy of PO intake and need for ONS; could send option like Ensure HP if pt consuming <50% of meals consistently. 3. RD to monitor weight, labs, fluid, nutritional needs & follow up weekly. Nutrition Assessment: Pt with PMH including Atrial fibrillation (permanent, rate controlled) as well as Prostate cancer (s/p prostatectomy in July 2021) presented to [facility] from outside facility with sudden onsent RLE weakness while at work; pt received tPA @ [place] (due to concern for acute stroke, possibly thromboembolic in setting of known Afib not on OAC) and following same pt noted to have NIH change from 5 to 1 (+ for motor drift of RLE); pt noted to be markedly improved in regards to RLE weakness, then transferred to [facility] where pt was noted to have right-sided epistaxis, citing mild right-sided headache that began s/p tPA, pt otherwise without overt complaints. In [facility] ED, VS reviewed, labs noted AG 14, Glucose 106, CTH without process noted no acute brain process, CT perfusion noted 8mL of elevated Tmas in posterior cerebrum slightly left of midline, CTA head with no acute vascular process noted; pt remains on T2/NeuroCC unit in stable condition with plan for continued monitoring and eval. Completed bedrest recommended, fall precautions noted, pt had passed RN swallow eval so was started on Regular PO diet. MRI brain w/o contrast ordered. Lipid panel was WNL this admit, hemoglobin a1c only slightly elevated. At time of RD visit to unit, physician team was in speaking with pt and visitor for some time. Malnutrition Assessment: Malnutrition Status: Insufficient data (? diet hx/baseline nutritional intake, no data in chart to review (including weight hx and even anthropometric data like pt's height), physicians rounding on pt at time of RD visit, Regular diet ordered, will monitor) Estimated Daily Nutrient Needs: Energy (kcal): 6875-1313 kcal/day; Weight Used for Energy Requirements: Admission (86 kg) Protein (g): 86-103 gm protein/day; Weight Used for Protein Requirements: Admission (1.0-1.2 gm protein/kg) Fluid (ml/day): per MD; Method Used for Fluid Requirements: Nutrition Related Findings: Abd WDL, no edema indicated; medications reviewed; labs largely unremarkable, lipid panel was WNL, hemoglobin a1c slightly elevated at 5.8% Wounds: (Allan 18) Current Nutrition Therapies: ADULT DIET; Regular Anthropometric Measures: Height: 6' (182.9 cm) (estimated by RD this date, upon brief observation from outside room as physician team was in room speaking with pt; no hx in chart to review) Admission Body Weight: 189 lb 9.5 oz (86 kg) (bedscale per laboratory coordinator) Usual Body Weight: (No weight hx in chart to review) [place] Body Weight: 178 lbs; % [place] Body Weight BMI: 25.71 Adjusted Body Weight: ; No Adjustment BMI Categories: Overweight (BMI 25.0-29.9) (estimated however need to confirm UBW and pt's height) Nutrition Diagnosis: No nutrition diagnosis at this time (however given acute stroke s/p tPA and ? pt's nutrition questions/needs, will continue to follow) Nutrition Interventions: Food and/or Nutrient Delivery: Continue Current Diet Nutrition Education/Counseling: Education not appropriate (however do not suspect in-depth diet education warranted given overall work-up this admit and noted PMH) Coordination of Nutrition Care: Continue to monitor while inpatient Goals: Pt tolerates & consistently consumes >50% of meals/ONS. Nutrition Monitoring and Evaluation: Food/Nutrient Intake Outcomes: Food and Nutrient Intake Physical Signs/Symptoms Outcomes: Biochemical Data,Meal Time Behavior,Skin,Weight Discharge Planning: Too soon to determine Contact: pager [phone] Images from the original note were not included. Stepdown ICU ProgressNote Admit Date: 12/14/2021 PCP: No primary care provider on file. CC: Acute stroke syndrome, s/p tPA Interval events: No further epistaxis, gauze in R nare bothering him. Weakness basically resolved, denies n/v/dyspnea. Tolerating po. Medications: [Held by provider] aspirin 81 mg Oral Daily Or [Held by provider] aspirin 300 mg Rectal Daily atorvastatin 80 mg Oral Nightly sodium chloride flush 10 mL IntraVENous 2 times per day flecainide 50 mg Oral Daily metoprolol tartrate 12.5 mg Oral BID flecainide 100 mg Oral Nightly PRN Meds: polyethylene glycol, labetalol, sodium chloride flush, sodium chloride, ondansetron OR ondansetron, acetaminophen OR acetaminophen, perflutren lipid microspheres, sodium chloride flush IV: sodium chloride Diet: ADULT DIET; Regular Invasive Lines: PIV Urinary Catheter: external Oxygen: room air Vitals: Vitals: 12/15/21 0400 12/15/21 0500 12/15/21 0600 12/15/21 0800 BP: 98/64 99/69 (!) 91/55 104/69 Pulse: 54 60 55 61 Resp: 12 18 15 Temp: TempSrc: SpO2: 98% 94% 99% Weight: 24HR PULSE OXIMETRY RANGE: SpO2 Av.3 % Min: 94 % Max: 100 % Physical Exam Vitals and nursing note reviewed. Constitutional: Comments: WD WM sitting up in bed, awake/alert, conversant, NAD HENT: Mouth/Throat: Mouth: Mucous membranes are moist. Pharynx: Oropharynx is clear. Eyes: General: No scleral icterus. Conjunctiva/sclera: Conjunctivae normal. Neck: Comments: trachea midline Cardiovascular: Rate and Rhythm: Normal rate and regular rhythm. Comments: periph pulses palp bilat Pulmonary: Effort: Pulmonary effort is normal. No respiratory distress. Breath sounds: No stridor. No wheezing. Abdominal: General: Bowel sounds are normal. There is no distension. Palpations: Abdomen is soft. Tenderness: There is no abdominal tenderness. There is no guarding. Comments: Neg HSM Musculoskeletal: Right lower leg: No edema. Left lower leg: No edema. Skin: General: Skin is warm and dry. Coloration: Skin is not jaundiced. Neurological: Mental Status: He is oriented to person, place, and time. Cranial Nerves: No cranial nerve deficit. Deep Tendon Reflexes: Reflexes normal. Comments: Minimal if any residual R LE weakness Results: CBC: Recent Labs 12/14/21 1720 12/15/21 0504 WBC 7.7 8.4 HGB 12.6* 12.5* HCT 38.2* 38.3* MCV 90.2 90.0 PLT 204 201 BMP: Recent Labs 12/14/21 1723 12/15/21 0504 NA 141 136 K 3.9 4.4 CL -- 107 CO2 -- 24 PHOS -- 4.0 BUN -- 16 CREATININE 0.90 0.78 MG -- 2.0 ANIONGAP 14.00* 6 TROPONIN: Recent Labs 12/14/21 1720 12/14/21 2302 12/15/21 0504 TROPONINI <0.012 <0.012 0.013 PT/INR/APTT: Recent Labs 12/14/21 1720 INR 1.1 PROTIME 11.3 TSH: Recent Labs 12/15/21 0504 TSH 1.478 HgbA1C: Recent Labs 12/15/21 0504 LABA1C 5.8* Active Problems: Stroke aborted by administration of thrombolytic agent (HCC) Resolved Problems: * No resolved hospital problems. * Assessment: Acute stroke syndrome -presented to OSH with sudden onset RLE weakness -NIH 5, received TPA at 1506, transferred to [facility] -symptoms much improved, pressures low normal range, no prns needed Epistaxis -post tPA, has packing with dried blood, will remove while in ICU in event rebleeds Permanent afib -rate controlled, no OAC-->?reconsider if appears to be embolic stroke -metoprolol 25 mg bid, asa, flecainide chronically-->cardiology consulted re flecainide, ASA on hold per neuro post TPA Mildly elevated A1c -no known DM history, sugars good range, rec outpt follow up Prostate cancer -s/p prostatectomy 2020 PLAN SUMMARY, and as above: -ok for diet, dc IV fluid once po intake adequate consistently -pressures ok, add hydralazine prn, dc labetalol as ordered -attempt to remove nasal packing-->done, no recurrence epistaxis -ECHO in progress -MRI this afternoon -resume asa after 24 hrs p TPN (1506), ?OAC candidate Discussed with NeuroCCM, ok for 3W/3N Prophylaxis: VTE: [] Enoxaparin [] SCHeparin [] SCD [] Hep ggt [x] Contraindicated [] NOAC Disposition: Transfer 3W/3N Physical Therapy PT evaluation orders received. PT evaluation held due to pt receiving tPA on 12/14 at 1506. Pt on bedrest for 24 hours post tPA. Will reattempt PT evaluation at a later date or as schedule allows. Lexii Waters, DPT, PT Asked overnight for decision to restart flecainide.Fortino presents with sx of stroke and received tPA. Fortino currently in sinus rhythm with HR of 52. Continue flecanide at home dosage and reduce bb dosage with parameters. Echocardiogram ordered to assess for structural disease vs LA thrombus vs PFO. documented in this encounter [facility] Work Phone: 12-16-2021 Hospital Discharg e vazquez Plummer RN - 12/16/2021 1:49 PM EST Continuity of Care Form Patient Name: Ron Burns : 1955 Admit date: 12/14/2021 Discharge date: Code Status Order: Full Code Advance Directives: Admitting Physician: Elio Olguin MD PCP: Elie Tolentino Discharging Nurse: Discharging Hospital Unit/Room#: T207/F04182 Discharging Unit Phone Number: Emergency Contact: No emergency contact information on file. Past Surgical History: No past surgical history on file. Immunization History: There is no immunization history on file for this patient. Active Problems: Patient Active Problem List Diagnosis Code Stroke (HCC) I63.9 Atrial fibrillation (HCC) I48.91 Isolation/Infection: Isolation No Isolation Patient Infection Status None to display Nurse Assessment: Last Vital Signs: BP 111/70 Pulse 56 Temp 97.6 F (36.4 C) (Temporal) Resp 23 Ht 6' (1.829 m) Comment: estimated by RD this date, upon brief observation from outside room as physician team was in room speaking with pt; no hx in chart to review Wt 189 lb 9.5 oz (86 kg) SpO2 100% BMI 25.71 kg/m Last documented pain score (0-10 scale): Last Weight: Wt Readings from Last 1 Encounters: 12/14/21 189 lb 9.5 oz (86 kg) Mental Status: {IP PT MENTAL STATUS:} IV Access: { RACHELL IV ACCESS:868804952} Nursing Mobility/ADLs: Walking {CHP DME ADLs:523025211} Transfer {CHP DME ADLs:400772791} Bathing {CHP DME ADLs:900350476} Dressing {CHP DME ADLs:503952075} Toileting {CHP DME ADLs:001107831} Feeding {CHP DME ADLs:944832997} Bilingual Sales Representative {CHP DME ADLs:965064752} Med Delivery { RACHELL MED Delivery:035973154} Wound Care Documentation and Therapy: Elimination: Continence: Bowel: {YES / NO:} Bladder: {YES / NO:} Urinary Catheter: {Urinary Catheter:037810838} Colostomy/Ileostomy/Ileal Conduit: {YES / NO:} Date of Last BM: Intake/Output Summary (Last 24 hours) at 12/16/2021 1348 Last data filed at 12/15/2021 1600 Gross per 24 hour Intake 480 ml Output -- Net 480 ml I/O last 3 completed shifts: In: 960 [P.O.:960] Out: 1 [Urine:1] Safety Concerns: { RACHELL Safety Concerns:057254079} Impairments/Disabilities: { RACHELL Impairments/Disabilities:0356674 73} Nutrition Therapy: Current Nutrition Therapy: { RACHELL Diet List:373912376} Routes of Feeding: {CHP DME Other Feedings:344417649} Liquids: {Television Actor liquid thickness:96804} Daily Fluid Restriction: {CHP DME Yes amt example:050711232} Last Modified Barium Swallow with Video (Video Swallowing Test): {Done Not Done Date:} Treatments at the Time of Hospital Discharge: Respiratory Treatments: Oxygen Therapy: {Therapy; copd oxygen:81434} Ventilator: { CC Vent List:419193309} Rehab Therapies: {THERAPEUTIC INTERVENTION:5759234672} Weight Bearing Status/Restrictions: { CC Weight Bearin} Other Medical Equipment (for information only, NOT a DME order): {EQUIPMENT:035611019} Other Treatments: Patient's personal belongings (please select all that are sent with patient): {P DME Belongings:751681887} RN SIGNATURE: {Esignature:965539165} CASE MANAGEMENT/SOCIAL WORK SECTION Inpatient Status Date: Readmission Risk Assessment Score: Readmission Risk Risk of Unplanned Readmission: 11 Discharging to Facility/ Agency Name: Address: Phone: Fax: Dialysis Facility (if applicable) Name: Address: Dialysis Schedule: Phone: Fax: [facility] Administrative Assistant signature: {Esignature:740021066} PHYSICIAN SECTION Prognosis: {Prognosis:7486559297} Condition at Discharge: { Patient Condition:547654989} Rehab Potential (if transferring to Rehab): {Prognosis:9443926579} Recommended Labs or Other Treatments After Discharge: Physician Certification: I certify the above information and transfer of Ron Burns is necessary for the continuing treatment of the diagnosis listed and that he requires {Admit to Appropriate Level of Care:03349} for {GREATER/LESS:837946516} 30 days. Update Admission H&P: {CHP DME Changes in HandP:943555022} PHYSICIAN SIGNATURE: {Esignature:847679767} Uday Pompa, MANAGER CREDIT - MUSIC ARRANGER - 12/15/2021 Refer to the Understanding Stroke Booklet given to you, written material provided to patient/family, addressing all signs & symptoms of a stroke, which are: sudden numbness or weakness of the face, arm or leg, especially on one side of the body sudden confusion sudden difficulty speaking or understanding sudden trouble seeing in one or both eyes sudden trouble walking,dizziness, loss of balance or coordination sudden severe headache with no known cause syncope or temporary loss of consciousness seizure Explained the need to call EMS ([phone]) immediately if signs & symptoms occur. Discussed medications that the patient is taking, will review medications again prior to discharge, risk factors, and the need for follow-up with a physician/DIRECTOR CLOUD TRANSFORMATION/PA after discharge. Discussed the patient s personal risk factors for Stroke /TIA with patient/family, and ways to reduce the risk for a recurrent stroke. Patient's personal risk factors which were identified are: [] High blood pressure [] High cholesterol [x] Atrial fibrillation [] Diabetes [] Smoking [] Overweight [] Lack of Exercise [] Sleep apnea [] Prior heart disease or heart attack [] Excessive alcohol use [] Use of illicit drugs [] Personal history of previous TIA or stroke [] Family history of stroke or heart disease [] Carotid stenosis [] Heart failure [] Patent Foramen Ovale [] Migraine [] Hormone replacement therapy [] Current (up to six weeks post ) [] Depression [] Sickle Cell [] Renal insufficiency - chronic [] None Refer to Understanding Stroke Booklet. Advised patient that risk for stroke/TIA can be reduced by modifying/controlling risk factors. Patient advised to take medications as prescribed, which will be detailed in the discharge instructions, and to not stop taking them without consulting a physician. In addition, pt. advised to maintain a healthy diet, exercise regularly and to not smoke. For Dr Hyde: TRANSTHORACIC ECHOCARDIOGRAM PATIENT: Ron Burns STUDY DATE: 12/15/2021 : 1955 AGE: 66 HT/WT: 182.9 cm (72 85.9 kg (189 in) lb) GENDER: M BP: 106 / 69 LOCATION: [facility] PATIENT Inpatient main STATUS: *ORDERING PHYSICIAN: * Hussain Solis *READING PHYSICIAN: * Elie Martines MD, *DEPUTY SHERIFF GENERALIST/BAILIFF: * Manuel Mendoza RDCS, FACC AE ------- INDICATIONS: ASSESS FOR LA THROMBUS, ASSESS FOR PFO WITH BUBBLES. ------- CONCLUSIONS SUMMARY: 1. Left ventricle: Systolic function is normal by the biplane method of disks. The estimated ejection fraction is 50%. 2. Right ventricle: Systolic function is normal. 3. Atrial septum: Agitated saline contrast study shows bubbles appearing in the left heart at least 6 cardiac cycles after entering the right heart. On repeat injection, no bubbles were seen until >15 cardiac cycles. This suggests intermittent eaosr-[id number] intrapulmonary shunting. 4. No significant valve disease. ------- STUDY DATA: Complete transthoracic echocardiogram. Procedure: Image quality was suboptimal. The study was technically limited due to poor acoustic window availability and respiratory interference. Intravenous imaging enhancement (Definity) was administered to opacify the chamber. Definity lot #: [id number]. M-mode, complete 2D, 3D, complete spectral Doppler, and color flow Doppler images were acquired and archived for permanent storage and are available for subsequent review. Study status: Routine. Patient status: Inpatient. ------- FINDINGS LEFT VENTRICLE: The cavity size is normal. Wall thickness is normal. Systolic function is normal by the biplane method of disks. The estimated ejection fraction is 50%. There are no regional wall motion abnormalities. RIGHT VENTRICLE: The cavity size is normal. Systolic function is normal. VENTRICULAR SEPTUM: The septum is normal. LEFT ATRIUM: The atrium is mildly dilated. RIGHT ATRIUM: The atrium is normal in size. ATRIAL SEPTUM: The interatrial septum is normal. Doppler shows no shunt. Agitated saline contrast study shows bubbles appearing in the left heart at least 6 cardiac cycles after entering the right heart. On repeat injection, no bubbles were seen until >15 cardiac cycles. This suggests intermittent yyoxv-zc-mtwc intrapulmonary shunting. MITRAL VALVE: Structurally normal valve. Leaflet separation is normal. Doppler: Transvalvular velocity is within the normal range. There is no evidence for stenosis. There is no regurgitation. AORTIC VALVE: Structurally normal valve. Trileaflet. Cusp separation is normal. Doppler: Transvalvular velocity is within the normal range. There is no stenosis. There is no regurgitation. TRICUSPID VALVE: Structurally normal valve. Leaflet separation is normal. Doppler: Transvalvular velocity is within the normal range. There is no evidence for stenosis. There is trivial, less than 1+ regurgitation. PULMONIC VALVE: Structurally normal valve. Cusp separation is normal. Doppler: Transvalvular velocity is within the normal range. AORTA: Aortic root: The aortic root is normal in size. Ascending aorta: The ascending aorta is normal in size. PERICARDIUM: There is no pericardial effusion. SYSTEMIC VEINS: Not well visualized. The following attachments cannot be sent through Care Everywhere.apixaban (Turkish)documented in this encounter [facility] Work Phone: 12-16-2021 Note Progress Note and Maddie burks Summary Ron Glasspp : 1955 ADMIT DATE: 12/14/2021 DISCHARGE DATE: 12/16/2021 PRIMARYCARE PHYSICIAN: Elie Tolentino VISIT STATUS: Admission CODE STATUS: Full Code EVENTS OF LAST 24 HOURS/CC: No acute events overnight, asking to go home. HOSPITAL COURSE: Ron Valentineis a 66 y.o.?male with PMH of Atrial Fibrillation (permanent, rate controlled) and prostate cancer (s/p prostatectomy Jul 2021)?who presents [facility] from an outside facility with sudden onset right lower extremity weakness while at work. Received TPA @ [facility] at approximately 15:06. Following TPA, initial NIH of 5 --> NIH 1 (positive for motor drift of RLE) and patient noted markedly improved right lower extremity weakness. Upon arrival to the ED, patient with right sided epistaxis, citing mild right sided headache that began approximately 10 minutes post TPA. Admitted to the ICU for routine post-alteplase stroke care. ? Had an uneventful hospital course. He was initiated on Eliquis at cardiology's recommendation. An echo was performed revealing possible PFO. He was cleared by neuroCC for discharge. His NIHSS was 0 on discharge day. He was subsequently discharged in stable condition. VITALS: Vitals: 12/16/21 1000 12/16/21 1100 12/16/21 1200 12/16/21 1208 BP: 101/71 111/70 Pulse: 67 64 63 56 Resp: Temp: TempSrc: SpO2: 100% 98% 99% 100% Weight: Height: 24HR PULSE OXIMETRY RANGE: SpO2 Av.1 % Min: 92 % Max: 100 % 24 hr I/Os: Intake/Output Summary (Last 24 hours) at 12/16/2021 1216 Last data filed at 12/15/2021 1600 Gross per 24 hour Intake 480 ml Output ? Net 480 ml PHYSICAL EXAM: General Appearance: [x]No acute distress []Obese []Cachectic [x]Thin []ill Skin: Temperature [x]Warm []Cool Rash []Yes [x]No Tattoo(s) []Yes [x]No HEENT: Pupils round and react [x]Yes []No Sclera []Icteric [x]Non-Icteric Conjunctiva [x]Normal []Pale Pinnae [x]Normal []Other Dentition [x][place] Teeth []Dentures []Edentulous Oral Mucosa [x][place] [x]Moist []Dry Oral ETT []Present [x]Absent Neck: Supple [x]Yes []No Thyromegaly []Yes [x]No Crepitus []Present [x]Absent Jvd []Present [x]Absent Lungs: [x]Clear []Crackles []Wheezes []Rhonchi Respiratory effort []Labored [x]Non-Labored Equal chest rise [x]Yes []No Trachea midline [x]Yes []No Heart: Rate [x]Regular []Irregular []Tachycardia []Bradycardia Rhythm [x]Sinus []Irregular Murmur []Present [x]Absent Capillary Refill [x]<2 sec []>2 sec Peripheral Pulses [x]Strong []Weak []Absent Abdomen: [x]Soft Bowel Sounds []Present []Absent []Tender [x]Non-Tender []Distended [x]Non-distended Hernia []Present []Absent Organomegaly []Present [x]Absent Mass []Present [x]Absent Extremities: Cyanosis []Present [x]Absent TAFOYA ([x]RUE [x]RLE [x]LUE [x]LLE) Clubbing []Yes [x]No Edema []Yes [x]No Neurologic: Alert [x]yes []no Oriented []x0 []x1 []x2 [x]x3 E[place] []Yes [x]No Follows Commands [x]Yes []No []Unresponsive to verbal [x]Cranial nerves grossly intact [x]Sensation grossly intact Psych: Affect [x]Normal []Flat []Agitated []Anxious [x]Calm []Sedated Hallucinations []Yes [x]No PROCEDURES/SIGNIFICANT DIAGNOSTIC STUDIES: 12/15 Echo 1. Left ventricle: Systolic function is normal by the biplane method of disks. The estimated ejection fraction is 50%. 2. Right ventricle: Systolic function is normal. 3. Atrial septum: Agitated saline contrast study shows bubbles appearing in the left heart at least 6 cardiac cycles after entering the right heart. On repeat injection, no bubbles were seen until >15 cardiac cycles. This suggests intermittent dvlun-mw-fuip intrapulmonary shunting. 4. No significant valve disease. 12/15 MRI Brain IMPRESSION: ? 1. Small acute infarct within the right frontal lobe ? 2. Curvilinear subcortical signal abnormality on FLAIR imaging within the right frontal lobe. This may be on the basis of mild gliosis from prior insult or small infarct. ? 3. Mild cerebral volume loss and changes of microangiopathy. 12/14 CT Brain Perfusion Findings and impression: There is 8 mL of elevated Tmax, in the posterior cerebrum probably slightly left of midline, although difficult to tell. 0 mL of cerebral blood flow less than 30 percent. Mismatch volume 8 mL. Follow-up recommended. CONSULTANTS: Cardiology NeuroCC DIET: ADULT DIET; Regular ACTIVITY: resume usual DISCHARGE DIAGNOSES: Principal Problem (Resolved): Stroke aborted by administration of thrombolytic agent (HCC) Active Problems: Stroke (HCC) Atrial fibrillation (HCC) Resolved Problems: Received tissue plasminogen activator (t-PA) less than 24 hours prior to arrival Epistaxis DISCHARGE MEDICATIONS: Medication List START taking these medications apixaban 5 MG Tabs tablet Commonly known as: Eliquis Take 1 tablet by mouth 2 times daily ASK your doctor about the (more content not included)... [employer] documented in this encounter [employer] Phone: Evaluation note* Diagnosis Calf swelling- Primary Swelling of [facility] DELIA (stress urinary incontinence), male- Primary Stress incontinence, male Muscle weakness Muscle weakness (generalized) [facility] Diagnosis UTI symptoms- Primary Other symptoms involving urinary [facility] follow-up- Primary Other follow-up examination Bilateral leg edema Edema History of CVA (cerebrovascular accident) Transient ischemic attack (TIA), and cerebral infarction without residual deficits Prostate cancer (HCC) Malignant neoplasm of prostate [facility] Diagnosis Malignant neoplasm of prostate (HCC)- Primary Malignant neoplasm of prostate DELIA (stress urinary incontinence), male Stress incontinence, male [facility] Diagnosis Malignant neoplasm of prostate (HCC)- Primary Malignant neoplasm of prostate EDLIA (stress urinary incontinence), male Stress incontinence, male [facility] Diagnosis Rising PSA following treatment for malignant neoplasm of prostate [facility] [facility] Diagnosis Malignant neoplasm of prostate (HCC)- Primary Malignant neoplasm of prostate DELIA (stress urinary incontinence), male Stress incontinence, male Rising PSA following treatment for malignant neoplasm of prostate documented in this encounter [facility] Diagnosis Malignant neoplasm of prostate (HCC)- Primary Malignant neoplasm of prostate documented in this encounter [facility] Diagnosis Malignant neoplasm of prostate (HCC)- Primary Malignant neoplasm of prostate documented in this encounter [facility] Diagnosis Malignant neoplasm of prostate (HCC)- Primary Malignant neoplasm of prostate Stomach pain Dyspepsia and other specified disorders of function of stomach DELIA (stress urinary incontinence), male Stress incontinence, male Rising PSA following treatment for malignant neoplasm of prostate documented in this encounter [facility] Diagnosis DELIA (stress urinary incontinence), male- Primary Stress incontinence, male documented in this encounter [facility] Diagnosis Right inguinal hernia- Primary Inguinal hernia without mention of obstruction or gangrene, unilateral or unspecified, (not specified as recurrent) documented in this encounter [facility] Diagnosis Malignant neoplasm of prostate (HCC)- Primary Malignant neoplasm of prostate Inguinal hernia of right side without obstruction or gangrene DELIA (stress urinary incontinence), male Stress incontinence, male documented in this encounter [facility] Diagnosis Right inguinal hernia- Primary Inguinal hernia without mention of obstruction or gangrene, unilateral or unspecified, (not specified as recurrent) documented in this encounter [facility] Diagnosis Prostate CA (HCC)- Primary Malignant neoplasm of prostate documented in this encounter [facility] Diagnosis Prostate CA (HCC)- Primary Malignant neoplasm of prostate Rising PSA following treatment for malignant neoplasm of prostate DELIA (stress urinary incontinence), male Stress incontinence, male Inguinal hernia of right side without obstruction or gangrene documented in this encounter [facility] Diagnosis DELIA (stress urinary incontinence), male- Primary Stress incontinence, male documented in this encounter [facility] Diagnosis DELIA (stress urinary incontinence), male Stress incontinence, male Pre-op exam Preoperative examination, unspecified DELIA (stress urinary incontinence), male Stress incontinence, male Paroxysmal atrial fibrillation (HCC) Atrial fibrillation History of cerebrovascular accident Transient ischemic attack (TIA), and cerebral infarction without residual deficits DELIA (stress urinary incontinence), male Stress incontinence, male documented in this encounter [facility] note* Diagnosis Prostate cancer (HCC)- Primary Malignant neoplasm of prostate History of CVA (cerebrovascular accident) Transient ischemic attack (TIA), and cerebral infarction without residual deficits Atrial fibrillation, unspecified type (HCC) documented in this encounter [facility] note* Diagnosis Prostate cancer (HCC)- Primary Malignant neoplasm of prostate documented in this encounter [facility] note* Diagnosis Rising PSA following treatment for malignant neoplasm of prostate- Primary History of prostate cancer Personal history of malignant neoplasm of prostate DELIA (stress urinary incontinence), male Stress incontinence, male documented in this encounter [facility] note* Diagnosis History of prostate cancer Personal history of malignant neoplasm of prostate documented in this encounter [facility] note* Diagnosis History of prostate cancer Personal history of malignant neoplasm of prostate documented in this encounter [facility] note* Diagnosis History of prostate cancer- Primary Personal history of malignant neoplasm of prostate Elevated prostate specific antigen (PSA) Lesion of urinary bladder documented in this encounter [facility] note* Diagnosis DELIA (stress urinary incontinence), male Stress incontinence, male documented in this encounter [facility] note* Diagnosis Prostate cancer (HCC)- Primary Malignant neoplasm of prostate documented in this encounter [facility] note* Diagnosis Prostate cancer (HCC)- Primary Malignant neoplasm of prostate Atrial fibrillation, unspecified type (HCC) History of CVA (cerebrovascular accident) Transient ischemic attack (TIA), and cerebral infarction without residual deficits Right ear pain Otalgia, unspecified Screening for colon cancer Special screening for malignant neoplasms, colon documented in this encounter [facility] for referral (narrative)* Diagnostic Procedure Only (Routine) - Closed Specialty Diagnoses / Procedures Referred By Elise lincoln Referred To Contact MOLECULAR & FUNCTIONAL IMAGING Diagnoses Rising PSA following treatment for malignant neoplasm of prostate Procedures NM PET/CT PROSTATE WHOLE BODY IMAGING PET IMAGING CT ATTENUATION SKULL BASE MID-THIGH Jmi Fernandez DO [address] [place] [address] Molecular & Functional Imaging [address] [place] [address] Referral ID Status Reason Start Date Expiration Date V isits Requested Visits Authorized [id number] Closed Auto-Generated Referral Patient Cleared - Qualified 100% FAS 05/17/2022 06/16/2023 1 1 [facility] for referral (narrative)* Outpatient Procedure (Routine) - Pending Review Specialty Diagnoses / Procedures Referred By Contac t Referred To Contact [facility] Diagnoses Stomach pain DELIA (stress urinary incontinence), male Procedures URODYNAMICS KALYAN POST-VOIDING RESIDUAL URINE&/BLADDER CAP Jim Fernandez DO [address] [place] [address] [place] [phone] Referral ID Status Reason Start Date Expiration Date Visits Requested Visits Authorized [id number] Pending Review Auto-Generat ed Referral 10/04/2022 10/04/2023 1 1 * Financial Clearance (Routine) - Authorized Specialty Diagnoses / Procedures Referred By Contac t Referred To Contact [facility] Diagnoses Stomach pain Procedures EGD DIAGNOSTIC ESOPHAGOGASTRODUODENOSC OPY TRANSORAL DIAGNOSTIC Jim Fernandez DO [address] [place] [id number] [place] [phone] Referral ID Status Reason Start Date Expiration Date Visits Requested Visits Authorized [id number] Authorized Auto-Generate d Referral Patient Cleared - Qualified 100% FAS 10/04/2022 01/02/2023 99 99 * Financial Clearance (Routine) - Authorized Specialty Diagnoses / Procedures Referred By Contac t Referred To Contact [facility] Diagnoses Stomach pain Procedures COLONOSCOPY DIAGNOSTIC COLONOSCOPY FLX DX W/COLLJ SPEC WHEN PFRMD Jim Fernandez DO [address] [place] [address] [place] [phone] Referral ID Status Reason Start Date Expiration Date Visits Requested Visits Authorized [id number] Authorized Auto-Generate d Referral Patient Cleared - Qualified 100% FAS 10/04/2022 01/02/2023 99 99 * MRI/CT (Routine) - Authorized Specialty Diagnoses / Procedures Referred By Elise lincoln Referred To Contact CT IMAGING Diagnoses Stomach pain Procedures CT PELVIS W IVCON CT PELVIS W/CONTRAST MATERIAL Jim Fernandez DO [address] [place] [address] Ct Imaging Referral ID Status Reason Start Date Expiration Date Visits Requested Visits Authorized [id number] Authorized Auto-Generat ed Referral 10/04/2022 11/03/2023 1 1 [facility] for referral (narrative)* Diagnostic Procedure Only (Routine) - Closed Specialty Diagnoses / Procedures Referred By Elise lincoln Referred To Contact MOLECULAR & FUNCTIONAL IMAGING Diagnoses History of prostate cancer Procedures NM PET/CT PROSTATE WHOLE BODY IMAGING PET IMAGING CT ATTENUATION SKULL BASE MID-THIGH F-18 PSMA Kamryn Arambula MD [address] [place] [address] Molecular & Functional Imaging [address] [place] [address] Referral ID Status Reason Start Date Expiration Date V isits Requested Visits Authorized [id number] Closed Patient Cleared - Qualified 100% FAS 06/24/2023 07/14/2023 1 1 [facility] Advance Directives No Advanced Directives Records FoundLatest Code Status on File Code Status Date Activated Date Inactivated Comments Full Code 12/14/2021 7:06 PM Documents on File Type Date Recorded Patient 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 Advance Directive(s) 08/09/2021 6:14 AM Documents on File Type Date Recorded Patient 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 anation Advance Directive(s) 08/09/2021 6:14 AM Summary Purpose Family History No Family History Records FoundNo Family History Records FoundNo Family History Records FoundNo Family History Records FoundNo Family History Records Found Reason for Referral Specialty Diagnoses / Procedures Referred By Elise t Referred To Contact [facility] Diagnoses Malignant neoplasm of prostate (HCC) DELIA (stress urinary incontinence), male Procedures CONSULT TO PHYSICAL THERAPY PHYSICAL THERAPY EVALUATION HIGH COMPLEX 45 MINS Jim Fernandez, DO [address] [place] [address] [facility] [address] [address] Referral ID Status Reason Start Date Expiration Date Visits Requested Visits Authorized [id number] Pending Review Auto-Generat ed Referral 04/11/2022 04/11/2023 1 1 Specialty Diagnoses / Procedures [facility] Diagnoses Malignant neoplasm of prostate (HCC) Procedures CONSULT TO PHYSICAL THERAPY PHYSICAL THERAPY EVALUATION HIGH COMPLEX 45 MINS Jim Fernandez, DO [address] [place] [phone] [address] Referral ID Status Reason Start Date Expiration Date Visits Requested Visits Authorized [id number] Pending Review Auto-Generat ed Referral 07/19/2022 07/19/2023 1 1 Specialty Diagnoses / Procedures [facility] Referred To Contact [facility] Diagnoses Prostate CA (HCC) Rising PSA following treatment for malignant neoplasm of prostate Procedures CONSULT TO PHYSICAL THERAPY PHYSICAL THERAPY EVALUATION HIGH COMPLEX 45 MINS Jim Fernandez, DO [address] [place] [address] [address] Referral ID Status Reason Start Date Expiration Date Visits Requested Visits Authorized [id number] Pending Review Auto-Generat ed Referral 02/07/2023 02/07/2024 1 1 Specialty Diagnoses / Procedures [facility] Referred To Contact MOLECULAR & FUNCTIONAL IMAGING Diagnoses Prostate CA (HCC) Rising PSA following treatment for malignant neoplasm of prostate Procedures NM PET/CT PROSTATE WHOLE BODY IMAGING PET IMAGING CT ATTENUATION SKULL BASE MID-THIGH Jim Fernandez DO [address] [place] [address] Molecular [facility] Functional Imaging [address] [place] [address] Referral ID Status Reason Start Date Expiration Date Visits Requested Visits Authorized [id number] Pending Review Auto-Generat ed Referral 02/07/2023 03/08/2024 1 1 Specialty Diagnoses / Procedures Referred By Contac t Referred To Contact CT IMAGING Diagnoses DELIA (stress urinary incontinence), male Procedures CT PELVIS WO IVCON CT PELVIS W/O CONTRAST MATERIAL Jim Fernandez DO [address] [place] [address] Ct Imaging Referral ID Status Reason Start Date Expiration Date Visits Requested Visits Authorized [id number] Pending Review Auto-Generat ed Referral 02/21/2023 03/22/2024 1 1 Specialty Diagnoses / Procedures Referred By Contac t Referred To Contact Diagnoses History of prostate cancer Procedures CONSULT TO HEMATOLOGY/ONCOLOGY OFFICE/OUTPATIENT [facility] 60-74 MINUTES Kamryn Jaimes MD [address] [place] [address] Referral ID Status Reason Start Date Expiration Date Visits Requested Visits Authorized [id number] Pending Review PCP Requested Referral 06/24/2023 06/23/2024 1 1 Specialty Diagnoses / Procedures Referred By Contac t Referred To Contact MOLECULAR & FUNCTIONAL IMAGING Diagnoses History of prostate cancer Procedures NM PET/CT PROSTATE WHOLE BODY IMAGING PET IMAGING CT ATTENUATION SKULL BASE MID-THIGH F-18 PSMA PYLARIFY Kamryn Jaimes MD [address] [place] [address] Molecular & Functional Imaging [address] [place] [address] Referral ID Status Reason Start Date Expiration Date Visits Requested Visits Authorized [id number] Authorized Auto-Generat ed Referral 06/24/2023 07/23/2024 1 1 Specialty Diagnoses / Procedures Referred By Contac t Referred To Contact Diagnoses History of prostate cancer Procedures CONSULT TO MEDICAL GENETICS - CANCER MEDICAL GENETICS COUNSELING EACH 30 [place] [address] [facility] [address] [facility] [place] [address] Referral ID Status Reason Start Date Expiration Date Visits Requested Visits Authorized [id number] Pending Review PCP Requested Referral Auto-Generate d Referral 07/10/2023 07/09/2024 1 1 Specialty Diagnoses / Procedures Referred By Contac t Referred To Contact Radiation Oncology Diagnoses History of prostate cancer Procedures RAD/ONC CONSULT OFFICE/OUTPATIENT [facility] 60-[place] [address] [place] [phone] Referral ID Status Reason Start Date Expiration Date Visits Requested Visits Authorized [id number] Pending Review PCP Requested Referral 07/10/2023 07/09/2024 1 1 Specialty Diagnoses / Procedures Referred By Contac t Referred To Contact MR IMAGING Diagnoses History of prostate cancer Elevated prostate specific antigen (PSA) Lesion of urinary bladder Procedures MRI PELVIS WO/W IVCON MRI PELVIS W/O & W/[place] [address] [place] [address] [place] [address] Referral ID Status Reason Start Date Expiration Date Visits Requested Visits Authorized [id number] Pending Review Auto-Generat ed Referral 07/19/2023 08/17/2024 1 1 Specialty Diagnoses / Procedures Referred By Contac t Referred To Contact MR IMAGING Diagnoses History of prostate cancer Elevated prostate specific antigen (PSA) Lesion of urinary bladder Procedures MRI ABDOMEN WO/W IVCON MRI ABDOMEN W/O & W/[place] [address] [place] [address] Mr Imaging [facility] Referral ID Status Reason Start Date Expiration Date Visits Requested Visits Authorized [id number] Pending Review Auto-Generat ed Referral 07/19/2023 08/17/2024 1 1 Specialty Diagnoses / Procedures Referred By Contac t Referred To Contact CT IMAGING Diagnoses DELIA (stress urinary incontinence), male Procedures CT PELVIS WO IVCON CT PELVIS W/O CONTRAST MATERIAL Jim Fernandez DO [address] [place] [address] [place] [id number] Specialty Diagnoses / Procedures Referred By Elise lincoln Referred To Contact General Surgery Diagnoses Screening for colon cancer Procedures CONSULT TO GENERAL SURGERY OFFICE/OUTPATIENT [facility] 60 MINUTES Mena Browne APRN.MUSIC ARRANGER [address] [place] [address] Referral ID Status Reason Start Date Expiration Date Visits Requested Visits Authorized [id number] Authorized PCP Requested Referral 12/26/2023 12/25/2024 1 1 Medications Administered Section Inactive Administered Medications - up to 3 most recent administrations Medication Order MAR Action Action Date Dose Rate Site cephALEXin 500 mg cap(s) (KEFLEX) 500 mg, ORAL, ONCE, 1 dose, On Shante 07/05/22 at 1200, Please document the antimicrobial indication: Empiric Given 07/05/2022 12:00 PM EDT 500 mg lidocaine 2 % (XYLOCAINE) URETHRAL, ONCE, 1 dose, On Shante 07/05/22 at 1200, FOR EXTERNAL USE ONLY APPLY TO: 11 ml Given 07/05/2022 12:00 PM EDT Additional Source Comments Ordered Prescriptions (unrec ognized section and content) Scheduled Active and Recently Administ ered Medications (unrecognized section and content) PRN Medication Order 12/14/2021 12/15/2021 12/16/2021 0.9 % sodium chloride infusion 25 mL, IntraVENous, at 100 mL/hr, PRN, If patient receiving piggyback infusions without ordered maintenance IV fluids or with frequent/long duration piggyback infusions, Starting on Shante 12/14/21 at 1905, Administer at the same rate as the piggyback being infused. acetaminophen (TYLENOL) tablet 650 mg 650 mg, Oral, EVERY 6 HOURS PRN, Pain Mild (1-3), Fever, For temp greater than 100.4 F (38 C), Starting on Shante 12/14/21 at 1905, Maximum dose of acetaminophen is 4000 mg from all sources in 24 hours. hydrALAZINE (APRESOLINE) injection 10 mg 10 mg, IntraVENous, EVERY 6 HOURS PRN, High Blood Pressure, SBP>160, Starting on Sat12/15/21 at 1748 ondansetron (ZOFRAN) injection 4 mg(Linked Group 1) 4 mg, IntraVENous, EVERY 6 HOURS PRN, Nausea, Vomiting, Starting on Shante 12/14/21 at 1905, Administer if oral route cannot be used. ondansetron (ZOFRAN-ODT) disintegrating tablet 4 mg(Linked Group 1) 4 mg, Oral, EVERY 8 HOURS PRN, Nausea, Vomiting, Starting on Shante 12/14/21 at 1905 perflutren lipid microspheres (DEFINITY) injection 1.65 mg 1.65 mg (1.5 mL), IntraVENous, IMG ONCE PRN, Other, Suboptimal Echo Image, Starting on Sat12/14/21 at 2156, For 72 hours, Administer up to 1.65 mg via slow IVP for suboptimal echocardiogram enhancement. May administer as concentrated dose or diluted in 8.5 mL of 0.9% sodium chloride for a total volume of 10 mL. May administer as divided doses to reach optimal image enhancement. 1043 (Given - Provider: Dale Porter, LIANE) polyethylene glycol (GLYCOLAX) packet 17 g 17 g, Oral, DAILY PRN, Constipation, Starting on Sat12/14/21 at 1905, First line therapy for constipation sodium chloride flush 0.9 % injection 10 mL 10 mL, IntraVENous, PRN, Line Care, After every IV line use, Starting on Shante 12/14/21 at 1905 sodium chloride flush 0.9 % injection 5-40 mL 5-40 mL, IntraVENous, PRN, Line Care, Per Eye Specialist Request, Starting on Shante 12/14/21 at 2156, For 72 hours, May use order for Line Care after every IV line use and Agitated Saline Bubble Study. Administration for Bubble Study per bi application developer request for only. Remove 1 mL 0.9% sodium chloride from 10 mL syringe for creating agitated saline. If following IV push medication, administer flush at same rate as the IV push. Flush volume is determined by type of infusion therapy being given. , For non-viscous solutions use: Peripheral IV = 5 mL Midline or Central Line = 10 mL/lumen For viscous solutions (i.e. blood components, parenteral nutrition, contrast media, or after obtaining blood sample) use: Peripheral IV = 10 mL Midline or Central Line = 20 mL/lumen Linked Groups Order Group 1: ondansetron (ZOFRAN-ODT) disintegrating tablet 4 mgJump to med 4 mg, Oral, EVERY 8 HOURS PRN, Nausea, Vomiting, Starting on Shante 12/14/21 at 1905 Or ondansetron (ZOFRAN) injection 4 mgJump to med 4 mg, IntraVENous, EVERY 6 HOURS PRN, Nausea, Vomiting, Starting on Shante 12/14/21 at 1905
Administer if oral route cannot be used.
Care Teams (unrecognized sec tion and content) Inventory Control Coordinator Relationship Specialty Start Date End Date Elie Tolentino MD [address] [place] [address] PCP - General Family Practice 10/11/21 Inventory Control Coordinator Relationship Specialty Start Date End Date Elie Tolentino MD [address] [place] [address] PCP - General Family Practice 10/11/21 Inventory Control Coordinator Relationship Specialty Start Date End Date Elie Tolentino MD [address] [place] [address] PCP - General Family Practice 10/11/21 Inventory Control Coordinator Relationship Specialty Start Date End Date Elie Tolentino MD [address] [place] [address] PCP - General Family Practice 10/11/21 Inventory Control Coordinator Relationship Specialty Start Date End Date Elie Tolentino MD [address] [place] [address] PCP - General Family Practice 10/11/21 Inventory Control Coordinator Relationship Specialty Start Date End Date Elie Tolentino MD [address] [place] [address] PCP - General Family Practice 10/11/21 Inventory Control Coordinator Relationship Specialty Start Date End Date Elie Tolentino MD [address] [place] [address] PCP - General Family Practice 10/11/21 Inventory Control Coordinator Relationship Specialty Start Date End Date Elie Tolentino MD [address] [place] [address] PCP - General Family Practice 10/11/21 Inventory Control Coordinator Relationship Specialty Start Date End Date Elie Tolentino MD [address] [place] [address] PCP - General Family Practice 10/11/21 Inventory Control Coordinator Relationship Specialty Start Date End Date Elie Tolentino MD [address] [place] [address] PCP - General Family Practice 10/11/21 Inventory Control Coordinator Relationship Specialty Start Date End Date Elie Tolentino MD [address] [place] [address] PCP - General Family Practice 10/11/21 Inventory Control Coordinator Relationship Specialty Start Date End Date Elie Tolentino MD [address] [place] [address] PCP - General Family Medicine 10/11/21 Inventory Control Coordinator Relationship Specialty Start Date End Date Elie Tolentino MD [address] [place] [address] PCP - General Family Medicine 10/11/21 Inventory Control Coordinator Relationship Specialty Start Date End Date Elie Tolentino MD [address] [place] [address] PCP - General Family Medicine 10/11/21 Inventory Control Coordinator Relationship Specialty Start Date End Date Elie Tolentino MD [address] [place] [address] PCP - General Family Medicine 10/11/21 Inventory Control Coordinator Relationship Specialty Start Date End Date Elie Tolentino MD [address] [place] [address] PCP - General Family Medicine 10/11/21 Inventory Control Coordinator Relationship Specialty Start Date End Date Elie Tolentino MD [address] [place] [address] PCP - General Family Medicine 10/11/21 Inventory Control Coordinator Relationship Specialty Start Date End Date Elie Tolentino MD [address] [place] [address] PCP - General Family Medicine 10/11/21 Inventory Control Coordinator Relationship Specialty Start Date End Date Elie Tolentino MD [address] [place] [address] PCP - General Family Medicine 10/11/21 Inventory Control Coordinator Relationship Specialty Start Date End Date Elie Tolentino MD [address] [place] [address] PCP - General Family Medicine 10/11/21 Inventory Control Coordinator Relationship Specialty Start Date End Date Elie Tolentino MD [address] [place] [address] PCP - General Family Medicine 10/11/21 Inventory Control Coordinator Relationship Specialty Start Date End Date Elie Tolentino MD [address] [place] [address] PCP - General Family Medicine 10/11/21 Inventory Control Coordinator Relationship Specialty Start Date End Date Elie Tolentino MD [address] [place] [address] PCP - General Family Medicine 10/11/21 Inventory Control Coordinator Relationship Specialty Start Date End Date Elie Tolentino MD [address] [place] [address] PCP - General Family Medicine 10/11/21 Inventory Control Coordinator Relationship Specialty Start Date End Date Elie Tolentino MD [address] [place] [address] PCP - General Family Medicine 10/11/21 Inventory Control Coordinator Relationship Specialty Start Date End Date Elie Tolentino MD [address] [place] [address] PCP - General Family Medicine 10/11/21 Inventory Control Coordinator Relationship Specialty Start Date End Date Elie Tolentino MD [address] [place] [address] PCP - General Family Medicine 10/11/21 Inventory Control Coordinator Relationship Specialty Start Date End Date Elie Tolentino MD [address] [place] [address] PCP - General Family Medicine 10/11/21 Inventory Control Coordinator Relationship Specialty Start Date End Date Elie Tolentino MD [address] [place] [address] PCP - General Family Medicine 10/11/21 Inventory Control Coordinator Relationship Specialty Start Date End Date Elie Tolentino MD [address] [place] [address] PCP - General Family Medicine 10/11/21 Inventory Control Coordinator Relationship Specialty Start Date End Date Elie Tolentino MD [address] [place] [address] PCP - General Family Medicine 10/11/21 Inventory Control Coordinator Relationship Specialty Start Date End Date Elie Tolentino MD [address] [place] [address] PCP - General Family Medicine 10/11/21 Derrek Mccray MD, [address] [place] [address] Radiation Oncology 07/10/23 Desmond Dobbins MD [address] [place] [address] Hematology/Oncology 07/10/23 Inventory Control Coordinator Relationship Specialty Start Date End Date Elie Tolentino MD [address] [place] [address] PCP - General Family Medicine 10/11/21 Derrek Mccray MD, MD [address] [place] [address] Radiation Oncology 07/10/23 Desmond Dobbins MD [address] [place] [address] Hematology/Oncology 07/10/23 Inventory Control Coordinator Relationship Specialty Start Date End Date Elie Tolentino MD [address] [place] [address] PCP - General Family Medicine 10/11/21 Derrek Mccray MD, [address] [place] [address] Radiation Oncology 07/10/23 Desmond Dobbins MD [address] [place] [address] Hematology/Oncology 07/10/23 Inventory Control Coordinator Relationship Specialty Start Date End Date Elie Tolentino MD [address] [place] [address] PCP - General Family Medicine 10/11/21 Derrek Mccray MD, [address] [place] [address] Radiation Oncology 07/10/23 Desmond Dobbins MD [address] [place] [address] Hematology/Oncology 07/10/23 Inventory Control Coordinator Relationship Specialty Start Date End Date Elie Tolentino MD [address] [place] [address] PCP - General Family Medicine 10/11/21 Derrek Mccray MD, [address] [place] [address] Radiation Oncology 07/10/23 Desmond Dobbins MD [address] [place] [address] Hematology/Oncology 07/10/23 Inventory Control Coordinator Relationship Specialty Start Date End Date Elie Tolentino MD [address] [place] [address] PCP - General Family Medicine 10/11/21 Inventory Control Coordinator Relationship Specialty Start Date End Date Elie Tolentino MD [address] [place] [address] PCP - General Family Medicine 10/11/21 Inventory Control Coordinator Relationship Specialty Start Date End Date Elie Tolentino MD [address] [place] [address] PCP - General Family Medicine 10/11/21 Derrek Mccray MD, [address] [place] [address] Radiation Oncology 07/10/23 Desmond Dobbins MD [address] [place] [address] Hematology/Oncology 07/10/23 Inventory Control Coordinator Relationship Specialty Start Date End Date Elie Tolentino MD [address] [place] [address] PCP - General Family Medicine 10/11/21 Derrek Mccray MD, [address] [place] [address] Radiation Oncology 07/10/23 Desmond Dobbins MD [address] [place] [address] Hematology/Oncology 07/10/23 Inventory Control Coordinator Relationship Specialty Start Date End Date Elie Tolentino MD [address] [place] [address] PCP - General Family Medicine 10/11/21 Derrek Mccray MD [address] [place] [address] Radiation Oncology 07/10/23 Desmond Dobbins MD [address] [place] [address] Hematology/Oncology 07/10/23 Inventory Control Coordinator Relationship Specialty Start Date End Date Elie Tolentino MD [address] [place] [address] PCP - General Family Medicine 10/11/21 Derrek Mccray MD [address] [place] [address] Radiation Oncology 07/10/23 Desmond Dobbins MD [address] [place] [address] Hematology/Oncology 07/10/23 Inventory Control Coordinator Relationship Specialty Start Date End Date Elie Tolentino MD [address] [place] [address] PCP - General Family Medicine 10/11/21 Derrek Mccray MD [address] [place] [address] Radiation Oncology 07/10/23 Desmond Dobbins MD [address] [place] [address] Hematology/Oncology 07/10/23 Inventory Control Coordinator Relationship Specialty Start Date End Date Elie Tolentino MD [address] [place] [address] PCP - General Family Medicine 10/11/21 Derrek Mccray MD [address] [place] [address] Radiation Oncology 07/10/23 Desmond Dobbins MD [address] [place] [address] Hematology/Oncology 07/10/23 (unrecognized sect ion and content) No Status Records FoundNo Status Records FoundNo Status Records FoundNo Status Records FoundNo Status Records Found INFORMATION SOURCE (unrecogn ized section and content) DATE CREATED AUTHOR AUTHOR'S ORGANIZ ATION 01/07/2022 [facility] DATE CREATED AUTHOR AUTHOR'S ORGANIZ ATION 07/29/2022 [facility] DATE CREATED AUTHOR AUTHOR'S ORGANIZ ATION 07/20/2023 [facility] DATE CREATED AUTHOR AUTHOR'S ORGANIZ ATION 12/30/2023 [facility] Source Comments (unrecognize d section and content) In the event this informatio n is protected by the Federal Confidentiality of Alcohol and Drug Abuse Patient Records regulations: The Federal rules restrict any use of the information to criminally investigate or prosecute any alcohol or drug abuse patient.[facility] the event this information is protected by the Federal Confidentiality of Alcohol and Drug Abuse Patient Records regulations: The Federal rules restrict any use of the information to criminally investigate or prosecute any alcohol or drug abuse patient.[facility] the event this information is protected by the Federal Confidentiality of Alcohol and Drug Abuse Patient Records regulations: The Federal rules restrict any use of the information to criminally investigate or prosecute any alcohol or drug abuse patient.[facility] the event this information is protected by the Federal Confidentiality of Alcohol and Drug Abuse Patient Records regulations: The Federal rules restrict any use of the information to criminally investigate or prosecute any alcohol or drug abuse patient.[facility] the event this information is protected by the Federal Confidentiality of Alcohol and Drug Abuse Patient Records regulations: The Federal rules restrict any use of the information to criminally investigate or prosecute any alcohol or drug abuse patient.[facility] the event this information is protected by the Federal Confidentiality of Alcohol and Drug Abuse Patient Records regulations: The Federal rules restrict any use of the information to criminally investigate or prosecute any alcohol or drug abuse patient.[facility] the event this information is protected by the Federal Confidentiality of Alcohol and Drug Abuse Patient Records regulations: The Federal rules restrict any use of the information to criminally investigate or prosecute any alcohol or drug abuse patient.[facility] Hospital[facility] the event this information is protected by the Federal Confidentiality of Alcohol and Drug Abuse Patient Records regulations: The Federal rules restrict any use of the information to criminally investigate or prosecute any alcohol or drug abuse patient.[facility] Hospital[facility] the event this information is protected by the Federal Confidentiality of Alcohol and Drug Abuse Patient Records regulations: The Federal rules restrict any use of the information to criminally investigate or prosecute any alcohol or drug abuse patient.[facility] the event this information is protected by the Federal Confidentiality of Alcohol and Drug Abuse Patient Records regulations: The Federal rules restrict any use of the information to criminally investigate or prosecute any alcohol or drug abuse patient.[facility] HospitalIn the event this information is protected by the Federal Confidentiality of Alcohol and Drug Abuse Patient Records regulations: The Federal rules restrict any use of the information to criminally investigate or prosecute any alcohol or drug abuse patient.[facility] the event this information is protected by the Federal Confidentiality of Alcohol and Drug Abuse Patient Records regulations: The Federal rules restrict any use of the information to criminally investigate or prosecute any alcohol or drug abuse patient.[facility] HospitalIn the event this information is protected by the Federal Confidentiality of Alcohol and Drug Abuse Patient Records regulations: The Federal rules restrict any use of the information to criminally investigate or prosecute any alcohol or drug abuse patient.[facility] HospitalIn the event this information is protected by the Federal Confidentiality of Alcohol and Drug Abuse Patient Records regulations: The Federal rules restrict any use of the information to criminally investigate or prosecute any alcohol or drug abuse patient.[facility] HospitalIn the event this information is protected by the Federal Confidentiality of Alcohol and Drug Abuse Patient Records regulations: The Federal rules restrict any use of the information to criminally investigate or prosecute any alcohol or drug abuse patient.[facility] HospitalIn the event this information is protected by the Federal Confidentiality of Alcohol and Drug Abuse Patient Records regulations: The Federal rules restrict any use of the information to criminally investigate or prosecute any alcohol or drug abuse patient.[facility] HospitalIn the event this information is protected by the Federal Confidentiality of Alcohol and Drug Abuse Patient Records regulations: The Federal rules restrict any use of the information to criminally investigate or prosecute any alcohol or drug abuse patient.[facility] HospitalIn the event this information is protected by the Federal Confidentiality of Alcohol and Drug Abuse Patient Records regulations: The Federal rules restrict any use of the information to criminally investigate or prosecute any alcohol or drug abuse patient.[facility] HospitalIn the event this information is protected by the Federal Confidentiality of Alcohol and Drug Abuse Patient Records regulations: The Federal rules restrict any use of the information to criminally investigate or prosecute any alcohol or drug abuse patient.[facility] HospitalIn the event this information is protected by the Federal Confidentiality of Alcohol and Drug Abuse Patient Records regulations: The Federal rules restrict any use of the information to criminally investigate or prosecute any alcohol or drug abuse patient.[facility] HospitalIn the event this information is protected by the Federal Confidentiality of Alcohol and Drug Abuse Patient Records regulations: The Federal rules restrict any use of the information to criminally investigate or prosecute any alcohol or drug abuse patient.[facility] HospitalIn the event this information is protected by the Federal Confidentiality of Alcohol and Drug Abuse Patient Records regulations: The Federal rules restrict any use of the information to criminally investigate or prosecute any alcohol or drug abuse patient.[facility] HospitalIn the event this information is protected by the Federal Confidentiality of Alcohol and Drug Abuse Patient Records regulations: The Federal rules restrict any use of the information to criminally investigate or prosecute any alcohol or drug abuse patient.[facility] HospitalIn the event this information is protected by the Federal Confidentiality of Alcohol and Drug Abuse Patient Records regulations: The Federal rules restrict any use of the information to criminally investigate or prosecute any alcohol or drug abuse patient.[facility] HospitalIn the event this information is protected by the Federal Confidentiality of Alcohol and Drug Abuse Patient Records regulations: The Federal rules restrict any use of the information to criminally investigate or prosecute any alcohol or drug abuse patient.[facility] HospitalIn the event this information is protected by the Federal Confidentiality of Alcohol and Drug Abuse Patient Records regulations: The Federal rules restrict any use of the information to criminally investigate or prosecute any alcohol or drug abuse patient.[facility] HospitalIn the event this information is protected by the Federal Confidentiality of Alcohol and Drug Abuse Patient Records regulations: The Federal rules restrict any use of the information to criminally investigate or prosecute any alcohol or drug abuse patient.[facility] HospitalIn the event this information is protected by the Federal Confidentiality of Alcohol and Drug Abuse Patient Records regulations: The Federal rules restrict any use of the information to criminally investigate or prosecute any alcohol or drug abuse patient.[facility] HospitalIn the event this information is protected by the Federal Confidentiality of Alcohol and Drug Abuse Patient Records regulations: The Federal rules restrict any use of the information to criminally investigate or prosecute any alcohol or drug abuse patient.[facility] HospitalIn the event this information is protected by the Federal Confidentiality of Alcohol and Drug Abuse Patient Records regulations: The Federal rules restrict any use of the information to criminally investigate or prosecute any alcohol or drug abuse patient.[facility] HospitalIn the event this information is protected by the Federal Confidentiality of Alcohol and Drug Abuse Patient Records regulations: The Federal rules restrict any use of the information to criminally investigate or prosecute any alcohol or drug abuse patient.[facility] HospitalIn the event this information is protected by the Federal Confidentiality of Alcohol and Drug Abuse Patient Records regulations: The Federal rules restrict any use of the information to criminally investigate or prosecute any alcohol or drug abuse patient.[facility] HospitalIn the event this information is protected by the Federal Confidentiality of Alcohol and Drug Abuse Patient Records regulations: The Federal rules restrict any use of the information to criminally investigate or prosecute any alcohol or drug abuse patient.[facility] HospitalIn the event this information is protected by the Federal Confidentiality of Alcohol and Drug Abuse Patient Records regulations: The Federal rules restrict any use of the information to criminally investigate or prosecute any alcohol or drug abuse patient.[facility] HospitalIn the event this information is protected by the Federal Confidentiality of Alcohol and Drug Abuse Patient Records regulations: The Federal rules restrict any use of the information to criminally investigate or prosecute any alcohol or drug abuse patient.[facility] HospitalIn the event this information is protected by the Federal Confidentiality of Alcohol and Drug Abuse Patient Records regulations: The Federal rules restrict any use of the information to criminally investigate or prosecute any alcohol or drug abuse patient.[facility] HospitalIn the event this information is protected by the Federal Confidentiality of Alcohol and Drug Abuse Patient Records regulations: The Federal rules restrict any use of the information to criminally investigate or prosecute any alcohol or drug abuse patient.[facility] HospitalIn the event this information is protected by the Federal Confidentiality of Alcohol and Drug Abuse Patient Records regulations: The Federal rules restrict any use of the information to criminally investigate or prosecute any alcohol or drug abuse patient.[facility] HospitalIn the event this information is protected by the Federal Confidentiality of Alcohol and Drug Abuse Patient Records regulations: The Federal rules restrict any use of the information to criminally investigate or prosecute any alcohol or drug abuse patient.[facility] HospitalIn the event this information is protected by the Federal Confidentiality of Alcohol and Drug Abuse Patient Records regulations: The Federal rules restrict any use of the information to criminally investigate or prosecute any alcohol or drug abuse patient.[facility] HospitalIn the event this information is protected by the Federal Confidentiality of Alcohol and Drug Abuse Patient Records regulations: The Federal rules restrict any use of the information to criminally investigate or prosecute any alcohol or drug abuse patient.[facility] HospitalIn the event this information is protected by the Federal Confidentiality of Alcohol and Drug Abuse Patient Records regulations: The Federal rules restrict any use of the information to criminally investigate or prosecute any alcohol or drug abuse patient.[facility] HospitalIn the event this information is protected by the Federal Confidentiality of Alcohol and Drug Abuse Patient Records regulations: The Federal rules restrict any use of the information to criminally investigate or prosecute any alcohol or drug abuse patient.[facility] HospitalIn the event this information is protected by the Federal Confidentiality of Alcohol and Drug Abuse Patient Records regulations: The Federal rules restrict any use of the information to criminally investigate or prosecute any alcohol or drug abuse patient.[facility] HospitalIn the event this information is protected by the Federal Confidentiality of Alcohol and Drug Abuse Patient Records regulations: The Federal rules restrict any use of the information to criminally investigate or prosecute any alcohol or drug abuse patient.[facility] HospitalIn the event this information is protected by the Federal Confidentiality of Alcohol and Drug Abuse Patient Records regulations: The Federal rules restrict any use of the information to criminally investigate or prosecute any alcohol or drug abuse patient.[facility] HospitalIn the event this information is protected by the Federal Confidentiality of Alcohol and Drug Abuse Patient Records regulations: The Federal rules restrict any use of the information to criminally investigate or prosecute any alcohol or drug abuse patient.[facility] HospitalIn the event this information is protected by the Federal Confidentiality of Alcohol and Drug Abuse Patient Records regulations: The Federal rules restrict any use of the information to criminally investigate or prosecute any alcohol or drug abuse patient.[facility] HospitalIn the event this information is protected by the Federal Confidentiality of Alcohol and Drug Abuse Patient Records regulations: The Federal rules restrict any use of the information to criminally investigate or prosecute any alcohol or drug abuse patient.[facility] HospitalIn the event this information is protected by the Federal Confidentiality of Alcohol and Drug Abuse Patient Records regulations: The Federal rules restrict any use of the information to criminally investigate or prosecute any alcohol or drug abuse patient.[facility] HospitalIn the event this information is protected by the Federal Confidentiality of Alcohol and Drug Abuse Patient Records regulations: The Federal rules restrict any use of the information to criminally investigate or prosecute any alcohol or drug abuse patient.[facility] HospitalIn the event this information is protected by the Federal Confidentiality of Alcohol and Drug Abuse Patient Records regulations: The Federal rules restrict any use of the information to criminally investigate or prosecute any alcohol or drug abuse patient.[facility] HospitalIn the event this information is protected by the Federal Confidentiality of Alcohol and Drug Abuse Patient Records regulations: The Federal rules restrict any use of the information to criminally investigate or prosecute any alcohol or drug abuse patient.[facility] the event this information is protected by the Federal Confidentiality of Alcohol and Drug Abuse Patient Records regulations: The Federal rules restrict any use of the information to criminally investigate or prosecute any alcohol or drug abuse patient.[facility] HospitalIn the event this information is protected by the Federal Confidentiality of Alcohol and Drug Abuse Patient Records regulations: The Federal rules restrict any use of the information to criminally investigate or prosecute any alcohol or drug abuse patient.[facility] HospitalIn the event this information is protected by the Federal Confidentiality of Alcohol and Drug Abuse Patient Records regulations: The Federal rules restrict any use of the information to criminally investigate or prosecute any alcohol or drug abuse patient.[facility] HospitalIn the event this information is protected by the Federal Confidentiality of Alcohol and Drug Abuse Patient Records regulations: The Federal rules restrict any use of the information to criminally investigate or prosecute any alcohol or drug abuse patient.[facility] HospitalIn the event this information is protected by the Federal Confidentiality of Alcohol and Drug Abuse Patient Records regulations: The Federal rules restrict any use of the information to criminally investigate or prosecute any alcohol or drug abuse patient.[facility] HospitalIn the event this information is protected by the Federal Confidentiality of Alcohol and Drug Abuse Patient Records regulations: The Federal rules restrict any use of the information to criminally investigate or prosecute any alcohol or drug abuse patient.[facility] HospitalIn the event this information is protected by the Federal Confidentiality of Alcohol and Drug Abuse Patient Records regulations: The Federal rules restrict any use of the information to criminally investigate or prosecute any alcohol or drug abuse patient.[facility] HospitalIn the event this information is protected by the Federal Confidentiality of Alcohol and Drug Abuse Patient Records regulations: The Federal rules restrict any use of the information to criminally investigate or prosecute any alcohol or drug abuse patient.[facility] Reason for Visit (unrecogniz ed section and content) Specialty Diagnoses / Procedures Referred By Contac t Referred To Contact Diagnoses Follow up Procedures Appointments Self [place] [id number] Referral ID Status Reason Start Date Expiration Date Visits Requested Visits Authorized [id number] Authorized Patient Cleared - Qualified 100% FAS 07/10/2023 10/08/2023 99 [phone] Reason Comments Established Patient Specialty Diagnoses / Procedures Referred By Contac t Referred To Contact Diagnoses [facility] [place] [facility] Reason Comments Established Patient Device check Specialty Diagnoses / Procedures Referred By Contac t Referred To Contact Pre Surg Testing [facility] Bath Diagnoses ARTIFICIAL URINARY SPHINCTOR W/ DR FERNANDEZ, HERNIA REPAIR WITH DR. FISHER ON 12/24/2022- JM Procedures COMPLETE PST Jim Rush, [facility] [place] [address] Pre Surg Testing [facility] Bath [address] [place] [address] Referral ID Status Reason Start Date Expiration Date Visits Requested Visits Authorized [id number] Authorized Patient Cleared - Qualified 100% FAS 12/13/2022 03/13/2023 99 99 Reason Comments Cystoscopy-1 Specialty Diagnoses / Procedures Referred By Contac t Referred To Contact UROLOGY Diagnoses Est Procedures PET/CT Jim Fernandez DO [address] [place] [address] [address] Referral ID Status Reason Start Date Expiration Date Visits Requested Visits Authorized [id number] Authorized Financial Clearance Required - Self Pay Patient Cleared - Qualified 100% FAS 05/22/2022 08/20/2022 99 99 Reason Comments Established Patient 3 month follow up/PS A Specialty Diagnoses / Procedures Referred By Contac t Referred To Contact Diagnoses 3 MO FOLLOW UP UROL CUEVAS Procedures Office Visit Jim Fernandez DO [address] [place] [address] [facility] Referral ID Status Reason Start Date Expiration Date Visits Requested Visits Authorized [id number] Authorized Patient Cleared - Qualified 100% FAS 01/16/2022 04/16/2022 99 99 Reason Comments Follow Up [facility] ER Reason Comments PSA Results question Reason Comments Patient Update Reason Comments PT Discharge Reason Comments Patient Question Reason Comments Results Reason Comments Appointment Reason Comments Cystoscopy-1 Specialty Diagnoses / Procedures Referred By Contac t Referred To Contact Diagnoses 3 MO FOLLOW UP UROL CUEVAS Procedures Office Visit Jim Fernandez [address] [place] [address] [facility] Specialty Diagnoses / Procedures Referred By Davidac t Referred To Contact UROLOGY Diagnoses Est Procedures PET/CT Jim Fernandez [address] [place] [address] [facility] [address] [place] [address] Reason Comments Prostate Cancer Established Patient Reason Comments Surgical Followup Reason Comments Post Op Update Reason Comments Bleeding still post op Reason Comments Established Patient 3 month follow up/PS A Specialty Diagnoses / Procedures Referred By Contac t Referred To Contact Diagnoses any Procedures any Self [facility] Referral ID Status Reason Start Date Expiration Date Visits Requested Visits Authorized [id number] Authorized Patient Cleared - Qualified 100% FAS 07/11/2022 10/09/2022 99 99 Specialty Diagnoses / Procedures Referred By Contac t Referred To Contact [facility] Diagnoses Stomach pain Procedures COLONOSCOPY DIAGNOSTIC COLONOSCOPY FLX DX W/COLLJ SPEC WHEN PFRMD Jim Fernandez, DO [address] [place] [address] [facility] [address] [place] [address] Referral ID Status Reason Start Date Expiration Date Visits Requested Visits Authorized [id number] Authorized Auto-Generate d Referral Patient Cleared - Qualified 100% FAS 10/04/2022 01/02/2023 99 99 Reason Comments Consult EGD/ Colonoscopy Specialty Diagnoses / Procedures Referred By Elise lincoln Referred To Contact [facility] Diagnoses Stomach pain Procedures COLONOSCOPY DIAGNOSTIC COLONOSCOPY FLX DX W/COLLJ SPEC WHEN PFRMD Jim Fernandez, [address] [place] [address] [address] Reason Comments Medication Question Holding Xarelto vs. Bridge for surgery Reason Comments Established Patient Discuss surgery Reason Comments New Patient Evaluation Mr. Burns is here today to discuss surgery for a right inguinal hernia. Specialty Diagnoses / Procedures Referred By Elise lincoln Referred To Contact [facility] Department Diagnoses lab TRANSCRIBE Procedures LAB [facility], [place] [address] [place] [address] [facility] Dept Referral ID Status Reason Start Date Expiration Date Visits Requested Visits Authorized [id number] Authorized Patient Cleared - Qualified 100% FAS 2 12/20/2022 99 99 Reason Onset Date Comments Transition Of Care 12/28/2022 [facility] Initial [facility] Discharge 12/27/22 Reason Comments Surgical Followup Reason Comments Post Op issues Reason Comments Orders Reason Comments Post-Op Visit Reason Comments Leaking continues with sphincter valve Reason Comments Patient Question Questions Specialty Diagnoses / Procedures Referred By Elise lincoln Referred To Contact [facility] Department Diagnoses ARTIFICIAL URINARY SPHINCTOR W/ DR FERNANDEZ, HERNIA REPAIR WITH DR. FISHER ON 12/24/2022- Procedures COMPLETE PST [place] Jim Jim, DO [address] [place] [address] [facility] Dept Reason Comments Surgery Questions Specialty Diagnoses / Procedures Referred By Contac t Referred To Contact Family Medicine / FAMILY MEDICINE Diagnoses FU Procedures 4C EST Jim Fernandez, [facility] [place] [address] Mena Browne, [employer]ANGER [address] [place] [address] Referral ID Status Reason Start Date Expiration Date Visits Requested Visits Authorized [id number] Authorized Patient Cleared - Qualified 100% FAS 03/29/2023 06/27/2023 99 99 Reason Comments Results Labs Reason Comments Follow Up Prostate Cancer Specialty Diagnoses / Procedures Referred By Contac t Referred To Contact Family Medicine / FAMILY MEDICINE Diagnoses FU Procedures 4C EST Jim Fernandez, [address] [address] Mena Browne, MANAGER [employer].MUSIC ARRANGER [address] [place] [address] Reason Comments Nm Pet Request Reason Comments New Patient Referral ID Status Reason Start Date Expiration Date Visits Requested Visits Authorized [id number] Authorized Patient Cleared - Qualified 100% FAS 06/24/2023 09/22/2023 99 99 Specialty Diagnoses / Procedures Referred By Contac t Referred To Contact CT IMAGING Diagnoses DELIA (stress urinary incontinence), male Procedures CT PELVIS WO IVCON CT PELVIS W/O CONTRAST MATERIAL Jim Fernandez, [address] [place] [address] [facility] Referral ID Status Reason Start Date Expiration Date Visits Requested Visits Authorized [id number] Pending Review Auto-Generat ed Referral 02/21/2023 03/22/2024 [address] Specialty Diagnoses / Procedures Referred By Contac t Referred To Contact [facility]PARTMENT Diagnoses ARTIFICIAL URINARY SPHINCTOR W/ DR FERNANDEZ, HERNIA REPAIR WITH DR. FISHER ON 12/24/2022- JM Procedures COMPLETE PST [place] Jim Jim, [address] [place] [address] [facility] [place] [address] Referral ID Status Reason Start Date Expiration Date V isits Requested Visits Authorized [id number] Closed Patient Cleared - Qualified 100% FAS 12/13/2022 03/13/2023 99 99 Reason Comments Records requested Reason Comments Results PSA Reason Comments Svp Programmatic Tv - Other Appointment- kathy care to Dr. Cantrell Reason Comments PSA order, and follow up appt Reason Comments Follow Up 9 month follow up FOR RECORDS PERTAINING TO PATIENTS WHO ARE OR HAVE BEEN ENROLLED IN A CHEMICAL DEPENDENCY/SUBSTANCEABUSE PROGRAM, SOME INFORMATION MAY BE OMITTED. This clinical summary was aggregated from multiple sources. Caution should be exercised in using it in the provision of clinical care. This summary normalizes information from multiple sources, and as a consequence, information in this document may materially change the coding, format and clinical context of patient data. In addition, data may be omitted in some cases. CLINICAL DECISIONS SHOULD BE BASED ON THE PRIMARY CLINICAL RECORDS. [email or web address] provides no warranty or guarantee of the accuracy or completeness of information in this document.
--- NOTE | 2023-12-31 10:15 | STRESSREP_ITS ---
Stress Test Report Date: 12/31/2023 Procedure: Exercise tolerance test/imaging study Indications: Dyspnea on exertion Consent: Per the patient Procedure: The patient exercised on a Chaitanya protocol for 4 minutes and 37 seconds achieving a peak heart rate of 134 bpm (89% predicted maximal heart rate) with a peak blood pressure 130/68 mmHg and a peak MET capacity of 7.0 METs. The baseline ECG demonstrated sinus rhythm with nonspecific ST changes. The peak exercise ECG demonstrated no ischemic changes. There were no cardiac dysrhythmias pretest, during exercise, or recovery. The functional capacity was considered suboptimal. There was no complaint of chest discomfort during exercise or recovery. The examination was discontinued secondary to target heart rate being achieved. The patient was injected with 11.5 mCi of technetium 99m Cardiolite and subsequently rest SPECT Cardiolite nuclear imaging was obtained in the horizontal long, vertical long, and short axis views. Post-exercise, the patient was injected with 35.3 mCi of technetium 99m Cardiolite and subsequently stress SPECT Cardiolite nuclear imaging was obtained in the horizontal long, vertical long, and short axis views. A gated Cardiolite study at peak stress was obtained. Rest and stress SPECT Cardiolite nuclear imaging status post realignment, normalization, and attenuation correction, demonstrates the appearance of relative uniform tracer uptake and myocardial perfusion appearing within normal limits. There is end systolic thickening and brightening. The gated Cardiolite study demonstrates myocardial thickening and inward wall motion. The reported LVEF is 65%. Impression: 1. Technically adequate (percent predicted maximal heart rate greater than 85%) exercise tolerance test 2. Peak exercise ECG with no ischemic changes 3. There were no cardiac dysrhythmias pretest, during exercise, or recovery 4. Rest and stress SPECT Cardiolite nuclear imaging demonstrate relative uniform tracer uptake and myocardial perfusion appearing within normal limits. 5. The gated Cardiolite study reports an LVEF of 65%. This note was generated with [id number] software. It may contain incorrect words, spelling, and punctuation that were not noted in checking the note before signing.
== END | disposition home or self-care (01) ==
LOC: CVS 06:49
PROVIDERS: PCP Family Medicine; Referring Provider Nurse Practitioner Family; Visit Provider Nurse Practitioner Family
DX: R06.02 Shortness of breath (principal); I48.0 Paroxysmal atrial fibrillation; R06.00 Dyspnea, unspecified; Z51.81 Encounter for therapeutic drug level monitoring; Z79.899 Other long term (current) drug therapy; R00.2 Palpitations; Z86.73 Personal history of transient ischemic attack (TIA), and cerebral infarction without residual deficits; R53.83 Other fatigue
CPT/HCPCS: 78452; 93017; 93306; A9500; A4216

== ENCOUNTER → 2024-08-04 | Outpatient (CLI) | payer OTHER, SELFPAY | END | disposition home or self-care (01) | LOC: PSN 06:59 | PROVIDERS: PCP Family Medicine; Referring Provider Nurse Practitioner Family; Visit Provider Nurse Practitioner Family | DX: R00.1 Bradycardia, unspecified (principal); I48.0 Paroxysmal atrial fibrillation; R00.2 Palpitations | CPT/HCPCS: 93225; 93226 ==

== ENCOUNTER 2024-10-06 09:23 | Emergency (ER) | payer OTHER, SELFPAY ==
[2024-10-06 09:24] VITALS: BP 127/87; PULSE 104; PULSE 98; RESP 14; TEMP 36.3; O2SAT 98; BMI 26.4
--- NOTE | 2024-10-06 09:46 | EKG12_ITS ---
Test Reason : REPEAT Blood Pressure : */* mmHG Vent. Rate : 56 BPM Atrial Rate : 56 BPM P-R Int : 176 ms QRS Dur : 98 ms QT Int : 468 ms P-R-T Axes : 58 53 67 degrees QTcB Int : 451 ms Sinus bradycardia Otherwise normal ECG Confirmed by ALMA DEGROOT, TOMAS ([id number]), editor farm journal YAKOV SAMS ([id number]) on 10/07/2024 12:39:53 PM Referred By: Confirmed By: TOMAS MARQUEZ MD
--- NOTE | 2024-10-06 09:47 | EX.ED.DYSGE1 ---
HPI History of Present Illness Chief Complaint: Palpitations Detail of Chief Complaint: I am in atrial fibrillation Informant: patient and spouse/S.O. Onset/Context/Timing Onset: Today (429) Context: Sudden Onset Timing: Continuous Quality: Irregular heartbeat Location: Cardiovascular Current Severity: Mild Maximum Severity: Mild Worsened by: Nothing Relieved by: Nothing Associated Symptoms Associated Symptoms: None Narrative Narrative: Patient is a 69-year-old male with history of paroxysmal atrial fibrillation, syncope who was evaluated at [facility] November 2021 for CVA. He did receive tPA prior to transfer. He had a echo which revealed a PFO. His ejection fraction was 50%. He had mild enlargement of the left atrium with no significant valvular disease. Patient had recent Holter monitor. He is scheduled see Dr. Chapito Estrada tomorrow to discuss results. Summary interpretation of that revealed a total of 185,187 beats recorded over 48 hours. The average heart rate was 64 bpm. There was a minimal heart rate of 42 and sinus bradycardia. There was a maximum of 96 which was sinus as well. There were a total of 3 ventricular ectopic beats. There were a total of 33 supraventricular ectopic beats and 1 atrial couplet. The longest R-R interval was 1.6 seconds. There was no atrial fibrillation. Conclusion was 48-hour Holter monitor and normal sinus rhythm with rare PVCs/PACs. Patient did have a diary and symptoms did not correlate with any significant tacky dysrhythmia. He presents because at 0430 he felt that his heart went into irregular rhythm. He has a history of paroxysmal atrial fibrillation. He is presently on flecainide 100 mg every 12 hours and 12.5 mg of metoprolol twice daily. This was decreased from 25 because of episodes of sinus bradycardia in the low 40s. Patient is on apixaban. His last dose was at 0500. He denies chest pain, shortness of breath, orthopnea. He does have edema of his lower extremity since his stroke. Right is greater than left. He denies dyspnea on exertion. He has no other complaints. Prior similar symptoms: Yes Recent Illness/Hospitalization: No [facility] Medical History Lymph node cancer Prostate cancer History of stroke Paroxysmal A-fib Syncope Home Medications ?Medication ?Instructions ?Recorded ?Last Taken ?Type metoprolol tartrate 25 mg tablet 12.5 mg (1/2 x 25 mg) PO BID dose 03/09/24 Unknown Rx correction: 1/2 tablet twice daily #90 tabs flecainide 100 mg tablet 100 mg PO Q12H 07/15/24 Unknown History apixaban 5 mg tablet (Eliquis) 5 mg PO BID #180 tabs 08/11/24 Unknown Rx Allergy/AdvReac Type Severity Reaction Status Date / Time No Known Allergies Allergy Verified 10/06/24 09:24 Family History Father , age 66 Myocardial infarction Mother , Age 87 CVA (cerebral vascular accident) Brother H/O cardiac radiofrequency ablation Sister Cancer Brother Cancer leukemia Sister CVA (cerebral vascular accident) Other Dyspnea on exertion Family history of ischemic heart disease Palpitations Syncope Surgical History History of prostatectomy History of transurethral resection of prostate (08/09/21) Social History Smoking Status: Never smoker alcohol intake: never substance use type: does not use caffeine: Yes Type: coffee Number of servings: 1 ROS ROS ED Constitutional Constitutional ED: Denies chills, fever(s), subjective or sweats Eyes Eyes: Denies blurry vision or change in vision Cardiovascular Cardiovascular: Reports palpitations; Denies chest pain, orthopnea, paroxysmal nocturnal dyspnea or racing heartbeat Respiratory/Chest Respiratory/Chest: Denies cough, dyspnea, dyspnea on exertion, orthopnea or paroxysmal nocturnal dyspnea Gastrointestinal Gastrointestinal: Denies abdominal pain, nausea or vomiting Integumentary Denies rash Neurologic Neurologic: Denies weakness Hematologic/Lymphatic Hematologic/Lymphatic: Reports systems reviewed and no addt'l complaints, except as documented EXAM Physical Exam Const Vital Signs: 10/06/24 09:24 10/06/24 09:24 10/06/24 09:38 Temperature 97.3 F L Temperature Source Temporal Pulse Rate 104 H 98 Respiratory Rate 14 Respiratory Effort Normal Respiratory Pattern Normal Blood Pressure 127/87 H Blood Pressure Mean 100 Pulse Ox 98 Oxygen Delivery Method Room Air Positive well nourished and well developed General Appearance ED: well developed, NAD and pallor HEENT Reports moist mucous membranes HEENT Narrative: Head is atraumatic and normocephalic. Ears normal. Nares patent. Eyes PERRL and EOMs intact bilaterally General Eye ED: Negative for pale conjunctiva or scleral icterus Neck supple and no JVD Resp normal respiratory effort and clear to auscultation bilaterally Cardio regular rate, S1 normal heart sound, S2 normal heart sound and no murmurs Rhythm: abnormal rhythm irregularly irregular GI normal to inspection, nondistended, normoactive bowel sounds, non-tender, non-distended and no masses; Negative for hepatosplenomegaly Back/Spine no CVA tenderness Extremity Extremity Narrative: Edema is noted otherwise normal. General Extremety ED: Yes edema General Extremity: edema Neuro oriented x3 and CN's II-XII intact bilaterally Sensorium / Orientation: alert Psych mental status grossly normal Skin no rashes or lesions noted, no wounds and skin turgor normal General Skin Exam: pallor; Negative for elasticity normal or jaundice MDM MDM MDM Narrative Medical decision making narrative: Patient in atrial fibrillation. Reveals narrow complex. Rate is in the 90s. Discussed cardioversion. Patient states he does not want to be cardioverted since he will convert spontaneously. BMP was obtained to assess electrolytes. First EKG reveals atrial fibrillation with nonspecific changes with no acute ischemic changes. Patient cardioverted as I was talking to him and answering his questions after my H&P. Repeat EKG was obtained. Will contact Dr. Chapito jauregui after electrolyte panel results are available for review. History & Record Review Additional record(s) reviewed:: Prior inpatient record (Documented HPI narrative), Prior outpatient record (Documented HPI narrative) and Prior labs Lab Data Labs: Laboratory Results - last 24 hr 10/06/24 09:59 Sodium 140 Potassium 3.9 Chloride 108 H Carbon Dioxide 26.0 Anion Gap 5 BUN 16 Creatinine 0.87 Estim Creat Clear Calc 80.41 Est GFR (MDRD) Af Amer 111 Est GFR (MDRD) Non-Af 92 BUN/Creatinine Ratio 18.3 Glucose 104 Calcium 9.8 Rhythm Strip Rhythm Strip: A-fib Rate: 94 Ectopy: None EKG Initial EKG: Attestation: I personally reviewed and interpreted this EKG as follows: Interpretation: Atrial Flutter (Rate is 93. QRS duration 102 ms. QT duration 104 ms. Emmett is normal. There is nonseptic changes which is actually artifact.) Follow-up EKG: Attestation: I personally reviewed and interpreted this EKG as follows: Interpretation: Sinus Rhythm (Rate is 56. NV interval is under 76 ms per cures duration 98 ms per QT duration 468 ms. Emmett is normal. Other than the sinus bradycardia this is a normal EKG.) Management Discussion w/another healthcare provider: Issuing Operator (See under treatment and reevaluation.) Treatment and Re-Evaluation :: Spoke with Dr. Mustafa who is on-call for the group. He will notify Dr. Chapito Estrada of patient's ER visit. Made aware of patient's Holter monitor results, reason patient presented and initial EKG and second EKG. Discharge Plan Triage Chief Complaint: Palpitations ED Provider: James Santacruz Dx/Rx/DC Orders Clinical Impression: AF (paroxysmal atrial fibrillation), shelter current use of anticoagulant, Encounter for monitoring flecainide therapy, History of stroke, Sinus bradycardia Instructions: ED AFIB Prescriptions: No Action flecainide 100 mg tablet 100 mg PO Q12H Eliquis 5 mg tablet 5 mg PO BID Qty: 180 3RF metoprolol tartrate 25 mg tablet 12.5 mg PO BID Qty: 90 3RF Primary Care Provider: Jose Angel Tolentino Referrals: Jose Angel Tolentino MD [Primary Care Provider] - Wes Estrada MD [Med Staff - Active Staff] - Keep Blanquita appointment Print Language: Uzbek Disposition Disposition: Home, Self Care
[2024-10-06 10:46] LABS: Anion Gap 5 (5-15); BUN 16 mg/dL (7-18); BUN/Creat Ratio 18.3 RATIO (10-20); Calcium,Total 9.8 mg/dL (8.5-10.1); Chloride 108 mmol/L (98-107); Creatinine, Serum 0.87 mg/dL (0.70-1.30); EST Glomerular Filtration Rate 92 mL/min (>60); Est Glom Filt Rate - Afr Amer 111 mL/min (>60); Estimated Creatinine Clearance 80.41 ml/min; Glucose 104 mg/dL (74-106); Potassium 3.9 mmol/L (3.5-5.1); Sodium Level 140 mmol/L (136-145)
[2024-10-06 11:42] VITALS: BP 109/72; PULSE 55; RESP 16; O2SAT 98
[2024-10-06 11:55] VITALS: BP 113/74; PULSE 56; RESP 16; TEMP 36.2; O2SAT 99
== END 2024-10-06 11:57 | disposition home or self-care (01) ==
PROVIDERS: Emergency Provider Emergency Medicine; PCP Family Medicine; Visit Provider Emergency Medicine
DX: I48.0 Paroxysmal atrial fibrillation (principal); Z79.01 Long term (current) use of anticoagulants; Z86.73 Personal history of transient ischemic attack (TIA), and cerebral infarction without residual deficits; Z79.899 Other long term (current) drug therapy
CPT/HCPCS: 80048; 93005; 99284; A4216

== ENCOUNTER → 2025-07-14 | Outpatient (CLI) | payer SELFPAY, OTHER ==
--- NOTE | 2025-07-14 09:12 | STE_ITS ---
Reason For Study Reason For Study: Paroxysmal Atrial Fibrillation; Flecainide Therapy; EKG Changes Stress Results Protocol: Chaitanya Protocol Maximum Predicted HR: 149 bpm Target HR: 127 bpm % Maximum Predicted HR: 85 % DurationHeart Rate Stage (mm:ss) (bpm) BP Comment Baseline 55 120/72No Chest Pain Chaitanya Protocol Stage I 3:00 109 134/74No Chest Pain; Mild Dyspnea Chaitanya Protocol Stage II 3:00 112 154/78No Chest Pain; Moderate Dyspnea Chaitanya Protocol Stage III 1:00 126 / No Chest Pain; Moderate Dyspnea Recovery 77 106/60No Chest Pain; No Dyspnea Stress Duration: 7:00 mm:ss Maximum Stress HR: 126 bpm METS: 10 Baseline Echocardiogram Findings Stress Echo Wall motion Data Resting WM Intermediate WM Stress WM Doppler Measurements & Calculations TR max iraida: 237.5 cm/sec TR max P.6 mmHg ECHO/Stress Test Echo w/o Contrast Interpretation Summary Exercise stress echo. 69-year-old man with a history of paroxysmal atrial fibrillation. Resting EKG demonstrates sinus bradycardia with a rate of 55 bpm resting blood pressure is 120/72 mmHg. The patient exercised according to regular Chaitanya protocol for total duration of 7 minutes. The maximum heart rate was 126 bpm which was 84% of max impacted heart rate the maximum workload was 10.1 metabolic equi valents. At rest and during exercise upsloping ST changes were noted we did not meet the criteria for ischemia. The peak blood pressure was 154/78 mmHg which is a normal blood pressure response to exercise. Stress echocardiogram. Resting echocardiographic evaluation demonstrated ejecti on fraction of 55%. With exercise there was thickening of all villarreal reduction of the ventricular cavity size peaking of ejection fraction of 65%. Conclusion: Stress echocardiogram with no EKG or echocardiographic criteria for ischemia at a high workload. No arrhythmias noted. Good functional capacity. Ordering Physician: Wes Combs Referring Physician: Wes Estrada Performed By: Mukund Alicea RCS
== END | disposition home or self-care (01) ==
PROVIDERS: PCP Family Medicine; Referring Provider Internal Medicine Cardiovascular Disease; Visit Provider Internal Medicine Cardiovascular Disease
DX: I48.0 Paroxysmal atrial fibrillation (principal); R94.31 Abnormal electrocardiogram [ECG] [EKG]; Z51.81 Encounter for therapeutic drug level monitoring; Z79.899 Other long term (current) drug therapy
CPT/HCPCS: 93017; 93350